=== PATIENT | male | born 1995 | race Caucasian/White ===

== ENCOUNTER 2020-08-09 07:11 | Outpatient (REF) | payer OTHER, SELFPAY ==
[2020-08-09 07:54] LABS: MANUAL DIFF FLAG NO
[2020-08-09 08:00] LABS: Basophils Percent Auto 0.4 % (0-2); Eosinophils Absolute Auto 0.4 X10*3/uL (0.0-0.4); Eosinophils Percent Auto 4.1 % (0-4); Hematocrit 45.3 % (42-52); Hemoglobin 14.4 g/dl (14.0-18.0); Imm Gran Abs Auto 0.05 X10*3/uL (0.00-0.03); Imm Gran Pct Auto 0.5 % (0.0-0.4); Lymphocytes Absolute Auto 3.1 X10*3/uL (1.2-4.9); Mean Corpuscular HGB Conc 31.8 g/dl (31.0-36.0); Mean Corpuscular Hemoglobin 26.1 pg (27.0-33.0); Mean Corpuscular Volume 82.2 fL (80-98); Mean Platelet Volume 8.6 fL (9.4-12.4); Monocytes Absolute Auto 0.7 X10*3/uL (0.1-1.2); Neutrophils Absolute Auto 5.4 X10*3/uL (2.0-8.3); Platelet Count 324 X10*3/uL (160-400); Red Blood Count 5.51 X10*6/uL (4.60-5.80); Red Cell Distribution Width 12.9 % (11.0-16.0); White Blood Count 9.7 X10*3/uL (4.8-10.8)
[2020-08-09 08:19] LABS: Anion Gap 11 (12-20); Blood Urea Nitrogen 14 mg/dL (9-16); Calcium 8.3 mg/dL (8.4-10.2); Carbon Dioxide 24 mmol/L (22-29); Chloride 107 mmol/L (96-108); Cholesterol 119 mg/dL; Estimated Glomerular Filt Rate > 60; Glucose Random 95 mg/dL (60-115); HDL Cholesterol 39 mg/dL; LDL Cholesterol Calculated 67 mg/dl; Potassium 4.3 mmol/l (3.3-5.1); Sodium 138 mmol/L (135-145); Triglycerides 69 mg/dL
[2020-08-09 08:36] LABS: Estimated Average Glucose 114 mg/dL; Hemoglobin A1c % 5.6 %
[2020-08-09 10:38] LABS: Creatinine Urine 125.18 mg/dL; Microalbum/Creatinine Ratio Ur 4.7 ug/mg cr
[2020-08-10 12:11] LABS: Prolactin 5.6 ng/mL (2.0-18.0)
[2020-08-11 12:17] LABS: Insulin Level Total 39.6 uIU/mL
== END 2020-08-09 07:12 | disposition home or self-care (01) ==
LOC: HO.LAB 07:11
PROVIDERS: Absent Provider Nurse Practitioner Gerontology; Visit Provider Registered Nurse Psychiatric/Mental Health
DX: F84.0 Autistic disorder (principal); E11.65 Type 2 diabetes mellitus with hyperglycemia; Z79.899 Other long term (current) drug therapy
CPT/HCPCS: 36415; 80048; 80061; 82043; 83036; 83525; 84146; 85025

== ENCOUNTER → 2020-11-04 08:58 | Outpatient (BNVA) | payer OTHER, SELFPAY | PROVIDERS: PCP Internal Medicine; Visit Provider Nurse Practitioner Gerontology ==

== ENCOUNTER 2021-06-06 19:35 | Emergency (ER) | payer OTHER, SELFPAY ==
[2021-06-06 19:46] VITALS: PULSE 84
--- NOTE | 2021-06-06 19:48 | ED_ITS ---
HPI - Psych General Chief Complaint: Psychiatric Symptoms <KRISTA Ng Last Filed: 06/07/21 02:05> Stated Complaint: CRISIS <KRISTA Ng Last Filed: 06/07/21 02:05> Time Seen by Provider: 06/06/21 19:47 <KRISTA Ng Last Filed: 06/07/21 02:05> Source: patient and EMS <KRISTA Ng Last Filed: 06/07/21 02:05> Mode of arrival: EMS <KRISTA Ng Last Filed: 06/07/21 02:05> Limitations: no limitations <KRISTA Ng Last Filed: 06/07/21 02:05> History of Present Illness HPI Narrative: 25 y/o male with history of significant cognitive delay, ADHD, DM2 on insulin who presents to the ER via EMS from home with violent and aggressive outburst. Mom had taken him to the [facility] prior. When they got home he suddenly became very angry and was throwing things. He broke a window. He could not be calmed down so Mom called 911. Mom reports for the last few days he has been acting strange. She came home the other day and he had shaved his entire head. Mother administers his medications every day and he has been taking them all as directed. On EMS arrival patient had calmed down, no medications were given. On arrival to the ER patient remained calm and cooperative. <KRISTA Ng Last Filed: 06/07/21 02:05> MD complaint: other (aggressive behavior) <KRISTA Ng - Last Filed: 06/07/21 02:05> Onset (ago): hour(s) <KRISTA Ng Last Filed: 06/07/21 02:05> Duration: resolved prior to arrival <KRISTA Ng - Last Filed: 06/07/21 02:05> History of same: Yes <KRISTA Ng Last Filed: 06/07/21 02:05> Relieving factors: none <KRISTA Ng Last Filed: 06/07/21 02:05> Exacerbating factors: none <KRISTA Ng - Last Filed: 06/07/21 02:05> Associated psychiatric symptoms: none <KRISTA Ng - Last Filed: 06/07/21 02:05> Associated symptoms: denies other symptoms <KRISTA Ng - Last Filed: 06/07/21 02:05> Treatments prior to arrival: none <KRISTA Ng - Last Filed: 06/07/21 02:05> Related Data Home Medications: Home Medications Medication Instructions Recorded Confirmed albuterol sulfate 90 mcg/actuation 1 puff PO Q4H PRN 11/04/20 06/06/21 aerosol inhaler aripiprazole 5 mg tablet 5 mg PO BEDTIME 11/04/20 06/06/21 benztropine 0.5 mg tablet 0.5 mg PO BID 11/04/20 06/06/21 blood sugar diagnostic #10 ea 11/04/20 11/04/20 clonidine HCl 0.1 mg tablet 0.1 mg PO DAILY 11/04/20 06/06/21 flash glucose sensor (FreeStyle #1 ea 11/04/20 11/04/20 Taj 14 Day Sensor) pen needle, diabetic 31 gauge x #1200 ea 11/04/20 11/04/20 5/16 topiramate 100 mg tablet 100 mg PO BID 11/04/20 06/06/21 trazodone 100 mg tablet 200 mg PO tab 11/04/20 11/04/20 Abilify 10 mg PO DAILY 06/06/21 06/06/21 clonidine 0.2 mg PO BEDTIME 06/06/21 06/06/21 dextroamphetamine-amphetamine ER 2 cap PO QAM 06/06/21 06/06/21 20 mg 24hr capsule,extend release (Adderall XR) dulaglutide 0.75 mg/0.5 mL 0.25 mg SUBCUT QWEEK 06/06/21 06/06/21 subcutaneous pen injector (Trulicity) insulin degludec 200 unit/mL (3 10 unit SUBCUT BEDTIME 06/06/21 06/06/21 mL) subcutaneous pen (Tresiba FlexTouch U-200 insulin) Previous Rx's Medication Instructions Recorded flash glucose sensor (FreeStyle #2 ea 11/04/20 Taj 14 Day Sensor) metformin 500 mg tablet,extended 500 mg PO BID #60 tab 11/04/20 release 24 hr pen needle, diabetic 32 gauge x #30 ea 11/04/20 (BD Ultra-Fine Emely Pen Needle) atorvastatin 40 mg tablet 40 mg PO DAILY #90 tab 04/26/21 <KRISTA Ng Last Filed: 06/07/21 02:05> Allergies/Adverse Reactions: Allergies Allergy/AdvReac Type Severity Reaction Status Date / Time No Known Allergies Allergy Unverified 11/04/20 11:20 [No Known Allergies*] <KRISTA Ng Last Filed: 06/07/21 02:05> Review of Systems Constitutional: Constitutional: Denies chills and Denies fever(s) <KRISTA Ng Last Filed: 06/07/21 02:05> Eyes: Eyes: Reports no additional eye complaints <KRISTA Ng Last Filed: 06/07/21 02:05> ENT: Reports Normal hearing present, Denies neck pain and Denies sore throat <KRISTA Ng Last Filed: 06/07/21 02:05> Cardiovascular: Cardiovascular: Denies chest pain and Denies dyspnea <KRISTA Ng Last Filed: 06/07/21 02:05> Respiratory: Respiratory: Denies cough and Denies dyspnea <KRISTA Ng Last Filed: 06/07/21 02:05> Gastrointestinal: Gastrointestinal: Denies abdominal pain, Denies nausea and Denies vomiting <KRISTA Ng Last Filed: 06/07/21 02:05> Musculoskeletal: Musculoskeletal: Denies neck pain <KRISTA Ng Last Filed: 06/07/21 02:05> Integumentary/Breasts: Skin/Breast: Reports pruritus, Reports new lesions and Reports rash <KRISTA Ng Last Filed: 06/07/21 02:05> Neurologic: Reports Normal hearing present <KRISTA Ng Last Filed: 06/07/21 02:05> Psychiatric: Psychiatric: Reports irritability, Reports mood swings, Denies homicidal ideation and Denies suicidal ideation <KRISTA Ng Last Filed: 06/07/21 02:05> Hematologic/Lymphatic: Hematologic/Lymphatic: Denies easy bleeding and Denies easy bruising <KRISTA Ng - Last Filed: 06/07/21 02:05> Allergic/Immunologic: Allergic/Immunologic: Denies urticaria <KRISTA Ng - Last Filed: 06/07/21 02:05> [facility] Past Medical History Medical History: Medical History Diabetes mellitus type 2, controlled, without complications Hyperlipidemia LDL goal <100 Type 2 diabetes mellitus with hyperglycemia, with long-term current use of insulin Type 2 diabetes mellitus with hypoglycemia without coma <KRISTA Ng - Last Filed: 06/07/21 02:05> Surgical History: Surgical History No history of previous surgery <KRISTA Ng - Last Filed: 06/07/21 02:05> Social History Social History: Social History (Updated 11/04/20 @ 09:00 by Reese Maloney [facility]) Household Members: Family Alcohol intake: never Patient Tobacco Use Status: Never used Tobacco Use of substances other than those prescribed or required for medical reasons: No Advance Directives: No <KRISTA Ng - Last Filed: 06/07/21 02:05> Physical Exam Vital Signs: Vital Signs: Last Vital Signs Temp 98.3 F 06/07/21 14:24 Pulse 76 06/07/21 14:24 Resp 16 06/07/21 14:24 BP 122/80 06/07/21 14:24 Pulse Ox 98 06/07/21 14:24 Body Mass Index 38.0 <KRISTA Ng - Last Filed: 06/07/21 02:05> Vital Signs: Last Vital Signs Temp 98.3 F 06/07/21 14:24 Pulse 76 06/07/21 14:24 Resp 16 06/07/21 14:24 BP 122/80 06/07/21 14:24 Pulse Ox 98 06/07/21 14:24 Body Mass Index 38.0 <Freddie Maradiaga MD - Last Filed: 06/07/21 09:57> Vital Signs: Last Vital Signs Temp 98.3 F 06/07/21 14:24 Pulse 76 06/07/21 14:24 Resp 16 06/07/21 14:24 BP 122/80 06/07/21 14:24 Pulse Ox 98 06/07/21 14:24 Body Mass Index 38.0 <Dominga Pleitez DO - Last Filed: 06/07/21 15:22> Appearance: Alert. Oriented X3. No acute distress. Eyes: Pupils equal, round and reactive to light. ENT: Pharynx normal. Neck: Normal inspection. Neck supple. CVS: Normal heart rate and rhythm. Pulses normal. Respiratory: No respiratory distress. Breath sounds normal. Abdomen: Obese, Soft and nontender. +BS x4 Skin: Skin warm and dry. Normal skin color. Normal skin turgor. No rashes. Extremities: No lower extremity edema. No traumatic injuries noted. left forearm with raised puritic rash & excoriations Neuro/psych: Oriented X 3. Slow to respond at times, refuses to answer some questions, simple answers, does not engage. denies SI/HI <KRISTA Ng - Last Filed: 06/07/21 02:05> Const: General: cooperative, comfortable and no acute distress <KRISTA Ng - Last Filed: 06/07/21 02:05> Nutritional Appearance: overweight <KRISTA Ng - Last Filed: 06/07/21 02:05> Orientation/consciousness: patient oriented x3 <KRISTA Ng Last Filed: 06/07/21 02:05> Limitations: other limitations (patient not answering some questions) <KRISTA Ng - Last Filed: 06/07/21 02:05> Neuro: General: patient oriented x3 <KRISTA Ng Last Filed: 06/07/21 02:05> Cranial nerves: Yes Normal hearing present <KRISTA Ng Last Filed: 06/07/21 02:05> Course Course Course Narrative: 25 y/o male with significant cognative delay presents from home with violent outburst and odd behaviors for the last few days. Will get metabolic workup and have [facility] evaluate him. <KRISTA Ng - Last Filed: 06/07/21 02:05> Reevaluation(s) Reevaluation #1: WBC 12.5 no signs of infection. Labs otherwise are unremarkable. Home med rec done. Patient cooperative. Physician observation started at 10pm. Patient placed in physician observation because patient is awaiting [facility] evaluation for the possible need of inpatient psych admission. At the time observation was started patient's vital signs were stable. Patient is alert and oriented. Neuro exam is non-focal. CV: RRR and lungs are clear. Will continue to monitor. <KRISTA Ng - Last Filed: 06/07/21 02:05> WBC 12.5 no signs of infection. Labs otherwise are unremarkable. Home med rec done. Patient cooperative. Physician observation started at 10pm. Patient placed in physician observation because patient is awaiting [facility] evaluation for the possible need of inpatient psych admission. At the time observation was started patient's vital signs were stable. Patient is alert and oriented. Neuro exam is non-focal. CV: RRR and lungs are clear. Will continue to monitor. 06/07/2021, 0954: Physician observation continued. Patient was evaluated by [facility] at 9:30 a.m. Patient has a history of mental deficiency/delay and was aggressive at home, destroying his room. The [facility] therapist determined that the patient will require inpatient therapy, therefore the patient was placed on a Section 12 and a bed search will be performed. At this time, the patient isresting comfortably, NAD, lungs clear, CV RRR, Abd nontender, Neuro intact. <Freddie Maradiaga MD - Last Filed: 06/07/21 09:57> Consultations Consultation #1: bhn <KRISTA Ng - Last Filed: 06/07/21 02:05> MDM - Psych Lab Data Result diagrams: : 06/06/21 21:09 06/06/21 21:09 <KRISTA Ng - Last Filed: 06/07/21 02:05> Labs: Lab Results 06/06/21 06/06/21 06/06/21 Range/Units 20:11 20:11 20:11 WBC (4.8-10.8) X10*3/uL RBC (4.60-5.80) X10*6/uL Hgb (14.0-18.0) g/dl Hct (42-52) % MCV (80-98) fL MCH (27.0-33.0) pg MCHC (31.0-36.0) g/dl RDW (11.0-16.0) % Plt Count (160-400) X10*3/uL MPV (9.4-12.4) fL Immature Gran % (Auto) (0.0-0.4) % Neut % (Auto) (45-73) % Lymph % (Auto) (20-40) % Worth % (Auto) (2-11) % Eos % (Auto) (0-4) % Baso % (Auto) (0-2) % Lymph # (Auto) (1.2-4.9) X10*3/uL Worth # (Auto) (0.1-1.2) X10*3/uL Eos # (Auto) (0.0-0.4) X10*3/uL Baso # (Auto) (0.0-0.2) X10*3/uL Abs Immat Gran (auto) (0.00-0.03) X10*3/uL Absolute Neuts (auto) (2.0-8.3) X10*3/uL Absolute Nucleated RBC (0.0-0.012) X10*3/uL Nucleated RBC % (auto) (0.0-0.2) /100WBC Sodium (135-145) mmol/L Potassium (3.3-5.1) mmol/L Chloride (96-108) mmol/L Carbon Dioxide (22-29) mmol/L Anion Gap (12-20) BUN (9-16) mg/dL Creatinine (0.5-1.4) mg/dL Estim Creat Clear Calc Estimated GFR POC Glucose (60-115) mg/dL Random Glucose (60-115) mg/dL Calcium (8.4-10.2) mg/dL Magnesium (1.6-2.6) mg/dL Total Bilirubin (0.0-1.0) mg/dL Direct Bilirubin (0.0-0.5) mg/dL AST (5-37) U/L ALT (0-40) U/L Alkaline Phosphatase (39-117) U/L Total Protein (6.5-8.0) g/dL Albumin (3.5-5.0) g/dL Urine Color YELLOW Urine Appearance CLEAR Urine pH 6.0 (5.0-8.0) Ur Specific [place] 1.025 (1.005-1.025) Urine Protein NEG (NEG-TRACE) MG/DL Urine Glucose (UA) NEG (NEG) MG/DL Urine Ketones NEG (NEG) MG/DL Urine Blood NEG (NEG) Urine Nitrite NEG (NEG) Ur Leukocyte Esterase NEG (NEG) Urine Opiates Screen Not Detected (Not Detect) Urine Fentanyl Screen Not Detected (Not Detect) Ur Barbiturates Screen Not Detected (Not Detect) Ur Phencyclidine Scrn Not Detected (Not Detect) Ur Amphetamines Screen POSITIVE H (Not Detect) U Benzodiazepines Scrn Not Detected (Not Detect) Urine Cocaine Screen Not Detected (Not Detect) U Marijuana (THC) Screen Not Detected (Not Detect) Ethyl Alcohol mg/dL COVID-19 ([facility]) Negative (Negative) COVID-19 Clin Com See Note 06/06/21 06/06/21 06/06/21 Range/Units 21:09 21:09 21:09 WBC 12.5 H (4.8-10.8) X10*3/uL RBC 5.68 (4.60-5.80) X10*6/uL Hgb 14.9 (14.0-18.0) g/dl Hct 45.5 (42-52) % MCV 80.1 (80-98) fL MCH 26.2 L (27.0-33.0) pg MCHC 32.7 (31.0-36.0) g/dl RDW 13.8 (11.0-16.0) % Plt Count 397 (160-400) X10*3/uL MPV 8.1 L (9.4-12.4) fL Immature Gran % (Auto) 0.5 H (0.0-0.4) % Neut % (Auto) 58.5 (45-73) % Lymph % (Auto) 30.2 (20-40) % Worth % (Auto) 6.4 (2-11) % Eos % (Auto) 4.0 (0-4) % Baso % (Auto) 0.4 (0-2) % Lymph # (Auto) 3.8 (1.2-4.9) X10*3/uL Worth # (Auto) 0.8 (0.1-1.2) X10*3/uL Eos # (Auto) 0.5 H (0.0-0.4) X10*3/uL Baso # (Auto) 0.1 (0.0-0.2) X10*3/uL Abs Immat Gran (auto) 0.06 H (0.00-0.03) X10*3/uL Absolute Neuts (auto) 7.3 (2.0-8.3) X10*3/uL Absolute Nucleated RBC 0.000 (0.0-0.012) X10*3/uL Nucleated RBC % (auto) 0.0 (0.0-0.2) /100WBC Sodium 142 (135-145) mmol/L Potassium 3.9 (3.3-5.1) mmol/L Chloride 110 H (96-108) mmol/L Carbon Dioxide 22 (22-29) mmol/L Anion Gap 14 (12-20) BUN 12 (9-16) mg/dL Creatinine 1.11 (0.5-1.4) mg/dL Estim Creat Clear Calc 124.3 Estimated GFR > 60 POC Glucose (60-115) mg/dL Random Glucose 102 (60-115) mg/dL Calcium 9.4 D (8.4-10.2) mg/dL Magnesium 2.0 (1.6-2.6) mg/dL Total Bilirubin 0.6 (0.0-1.0) mg/dL Direct Bilirubin 0.2 (0.0-0.5) mg/dL AST 23 (5-37) U/L ALT 27 (0-40) U/L Alkaline Phosphatase 126 H (39-117) U/L Total Protein 7.8 (6.5-8.0) g/dL Albumin 4.2 (3.5-5.0) g/dL Urine Color Urine Appearance Urine pH (5.0-8.0) Ur Specific [place] (1.005-1.025) Urine Protein (NEG-TRACE) MG/DL Urine Glucose (UA) (NEG) MG/DL Urine Ketones (NEG) MG/DL Urine Blood (NEG) Urine Nitrite (NEG) Ur Leukocyte Esterase (NEG) Urine Opiates Screen (Not Detect) Urine Fentanyl Screen (Not Detect) Ur Barbiturates Screen (Not Detect) Ur Phencyclidine Scrn (Not Detect) Ur Amphetamines Screen (Not Detect) U Benzodiazepines Scrn (Not Detect) Urine Cocaine Screen (Not Detect) U Marijuana (THC) Screen (Not Detect) Ethyl Alcohol mg/dL COVID-19 ([facility]) (Negative) COVID-19 Clin Com 06/06/21 06/07/21 06/07/21 Range/Units 21:09 06:32 12:07 WBC (4.8-10.8) X10*3/uL RBC (4.60-5.80) X10*6/uL Hgb (14.0-18.0) g/dl Hct (42-52) % MCV (80-98) fL MCH (27.0-33.0) pg MCHC (31.0-36.0) g/dl RDW (11.0-16.0) % Plt Count (160-400) X10*3/uL MPV (9.4-12.4) fL Immature Gran % (Auto) (0.0-0.4) % Neut % (Auto) (45-73) % Lymph % (Auto) (20-40) % Worth % (Auto) (2-11) % Eos % (Auto) (0-4) % Baso % (Auto) (0-2) % Lymph # (Auto) (1.2-4.9) X10*3/uL Worth # (Auto) (0.1-1.2) X10*3/uL Eos # (Auto) (0.0-0.4) X10*3/uL Baso # (Auto) (0.0-0.2) X10*3/uL Abs Immat Gran (auto) (0.00-0.03) X10*3/uL Absolute Neuts (auto) (2.0-8.3) X10*3/uL Absolute Nucleated RBC (0.0-0.012) X10*3/uL Nucleated RBC % (auto) (0.0-0.2) /100WBC Sodium (135-145) mmol/L Potassium (3.3-5.1) mmol/L Chloride (96-108) mmol/L Carbon Dioxide (22-29) mmol/L Anion Gap (12-20) BUN (9-16) mg/dL Creatinine (0.5-1.4) mg/dL Estim Creat Clear Calc Estimated GFR POC Glucose 90 107 (60-115) mg/dL Random Glucose (60-115) mg/dL Calcium (8.4-10.2) mg/dL Magnesium (1.6-2.6) mg/dL Total Bilirubin (0.0-1.0) mg/dL Direct Bilirubin (0.0-0.5) mg/dL AST (5-37) U/L ALT (0-40) U/L Alkaline Phosphatase (39-117) U/L Total Protein (6.5-8.0) g/dL Albumin (3.5-5.0) g/dL Urine Color Urine Appearance Urine pH (5.0-8.0) Ur Specific [place] (1.005-1.025) Urine Protein (NEG-TRACE) MG/DL Urine Glucose (UA) (NEG) MG/DL Urine Ketones (NEG) MG/DL Urine Blood (NEG) Urine Nitrite (NEG) Ur Leukocyte Esterase (NEG) Urine Opiates Screen (Not Detect) Urine Fentanyl Screen (Not Detect) Ur Barbiturates Screen (Not Detect) Ur Phencyclidine Scrn (Not Detect) Ur Amphetamines Screen (Not Detect) U Benzodiazepines Scrn (Not Detect) Urine Cocaine Screen (Not Detect) U Marijuana (THC) Screen (Not Detect) Ethyl Alcohol < 10 mg/dL COVID-19 ([facility]) (Negative) COVID-19 Clin Com <KRISTA Ng - Last Filed: 06/07/21 02:05> Lab Results 06/06/21 06/06/21 06/06/21 Range/Units 20:11 20:11 20:11 WBC (4.8-10.8) X10*3/uL RBC (4.60-5.80) X10*6/uL Hgb (14.0-18.0) g/dl Hct (42-52) % MCV (80-98) fL MCH (27.0-33.0) pg MCHC (31.0-36.0) g/dl RDW (11.0-16.0) % Plt Count (160-400) X10*3/uL MPV (9.4-12.4) fL Immature Gran % (Auto) (0.0-0.4) % Neut % (Auto) (45-73) % Lymph % (Auto) (20-40) % Worth % (Auto) (2-11) % Eos % (Auto) (0-4) % Baso % (Auto) (0-2) % Lymph # (Auto) (1.2-4.9) X10*3/uL Worth # (Auto) (0.1-1.2) X10*3/uL Eos # (Auto) (0.0-0.4) X10*3/uL Baso # (Auto) (0.0-0.2) X10*3/uL Abs Immat Gran (auto) (0.00-0.03) X10*3/uL Absolute Neuts (auto) (2.0-8.3) X10*3/uL Absolute Nucleated RBC (0.0-0.012) X10*3/uL Nucleated RBC % (auto) (0.0-0.2) /100WBC Sodium (135-145) mmol/L Potassium (3.3-5.1) mmol/L Chloride (96-108) mmol/L Carbon Dioxide (22-29) mmol/L Anion Gap (12-20) BUN (9-16) mg/dL Creatinine (0.5-1.4) mg/dL Estim Creat Clear Calc Estimated GFR POC Glucose (60-115) mg/dL Random Glucose (60-115) mg/dL Calcium (8.4-10.2) mg/dL Magnesium (1.6-2.6) mg/dL Total Bilirubin (0.0-1.0) mg/dL Direct Bilirubin (0.0-0.5) mg/dL AST (5-37) U/L ALT (0-40) U/L Alkaline Phosphatase (39-117) U/L Total Protein (6.5-8.0) g/dL Albumin (3.5-5.0) g/dL Urine Color YELLOW Urine Appearance CLEAR Urine pH 6.0 (5.0-8.0) Ur Specific [place] 1.025 (1.005-1.025) Urine Protein NEG (NEG-TRACE) MG/DL Urine Glucose (UA) NEG (NEG) MG/DL Urine Ketones NEG (NEG) MG/DL Urine Blood NEG (NEG) Urine Nitrite NEG (NEG) Ur Leukocyte Esterase NEG (NEG) Urine Opiates Screen Not Detected (Not Detect) Urine Fentanyl Screen Not Detected (Not Detect) Ur Barbiturates Screen Not Detected (Not Detect) Ur Phencyclidine Scrn Not Detected (Not Detect) Ur Amphetamines Screen POSITIVE H (Not Detect) U Benzodiazepines Scrn Not Detected (Not Detect) Urine Cocaine Screen Not Detected (Not Detect) U Marijuana (THC) Screen Not Detected (Not Detect) Ethyl Alcohol mg/dL COVID-19 ([facility]) Negative (Negative) COVID-19 Clin Com See Note 06/06/21 06/06/21 06/06/21 Range/Units 21:09 21:09 21:09 WBC 12.5 H (4.8-10.8) X10*3/uL RBC 5.68 (4.60-5.80) X10*6/uL Hgb 14.9 (14.0-18.0) g/dl Hct 45.5 (42-52) % MCV 80.1 (80-98) fL MCH 26.2 L (27.0-33.0) pg MCHC 32.7 (31.0-36.0) g/dl RDW 13.8 (11.0-16.0) % Plt Count 397 (160-400) X10*3/uL MPV 8.1 L (9.4-12.4) fL Immature Gran % (Auto) 0.5 H (0.0-0.4) % Neut % (Auto) 58.5 (45-73) % Lymph % (Auto) 30.2 (20-40) % Worth % (Auto) 6.4 (2-11) % Eos % (Auto) 4.0 (0-4) % Baso % (Auto) 0.4 (0-2) % Lymph # (Auto) 3.8 (1.2-4.9) X10*3/uL Worth # (Auto) 0.8 (0.1-1.2) X10*3/uL Eos # (Auto) 0.5 H (0.0-0.4) X10*3/uL Baso # (Auto) 0.1 (0.0-0.2) X10*3/uL Abs Immat Gran (auto) 0.06 H (0.00-0.03) X10*3/uL Absolute Neuts (auto) 7.3 (2.0-8.3) X10*3/uL Absolute Nucleated RBC 0.000 (0.0-0.012) X10*3/uL Nucleated RBC % (auto) 0.0 (0.0-0.2) /100WBC Sodium 142 (135-145) mmol/L Potassium 3.9 (3.3-5.1) mmol/L Chloride 110 H (96-108) mmol/L Carbon Dioxide 22 (22-29) mmol/L Anion Gap 14 (12-20) BUN 12 (9-16) mg/dL Creatinine 1.11 (0.5-1.4) mg/dL Estim Creat Clear Calc 124.3 Estimated GFR > 60 POC Glucose (60-115) mg/dL Random Glucose 102 (60-115) mg/dL Calcium 9.4 D (8.4-10.2) mg/dL Magnesium 2.0 (1.6-2.6) mg/dL Total Bilirubin 0.6 (0.0-1.0) mg/dL Direct Bilirubin 0.2 (0.0-0.5) mg/dL AST 23 (5-37) U/L ALT 27 (0-40) U/L Alkaline Phosphatase 126 H (39-117) U/L Total Protein 7.8 (6.5-8.0) g/dL Albumin 4.2 (3.5-5.0) g/dL Urine Color Urine Appearance Urine pH (5.0-8.0) Ur Specific [place] (1.005-1.025) Urine Protein (NEG-TRACE) MG/DL Urine Glucose (UA) (NEG) MG/DL Urine Ketones (NEG) MG/DL Urine Blood (NEG) Urine Nitrite (NEG) Ur Leukocyte Esterase (NEG) Urine Opiates Screen (Not Detect) Urine Fentanyl Screen (Not Detect) Ur Barbiturates Screen (Not Detect) Ur Phencyclidine Scrn (Not Detect) Ur Amphetamines Screen (Not Detect) U Benzodiazepines Scrn (Not Detect) Urine Cocaine Screen (Not Detect) U Marijuana (THC) Screen (Not Detect) Ethyl Alcohol mg/dL COVID-19 ([facility]) (Negative) COVID-19 Clin Com 06/06/21 06/07/21 06/07/21 Range/Units 21:09 06:32 12:07 WBC (4.8-10.8) X10*3/uL RBC (4.60-5.80) X10*6/uL Hgb (14.0-18.0) g/dl Hct (42-52) % MCV (80-98) fL MCH (27.0-33.0) pg MCHC (31.0-36.0) g/dl RDW (11.0-16.0) % Plt Count (160-400) X10*3/uL MPV (9.4-12.4) fL Immature Gran % (Auto) (0.0-0.4) % Neut % (Auto) (45-73) % Lymph % (Auto) (20-40) % Worth % (Auto) (2-11) % Eos % (Auto) (0-4) % Baso % (Auto) (0-2) % Lymph # (Auto) (1.2-4.9) X10*3/uL Worth # (Auto) (0.1-1.2) X10*3/uL Eos # (Auto) (0.0-0.4) X10*3/uL Baso # (Auto) (0.0-0.2) X10*3/uL Abs Immat Gran (auto) (0.00-0.03) X10*3/uL Absolute Neuts (auto) (2.0-8.3) X10*3/uL Absolute Nucleated RBC (0.0-0.012) X10*3/uL Nucleated RBC % (auto) (0.0-0.2) /100WBC Sodium (135-145) mmol/L Potassium (3.3-5.1) mmol/L Chloride (96-108) mmol/L Carbon Dioxide (22-29) mmol/L Anion Gap (12-20) BUN (9-16) mg/dL Creatinine (0.5-1.4) mg/dL Estim Creat Clear Calc Estimated GFR POC Glucose 90 107 (60-115) mg/dL Random Glucose (60-115) mg/dL Calcium (8.4-10.2) mg/dL Magnesium (1.6-2.6) mg/dL Total Bilirubin (0.0-1.0) mg/dL Direct Bilirubin (0.0-0.5) mg/dL AST (5-37) U/L ALT (0-40) U/L Alkaline Phosphatase (39-117) U/L Total Protein (6.5-8.0) g/dL Albumin (3.5-5.0) g/dL Urine Color Urine Appearance Urine pH (5.0-8.0) Ur Specific [place] (1.005-1.025) Urine Protein (NEG-TRACE) MG/DL Urine Glucose (UA) (NEG) MG/DL Urine Ketones (NEG) MG/DL Urine Blood (NEG) Urine Nitrite (NEG) Ur Leukocyte Esterase (NEG) Urine Opiates Screen (Not Detect) Urine Fentanyl Screen (Not Detect) Ur Barbiturates Screen (Not Detect) Ur Phencyclidine Scrn (Not Detect) Ur Amphetamines Screen (Not Detect) U Benzodiazepines Scrn (Not Detect) Urine Cocaine Screen (Not Detect) U Marijuana (THC) Screen (Not Detect) Ethyl Alcohol < 10 mg/dL COVID-19 ([facility]) (Negative) COVID-19 Clin Com <Freddie Maradiaga MD - Last Filed: 06/07/21 09:57> Lab Results 06/06/21 06/06/21 06/06/21 Range/Units 20:11 20:11 20:11 WBC (4.8-10.8) X10*3/uL RBC (4.60-5.80) X10*6/uL Hgb (14.0-18.0) g/dl Hct (42-52) % MCV (80-98) fL MCH (27.0-33.0) pg MCHC (31.0-36.0) g/dl RDW (11.0-16.0) % Plt Count (160-400) X10*3/uL MPV (9.4-12.4) fL Immature Gran % (Auto) (0.0-0.4) % Neut % (Auto) (45-73) % Lymph % (Auto) (20-40) % Worth % (Auto) (2-11) % Eos % (Auto) (0-4) % Baso % (Auto) (0-2) % Lymph # (Auto) (1.2-4.9) X10*3/uL Worth # (Auto) (0.1-1.2) X10*3/uL Eos # (Auto) (0.0-0.4) X10*3/uL Baso # (Auto) (0.0-0.2) X10*3/uL Abs Immat Gran (auto) (0.00-0.03) X10*3/uL Absolute Neuts (auto) (2.0-8.3) X10*3/uL Absolute Nucleated RBC (0.0-0.012) X10*3/uL Nucleated RBC % (auto) (0.0-0.2) /100WBC Sodium (135-145) mmol/L Potassium (3.3-5.1) mmol/L Chloride (96-108) mmol/L Carbon Dioxide (22-29) mmol/L Anion Gap (12-20) BUN (9-16) mg/dL Creatinine (0.5-1.4) mg/dL Estim Creat Clear Calc Estimated GFR POC Glucose (60-115) mg/dL Random Glucose (60-115) mg/dL Calcium (8.4-10.2) mg/dL Magnesium (1.6-2.6) mg/dL Total Bilirubin (0.0-1.0) mg/dL Direct Bilirubin (0.0-0.5) mg/dL AST (5-37) U/L ALT (0-40) U/L Alkaline Phosphatase (39-117) U/L Total Protein (6.5-8.0) g/dL Albumin (3.5-5.0) g/dL Urine Color YELLOW Urine Appearance CLEAR Urine pH 6.0 (5.0-8.0) Ur Specific [place] 1.025 (1.005-1.025) Urine Protein NEG (NEG-TRACE) MG/DL Urine Glucose (UA) NEG (NEG) MG/DL Urine Ketones NEG (NEG) MG/DL Urine Blood NEG (NEG) Urine Nitrite NEG (NEG) Ur Leukocyte Esterase NEG (NEG) Urine Opiates Screen Not Detected (Not Detect) Urine Fentanyl Screen Not Detected (Not Detect) Ur Barbiturates Screen Not Detected (Not Detect) Ur Phencyclidine Scrn Not Detected (Not Detect) Ur Amphetamines Screen POSITIVE H (Not Detect) U Benzodiazepines Scrn Not Detected (Not Detect) Urine Cocaine Screen Not Detected (Not Detect) U Marijuana (THC) Screen Not Detected (Not Detect) Ethyl Alcohol mg/dL COVID-19 ([facility]) Negative (Negative) COVID-19 Clin Com See Note 06/06/21 06/06/21 06/06/21 Range/Units 21:09 21:09 21:09 WBC 12.5 H (4.8-10.8) X10*3/uL RBC 5.68 (4.60-5.80) X10*6/uL Hgb 14.9 (14.0-18.0) g/dl Hct 45.5 (42-52) % MCV 80.1 (80-98) fL MCH 26.2 L (27.0-33.0) pg MCHC 32.7 (31.0-36.0) g/dl RDW 13.8 (11.0-16.0) % Plt Count 397 (160-400) X10*3/uL MPV 8.1 L (9.4-12.4) fL Immature Gran % (Auto) 0.5 H (0.0-0.4) % Neut % (Auto) 58.5 (45-73) % Lymph % (Auto) 30.2 (20-40) % Worth % (Auto) 6.4 (2-11) % Eos % (Auto) 4.0 (0-4) % Baso % (Auto) 0.4 (0-2) % Lymph # (Auto) 3.8 (1.2-4.9) X10*3/uL Worth # (Auto) 0.8 (0.1-1.2) X10*3/uL Eos # (Auto) 0.5 H (0.0-0.4) X10*3/uL Baso # (Auto) 0.1 (0.0-0.2) X10*3/uL Abs Immat Gran (auto) 0.06 H (0.00-0.03) X10*3/uL Absolute Neuts (auto) 7.3 (2.0-8.3) X10*3/uL Absolute Nucleated RBC 0.000 (0.0-0.012) X10*3/uL Nucleated RBC % (auto) 0.0 (0.0-0.2) /100WBC Sodium 142 (135-145) mmol/L Potassium 3.9 (3.3-5.1) mmol/L Chloride 110 H (96-108) mmol/L Carbon Dioxide 22 (22-29) mmol/L Anion Gap 14 (12-20) BUN 12 (9-16) mg/dL Creatinine 1.11 (0.5-1.4) mg/dL Estim Creat Clear Calc 124.3 Estimated GFR > 60 POC Glucose (60-115) mg/dL Random Glucose 102 (60-115) mg/dL Calcium 9.4 D (8.4-10.2) mg/dL Magnesium 2.0 (1.6-2.6) mg/dL Total Bilirubin 0.6 (0.0-1.0) mg/dL Direct Bilirubin 0.2 (0.0-0.5) mg/dL AST 23 (5-37) U/L ALT 27 (0-40) U/L Alkaline Phosphatase 126 H (39-117) U/L Total Protein 7.8 (6.5-8.0) g/dL Albumin 4.2 (3.5-5.0) g/dL Urine Color Urine Appearance Urine pH (5.0-8.0) Ur Specific [place] (1.005-1.025) Urine Protein (NEG-TRACE) MG/DL Urine Glucose (UA) (NEG) MG/DL Urine Ketones (NEG) MG/DL Urine Blood (NEG) Urine Nitrite (NEG) Ur Leukocyte Esterase (NEG) Urine Opiates Screen (Not Detect) Urine Fentanyl Screen (Not Detect) Ur Barbiturates Screen (Not Detect) Ur Phencyclidine Scrn (Not Detect) Ur Amphetamines Screen (Not Detect) U Benzodiazepines Scrn (Not Detect) Urine Cocaine Screen (Not Detect) U Marijuana (THC) Screen (Not Detect) Ethyl Alcohol mg/dL COVID-19 ([facility]) (Negative) COVID-19 Clin Com 06/06/21 06/07/21 06/07/21 Range/Units 21:09 06:32 12:07 WBC (4.8-10.8) X10*3/uL RBC (4.60-5.80) X10*6/uL Hgb (14.0-18.0) g/dl Hct (42-52) % MCV (80-98) fL MCH (27.0-33.0) pg MCHC (31.0-36.0) g/dl RDW (11.0-16.0) % Plt Count (160-400) X10*3/uL MPV (9.4-12.4) fL Immature Gran % (Auto) (0.0-0.4) % Neut % (Auto) (45-73) % Lymph % (Auto) (20-40) % Worth % (Auto) (2-11) % Eos % (Auto) (0-4) % Baso % (Auto) (0-2) % Lymph # (Auto) (1.2-4.9) X10*3/uL Worth # (Auto) (0.1-1.2) X10*3/uL Eos # (Auto) (0.0-0.4) X10*3/uL Baso # (Auto) (0.0-0.2) X10*3/uL Abs Immat Gran (auto) (0.00-0.03) X10*3/uL Absolute Neuts (auto) (2.0-8.3) X10*3/uL Absolute Nucleated RBC (0.0-0.012) X10*3/uL Nucleated RBC % (auto) (0.0-0.2) /100WBC Sodium (135-145) mmol/L Potassium (3.3-5.1) mmol/L Chloride (96-108) mmol/L Carbon Dioxide (22-29) mmol/L Anion Gap (12-20) BUN (9-16) mg/dL Creatinine (0.5-1.4) mg/dL Estim Creat Clear Calc Estimated GFR POC Glucose 90 107 (60-115) mg/dL Random Glucose (60-115) mg/dL Calcium (8.4-10.2) mg/dL Magnesium (1.6-2.6) mg/dL Total Bilirubin (0.0-1.0) mg/dL Direct Bilirubin (0.0-0.5) mg/dL AST (5-37) U/L ALT (0-40) U/L Alkaline Phosphatase (39-117) U/L Total Protein (6.5-8.0) g/dL Albumin (3.5-5.0) g/dL Urine Color Urine Appearance Urine pH (5.0-8.0) Ur Specific [place] (1.005-1.025) Urine Protein (NEG-TRACE) MG/DL Urine Glucose (UA) (NEG) MG/DL Urine Ketones (NEG) MG/DL Urine Blood (NEG) Urine Nitrite (NEG) Ur Leukocyte Esterase (NEG) Urine Opiates Screen (Not Detect) Urine Fentanyl Screen (Not Detect) Ur Barbiturates Screen (Not Detect) Ur Phencyclidine Scrn (Not Detect) Ur Amphetamines Screen (Not Detect) U Benzodiazepines Scrn (Not Detect) Urine Cocaine Screen (Not Detect) U Marijuana (THC) Screen (Not Detect) Ethyl Alcohol < 10 mg/dL COVID-19 ([facility]) (Negative) COVID-19 Clin Com <Dominga Pleitez DO - Last Filed: 06/07/21 15:22> Discharge Plan Discharge Clinical Impression: Aggressive outburst <KRISTA Ng - Last Filed: 06/07/21 02:05> Prescriptions: No Action atorvastatin 40 mg tablet 40 mg PO DAILY Qty: 90 RF: 0 Abilify 10 mg PO DAILY RF: 0 dextroamphetamine-amphetamine [Adderall XR] 20 mg capsule,extended release 24hr 2 cap PO QAM RF: 0 Tresiba FlexTouch U-200 200 unit/mL (3 mL) insulin pen 10 unit subcut BEDTIME RF: 0 Trulicity 0.75 mg/0.5 mL pen injector 0.25 mg subcut QWEEK RF: 0 clonidine 0.2 mg PO BEDTIME RF: 0 albuterol sulfate 90 mcg/actuation HFA aerosol inhaler 1 puff PO Q4H PRN (Reason: Wheezing) RF: 0 (DME) FreeStyle Precision Wilmer Strips Strip See Rx Instructions ea Not Applicable DAILY Qty: 10 RF: 0 aripiprazole 5 mg tablet 5 mg PO BEDTIME RF: 0 topiramate 100 mg tablet 100 mg PO BID RF: 0 trazodone 100 mg tablet 200 mg PO RF: 0 benztropine 0.5 mg tablet 0.5 mg PO BID RF: 0 clonidine HCl 0.1 mg tablet 0.1 mg PO DAILY RF: 0 (DME) pen needle, diabetic 31 gauge x 5/16 needle See Rx Instructions ea subcut .MEDSUPPLY Qty: 1200 RF: 0 (DME) FreeStyle Taj 14 Day Sensor Kit See Rx Instructions .ROUTE .MEDSUPPLY Qty: 1 RF: 0 metformin 500 mg tablet extended release 24 hr 500 mg PO BID Qty: 60 RF: 3 (DME) FreeStyle Taj 14 Day Sensor Kit See Rx Instructions .ROUTE .MEDSUPPLY Qty: 2 RF: 11 (DME) pen needle, diabetic [BD Ultra-Fine Emely Pen Needle] 32 gauge x 5/32 needle See Rx Instructions .ROUTE .MEDSUPPLY Qty: 30 RF: 11 <KRISTA Ng - Last Filed: 06/07/21 02:05>
[2021-06-06 19:52] VITALS: BP 123/68; PULSE 101; RESP 18; TEMP 37.2; O2SAT 97; BMI 38.0
--- NOTE | 2021-06-06 20:06 | PC.NURSE ---
pt is calm and cooperative and allowing vitals and labs to be drawn.
--- NOTE | 2021-06-06 20:23 | PC.NURSE ---
mom and aunt in the waiting room, mom has been brought back to see her son, son was asked first if he wanted her to come back and he said yes. aggrement made for safety and pt understood if any upset mom will have to step out. pt difficult stick and phl called to collect blood.
[2021-06-06 20:29] LABS: Glucose Urine UA NEG (NEG); Leukocyte Esterase Urine NEG (NEG); Nitrite Urine NEG (NEG); Specific Gravity - Urine 1.025 (1.005-1.025); Urine Blood NEG (NEG); Urine Ketones NEG (NEG); Urine Protein NEG (NEG-TRACE)
[2021-06-06 20:45] LABS: Amphetamine Screen Urine POSITIVE (Not Detect); Barbiturates, Urine Not Detected (Not Detect); Benzodiazepines Screen Urine Not Detected (Not Detect); Cannabinoid Screen Urine Not Detected (Not Detect); Cocaine Screen Urine Not Detected (Not Detect); Fentanyl, urine Not Detected (Not Detect); Opiate Screen Urine Not Detected (Not Detect); Phencyclidine Screen Urine Not Detected (Not Detect)
[2021-06-06 20:48] LABS: Appearance Urine CLEAR; Color Urine YELLOW
[2021-06-06 21:01] LABS: COVID-19 Test Negative (Negative); IDNOW Serial# 55D5AD1C
--- NOTE | 2021-06-06 21:03 | PC.NURSE ---
mom is the parent and legal guarding of the pt. lio [place] [phone] home [phone] mom states he has a CGM in his arm to report his blood glucose level and is good for 14 days. mom states the pt usally is admitted when this occures, mom has other children at home.
[2021-06-06 21:14] LABS: MANUAL DIFF FLAG NO
[2021-06-06 21:16] LABS: Basophils Absolute Auto 0.1 X10*3/uL (0.0-0.2); Basophils Percent Auto 0.4 % (0-2); Eosinophils Absolute Auto 0.5 X10*3/uL (0.0-0.4); Hematocrit 45.5 % (42-52); Hemoglobin 14.9 g/dl (14.0-18.0); Imm Gran Abs Auto 0.06 X10*3/uL (0.00-0.03); Imm Gran Pct Auto 0.5 % (0.0-0.4); Lymphocytes Absolute Auto 3.8 X10*3/uL (1.2-4.9); Lymphocytes Percent Auto 30.2 % (20-40); Mean Corpuscular HGB Conc 32.7 g/dl (31.0-36.0); Mean Corpuscular Hemoglobin 26.2 pg (27.0-33.0); Mean Corpuscular Volume 80.1 fL (80-98); Mean Platelet Volume 8.1 fL (9.4-12.4); Monocytes Absolute Auto 0.8 X10*3/uL (0.1-1.2); Monocytes Percent Auto 6.4 % (2-11); Neutrophils Absolute Auto 7.3 X10*3/uL (2.0-8.3); Neutrophils Percent Auto 58.5 % (45-73); Platelet Count 397 X10*3/uL (160-400); Red Blood Count 5.68 X10*6/uL (4.60-5.80); Red Cell Distribution Width 13.8 % (11.0-16.0); White Blood Count 12.5 X10*3/uL (4.8-10.8)
--- NOTE | 2021-06-06 21:21 | PC.NURSE ---
pharmacy called for hydrocortizone cream that is not available in the pyxis.
[2021-06-06 21:27] LABS: Ethanol < 10 mg/dL
[2021-06-06 21:28] LABS: Anion Gap 14 (12-20); Blood Urea Nitrogen 12 mg/dL (9-16); Calcium 9.4 mg/dL (8.4-10.2); Carbon Dioxide 22 mmol/L (22-29); Chloride 110 mmol/L (96-108); Creatinine Clr Calc Pharmacy 124.3; Estimated Glomerular Filt Rate > 60; Glucose Random 102 mg/dL (60-115); Potassium 3.9 mmol/L (3.3-5.1); Sodium 142 mmol/L (135-145)
[2021-06-06 21:31] LABS: Alanine Aminotransferase 27 U/L (0-40); Albumin Level 4.2 g/dL (3.5-5.0); Alkaline Phosphatase 126 U/L (39-117); Aspartate Amino Transferase 23 U/L (5-37); Bilirubin Direct 0.2 mg/dL (0.0-0.5); Bilirubin Total 0.6 mg/dL (0.0-1.0); Total Protein 7.8 g/dL (6.5-8.0)
[2021-06-06] MEDS: Hydrocortisone 1 % Ointment 28.35 GM TUBE 1 APPL TOPICAL (21:36)
--- NOTE | 2021-06-06 22:21 | PC.NURSE ---
[facility] called and will try to see the pt tonight if not in the am.
[2021-06-07] VITALS (12 sets, daily range): BP systolic 108–126; BP diastolic 55–80; PULSE 66–96; RESP 16–18; TEMP 36.6–37.1; O2SAT 96–99
[2021-06-07] MEDS: ARIPiprazole 5 MG TABLET PO ×2 (01:13→20:37)
[2021-06-07 06:38] LABS: Glucose, Whole Blood 90 mg/dL (60-115)
--- NOTE | 2021-06-07 07:43 | PC.NURSE ---
[facility] called will be in to see pt this am.
[2021-06-07] MEDS: metFORMIN HCl ER 500 MG TAB.ER.24H PO ×2 (08:22→20:37)
[2021-06-07] MEDS: cloNIDine HCL 0.1 MG TABLET PO (08:24)
[2021-06-07] MEDS: Atorvastatin Calcium 40 MG TABLET PO (08:27)
[2021-06-07] MEDS: Topiramate 100 MG TABLET PO ×2 (08:27→20:37)
[2021-06-07] MEDS: ARIPiprazole 10 MG TABLET PO (08:28)
[2021-06-07] MEDS: Benztropine Mesylate 0.5 MG TABLET PO ×2 (08:28→20:37)
[2021-06-07] MEDS: Hydrocortisone 1 % Ointment 28.35 GM TUBE 1 APPL TOPICAL ×2 (08:29→20:37)
--- NOTE | 2021-06-07 08:43 | PC.NURSE ---
jazmin Alarconbebe) at bedside, pt aware of plan of care.
[2021-06-07 12:11] LABS: Glucose, Whole Blood 107 mg/dL (60-115)
[2021-06-07] MEDS: LORazepam 2 MG/ML VIAL IM (15:25)
[2021-06-07] MEDS: Haloperidol Lactate 5 MG/ML VIAL IM (15:25)
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
--- NOTE | 2021-06-07 16:18 | PC.NURSE ---
Physical restraints started at 1525 and discontinued 1610. See restraint paperwork/ order. Patient calm cooperative at this time.
--- NOTE | 2021-06-07 16:45 | PC.NURSE ---
Patient calm cooperative at this time. Pending inpatient bed.
[2021-06-07] MEDS: cloNIDine HCL 0.2 MG TABLET PO (20:37)
[2021-06-07 20:38] LABS: Glucose, Whole Blood 112 mg/dL (60-115)
--- NOTE | 2021-06-07 20:49 | PC.NURSE ---
Patient eating dinner, medicated per DEC for nightly medication.
[2021-06-08 06:00] VITALS: BP 115/70; PULSE 74; RESP 18; TEMP 36.6; O2SAT 99
--- NOTE | 2021-06-08 06:22 | PC.NURSE ---
Patient slept through the night, no distress observed/reported, VSS, patient reported he feels his sugar is low, POC checked was 109 at 0620, behavior calm and quiet, appetite good, will continue to monitor.
[2021-06-08 06:25] LABS: Glucose, Whole Blood 109 mg/dL (60-115)
--- NOTE | 2021-06-08 07:24 | PC.NURSE ---
patient appeared to remain at rest at beginning of shift appeared in no distress, respirations are even and unlabored
[2021-06-08 07:41] VITALS: BP 115/70; PULSE 74
[2021-06-08] MEDS: Atorvastatin Calcium 40 MG TABLET PO (07:41)
[2021-06-08] MEDS: cloNIDine HCL 0.1 MG TABLET PO (07:41)
[2021-06-08] MEDS: Topiramate 100 MG TABLET PO ×2 (07:41→20:04)
[2021-06-08] MEDS: ARIPiprazole 10 MG TABLET PO (07:41)
[2021-06-08] MEDS: Benztropine Mesylate 0.5 MG TABLET PO ×2 (07:41→20:03)
[2021-06-08] MEDS: Haloperidol Lactate 5 MG/ML VIAL IM (08:07)
[2021-06-08] MEDS: LORazepam 2 MG/ML VIAL IM (08:08)
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
--- NOTE | 2021-06-08 08:25 | PC.NURSE ---
patient testing exits again
[2021-06-08] MEDS: Hydrocortisone 1 % Ointment 28.35 GM TUBE 1 APPL TOPICAL ×3 (09:00→20:22)
--- NOTE | 2021-06-08 09:37 | PC.NURSE ---
entered documentation late in electronic record, acting out behavior was from 0805 until 0850 this AM. patient now resting in room and when awake, has been coopewrative.
[2021-06-08] MEDS: metFORMIN HCl ER 500 MG TAB.ER.24H PO ×2 (12:42→20:09)
--- NOTE | 2021-06-08 15:17 | PC.NURSE ---
patient appeared to be overstimulated when additional staff/patient brought into pod.
[2021-06-08 15:37] LABS: Glucose, Whole Blood 120 mg/dL (60-115)
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
[2021-06-08 18:38] LABS: Glucose, Whole Blood 146 mg/dL (60-115)
[2021-06-08] MEDS: diphenhydrAMINE HCL 25 MG TABLET 50 MG PO (20:03)
[2021-06-08 20:04] VITALS: BP 117/79; PULSE 99
[2021-06-08] MEDS: cloNIDine HCL 0.2 MG TABLET PO (20:04)
[2021-06-08] MEDS: ARIPiprazole 5 MG TABLET PO (20:04)
[2021-06-08] MEDS: HaloperidoL 5 MG TABLET PO (20:04)
[2021-06-08 20:13] VITALS: BP 117/79; PULSE 99; TEMP 37.2; O2SAT 97
[2021-06-08 20:14] LABS: Glucose, Whole Blood 147 mg/dL (60-115)
[2021-06-08] MEDS: Insulin Glargine,Hum.rec.anlog 100 UNIT/ML 10 ML VIAL 7 UNIT SUBCUT (20:19)
--- NOTE | 2021-06-08 20:28 | PC.NURSE ---
Patient is compliant with his nighttime medication, no distress observed/reported, behavior calm and quiet at this time, POC at 2009 was 147, compliant with his nighttime Lantus 7 units, patient disposition per [facility] is section 12 inpatient bed search, will continue to monitor.
[2021-06-09 03:35] VITALS: BP 123/74; PULSE 87; RESP 17; TEMP 36.7; O2SAT 92
--- NOTE | 2021-06-09 06:10 | PC.NURSE ---
Patient slept through the night, no distress observed/reported, out of room times one for bathroom use and back, VSS, med compliant, behavior appropriate during our shift, appetite good, hydrating well, will continue to monitor.
--- NOTE | 2021-06-09 06:56 | PC.NURSE ---
patient remained at rest at beginning of shift, now awake and asking for snacks, waving hello at staff
[2021-06-09 07:53] VITALS: BP 123/74; PULSE 87
[2021-06-09] MEDS: cloNIDine HCL 0.1 MG TABLET PO (07:53)
[2021-06-09] MEDS: Atorvastatin Calcium 40 MG TABLET PO (07:53)
[2021-06-09] MEDS: ARIPiprazole 10 MG TABLET PO (07:54)
[2021-06-09] MEDS: HaloperidoL 5 MG TABLET PO ×2 (07:54→20:38)
[2021-06-09] MEDS: Topiramate 100 MG TABLET PO ×2 (07:54→20:30)
[2021-06-09] MEDS: Benztropine Mesylate 0.5 MG TABLET PO ×2 (07:54→20:30)
[2021-06-09] MEDS: metFORMIN HCl ER 500 MG TAB.ER.24H PO ×2 (09:06→20:36)
[2021-06-09 09:21] VITALS: BP 125/88; PULSE 75; RESP 18; TEMP 36.4; O2SAT 98
[2021-06-09] MEDS: Hydrocortisone 1 % Ointment 28.35 GM TUBE 1 APPL TOPICAL ×3 (09:25→20:41)
--- NOTE | 2021-06-09 09:52 | PC.NURSE ---
step father in to visit client, N had asked for information faxed to them despite the fact they state no current bed availability
--- NOTE | 2021-06-09 10:02 | PC.NURSE ---
provided client with verbal encouragement post step father departure as client had no negative behaviors.
[2021-06-09 19:56] VITALS: BP 146/86; PULSE 92; RESP 20; TEMP 36.8; O2SAT 98
[2021-06-09 20:16] LABS: Glucose, Whole Blood 176 mg/dL (60-115)
[2021-06-09 20:31] VITALS: BP 146/86; PULSE 92
[2021-06-09] MEDS: cloNIDine HCL 0.2 MG TABLET PO (20:31)
[2021-06-09] MEDS: ARIPiprazole 5 MG TABLET PO (20:31)
[2021-06-09] MEDS: Insulin Glargine,Hum.rec.anlog 100 UNIT/ML 10 ML VIAL 7 UNIT SUBCUT (20:36)
[2021-06-09] MEDS: diphenhydrAMINE HCL 25 MG TABLET 50 MG PO (20:38)
[2021-06-10 01:02] VITALS: BP 125/60; PULSE 89; RESP 17; TEMP 36.6; O2SAT 97
--- NOTE | 2021-06-10 05:42 | PC.NURSE ---
Patient slept through the night, no distress observed/reported, disposition per [facility] section 12 inpatient bed search, behavior appropriate, appetite good, med compliant, will continue to monitor.
--- NOTE | 2021-06-10 07:01 | PC.NURSE ---
patient appears to be resting at present, respirations are even and unlabored, patient appears in no distress
[2021-06-10 07:42] VITALS: BP 125/60; PULSE 89
[2021-06-10] MEDS: ARIPiprazole 10 MG TABLET PO (07:42)
[2021-06-10] MEDS: cloNIDine HCL 0.1 MG TABLET PO (07:42)
[2021-06-10] MEDS: Atorvastatin Calcium 40 MG TABLET PO (07:43)
[2021-06-10] MEDS: Hydrocortisone 1 % Ointment 28.35 GM TUBE 1 APPL TOPICAL ×3 (07:43→20:25)
[2021-06-10] MEDS: Benztropine Mesylate 0.5 MG TABLET PO ×2 (07:43→19:59)
[2021-06-10] MEDS: Topiramate 100 MG TABLET PO ×2 (07:43→19:59)
[2021-06-10] MEDS: HaloperidoL 5 MG TABLET PO ×2 (07:43→19:59)
[2021-06-10] MEDS: metFORMIN HCl ER 500 MG TAB.ER.24H PO ×2 (10:16→20:14)
[2021-06-10 11:08] VITALS: BP 116/72; PULSE 87; TEMP 36.7; O2SAT 97
--- NOTE | 2021-06-10 15:16 | PC.NURSE ---
PATIENT SITTING CALMLY IN COMMON SPACE WATCHING TV NO DISTRESS NOTED. AWAITING PLACEMENT WITH N
[2021-06-10 15:21] VITALS: RESP 16
[2021-06-10 19:59] VITALS: BP 131/72; PULSE 88
[2021-06-10] MEDS: ARIPiprazole 5 MG TABLET PO (19:59)
[2021-06-10] MEDS: diphenhydrAMINE HCL 25 MG TABLET 50 MG PO (19:59)
[2021-06-10] MEDS: cloNIDine HCL 0.2 MG TABLET PO (19:59)
[2021-06-10 20:02] VITALS: BP 131/72; PULSE 89; RESP 18; O2SAT 96
[2021-06-10 20:16] LABS: Glucose, Whole Blood 156 mg/dL (60-115)
[2021-06-10] MEDS: Insulin Glargine,Hum.rec.anlog 100 UNIT/ML 10 ML VIAL 7 UNIT SUBCUT (20:24)
--- NOTE | 2021-06-10 22:05 | PC.NURSE ---
Patient in bed appears sleeping, no distress observed/reported, POC at 2013 was 156, compliant with his nighttime medication, behavior appropriate, will continue to monitor.
--- NOTE | 2021-06-11 06:01 | PC.NURSE ---
Patient in bed appears sleeping, no distress observed/reported, behavior appropriate, med compliant, disposition section 12 inpatient bed search, will continue to monitor.
[2021-06-11 08:46] VITALS: BP 140/96; PULSE 91; RESP 16; TEMP 36.8; O2SAT 98
[2021-06-11 08:50] VITALS: BP 140/96; PULSE 91
[2021-06-11] MEDS: Benztropine Mesylate 0.5 MG TABLET PO (08:50)
[2021-06-11] MEDS: cloNIDine HCL 0.1 MG TABLET PO (08:50)
[2021-06-11] MEDS: Topiramate 100 MG TABLET PO (08:50)
[2021-06-11] MEDS: ARIPiprazole 10 MG TABLET PO (08:50)
[2021-06-11] MEDS: Atorvastatin Calcium 40 MG TABLET PO (08:50)
[2021-06-11] MEDS: Hydrocortisone 1 % Ointment 28.35 GM TUBE 1 APPL TOPICAL ×2 (08:51→15:26)
[2021-06-11] MEDS: metFORMIN HCl ER 500 MG TAB.ER.24H PO (08:53)
[2021-06-11] MEDS: Acetaminophen 325 MG TABLET 650 MG PO (11:57)
--- NOTE | 2021-06-11 12:01 | PC.NURSE ---
[facility] accepting jerardo rosado from [facility] to call with mihir
[2021-06-11 13:49] VITALS: BP 125/81; PULSE 93; TEMP 37.1; O2SAT 98
[2021-06-11 16:34] VITALS: BP 149/81; PULSE 81; RESP 16; TEMP 36.5; O2SAT 99
[2021-06-11 18:13] LABS: Glucose, Whole Blood 112 mg/dL (60-115)
--- NOTE | 2021-06-11 18:25 | PC.NURSE ---
pt remains in good behavioral control. friendly and conversational with staff.
== END 2021-06-11 18:48 ==
PROVIDERS: Physician Assistant; Emergency Provider Internal Medicine; PCP Internal Medicine
DX: R45.6 Violent behavior (principal); Z78.1 Physical restraint status; Z20.822 Contact with and (suspected) exposure to COVID-19; E11.9 Type 2 diabetes mellitus without complications; E78.5 Hyperlipidemia, unspecified; Z79.4 Long term (current) use of insulin; Z79.899 Other long term (current) drug therapy; Z79.02 Long term (current) use of antithrombotics/antiplatelets
CPT/HCPCS: 36415; 80048; 80076; 80307; 81003; 82077; 82947; 83735; 85025; 87635; 96372; 99285; J2060; Q0163

== ENCOUNTER 2021-12-03 07:14 | Outpatient (REF) | payer OTHER, SELFPAY ==
[2021-12-03 08:35] LABS: Estimated Average Glucose 126 mg/dL
== END 2021-12-03 07:15 | disposition home or self-care (01) ==
LOC: HO.LAB 07:14
PROVIDERS: PCP Internal Medicine; Visit Provider Nurse Practitioner Gerontology
DX: E11.9 Type 2 diabetes mellitus without complications (principal)
CPT/HCPCS: 36415; 83036

== ENCOUNTER → 2021-12-08 12:15 | Outpatient (BNVA) | payer OTHER, SELFPAY | PROVIDERS: PCP Internal Medicine; Visit Provider Nurse Practitioner Gerontology | DX: E11.65 Type 2 diabetes mellitus with hyperglycemia (principal); E11.649 Type 2 diabetes mellitus with hypoglycemia without coma; E66.09 Other obesity due to excess calories; E78.5 Hyperlipidemia, unspecified; Z68.42 Body mass index [BMI] 45.0-49.9, adult; Z79.4 Long term (current) use of insulin; Z79.899 Other long term (current) drug therapy | CPT/HCPCS: 82947; 99212 ==

== ENCOUNTER 2022-04-07 17:06 | Inpatient (IN) | payer OTHER, SELFPAY ==
--- NOTE | ~2022-04-07 | XR_ITS ---
EXAMINATION: XR CHEST CLINICAL INFORMATION: Cough COMPARISON: None TECHNIQUE: Frontal view of the chest was obtained. FINDINGS: Cardiac silhouette is normal in size. The lungs are well aerated. There is no lobar consolidation. No pleural effusion or pneumothorax. No gross osseous abnormality. XR/XR chest 1V IMPRESSION: No acute pulmonary pathology.
--- NOTE | ~2022-04-07 | CT_ITS ---
EXAMINATION: CT CHEST WITHOUT CONTRAST CLINICAL INFORMATION: Shortness of breath COMPARISON: Previous chest x-ray April 2022 TECHNIQUE: Multidetector volumetric CT imaging of the chest was done. Axial MIP volume rendering provided. Sagittal and coronal reformatted images were obtained. This CT examination was performed using dose optimization techniques as appropriate, variously including the following: *Automated exposure control *Adjustment of mA and/or kV according to patient size (this includes techniques or standardized protocols for targeted exams where dose is matched to indication/reason for exam; i.e. extremities or head) *Use of iterative reconstruction technique DLP: 476 mGy-cm FINDINGS: LUNGS: The lungs are clear with no evidence of inflammation or nodules. MEDIASTINUM: The mediastinum is normal. PLEURA: There is no pleural effusion. No pleural mass or thickening. AXILLA: No lymphadenopathy. UPPER ABDOMEN: There are small stones in the left kidney. There may be cortical thinning or scarring of the upper pole the right kidney. OSSEOUS STRUCTURES: Unremarkable. CT/CT chest wo con IMPRESSION: Unremarkable chest CT. Left renal stones. Fleischner guidelines were followed.
--- NOTE | ~2022-04-07 | US_ITS ---
EXAMINATION: US RETROPERITONEAL LIMITED (RENAL ONLY) CLINICAL INFORMATION: Kidney stones. COMPARISON: None TECHNIQUE: Grayscale and color imaging of the kidneys. Exam is limited due to body habitus. FINDINGS: RIGHT KIDNEY: 11.9 x 4.8 x 5.8 cm (SAG x AP x TRV). The kidney is normal in size, contour, and echogenicity. Renal cortical thickness is normal. No calculi or focal parenchymal lesions. No hydronephrosis. LEFT KIDNEY: 12.1 x 6.5 x 5.8 cm (SAG x AP x TRV). The kidney is normal in size, contour, and echogenicity. Renal cortical thickness is normal. There are 3 small stones in the midpole, largest measuring 4 x 5 mm. No focal parenchymal lesions. No hydronephrosis. US/US renal BI IMPRESSION: Limited exam. Small left renal stones. No hydronephrosis.
[2022-04-07 17:29] VITALS: BP 150/92; PULSE 88; RESP 18; TEMP 37.3; O2SAT 98
--- NOTE | 2022-04-07 17:31 | ED_ITS ---
HPI - Psych General Chief Complaint: Psychiatric Symptoms <Tamiko Giles NP - Last Filed: 04/07/22 23:33> Stated Complaint: PSYCH EVAL <Tamiko Giles NP - Last Filed: 04/07/22 23:33> Time Seen by Provider: 04/07/22 22:25 <Tamiko Giles NP - Last Filed: 04/07/22 23:33> Source: patient, family and EMS <Tamiko Giles NP - Last Filed: 04/07/22 23:33> Mode of arrival: EMS <Tamiko Giles NP - Last Filed: 04/07/22 23:33> Limitations: physical limitation (Autism, cognitive impairment) <Tamiko Giles NP - Last Filed: 04/07/22 23:33> History of Present Illness HPI Narrative: 26-year-old male presents via EMS for crisis evaluation. Patient is unable to give any history or reason why he was referred to the emergency department. He states that his eyes are dry and that he feels the electricity going through his fingers when he touches his Xbox. He does not report any medical concerns at this time. Denies suicidal and homicidal ideation. <Tamiko Giles NP - Last Filed: 04/07/22 23:33> Onset (ago): day(s) (4) <Tamiko Giles NP - Last Filed: 04/07/22 23:33> Duration: getting worse <Tamiko Giles NP - Last Filed: 04/07/22 23:33> History of same: Yes <Tamiko Giles NP - Last Filed: 04/07/22 23:33> Relieving factors: none <Tamiko Giles NP - Last Filed: 04/07/22 23:33> Associated psychiatric symptoms: visual hallucinations and other (Paranoia) <Tamiko Giles NP - Last Filed: 04/07/22 23:33> Associated symptoms: insomnia <Tamiko Giles NP - Last Filed: 04/07/22 23:33> Treatments prior to arrival: none <Tamiko Giles NP - Last Filed: 04/07/22 23:33> Related Data Home Medications: Home Medications Medication Instructions Recorded Confirmed aripiprazole 20 mg tablet 10 mg PO BID 04/07/22 04/07/22 atorvastatin 40 mg tablet 1 tab PO DAILY 04/07/22 04/07/22 clonidine HCl 0.1 mg tablet 1 tab PO TID 04/07/22 04/07/22 dextroamphetamine-amphetamine ER 2 cap PO DAILY 04/07/22 04/07/22 20 mg 24hr capsule,extend release (Adderall XR) dulaglutide 0.75 mg/0.5 mL 0.75 mg subcut QWEEK 04/07/22 04/07/22 subcutaneous pen injector (Trulicity) lorazepam 1 mg tablet 1 tab PO BID PRN Anxiety 04/07/22 04/07/22 metformin 500 mg tablet,extended 2 tab PO BID 04/07/22 04/07/22 release 24 hr topiramate 100 mg tablet 1 tab PO BID 04/07/22 04/07/22 trazodone 100 mg tablet 2 tab PO BEDTIME PRN Insomnia 04/07/22 04/07/22 <Tamiko Giles NP - Last Filed: 04/07/22 23:33> Allergies/Adverse Reactions: Allergies Allergy/AdvReac Type Severity Reaction Status Date / Time No Known Allergies Allergy Unverified 12/08/21 12:51 [No Known Allergies*] <Tamiko Giles NP - Last Filed: 04/07/22 23:33> Review of Systems Review of Systems: Constitutional: No Fever, No Chills ENT/Mouth: No Ear Pain, No Nasal Congestion, No sore throat Eyes: No Eye Pain, No Swelling, No Redness Cardiovascular: No Chest Pain, No SOB Respiratory: No Cough, No Sputum, No Dyspnea Gastrointestinal: No Nausea, No Vomiting, No Diarrhea, No Hematochezia, No Melena Genitourinary: No Dysuria, No Urinary Frequency, No Hematuria Musculoskeletal: No Myalgias Skin: No Skin Lesions, No rash Neuro: No Weakness, No Numbness, No Paresthesias, No Dizziness, No Headache Psych: No Anxiety, no Depression, no SI/HI Heme/Lymph: No Lymphadenopathy Endocrine: No Polyuria, No Polydipsia <SHLOMO Mathur Last Filed: 04/07/22 23:33> Yes all other systems are reviewed and are negative <Tamiko Giles NP - Last Filed: 04/07/22 23:33> [facility] Past Medical History Attestation statement: The following information was validated with the patient. <Tamiko Giles NP - Last Filed: 04/07/22 23:33> Source: obtained from family <Tamiko Giles NP - Last Filed: 04/07/22 23:33> Medical History: Medical History Diabetes mellitus type 2, controlled, without complications Hyperlipidemia LDL goal <100 Obesity due to excess calories Type 2 diabetes mellitus with hyperglycemia, with long-term current use of insul in Type 2 diabetes mellitus with hypoglycemia without coma <Tamiko Giles NP - Last Filed: 04/07/22 23:33> Surgical History: Surgical History No history of previous surgery <Tamiko Giles NP - Last Filed: 04/07/22 23:33> Family History Family History: Family History Father Hypertension Type 2 diabetes mellitus <Tamiko Giles NP - Last Filed: 04/07/22 23:33> Social History Social History: Social History Household Members: Family Alcohol intake: never Patient Tobacco Use Status: Never used Tobacco Advance Directives: No Advance Directives Information Provided: No <Tamiko Giles NP - Last Filed: 04/07/22 23:33> Physical Exam Vital Signs: Vital Signs: Last Vital Signs Temp 96.2 F L 04/08/22 00:53 Pulse 60 04/08/22 00:53 Resp 16 04/08/22 00:53 BP 154/105 H 04/08/22 00:53 Pulse Ox 100 04/08/22 00:53 O2 Del Method 04/08/22 00:53 BMI result Body Mass Index 41.8 <Tamiko Giles NP - Last Filed: 04/07/22 23:33> Vital Signs: Last Vital Signs Temp 96.2 F L 04/08/22 00:53 Pulse 60 04/08/22 00:53 Resp 16 04/08/22 00:53 BP 154/105 H 04/08/22 00:53 Pulse Ox 100 04/08/22 00:53 O2 Del Method 04/08/22 00:53 BMI result Body Mass Index 41.8 <Ingris Olivarez MD - Last Filed: 04/08/22 02:55> Appearance: Alert. Oriented to self. Paranoid. Obsessive. Eyes: Pupils equal, round and reactive to light. Sclera nonicteric. ENT: Pharynx normal. Neck: Normal inspection. Neck supple. CVS: Normal heart rate and rhythm. Apical pulse equal pulses to extremities. Respiratory: No respiratory distress. Breath sounds normal. Abdomen: Soft and nontender. Skin: Skin warm and dry. Normal skin color. Normal skin turgor. Extremities: No lower extremity edema. Moves all extremities against resistance. Neuro: No motor deficit. No sensory deficit. Cranial nerves 2-12 intact. <Tamiko Giles NP - Last Filed: 04/07/22 23:33> Course Course Course Narrative: 26-year-old male presents via EMS for crisis evaluation. Patient is unable to answer any questions about why he is here, states that his Xbox controller is hot and electrocuted in his fingers, states that light bulbs are hot and that he must remove them because they are burning his eyes. Patient does have autism and is bipolar. Patient is a historian but able to answer yes and no questions. 17:20 discussion with patient's mother, who is legal guardian and POA. Mother states that patient was diagnosed with bipolar disorder few years ago. He is paranoid, has had insomnia, has been removing the light bulbs from sockets, rearrange his room several times today and disconnected the television, complains of numbness and tingling when he is holding onto his Xbox controllers, states that he has been difficult to redirect, has been staring. Patient's mother states that this is the same presentation as when he was initially di agnosed with bipolar. Family is afraid of him at this time, because he is unable to be redirected. Patient is usually aggressive however he has been more obsessive and paranoid. Mother states that she has been giving him all of his medications as directed, and he has been compliant with care. She does not feel that he has used illicit drugs. He has been complaining of eye and lung burning. At this time will order labs, vitamin B12 and folate, TSH, COVID, chest x-ray, and EKG. 21:00 labs are negative for acute findings with the exception of vitamin B12 and folate which are pending. Patient is medically cleared. BHN consult and psychiatric consult are pending. Physician observation at this time. <Tamiko Giles NP - Last Filed: 04/07/22 23:33> Reevaluation(s) Reevaluation #1: 02:55, behavioral health network evaluation: Tomorrow, the patient and behavioral health network will talk to the patient's therapist. This will likely be at discharge. In the meantime the patient will remain in the ED. is possible the patient may need change in his medications. <Ingris Olivarez MD - Last Filed: 04/08/22 02:55> MDM - Psych Differential Diagnosis Differential diagnosis: Likely acute psychosis and bipolar disorder <Tamiko Giles NP - Last Filed: 04/07/22 23:33> Medical Records Attestation: I reviewed the patient's medical records. <Tamiko Giles NP - Last Filed: 04/07/22 23:33> Lab Data Attestation: I reviewed the patient's lab results. <Tamiko Giles NP - Last Filed: 04/07/22 23:33> Result diagrams: : 04/07/22 18:14 04/07/22 18:14 <Tamiko Giles NP - Last Filed: 04/07/22 23:33> Labs: Lab Results 04/07/22 04/07/22 04/07/22 Range/Units 18:14 18:14 18:14 WBC 9.6 (4.8-10.8) X10*3/uL RBC 5.37 (4.60-5.80) X10*6/uL Hgb 13.7 L (14.0-18.0) g/dl Hct 42.7 (42.0-52.0) % MCV 79.5 L (80.0-98.0) fL MCH 25.5 L (27.0-33.0) pg MCHC 32.1 (31.0-36.0) g/dl RDW 13.7 (11.0-16.0) % Plt Count 348 (160-400) X10*3/uL MPV 8.6 L (9.4-12.4) fL Immature Gran % (Auto) 0.5 H (0.0-0.4) % Neut % (Auto) 61.1 (45-73) % Lymph % (Auto) 28.9 (20-40) % [place] % (Auto) 7.4 (2-11) % Eos % (Auto) 1.8 (0-4) % Baso % (Auto) 0.3 (0-2) % Lymph # (Auto) 2.8 (1.2-4.9) X10*3/uL [place] # (Auto) 0.7 (0.1-1.2) X10*3/uL Eos # (Auto) 0.2 (0.0-0.4) X10*3/uL Baso # (Auto) 0.0 (0.0-0.2) X10*3/uL Abs Immat Gran (auto) 0.05 H (0.00-0.03) X10*3/uL Absolute Neuts (auto) 5.9 (2.0-8.3) x10*3/uL Absolute Nucleated RBC 0.000 (0.0-0.012) X10*3/uL Nucleated RBC % (auto) 0.0 (0.0-0.2) /100WBC PT (10.0-13.1) SEC INR (0.9-1.1) APTT 20.1 L (24.1-38.0) SEC Sodium 140 (135-145) mmol/L Potassium 4.1 (3.3-5.1) mmol/L Chloride 110 H (96-108) mmol/L Carbon Dioxide 21 L (22-29) mmol/L Anion Gap 13 (12-20) BUN 12 (9-16) mg/dL Creatinine 1.23 (0.5-1.4) mg/dL Estim Creat Clear Calc 117.1 Estimated GFR > 60 Random Glucose 100 (60-115) mg/dL Calcium 9.4 (8.4-10.2) mg/dL Magnesium 2.0 (1.6-2.6) mg/dL Total Bilirubin 0.8 (0.0-1.0) mg/dL Direct Bilirubin 0.3 (0.0-0.5) mg/dL AST 21 (5-37) U/L ALT 21 (0-40) U/L Alkaline Phosphatase 90 D (39-117) U/L Total Protein 7.4 (6.5-8.0) g/dL Albumin 4.4 (3.5-5.0) g/dL Lipase 13 (8-78) U/L TSH 1.90 (0.32-4.0) uIU/mL COVID-19 ([facility]) (Negative) COVID-19 Clin Com 04/07/22 04/07/22 Range/Units 18:14 18:53 WBC (4.8-10.8) X10*3/uL RBC (4.60-5.80) X10*6/uL Hgb (14.0-18.0) g/dl Hct (42.0-52.0) % MCV (80.0-98.0) fL MCH (27.0-33.0) pg MCHC (31.0-36.0) g/dl RDW (11.0-16.0) % Plt Count (160-400) X10*3/uL MPV (9.4-12.4) fL Immature Gran % (Auto) (0.0-0.4) % Neut % (Auto) (45-73) % Lymph % (Auto) (20-40) % [place] % (Auto) (2-11) % Eos % (Auto) (0-4) % Baso % (Auto) (0-2) % Lymph # (Auto) (1.2-4.9) X10*3/uL [place] # (Auto) (0.1-1.2) X10*3/uL Eos # (Auto) (0.0-0.4) X10*3/uL Baso # (Auto) (0.0-0.2) X10*3/uL Abs Immat Gran (auto) (0.00-0.03) X10*3/uL Absolute Neuts (auto) (2.0-8.3) x10*3/uL Absolute Nucleated RBC (0.0-0.012) X10*3/uL Nucleated RBC % (auto) (0.0-0.2) /100WBC PT 12.1 (10.0-13.1) SEC INR 1.1 (0.9-1.1) APTT (24.1-38.0) SEC Sodium (135-145) mmol/L Potassium (3.3-5.1) mmol/L Chloride (96-108) mmol/L Carbon Dioxide (22-29) mmol/L Anion Gap (12-20) BUN (9-16) mg/dL Creatinine (0.5-1.4) mg/dL Estim Creat Clear Calc Estimated GFR Random Glucose (60-115) mg/dL Calcium (8.4-10.2) mg/dL Magnesium (1.6-2.6) mg/dL Total Bilirubin (0.0-1.0) mg/dL Direct Bilirubin (0.0-0.5) mg/dL AST (5-37) U/L ALT (0-40) U/L Alkaline Phosphatase (39-117) U/L Total Protein (6.5-8.0) g/dL Albumin (3.5-5.0) g/dL Lipase (8-78) U/L TSH (0.32-4.0) uIU/mL COVID-19 ([facility]) Negative (Negative) COVID-19 Clin Com See Note <Tamiko Giles NP - Last Filed: 04/07/22 23:33> Lab Results 04/07/22 04/07/22 04/07/22 Range/Units 18:14 18:14 18:14 WBC 9.6 (4.8-10.8) X10*3/uL RBC 5.37 (4.60-5.80) X10*6/uL Hgb 13.7 L (14.0-18.0) g/dl Hct 42.7 (42.0-52.0) % MCV 79.5 L (80.0-98.0) fL MCH 25.5 L (27.0-33.0) pg MCHC 32.1 (31.0-36.0) g/dl RDW 13.7 (11.0-16.0) % Plt Count 348 (160-400) X10*3/uL MPV 8.6 L (9.4-12.4) fL Immature Gran % (Auto) 0.5 H (0.0-0.4) % Neut % (Auto) 61.1 (45-73) % Lymph % (Auto) 28.9 (20-40) % [place] % (Auto) 7.4 (2-11) % Eos % (Auto) 1.8 (0-4) % Baso % (Auto) 0.3 (0-2) % Lymph # (Auto) 2.8 (1.2-4.9) X10*3/uL [place] # (Auto) 0.7 (0.1-1.2) X10*3/uL Eos # (Auto) 0.2 (0.0-0.4) X10*3/uL Baso # (Auto) 0.0 (0.0-0.2) X10*3/uL Abs Immat Gran (auto) 0.05 H (0.00-0.03) X10*3/uL Absolute Neuts (auto) 5.9 (2.0-8.3) x10*3/uL Absolute Nucleated RBC 0.000 (0.0-0.012) X10*3/uL Nucleated RBC % (auto) 0.0 (0.0-0.2) /100WBC PT (10.0-13.1) SEC INR (0.9-1.1) APTT 20.1 L (24.1-38.0) SEC Sodium 140 (135-145) mmol/L Potassium 4.1 (3.3-5.1) mmol/L Chloride 110 H (96-108) mmol/L Carbon Dioxide 21 L (22-29) mmol/L Anion Gap 13 (12-20) BUN 12 (9-16) mg/dL Creatinine 1.23 (0.5-1.4) mg/dL Estim Creat Clear Calc 117.1 Estimated GFR > 60 Random Glucose 100 (60-115) mg/dL Calcium 9.4 (8.4-10.2) mg/dL Magnesium 2.0 (1.6-2.6) mg/dL Total Bilirubin 0.8 (0.0-1.0) mg/dL Direct Bilirubin 0.3 (0.0-0.5) mg/dL AST 21 (5-37) U/L ALT 21 (0-40) U/L Alkaline Phosphatase 90 D (39-117) U/L Total Protein 7.4 (6.5-8.0) g/dL Albumin 4.4 (3.5-5.0) g/dL Lipase 13 (8-78) U/L TSH 1.90 (0.32-4.0) uIU/mL COVID-19 ([facility]) (Negative) COVID-19 Clin Com 04/07/22 04/07/22 Range/Units 18:14 18:53 WBC (4.8-10.8) X10*3/uL RBC (4.60-5.80) X10*6/uL Hgb (14.0-18.0) g/dl Hct (42.0-52.0) % MCV (80.0-98.0) fL MCH (27.0-33.0) pg MCHC (31.0-36.0) g/dl RDW (11.0-16.0) % Plt Count (160-400) X10*3/uL MPV (9.4-12.4) fL Immature Gran % (Auto) (0.0-0.4) % Neut % (Auto) (45-73) % Lymph % (Auto) (20-40) % [place] % (Auto) (2-11) % Eos % (Auto) (0-4) % Baso % (Auto) (0-2) % Lymph # (Auto) (1.2-4.9) X10*3/uL [place] # (Auto) (0.1-1.2) X10*3/uL Eos # (Auto) (0.0-0.4) X10*3/uL Baso # (Auto) (0.0-0.2) X10*3/uL Abs Immat Gran (auto) (0.00-0.03) X10*3/uL Absolute Neuts (auto) (2.0-8.3) x10*3/uL Absolute Nucleated RBC (0.0-0.012) X10*3/uL Nucleated RBC % (auto) (0.0-0.2) /100WBC PT 12.1 (10.0-13.1) SEC INR 1.1 (0.9-1.1) APTT (24.1-38.0) SEC Sodium (135-145) mmol/L Potassium (3.3-5.1) mmol/L Chloride (96-108) mmol/L Carbon Dioxide (22-29) mmol/L Anion Gap (12-20) BUN (9-16) mg/dL Creatinine (0.5-1.4) mg/dL Estim Creat Clear Calc Estimated GFR Random Glucose (60-115) mg/dL Calcium (8.4-10.2) mg/dL Magnesium (1.6-2.6) mg/dL Total Bilirubin (0.0-1.0) mg/dL Direct Bilirubin (0.0-0.5) mg/dL AST (5-37) U/L ALT (0-40) U/L Alkaline Phosphatase (39-117) U/L Total Protein (6.5-8.0) g/dL Albumin (3.5-5.0) g/dL Lipase (8-78) U/L TSH (0.32-4.0) uIU/mL COVID-19 ([facility]) Negative (Negative) COVID-19 Clin Com See Note <Ingris Olivarez MD - Last Filed: 04/08/22 02:55> Imaging Data Chest x-ray: Attestation: I personally reviewed and interpreted this imaging study as follows: <Tamiko Giles NP - Last Filed: 04/07/22 23:33> Radiologist's impression: EXAMINATION: XR CHEST CLINICAL INFORMATION: Cough COMPARISON: None TECHNIQUE: Frontal view of the chest was obtained. FINDINGS: Cardiac silhouette is normal in size. The lungs are well aerated. There is no lobar consolidation. No pleural effusion or pneumothorax. No gross osseous abnormality. XR/XR chest 1V IMPRESSION: No acute pulmonary pathology. ? <Tamiko Giles NP - Last Filed: 04/07/22 23:33> ECG Data Attestation: I personally reviewed and interpreted this ECG as follows: <Tamiko Giles NP - Last Filed: 04/07/22 23:33> ECG interpretation date: 04/07/22 <Tamiko Giles NP - Last Filed: 04/07/22 23:33> ECG interpretation time: 17:46 <SHLOMO Mathur Last Filed: 04/07/22 23:33> Prior ECG tracings: available for review <SHLOMO Mathur Last Filed: 04/07/22 23:33> Interpretation: Vent. rate 84 BPM RI interval 154 ms QRS duration 86 ms QT/QTc 366/432 ms P-R-T axes 49 20 31 Normal sinus rhythm Normal ECG When compared with ECG of 01-APR-2008 09:58, PREVIOUS ECG IS PRESENT <SHLOMO Mathur Last Filed: 04/07/22 23:33> Discharge Plan Discharge Clinical Impression: Acute psychosis, Bipolar disorder <SHLOMO Mathur Last Filed: 04/07/22 23:33> Patient Disposition: Still a Patient <SHLOMO Mathur Last Filed: 04/07/22 23:33> Prescriptions: No Action dextroamphetamine-amphetamine [Adderall XR] 20 mg capsule,extended release 24hr 2 cap PO DAILY trazodone 100 mg tablet 2 tab PO BEDTIME PRN (Reason: Insomnia) metformin 500 mg tablet extended release 24 hr 2 tab PO BID atorvastatin 40 mg tablet 1 tab PO DAILY topiramate 100 mg tablet 1 tab PO BID aripiprazole 20 mg tablet 10 mg PO BID clonidine HCl 0.1 mg tablet 1 tab PO TID lorazepam 1 mg tablet 1 tab PO BID PRN (Reason: Anxiety) Trulicity 0.75 mg/0.5 mL pen injector 0.75 mg subcut QWEEK <SHLOMO Mathur Last Filed: 04/07/22 23:33>
--- NOTE | 2022-04-07 17:38 | ECG_ITS ---
Test Reason : AMS Blood Pressure : / mmHG Vent. Rate : 084 BPM Atrial Rate : 084 BPM P-R Int : 154 ms QRS Dur : 086 ms QT Int : 366 ms P-R-T Axes : 049 020 031 degrees QTc Int : 432 ms Normal sinus rhythm Normal ECG When compared with ECG of 01-APR-2008 09:58, No significant changes seen Referred By: Tamiko Giles Electronically Signed By:Edilberto Marie
[2022-04-07 17:40] VITALS: BP 150/92; PULSE 88; RESP 16; TEMP 37.3; O2SAT 98; BMI 41.8
[2022-04-07 18:18] LABS: MANUAL DIFF FLAG NO
[2022-04-07 18:20] LABS: Basophils Percent Auto 0.3 % (0-2); Eosinophils Absolute Auto 0.2 X10*3/uL (0.0-0.4); Eosinophils Percent Auto 1.8 % (0-4); Hematocrit 42.7 % (42.0-52.0); Hemoglobin 13.7 g/dl (14.0-18.0); Imm Gran Abs Auto 0.05 X10*3/uL (0.00-0.03); Imm Gran Pct Auto 0.5 % (0.0-0.4); Lymphocytes Absolute Auto 2.8 X10*3/uL (1.2-4.9); Lymphocytes Percent Auto 28.9 % (20-40); Mean Corpuscular HGB Conc 32.1 g/dl (31.0-36.0); Mean Corpuscular Hemoglobin 25.5 pg (27.0-33.0); Mean Corpuscular Volume 79.5 fL (80.0-98.0); Mean Platelet Volume 8.6 fL (9.4-12.4); Monocytes Absolute Auto 0.7 X10*3/uL (0.1-1.2); Monocytes Percent Auto 7.4 % (2-11); Neutrophils Absolute Auto 5.9 x10*3/uL (2.0-8.3); Neutrophils Percent Auto 61.1 % (45-73); Platelet Count 348 X10*3/uL (160-400); Red Blood Count 5.37 X10*6/uL (4.60-5.80); Red Cell Distribution Width 13.7 % (11.0-16.0); White Blood Count 9.6 X10*3/uL (4.8-10.8)
[2022-04-07 18:24] LABS: INTERNATIONAL NORM RATIO 1.1 (0.9-1.1); Prothrombin Time 12.1 SEC (10.0-13.1)
[2022-04-07 18:34] LABS: Partial Thromboplastin Time 20.1 SEC (24.1-38.0)
[2022-04-07 18:37] LABS: Alanine Aminotransferase 21 U/L (0-40); Albumin Level 4.4 g/dL (3.5-5.0); Alkaline Phosphatase 90 U/L (39-117); Anion Gap 13 (12-20); Aspartate Amino Transferase 21 U/L (5-37); Bilirubin Direct 0.3 mg/dL (0.0-0.5); Bilirubin Total 0.8 mg/dL (0.0-1.0); Blood Urea Nitrogen 12 mg/dL (9-16); Calcium 9.4 mg/dL (8.4-10.2); Carbon Dioxide 21 mmol/L (22-29); Chloride 110 mmol/L (96-108); Creatinine Clr Calc Pharmacy 117.1; Estimated Glomerular Filt Rate > 60; Glucose Random 100 mg/dL (60-115); Lipase 13 U/L (8-78); Potassium 4.1 mmol/L (3.3-5.1); Sodium 140 mmol/L (135-145); Total Protein 7.4 g/dL (6.5-8.0)
[2022-04-07 19:14] LABS: COVID-19 Test Negative (Negative)
[2022-04-07] MEDS: ARIPiprazole 10 MG TABLET PO (23:22)
[2022-04-07] MEDS: metFORMIN HCl ER 500 MG TAB.ER.24H 1000 MG PO (23:22)
[2022-04-07] MEDS: Topiramate 100 MG TABLET PO (23:23)
[2022-04-08] MEDS: traZODone HCL 100 MG TABLET 200 MG PO ×2 (00:38→21:12)
[2022-04-08] MEDS: Albuterol Sulfate 90 MCG 8 GM INHALER 1 PUFF INHALE ×2 (00:42→10:22)
[2022-04-08 00:53] VITALS: BP 154/105; PULSE 60; RESP 16; TEMP 35.7; O2SAT 100
--- NOTE | 2022-04-08 05:56 | PC.NURSE ---
Patient slept through the night, no distress observed/reported, medication compliant, POC at 0555 was 86, patient while awake constantly complaint of dry and itchy eyes, redirectable, well engaged with BHN, disposition pending at this time, JASMEET follow up by BHN in the morning, VSS, will continue to monitor.
[2022-04-08 06:01] LABS: Glucose, Whole Blood 86 mg/dL (60-115)
[2022-04-08 06:12] LABS: Appearance Urine CLEAR; Color Urine YELLOW; Glucose Urine UA NEG (NEG); Leukocyte Esterase Urine NEG (NEG); Nitrite Urine NEG (NEG); PH 6.5 (5.0-8.0); Specific Gravity - Urine 1.015 (1.005-1.025); Urine Blood NEG (NEG); Urine Ketones NEG (NEG); Urine Protein NEG (NEG-TRACE)
[2022-04-08 06:17] LABS: Folate 18.1 ng/mL (> or = 4.0); Vitamin B12 306 pg/mL (200-900)
[2022-04-08 06:38] LABS: Amphetamine Screen Urine POSITIVE (Not Detect); Barbiturates, Urine Not Detected (Not Detect); Benzodiazepines Screen Urine Not Detected (Not Detect); Cannabinoid Screen Urine Not Detected (Not Detect); Cocaine Screen Urine Not Detected (Not Detect); Fentanyl, urine Not Detected (Not Detect); Opiate Screen Urine Not Detected (Not Detect); Phencyclidine Screen Urine Not Detected (Not Detect)
[2022-04-08] MEDS: Dextroamphetamine/Amphetamine XR 10 MG CAP.ER.24H 40 MG PO (08:30)
[2022-04-08] MEDS: metFORMIN HCl ER 500 MG TAB.ER.24H 1000 MG PO ×2 (08:31→21:12)
[2022-04-08] MEDS: ARIPiprazole 10 MG TABLET PO (08:31)
[2022-04-08] MEDS: Topiramate 100 MG TABLET PO ×2 (08:31→21:12)
--- NOTE | 2022-04-08 10:14 | PC.NURSE ---
Pt has been approaching staff frequently with complaints of chills, hot flashes and eye issues. Pt is redirectable. No aggression. Denies SI/HI. BHN is present and intends to speak with patient. Ate full breakfast.
--- NOTE | 2022-04-08 10:24 | PC.NURSE ---
Meeting with N. Requested inhaler. BREEZY CTA.
--- NOTE | 2022-04-08 15:13 | PM.PSYCN ---
History of Present Illness Date of Service: 04/09/2022 Chief Complaint: PSYCH EVAL Reason for Consult: somatic delusions Requesting physician: Emily Curry Discussed with referring provider: Yes Sources of Information: patient interviewed, chart reviewed and crisis/core team assessment reviewed HPI Narrative: Mr. Cordon has hx of schizoaffective disorder, intellectual disability who was brought by mother [place] [facility] due to pt reporting that electric cords and outlets making him to have number of somatic concerns which he reported could be potentially life threatening. Per mother, pt increasingly more agitated, sending text messages to family telling them that his life was in danger. Pt not sleeping, pacing, agitated at home and increasingly more anxious as he felt no one was doing anything to help him. Utox was negative. In the ED, pt presents as anxious, reports that he has palpitation dry eyes due to electric cords. He is not touching switch of lights and asks RN to do so as he thinks this will increase somatic symptoms. Pt denies SI/HI. Pt interrupting staff asking them to check his pulse, his breathing, his eyes. He reports to this freelance copywriter that he is slowly dying and asks for help for somatic concerns. Pt increasingly more agitated as he felt staff at hospital igniring him requiring prn dose of olanzapine and ativan. Past Psychiatric History: Inpatient: multiple in past, last 06/2021 Oliveros OP: [facility] Dianna Vail, psych prescriber. Past trials: adderall, abilify, clonidine, ativan, topamax (mostly for weight gain but per mother no change in weight) Medical Evaluation Reviewed: Yes [facility] Medical History Diabetes mellitus type 2, controlled, without complications Hyperlipidemia LDL goal <100 Obesity due to excess calories Type 2 diabetes mellitus with hyperglycemia, with long-term current use of insulin Type 2 diabetes mellitus with hypoglycemia without coma Surgical History No history of previous surgery Family History: unknown Social History: Lives with adoptive mother Substance History: None Trauma History: None Diagnostics Vital Signs (24Hr): Vital Signs - 24 hr 04/07/22 17:29 04/07/22 17:40 04/08/22 00:53 Temperature 99.2 F 99.2 F 96.2 F L Pulse Rate 88 88 60 Respiratory Rate 18 16 16 Blood Pressure 150/92 H 150/92 H 154/105 H Pulse Oximetry 98 98 100 Oxygen Delivery Method Room Air Room Air Room Air BMI result Body Mass Index 41.8 Labs Results: 04/07/22 18:14 04/07/22 18:14 Labs: Laboratory Results - last 48 hr 04/07/22 04/07/22 04/07/22 18:14 18:14 18:14 WBC 9.6 RBC 5.37 Hgb 13.7 L Hct 42.7 MCV 79.5 L MCH 25.5 L MCHC 32.1 RDW 13.7 Plt Count 348 MPV 8.6 L Immature Gran % (Auto) 0.5 H Neut % (Auto) 61.1 Lymph % (Auto) 28.9 [place] % (Auto) 7.4 Eos % (Auto) 1.8 Baso % (Auto) 0.3 Lymph # (Auto) 2.8 [place] # (Auto) 0.7 Eos # (Auto) 0.2 Baso # (Auto) 0.0 Abs Immat Gran (auto) 0.05 H Absolute Neuts (auto) 5.9 Absolute Nucleated RBC 0.000 Nucleated RBC % (auto) 0.0 PT INR APTT 20.1 L Sodium 140 Potassium 4.1 Chloride 110 H Carbon Dioxide 21 L Anion Gap 13 BUN 12 Creatinine 1.23 Estim Creat Clear Calc 117.1 Estimated GFR > 60 POC Glucose Random Glucose 100 Calcium 9.4 Magnesium 2.0 Total Bilirubin 0.8 Direct Bilirubin 0.3 AST 21 ALT 21 Alkaline Phosphatase 90 D Total Protein 7.4 Albumin 4.4 Lipase 13 Vitamin B12 Folate TSH 1.90 Urine Color Urine Appearance Urine pH Ur Specific [place] Urine Protein Urine Glucose (UA) Urine Ketones Urine Blood Urine Nitrite Ur Leukocyte Esterase Urine Opiates Screen Urine Fentanyl Screen Ur Barbiturates Screen Ur Phencyclidine Scrn Ur Amphetamines Screen U Benzodiazepines Scrn Urine Cocaine Screen U Marijuana (THC) Screen COVID-19 ([facility]) COVID-19 Clin Com 04/07/22 04/07/22 04/07/22 18:14 18:14 18:53 WBC RBC Hgb Hct MCV MCH MCHC RDW Plt Count MPV Immature Gran % (Auto) Neut % (Auto) Lymph % (Auto) [place] % (Auto) Eos % (Auto) Baso % (Auto) Lymph # (Auto) [place] # (Auto) Eos # (Auto) Baso # (Auto) Abs Immat Gran (auto) Absolute Neuts (auto) Absolute Nucleated RBC Nucleated RBC % (auto) PT 12.1 INR 1.1 APTT Sodium Potassium Chloride Carbon Dioxide Anion Gap BUN Creatinine Estim Creat Clear Calc Estimated GFR POC Glucose Random Glucose Calcium Magnesium Total Bilirubin Direct Bilirubin AST ALT Alkaline Phosphatase Total Protein Albumin Lipase Vitamin B12 306 Folate 18.1 TSH Urine Color Urine Appearance Urine pH Ur Specific [place] Urine Protein Urine Glucose (UA) Urine Ketones Urine Blood Urine Nitrite Ur Leukocyte Esterase Urine Opiates Screen Urine Fentanyl Screen Ur Barbiturates Screen Ur Phencyclidine Scrn Ur Amphetamines Screen U Benzodiazepines Scrn Urine Cocaine Screen U Marijuana (THC) Screen COVID-19 ([facility]) Negative COVID-19 Clin Com See Note 04/08/22 04/08/22 04/08/22 05:56 06:04 06:04 WBC RBC Hgb Hct MCV MCH MCHC RDW Plt Count MPV Immature Gran % (Auto) Neut % (Auto) Lymph % (Auto) [place] % (Auto) Eos % (Auto) Baso % (Auto) Lymph # (Auto) [place] # (Auto) Eos # (Auto) Baso # (Auto) Abs Immat Gran (auto) Absolute Neuts (auto) Absolute Nucleated RBC Nucleated RBC % (auto) PT INR APTT Sodium Potassium Chloride Carbon Dioxide Anion Gap BUN Creatinine Estim Creat Clear Calc Estimated GFR POC Glucose 86 Random Glucose Calcium Magnesium Total Bilirubin Direct Bilirubin AST ALT Alkaline Phosphatase Total Protein Albumin Lipase Vitamin B12 Folate TSH Urine Color YELLOW Urine Appearance CLEAR Urine pH 6.5 Ur Specific [place] 1.015 Urine Protein NEG Urine Glucose (UA) NEG Urine Ketones NEG Urine Blood NEG Urine Nitrite NEG Ur Leukocyte Esterase NEG Urine Opiates Screen Not Detected Urine Fentanyl Screen Not Detected Ur Barbiturates Screen Not Detected Ur Phencyclidine Scrn Not Detected Ur Amphetamines Screen POSITIVE H U Benzodiazepines Scrn Not Detected Urine Cocaine Screen Not Detected U Marijuana (THC) Screen Not Detected COVID-19 ([facility]) COVID-19 Clin Com Imaging Radiology Impressions: ITS Impressions Chest X-Ray 04/07/22 18:23 IMPRESSION: No acute pulmonary pathology. Mental Status Exam Mental Status Exam Narrative: Appearance:MO, wearing hospital gown, fair hygiene, pacing, anxious Behavior:cooperative psychomotor:pacing, no overt agitation or retardation noted Speech: clear, normal rate/rhythm/volume, spontaneous Thought process: tangential Thought content:somatic delusions, asking help for somatic concerns, thinks he is dying Mood: anxious Affect: intense- eye contact, fearful SI:denies HI:denies VH/AH:denies, although reports hearing effects of electric cords, sees hands turning yellow/orange Delusions:somatic delusions of electric field causing somatic concerns such as palpitation, dry eyes. Insight/judgment:poor x 2 . Memory/cog: alert, oriented x 3. Medications Medications Current Medications Albuterol Sulfate (Albuterol Sulfate 90 Mcg 8 Gm Inhaler) 1 puff INHALE Q4H PRN PRN Reason: Wheezing Last Admin: 04/08/22 10:22 Dose: 1 puff Aripiprazole (Aripiprazole 20 Mg Tablet) 20 mg PO DAILY DAISHA Atorvastatin Calcium (Atorvastatin Calcium 40 Mg Tablet) 40 mg PO BEDTIME DAISHA Lorazepam (Lorazepam 1 Mg Tablet) 2 mg PO Q6H PRN PRN Reason: agitation/severe anxiety Metformin HCl (Metformin Hcl Er 500 Mg Tab.Er.24h) 1,000 mg PO BID [facility] Last Admin: 04/08/22 08:31 Dose: 1,000 mg Olanzapine (Olanzapine Odt 10 Mg Tab.Rapdis) 10 mg TRANSLINGU Q6H PRN PRN Reason: agitation Topiramate (Topiramate 100 Mg Tablet) 100 mg PO BID [facility] Last Admin: 04/08/22 08:31 Dose: 100 mg Trazodone HCl (Trazodone Hcl 100 Mg Tablet) 200 mg PO BEDTIME PRN PRN Reason: Insomnia Last Admin: 04/08/22 00:38 Dose: 200 mg Allergies Allergies Allergy/AdvReac Type Severity Reaction Status Date / Time No Known Allergies Allergy Unverified 12/08/21 12:51 [No Known Allergies*] Assessment & Plan Assessment & Plan (1) Schizoaffective disorder: Status: Acute Code(s): F25.9 - Schizoaffective disorder, unspecified Plan Mr. Cordon is a 26 year-old male with hx of schizoaffective disorder, last episode of paranoid/persecutory delusions 6 years ago. He has also presented with periods of explosive behaviors. He was [place] [facility] [place] to somatic delusions, thinking that electric cords changing color of his hand and causing number of somatic symptoms including dry eyes, palpitation, increase agitation as he thinks others are not helping and he is going to dye. We discussed risks, benefits and alternative treatment option, pt and his mother agree to stop adderall as it will worsened somatic delusions, psychosis, agitation. Continue abilify 20mg po daily, no need to split dose this medication. if not improvement seen, may consider switching to different antipsychotic. PLAN 1. Inpt bed search- do not think he needs DDS bed, pt not presenting with aggressive behaviors, mostly AH/VH and somatic delusions. Pt need inpt level of care for further stabilization, safety and containtment as such symptoms causing significant agitation. 2. continue abilify 20mg po daily, d/c adderall. PRN olanzapine 10mg po q6h, prn agitation, ativan 2mg po q6h, prn agitation I spent ___25___ minutes with the patient and/or on the patient floor today, greater than?50% of which was spent counseling/coordinating care.
[2022-04-08] MEDS: OLANZapine ODT 10 MG TAB.RAPDIS TRANSLINGU ×2 (16:10→23:27)
[2022-04-08 16:30] VITALS: BP 151/86; PULSE 94; RESP 18; TEMP 36.6; O2SAT 97
[2022-04-08 18:33] LABS: Glucose, Whole Blood 119 mg/dL (60-115)
[2022-04-08 19:21] LABS: Cholesterol 159 mg/dL; HDL Cholesterol 40 mg/dL; LDL Cholesterol Calculated 103 mg/dl; Triglycerides 84 mg/dL
[2022-04-08] MEDS: Atorvastatin Calcium 40 MG TABLET PO (21:12)
[2022-04-08] MEDS: LORazepam 1 MG TABLET 2 MG PO (23:27)
[2022-04-08 23:40] VITALS: BP 129/91; PULSE 89; RESP 18; TEMP 36.4; O2SAT 97
--- NOTE | 2022-04-09 05:46 | PC.NURSE ---
Patient slept through the night, no distress observed/reported, patient when awake constantly reporting about itchy and watery eyes, compliant with HS PO medication, PRN Ativan 2 mg po, Olanzapine 10 mg PO, and Trazadone 200 gm administered with nighttime medication with + effect, VSS, disposition per N is ection 12 inpatient bed search, behavior non concerning at thsi time, will continue to monitor.
[2022-04-09 06:54] LABS: Estimated Average Glucose 108 mg/dL; Hemoglobin A1c % 5.4 %
--- NOTE | 2022-04-09 07:07 | PC.NURSE ---
patient appears to remain asleep at rpesent respirations are even and unlabored patient appears in no distress
[2022-04-09] MEDS: Topiramate 100 MG TABLET PO ×2 (09:01→21:11)
[2022-04-09] MEDS: metFORMIN HCl ER 500 MG TAB.ER.24H 1000 MG PO ×2 (09:01→21:11)
[2022-04-09] MEDS: ARIPiprazole 20 MG TABLET PO (09:02)
[2022-04-09] MEDS: Albuterol Sulfate 90 MCG 8 GM INHALER 1 PUFF INHALE ×2 (10:39→17:54)
[2022-04-09 12:19] VITALS: RESP 16
--- NOTE | 2022-04-09 14:31 | PC.NURSE ---
Pt reports stomach dryness, and eye dryness. Pt given cup of water and encouraged to rest.
--- NOTE | 2022-04-09 15:00 | PC.NURSE ---
Report from Rosenda JAY. Pt visible, walking around the milieu. Flat affect, calm and cooperative. Plan for M3 admission this evening.
--- NOTE | 2022-04-09 16:13 | HO.PSYADMNOT ---
HPI Date of Service: 04/09/22 Chief Complaint: PSYCH EVAL Sources of Information: patient interviewed, chart reviewed and crisis/core team assessment reviewed Additional Sources of Information: Mother HPI Subjective Notes: Nunez Warning and Conditional Voluntary Guardianship: Yes Narrative: Mr. Cordon has hx of schizoaffective disorder, intellectual disability who was brought by mother to [facility] due to pt reporting that electric cords and outlets making him to have number of somatic concerns which he reported could be potentially life threatening. Per mother, pt increasingly more agitated, sending text messages to family telling them that his life was in danger. Pt not sleeping, pacing, agitated at home and increasingly more anxious as he felt no one was doing anything to help him. Utox was negative. In the ED, pt presented as anxious, reports that he has palpitation dry eyes due to electric cords. He is not touching switch of lights and asks RN to do so as he thinks this will increase somatic symptoms. Pt denies SI/HI. Pt interrupting staff asking them to check his pulse, his breathing, his eyes. He reports to this check writer salesperson? that he is slowly dying and asks for help for somatic concerns. Pt increasingly more agitated as he felt staff at hospital igniring him requiring prn dose of olanzapine and ativan. On the unit, pt presents as much calmer than day before in ED. He reports he is not having as many somatic symptoms including dry eyes, palpitation or feeling like dying as he thinks there is less electromagnetic effects on him. He reports sleeping better. no side effects with current medications. He denies SI/HI. He presents as less hypervigilant and worried that by touching light switches he may . He denies VH/AH. Past Psychiatric History: Inpatient: multiple in past, last 06/2021 [place] OP: [facility] Dianna Vail, psych prescriber. Past trials: adderall, abilify, clonidine, ativan, topamax (mostly for weight gain but per mother no change in weight) Medical Evaluation Reviewed: Yes [facility] Medical History Diabetes mellitus type 2, controlled, without complications Hyperlipidemia LDL goal <100 Obesity due to excess calories Type 2 diabetes mellitus with hyperglycemia, with long-term current use of insulin Type 2 diabetes mellitus with hypoglycemia without coma Surgical History No history of previous surgery Family History: unknown Social History: Lives with adoptive mother Trauma History: None Diagnostics Vital Signs (24Hr): Vital Signs - 24 hr 04/08/22 16:30 04/08/22 23:40 04/09/22 12:19 Temperature 97.8 F 97.6 F Pulse Rate 94 89 Respiratory Rate 18 18 16 Blood Pressure 151/86 H 129/91 H Pulse Oximetry 97 97 Oxygen Delivery Method Room Air Room Air BMI result Body Mass Index 41.8 Labs Results: 04/07/22 18:14 04/07/22 18:14 Labs: Laboratory Results - last 48 hr 04/07/22 04/07/22 04/07/22 18:14 18:14 18:14 WBC 9.6 RBC 5.37 Hgb 13.7 L Hct 42.7 MCV 79.5 L MCH 25.5 L MCHC 32.1 RDW 13.7 Plt Count 348 MPV 8.6 L Immature Gran % (Auto) 0.5 H Neut % (Auto) 61.1 Lymph % (Auto) 28.9 [place] % (Auto) 7.4 Eos % (Auto) 1.8 Baso % (Auto) 0.3 Lymph # (Auto) 2.8 [place] # (Auto) 0.7 Eos # (Auto) 0.2 Baso # (Auto) 0.0 Abs Immat Gran (auto) 0.05 H Absolute Neuts (auto) 5.9 Absolute Nucleated RBC 0.000 Nucleated RBC % (auto) 0.0 PT INR APTT 20.1 L Sodium 140 Potassium 4.1 Chloride 110 H Carbon Dioxide 21 L Anion Gap 13 BUN 12 Creatinine 1.23 Estim Creat Clear Calc 117.1 Estimated GFR > 60 POC Glucose Random Glucose 100 Estimat Average Glucose Hemoglobin A1c % Calcium 9.4 Magnesium 2.0 Total Bilirubin 0.8 Direct Bilirubin 0.3 AST 21 ALT 21 Alkaline Phosphatase 90 D Total Protein 7.4 Albumin 4.4 Triglycerides Cholesterol LDL Cholesterol, Calc HDL Cholesterol Lipase 13 Vitamin B12 Folate TSH 1.90 Urine Color Urine Appearance Urine pH Ur Specific [place] Urine Protein Urine Glucose (UA) Urine Ketones Urine Blood Urine Nitrite Ur Leukocyte Esterase Urine Opiates Screen Urine Fentanyl Screen Ur Barbiturates Screen Ur Phencyclidine Scrn Ur Amphetamines Screen U Benzodiazepines Scrn Urine Cocaine Screen U Marijuana (THC) Screen COVID-19 ([facility]) COVID-19 Clin Com 04/07/22 04/07/22 04/07/22 18:14 18:14 18:53 WBC RBC Hgb Hct MCV MCH MCHC RDW Plt Count MPV Immature Gran % (Auto) Neut % (Auto) Lymph % (Auto) [place] % (Auto) Eos % (Auto) Baso % (Auto) Lymph # (Auto) [place] # (Auto) Eos # (Auto) Baso # (Auto) Abs Immat Gran (auto) Absolute Neuts (auto) Absolute Nucleated RBC Nucleated RBC % (auto) PT 12.1 INR 1.1 APTT Sodium Potassium Chloride Carbon Dioxide Anion Gap BUN Creatinine Estim Creat Clear Calc Estimated GFR POC Glucose Random Glucose Estimat Average Glucose Hemoglobin A1c % Calcium Magnesium Total Bilirubin Direct Bilirubin AST ALT Alkaline Phosphatase Total Protein Albumin Triglycerides Cholesterol LDL Cholesterol, Calc HDL Cholesterol Lipase Vitamin B12 306 Folate 18.1 TSH Urine Color Urine Appearance Urine pH Ur Specific [place] Urine Protein Urine Glucose (UA) Urine Ketones Urine Blood Urine Nitrite Ur Leukocyte Esterase Urine Opiates Screen Urine Fentanyl Screen Ur Barbiturates Screen Ur Phencyclidine Scrn Ur Amphetamines Screen U Benzodiazepines Scrn Urine Cocaine Screen U Marijuana (THC) Screen COVID-19 ([facility]) Negative COVID-19 Clin Com See Note 04/08/22 04/08/22 04/08/22 05:56 06:04 06:04 WBC RBC Hgb Hct MCV MCH MCHC RDW Plt Count MPV Immature Gran % (Auto) Neut % (Auto) Lymph % (Auto) [place] % (Auto) Eos % (Auto) Baso % (Auto) Lymph # (Auto) [place] # (Auto) Eos # (Auto) Baso # (Auto) Abs Immat Gran (auto) Absolute Neuts (auto) Absolute Nucleated RBC Nucleated RBC % (auto) PT INR APTT Sodium Potassium Chloride Carbon Dioxide Anion Gap BUN Creatinine Estim Creat Clear Calc Estimated GFR POC Glucose 86 Random Glucose Estimat Average Glucose Hemoglobin A1c % Calcium Magnesium Total Bilirubin Direct Bilirubin AST ALT Alkaline Phosphatase Total Protein Albumin Triglycerides Cholesterol LDL Cholesterol, Calc HDL Cholesterol Lipase Vitamin B12 Folate TSH Urine Color YELLOW Urine Appearance CLEAR Urine pH 6.5 Ur Specific [place] 1.015 Urine Protein NEG Urine Glucose (UA) NEG Urine Ketones NEG Urine Blood NEG Urine Nitrite NEG Ur Leukocyte Esterase NEG Urine Opiates Screen Not Detected Urine Fentanyl Screen Not Detected Ur Barbiturates Screen Not Detected Ur Phencyclidine Scrn Not Detected Ur Amphetamines Screen POSITIVE H U Benzodiazepines Scrn Not Detected Urine Cocaine Screen Not Detected U Marijuana (THC) Screen Not Detected COVID-19 ([facility]) COVID-19 Clin Com 04/08/22 04/08/22 04/08/22 18:28 19:01 19:01 WBC RBC Hgb Hct MCV MCH MCHC RDW Plt Count MPV Immature Gran % (Auto) Neut % (Auto) Lymph % (Auto) [place] % (Auto) Eos % (Auto) Baso % (Auto) Lymph # (Auto) [place] # (Auto) Eos # (Auto) Baso # (Auto) Abs Immat Gran (auto) Absolute Neuts (auto) Absolute Nucleated RBC Nucleated RBC % (auto) PT INR APTT Sodium Potassium Chloride Carbon Dioxide Anion Gap BUN Creatinine Estim Creat Clear Calc Estimated GFR POC Glucose 119 H Random Glucose Estimat Average Glucose 108 Hemoglobin A1c % 5.4 Calcium Magnesium Total Bilirubin Direct Bilirubin AST ALT Alkaline Phosphatase Total Protein Albumin Triglycerides 84 Cholesterol 159 D LDL Cholesterol, Calc 103 HDL Cholesterol 40 Lipase Vitamin B12 Folate TSH 1.50 Urine Color Urine Appearance Urine pH Ur Specific [place] Urine Protein Urine Glucose (UA) Urine Ketones Urine Blood Urine Nitrite Ur Leukocyte Esterase Urine Opiates Screen Urine Fentanyl Screen Ur Barbiturates Screen Ur Phencyclidine Scrn Ur Amphetamines Screen U Benzodiazepines Scrn Urine Cocaine Screen U Marijuana (THC) Screen COVID-19 ([facility]) COVID-19 Clin Com Imaging Radiology Impressions: ITS Impressions Chest X-Ray 04/07/22 18:23 IMPRESSION: No acute pulmonary pathology. Meds/Allergies Meds Home Medications Medication Instructions Recorded Confirmed Type aripiprazole 20 mg tablet 10 mg PO BID 04/07/22 04/07/22 History atorvastatin 40 mg tablet 1 tab PO DAILY 04/07/22 04/07/22 History clonidine HCl 0.1 mg tablet 1 tab PO TID 04/07/22 04/07/22 History dextroamphetamine-amphetamine ER 2 cap PO DAILY 04/07/22 04/07/22 History 20 mg 24hr capsule,extend release (Adderall XR) dulaglutide 0.75 mg/0.5 mL 0.75 mg subcut QWEEK 04/07/22 04/07/22 History subcutaneous pen injector (Trulicity) lorazepam 1 mg tablet 1 tab PO BID PRN Anxiety 04/07/22 04/07/22 History metformin 500 mg tablet,extended 2 tab PO BID 04/07/22 04/07/22 History release 24 hr topiramate 100 mg tablet 1 tab PO BID 04/07/22 04/07/22 History trazodone 100 mg tablet 2 tab PO BEDTIME PRN Insomnia 04/07/22 04/07/22 History Allergies Allergies Allergy/AdvReac Type Severity Reaction Status Date / Time No Known Allergies Allergy Unverified 12/08/21 12:51 [No Known Allergies*] Mental Status Exam Mental Status Exam Narrative: Appearance:MO, wearing hospital gown, fair hygiene, pacing, anxious Behavior:cooperative psychomotor:pacing, no overt agitation or retardation noted Speech: clear, normal rate/rhythm/volume, spontaneous Thought process: tangential Thought content:somatic delusions, asking help for somatic concerns, thinks he is dying Mood: anxious Affect: intense- eye contact, fearful SI:denies HI:denies VH/AH:denies, although reports hearing effects of electric cords, sees hands turning yellow/orange Delusions:somatic delusions of electric field causing somatic concerns such as palpitation, dry eyes. Insight/judgment:poor x 2 . Memory/cog: alert, oriented x 3. Assessment & Plan Assessment & Plan (1) Schizoaffective disorder: Status: Acute Code(s): F25.9 - Schizoaffective disorder, unspecified Plan Mr. Cordon is a 26 year-old male with hx of schizoaffective disorder, last episode of paranoid/persecutory delusions 6 years ago. He has also presented with periods of explosive behaviors. He was brought to to [facility] due to somatic delusions, thinking that electric cords changing color of his hand and causing number of somatic symptoms including dry eyes, palpitation, increase agitation as he thinks others are not helping and he is going to dye. We discussed risks, benefits and alternative treatment option, pt and his mother agree to stop adderall as it will worsened somatic delusions, psychosis, agitation. Continue abilify 20mg po daily, no need to split dose this medication. if not improvement seen, may consider switching to different antipsychotic. PLAN 1.Admit to M3, CV, 15 minutes checks 2. continue abilify 20mg po daily, d/c adderall (worsening psychosis and delusions). PRN olanzapine 10mg po q6h, prn agitation, ativan 2mg po q6h, prn agitation Patient educated on: diagnosis and medication risk/benefits Guardian/Caregiver educated on: diagnosis and medication risk/benefits Informed Consent: understands Reason for continued inpatient stay Substantial Risk for: harm to self and inability to function
[2022-04-09 16:27] LABS: COVID-19 Test Negative (Negative)
[2022-04-09 17:42] VITALS: BP 157/108; PULSE 87; RESP 17; TEMP 36.6; O2SAT 97
--- NOTE | 2022-04-09 18:41 | PC.ADMIT ---
Patient arrived to M3 at 17:31 from [facility] ED POD on a legal status of a CV. Hx of asthma and type 2 DM. Vital signs at admission were 97.8, HR 87, RR 16, BP 157/108 (MD Sal Espitia notified), O2 97%.? Patient is alert and oriented x 3, with sitatution being vague. Patient is cooperative with the interview, however the patient would go minutes without responding to questions. When asked to describe what brought him in, he replied. ?I feel like the electricity from the plug I use is bad. From playstation and Tv when I turn on the brightness from my TV it sparkles up and my tablet as well and my phone as well. I feel like it goes through. I then unplug the plug. My phone and my tablet changed color when I touched it to bright orange. My eyes are shocked and burning up?. Patient has poor eye contact during the interview. Speech is delayed in responses. Presents disorganized thought processes. Preservative on ?electricity?.?Patient feels his eyes are dry from the electricity running through him. Patient has a guardian, Khushi Cordon [phone], which is mom. Recent stressors include the of father in August of 2021. Patient currently denies SI/HI. Reported some constipation. Also reported ?burning and hard when I pee?. Dr. Sal Espitia notified.
[2022-04-09 21:07] VITALS: BP 142/92; PULSE 84; RESP 16; TEMP 36.4; O2SAT 96
[2022-04-09 21:10] LABS: Appearance Urine CLEAR; Color Urine YELLOW; Glucose Urine UA NEG (NEG); Leukocyte Esterase Urine NEG (NEG); Nitrite Urine NEG (NEG); PH 6.5 (5.0-8.0); Urine Blood NEG (NEG); Urine Ketones NEG (NEG); Urine Protein NEG (NEG-TRACE)
[2022-04-09] MEDS: Docusate Sodium 100 MG CAPSULE PO (21:11)
[2022-04-09] MEDS: Atorvastatin Calcium 40 MG TABLET PO (21:11)
[2022-04-09] MEDS: lisinopriL 10 MG TABLET PO (21:11)
[2022-04-09] MEDS: OLANZapine ODT 10 MG TAB.RAPDIS TRANSLINGU (21:15)
[2022-04-09] MEDS: traZODone HCL 100 MG TABLET 200 MG PO (21:15)
[2022-04-10] MEDS: hydrOXYzine HCL 25 MG TABLET PO (02:07)
[2022-04-10 07:48] LABS: Alanine Aminotransferase 20 U/L (0-40); Albumin Level 4.3 g/dL (3.5-5.0); Alkaline Phosphatase 101 U/L (39-117); Anion Gap 14 (12-20); Aspartate Amino Transferase 15 U/L (5-37); Bilirubin Total 0.3 mg/dL (0.0-1.0); Blood Urea Nitrogen 11 mg/dL (9-16); Calcium 9.3 mg/dL (8.4-10.2); Carbon Dioxide 23 mmol/L (22-29); Chloride 109 mmol/L (96-108); Creatinine Clr Calc Pharmacy 126.4; Estimated Glomerular Filt Rate > 60; Glucose Fasting 106 mg/dL (60-99); Potassium 4.2 mmol/L (3.3-5.1); Sodium 142 mmol/L (135-145); Total Protein 7.3 g/dL (6.5-8.0)
[2022-04-10 07:54] VITALS: BP 135/87; PULSE 96; RESP 18; TEMP 36.7; O2SAT 99
[2022-04-10] MEDS: metFORMIN HCl ER 500 MG TAB.ER.24H 1000 MG PO ×2 (08:15→21:19)
[2022-04-10] MEDS: Docusate Sodium 100 MG CAPSULE PO ×2 (08:15→21:17)
[2022-04-10] MEDS: lisinopriL 10 MG TABLET PO (08:15)
[2022-04-10] MEDS: Topiramate 100 MG TABLET PO ×2 (08:15→21:16)
[2022-04-10] MEDS: ARIPiprazole 20 MG TABLET PO (08:15)
[2022-04-10] MEDS: Acetaminophen 325 MG TABLET 650 MG PO (10:09)
[2022-04-10] MEDS: Albuterol Sulfate 90 MCG 8 GM INHALER 1 PUFF INHALE ×2 (10:13→17:03)
[2022-04-10] MEDS: Artificial Tears 15 ML DROPS 2 DROP EYE-BOTH ×3 (14:57→21:22)
--- NOTE | 2022-04-10 16:34 | P.PNPSI_ITS ---
Subjective Subjective Date of Service: 04/10/22 Reason For Visit: Somatic delusions Interim History: calm, cooperative. c/o OHARA, tylenol dosing increased. also c/o dry eyes, agreeable to have eye drops prescribed. willing to continue current regimen. no other questions or complaints. per staff, c/o stimuli on unit being too much. asking for D/C redirectable. Mental Status Exam Mental Status Exam Narrative: Appearance:MO, wearing hospital gown, fair hygiene Behavior:cooperative psychomotor:no overt agitation or retardation noted Speech: dysarthric, normal rate/rhythm/volume, spontaneous Thought process: tangential Thought content:somatic delusions, asking help for somatic concerns Mood: not assessed Affect: intense- eye contact SI:denies HI:denies VH/AH:denies, although reports hearing effects of electric cords, sees hands turning yellow/orange Delusions:somatic delusions of electric field causing somatic concerns such as palpitation, dry eyes. Insight/judgment:poor x 2 . Memory/cog: alert, oriented x 3. Diagnostics Vital Signs (24Hr): Vital Signs - 24 hr 04/09/22 17:42 04/09/22 21:07 04/10/22 07:54 Temperature 97.8 F 97.6 F 98.1 F Pulse Rate 87 84 96 Respiratory Rate 17 16 18 Blood Pressure 157/108 H 142/92 H 135/87 Pulse Oximetry 97 96 99 Oxygen Delivery Method Room Air Room Air Room Air BMI result Body Mass Index 41.8 Labs Results: 04/07/22 18:14 04/10/22 07:14 Labs: Laboratory Results - last 48 hr 04/08/22 04/08/22 04/08/22 18:28 19:01 19:01 Sodium Potassium Chloride Carbon Dioxide Anion Gap BUN Creatinine Estim Creat Clear Calc Estimated GFR POC Glucose 119 H Fasting Glucose Estimat Average Glucose 108 Hemoglobin A1c % 5.4 Calcium Total Bilirubin AST ALT Alkaline Phosphatase Total Protein Albumin Triglycerides 84 Cholesterol 159 D LDL Cholesterol, Calc 103 HDL Cholesterol 40 TSH 1.50 Urine Color Urine Appearance Urine pH Ur Specific [place] Urine Protein Urine Glucose (UA) Urine Ketones Urine Blood Urine Nitrite Ur Leukocyte Esterase COVID-19 ([facility]) COVID-19 Clin Com 04/09/22 04/09/22 04/10/22 15:56 20:30 07:14 Sodium 142 Potassium 4.2 Chloride 109 H Carbon Dioxide 23 Anion Gap 14 BUN 11 Creatinine 1.14 Estim Creat Clear Calc 126.4 Estimated GFR > 60 POC Glucose Fasting Glucose 106 H Estimat Average Glucose Hemoglobin A1c % Calcium 9.3 Total Bilirubin 0.3 AST 15 ALT 20 Alkaline Phosphatase 101 Total Protein 7.3 Albumin 4.3 Triglycerides Cholesterol LDL Cholesterol, Calc HDL Cholesterol TSH Urine Color YELLOW Urine Appearance CLEAR Urine pH 6.5 Ur Specific [place] 1.020 Urine Protein NEG Urine Glucose (UA) NEG Urine Ketones NEG Urine Blood NEG Urine Nitrite NEG Ur Leukocyte Esterase NEG COVID-19 ([facility]) Negative COVID-19 Clin Com See Note Imaging Radiology Impressions: ITS Impressions Chest X-Ray 04/07/22 18:23 IMPRESSION: No acute pulmonary pathology. Medications Medications Current Medications Acetaminophen (Acetaminophen 325 Mg Tablet) 975 mg PO Q6H PRN PRN Reason: Headache/Pain Mild Scale (1-3) Al Hydroxide/Mg Hydroxide (Magnesium Hydrox/Alum Hydrox 30 Ml Oral.Susp) 30 ml PO Q6H PRN PRN Reason: Heartburn/Nausea Albuterol Sulfate (Albuterol Sulfate 90 Mcg 8 Gm Inhaler) 1 puff INHALE Q4H PRN PRN Reason: Wheezing Last Admin: 04/10/22 10:13 Dose: 1 puff Aripiprazole (Aripiprazole 20 Mg Tablet) 20 mg PO DAILY REPLACED BY [facility] Last Admin: 04/10/22 08:15 Dose: 20 mg Artificial Tears (Artificial Tears 15 Ml Drops) 2 drop EYE-BOTH Q4H REPLACED BY [facility] Last Admin: 04/10/22 14:57 Dose: 2 drop Atorvastatin Calcium (Atorvastatin Calcium 40 Mg Tablet) 40 mg PO BEDTIME REPLACED BY [facility] Last Admin: 04/09/22 21:11 Dose: 40 mg Docusate Sodium (Docusate Sodium 100 Mg Capsule) 100 mg PO BID REPLACED BY [facility] Last Admin: 04/10/22 08:15 Dose: 100 mg Hydroxyzine HCl (Hydroxyzine Hcl 25 Mg Tablet) 25 mg PO Q6H PRN PRN Reason: Anxiety Last Admin: 04/10/22 02:07 Dose: 25 mg Lisinopril (Lisinopril 10 Mg Tablet) 10 mg PO DAILY REPLACED BY [facility]; Protocol Last Admin: 04/10/22 08:15 Dose: 10 mg Lorazepam (Lorazepam 1 Mg Tablet) 2 mg PO Q6H PRN PRN Reason: agitation/severe anxiety Last Admin: 04/08/22 23:27 Dose: 2 mg Magnesium Hydroxide (Milk Of Magnesia 30 Ml Oral.Susp) 30 ml PO DAILY PRN PRN Reason: Constipation Metformin HCl (Metformin Hcl Er 500 Mg Tab.Er.24h) 1,000 mg PO BID REPLACED BY [facility] Last Admin: 04/10/22 08:15 Dose: 1,000 mg Olanzapine (Olanzapine Odt 10 Mg Tab.Rapdis) 10 mg TRANSLINGU Q6H PRN PRN Reason: agitation Last Admin: 04/09/22 21:15 Dose: 10 mg Topiramate (Topiramate 100 Mg Tablet) 100 mg PO BID REPLACED BY [facility] Last Admin: 04/10/22 08:15 Dose: 100 mg Trazodone HCl (Trazodone Hcl 100 Mg Tablet) 200 mg PO BEDTIME PRN PRN Reason: Insomnia Last Admin: 04/09/22 21:15 Dose: 200 mg Trazodone HCl (Trazodone Hcl 50 Mg Tablet) 50 mg PO BEDTIME PRN PRN Reason: Insomnia Allergies Allergies Allergy/AdvReac Type Severity Reaction Status Date / Time No Known Allergies Allergy Unverified 12/08/21 12:51 [No Known Allergies*] Assessment & Plan Assessment & Plan (1) Schizoaffective disorder: Status: Acute Code(s): F25.9 - Schizoaffective disorder, unspecified Plan Mr. Cordon is a 26 year-old male with hx of schizoaffective disorder, last episode of paranoid/persecutory delusions 6 years ago. He has also presented wit h periods of explosive behaviors. He was brought to to [facility] [place] to somatic delusions, thinking that electric cords changing color of his hand and causing number of somatic symptoms including dry eyes, palpitation, increase agitation as he thinks others are not helping and he is going to dye. We discussed risks, benefits and alternative treatment option, pt and his mother agree to stop adderall as it will worsened somatic delusions, psychosis, agitation. Continue abilify 20mg po daily, no need to split dose this medication. if not improvement seen, may consider switching to different antipsychotic. 04/09: continued abilify 20mg po daily, d/nolan adderall (worsening psychosis and delusions). PRN olanzapine 10mg po q6h, prn agitation, ativan 2mg po q6h, prn agitation 04/10: added artificial tears, increased PRN tylenol to 1000 mg per dose. I spent ___15___ minutes with the patient and/or on the patient floor today, greater than?50% of which was spent counseling/coordinating care. Reason for contiued inpatient stay Substantial Risk for: inability to function and rapid decompensation
[2022-04-10 21:15] VITALS: BP 151/97; PULSE 91; RESP 18; TEMP 35.9; O2SAT 99
[2022-04-10] MEDS: Atorvastatin Calcium 40 MG TABLET PO (21:16)
[2022-04-10] MEDS: traZODone HCL 100 MG TABLET 200 MG PO (21:16)
[2022-04-10] MEDS: OLANZapine ODT 10 MG TAB.RAPDIS TRANSLINGU (21:17)
[2022-04-11] MEDS: Acetaminophen 325 MG TABLET 975 MG PO (01:37)
[2022-04-11] MEDS: LORazepam 1 MG TABLET 2 MG PO (01:37)
[2022-04-11] MEDS: Artificial Tears 15 ML DROPS 2 DROP EYE-BOTH ×4 (01:38→21:35)
[2022-04-11 06:00] VITALS: BP 136/71; PULSE 114; RESP 18; TEMP 36.3; O2SAT 95
[2022-04-11] MEDS: Docusate Sodium 100 MG CAPSULE PO ×2 (09:51→21:32)
[2022-04-11] MEDS: lisinopriL 10 MG TABLET PO (09:51)
[2022-04-11] MEDS: metFORMIN HCl ER 500 MG TAB.ER.24H 1000 MG PO ×2 (09:51→21:32)
[2022-04-11] MEDS: ARIPiprazole 20 MG TABLET PO (09:51)
[2022-04-11] MEDS: Topiramate 100 MG TABLET PO ×2 (09:51→21:33)
[2022-04-11] MEDS: Albuterol Sulfate 90 MCG 8 GM INHALER 1 PUFF INHALE ×2 (10:10→20:34)
[2022-04-11 15:57] LABS: Glucose, Whole Blood 90 mg/dL (60-115)
--- NOTE | 2022-04-11 16:11 | P.PNPSI_ITS ---
Subjective Subjective Date of Service: 04/11/22 Reason For Visit: Somatic delusions Interim History: pt states he is not doing well today, reports seeing a white line in the window. states his eyes are fucked up. how? foggy. states his glasses are fucked up. how? they're not improving his foggy eye vision. suggests we will change his eyedrops to PRN and see how that goes. no other requests or complaints. per staff, spent most of caitie in room. c/o asthma attacks, asking for rescue inhaler a lot but does not appear in any distress, clear lungs. RN trying to redirect pt. Mental Status Exam Mental Status Exam Narrative: Appearance:MO, wearing hospital gown, fair hygiene Behavior:cooperative psychomotor:no overt agitation or retardation noted Speech: dysarthric, normal rate/rhythm/volume, spontaneous Thought process: tangential Thought content:somatic delusions, asking help for somatic concerns Mood: not assessed Affect: intense- eye contact SI:denies HI:denies VH/AH:denies, although reports hearing effects of electric cords, sees hands turning yellow/orange Delusions:somatic delusions of electric field causing somatic concerns such as palpitation, dry eyes. Insight/judgment:poor x 2 . Memory/cog: alert, oriented x 3. Diagnostics Vital Signs (24Hr): Vital Signs - 24 hr 04/10/22 21:15 04/11/22 06:00 Temperature 96.7 F L 97.4 F Pulse Rate 91 114 H Respiratory Rate 18 18 Blood Pressure 151/97 H 136/71 Pulse Oximetry 99 95 Oxygen Delivery Method Room Air Room Air BMI result Body Mass Index 41.8 Labs Results: 04/07/22 18:14 04/10/22 07:14 Labs: Laboratory Results - last 48 hr 04/09/22 04/09/22 04/10/22 15:56 20:30 07:14 Sodium 142 Potassium 4.2 Chloride 109 H Carbon Dioxide 23 Anion Gap 14 BUN 11 Creatinine 1.14 Estim Creat Clear Calc 126.4 Estimated GFR > 60 POC Glucose Fasting Glucose 106 H Calcium 9.3 Total Bilirubin 0.3 AST 15 ALT 20 Alkaline Phosphatase 101 Total Protein 7.3 Albumin 4.3 Urine Color YELLOW Urine Appearance CLEAR Urine pH 6.5 Ur Specific [place] 1.020 Urine Protein NEG Urine Glucose (UA) NEG Urine Ketones NEG Urine Blood NEG Urine Nitrite NEG Ur Leukocyte Esterase NEG COVID-19 ([facility]) Negative COVID-19 Clin Com See Note 04/11/22 15:52 Sodium Potassium Chloride Carbon Dioxide Anion Gap BUN Creatinine Estim Creat Clear Calc Estimated GFR POC Glucose 90 Fasting Glucose Calcium Total Bilirubin AST ALT Alkaline Phosphatase Total Protein Albumin Urine Color Urine Appearance Urine pH Ur Specific [place] Urine Protein Urine Glucose (UA) Urine Ketones Urine Blood Urine Nitrite Ur Leukocyte Esterase COVID-19 ([facility]) COVID-19 Clin Com Imaging Radiology Impressions: ITS Impressions Chest X-Ray 04/07/22 18:23 IMPRESSION: No acute pulmonary pathology. Medications Medications Current Medications Acetaminophen (Acetaminophen 325 Mg Tablet) 975 mg PO Q6H PRN PRN Reason: Headache/Pain Mild Scale (1-3) Last Admin: 04/11/22 01:37 Dose: 975 mg Al Hydroxide/Mg Hydroxide (Magnesium Hydrox/Alum Hydrox 30 Ml Oral.Susp) 30 ml PO Q6H PRN PRN Reason: Heartburn/Nausea Albuterol Sulfate (Albuterol Sulfate 90 Mcg 8 Gm Inhaler) 1 puff INHALE Q4H PRN PRN Reason: Wheezing Last Admin: 04/11/22 10:10 Dose: 1 puff Aripiprazole (Aripiprazole 20 Mg Tablet) 20 mg PO DAILY [facility] Last Admin: 04/11/22 09:51 Dose: 20 mg Artificial Tears (Artificial Tears 15 Ml Drops) 2 drop EYE-BOTH Q4H PRN PRN Reason: dry eyes Atorvastatin Calcium (Atorvastatin Calcium 40 Mg Tablet) 40 mg PO BEDTIME [facility] Last Admin: 04/10/22 21:16 Dose: 40 mg Benzocaine (Throat Lozenge, Medicated Lozenge) 1 lozenge MUCOUS MEM Q1H PRN PRN Reason: Sore Throat Docusate Sodium (Docusate Sodium 100 Mg Capsule) 100 mg PO BID [facility] Last Admin: 04/11/22 09:51 Dose: 100 mg Hydroxyzine HCl (Hydroxyzine Hcl 25 Mg Tablet) 25 mg PO Q6H PRN PRN Reason: Anxiety Last Admin: 04/10/22 02:07 Dose: 25 mg Lisinopril (Lisinopril 10 Mg Tablet) 10 mg PO DAILY [facility]; Protocol Last Admin: 04/11/22 09:51 Dose: 10 mg Lorazepam (Lorazepam 1 Mg Tablet) 2 mg PO Q6H PRN PRN Reason: agitation/severe anxiety Last Admin: 04/11/22 01:37 Dose: 2 mg Magnesium Hydroxide (Milk Of Magnesia 30 Ml Oral.Susp) 30 ml PO DAILY PRN PRN Reason: Constipation Metformin HCl (Metformin Hcl Er 500 Mg Tab.Er.24h) 1,000 mg PO BID [facility] Last Admin: 04/11/22 09:51 Dose: 1,000 mg Olanzapine (Olanzapine Odt 10 Mg Tab.Rapdis) 10 mg TRANSLINGU Q6H PRN PRN Reason: agitation Last Admin: 04/10/22 21:17 Dose: 10 mg Topiramate (Topiramate 100 Mg Tablet) 100 mg PO BID [facility] Last Admin: 04/11/22 09:51 Dose: 100 mg Trazodone HCl (Trazodone Hcl 100 Mg Tablet) 200 mg PO BEDTIME PRN PRN Reason: Insomnia Last Admin: 04/10/22 21:16 Dose: 200 mg Trazodone HCl (Trazodone Hcl 50 Mg Tablet) 50 mg PO BEDTIME PRN PRN Reason: Insomnia Allergies Allergies Allergy/AdvReac Type Severity Reaction Status Date / Time No Known Allergies Allergy Unverified 12/08/21 12:51 [No Known Allergies*] Assessment & Plan Assessment & Plan (1) Schizoaffective disorder: Status: Acute Code(s): F25.9 - Schizoaffective disorder, unspecified Plan Mr. Cordon is a 26 year-old male with hx of schizoaffective disorder, last episode of paranoid/persecutory delusions 6 years ago. He has also presented with periods of explosive behaviors. He was brought to to [facility] [place] due to somatic delusions, thinking that electric cords changing color of his hand and causing number of somatic symptoms including dry eyes, palpitation, increase agitation as he thinks others are not helping and he is going to dye. We discussed risks, benefits and alternative treatment option, pt and his mother agree to stop ad derall as it will worsened somatic delusions, psychosis, agitation. Continue abilify 20mg po daily, no need to split dose this medication. if not improvement seen, may consider switching to different antipsychotic. 04/09: continued abilify 20mg po daily, d/nolan adderall (worsening psychosis and delusions). PRN olanzapine 10mg po q6h, prn agitation, ativan 2mg po q6h, prn agitation 04/10: added artificial tears, increased PRN tylenol to 1000 mg per dose. 04/11: no substantial changes. I spent __15____ minutes with the patient and/or on the patient floor today, greater than?50% of which was spent counseling/coordinating care. Reason for contiued inpatient stay Substantial Risk for: harm to others, inability to function and rapid decompensation
[2022-04-11] MEDS: Atorvastatin Calcium 40 MG TABLET PO (21:32)
[2022-04-11] MEDS: Sodium Chloride 0.65 % Nasal 44 ML SPRBTL 1 SPRAY NOSTRIL-B (21:33)
[2022-04-11] MEDS: traZODone HCL 100 MG TABLET 200 MG PO (21:33)
[2022-04-11] MEDS: Throat Lozenge, Medicated LOZENGE 1 LOZENGE MUCOUS MEM (21:36)
[2022-04-11 21:43] VITALS: BP 129/74; PULSE 107; RESP 18; TEMP 36.6; O2SAT 95
[2022-04-12] MEDS: LORazepam 1 MG TABLET 2 MG PO (02:41)
[2022-04-12] MEDS: Artificial Tears 15 ML DROPS 2 DROP EYE-BOTH (02:42)
[2022-04-12] MEDS: hydrOXYzine HCL 25 MG TABLET PO ×2 (02:42→23:38)
[2022-04-12] MEDS: Albuterol Sulfate 90 MCG 8 GM INHALER 1 PUFF INHALE ×2 (02:46→13:08)
[2022-04-12] MEDS: Sodium Chloride 0.65 % Nasal 44 ML SPRBTL 1 SPRAY NOSTRIL-B (02:52)
[2022-04-12 06:00] VITALS: BP 137/88; PULSE 120; RESP 16; TEMP 36.4; O2SAT 96
[2022-04-12] MEDS: ARIPiprazole 20 MG TABLET PO (10:00)
[2022-04-12] MEDS: Topiramate 100 MG TABLET PO (10:01)
[2022-04-12] MEDS: metFORMIN HCl ER 500 MG TAB.ER.24H 1000 MG PO ×2 (10:01→20:42)
[2022-04-12] MEDS: Docusate Sodium 100 MG CAPSULE PO ×2 (10:02→20:42)
[2022-04-12] MEDS: lisinopriL 10 MG TABLET PO (10:28)
[2022-04-12 10:44] LABS: Glucose, Whole Blood 185 mg/dL (60-115)
--- NOTE | 2022-04-12 12:10 | HO.PSYCHPN ---
Subjective Subjective Date of Service: 04/12/22 Reason For Visit: Somatic delusions Subjective Notes: Conditional Voluntary Interim History: Pt reports he continues to have dry eyes, he is not reporting that hands turning orange when he touches the light switch. He does report blurred vision. He reports SOB, O2sat has gone down to 95-96% on RA, afebrile. He reports sleeping well. No behavioral concerns. Medication Compliance: Yes Side effects from medications: No Attending Groups: No Review of Systems Review of Systems Constitutional: No Fever, No Chills ENT/Mouth: No Ear Pain, No Nasal Congestion, No sore throat Eyes: No Eye Pain, No Swelling, No Redness Cardiovascular: No Chest Pain, No SOB Respiratory: No Cough, No Sputum, No Dyspnea Gastrointestinal: No Nausea, No Vomiting, No Diarrhea, No Hematochezia, No Melena Genitourinary: No Dysuria, No Urinary Frequency, No Hematuria Musculoskeletal: No Myalgias Skin: No Skin Lesions, No rash Neuro: No Weakness, No Numbness, No Paresthesias, No Dizziness, No Headache Psych: No Anxiety, no Depression, no SI/HI Heme/Lymph: No Lymphadenopathy Endocrine: No Polyuria, No Polydipsia Yes all other systems are reviewed and are negative Mental Status Exam Mental Status Exam Narrative: Appearance:MO, wearing hospital gown, fair hygiene Behavior:cooperative psychomotor:no overt agitation or retardation noted Speech: dysarthric, normal rate/rhythm/volume, spontaneous Thought process: tangential Thought content:somatic delusions, asking help for somatic concerns Mood: tired Affect: intense- eye contact SI:denies HI:denies VH/AH:denies, although reports hearing effects of electric cords, sees hands turning yellow/orange Delusions:somatic delusions of electric field causing somatic concerns such as palpitation, dry eyes. Insight/judgment:poor x 2 . Memory/cog: alert, oriented x 3. Diagnostics Vital Signs (24Hr): Vital Signs - 24 hr 04/11/22 21:43 04/12/22 06:00 Temperature 97.8 F 97.6 F Pulse Rate 107 H 120 H Respiratory Rate 18 16 Blood Pressure 129/74 137/88 Pulse Oximetry 95 96 Oxygen Delivery Method Room Air Room Air BMI result Body Mass Index 41.8 Labs Results: 04/07/22 18:14 04/10/22 07:14 Labs: Laboratory Results - last 48 hr 04/11/22 04/12/22 15:52 10:39 POC Glucose 90 185 H Imaging Radiology Impressions: ITS Impressions Chest X-Ray 04/07/22 18:23 IMPRESSION: No acute pulmonary pathology. Medications Medications Current Medications Acetaminophen (Acetaminophen 325 Mg Tablet) 975 mg PO Q6H PRN PRN Reason: Headache/Pain Mild Scale (1-3) Last Admin: 04/11/22 01:37 Dose: 975 mg Al Hydroxide/Mg Hydroxide (Magnesium Hydrox/Alum Hydrox 30 Ml Oral.Susp) 30 ml PO Q6H PRN PRN Reason: Heartburn/Nausea Albuterol Sulfate (Albuterol Sulfate 90 Mcg 8 Gm Inhaler) 1 puff INHALE Q4H PRN PRN Reason: Wheezing Last Admin: 04/12/22 02:46 Dose: 1 puff Albuterol/Ipratropium (Albuterol/Iprat 2.5/0.5mg 3 Ml Ampul.Neb) 3 ml INHALE RQ4H PRN PRN Reason: Shortness of Breath/Wheezing Aripiprazole (Aripiprazole 20 Mg Tablet) 20 mg PO DAILY [facility] Last Admin: 04/12/22 10:00 Dose: 20 mg Artificial Tears (Artificial Tears 15 Ml Drops) 2 drop EYE-BOTH Q4H PRN PRN Reason: dry eyes Last Admin: 04/12/22 02:42 Dose: 2 drop Atorvastatin Calcium (Atorvastatin Calcium 40 Mg Tablet) 40 mg PO BEDTIME [facility] Last Admin: 04/11/22 21:32 Dose: 40 mg Benzocaine (Throat Lozenge, Medicated Lozenge) 1 lozenge MUCOUS MEM Q1H PRN PRN Reason: Sore Throat Last Admin: 04/11/22 21:36 Dose: 1 lozenge Docusate Sodium (Docusate Sodium 100 Mg Capsule) 100 mg PO BID [facility] Last Admin: 04/12/22 10:02 Dose: 100 mg Hydroxyzine HCl (Hydroxyzine Hcl 25 Mg Tablet) 25 mg PO Q6H PRN PRN Reason: Anxiety Last Admin: 04/12/22 02:42 Dose: 25 mg Lisinopril (Lisinopril 10 Mg Tablet) 10 mg PO DAILY [facility]; Protocol Last Admin: 04/12/22 10:28 Dose: 10 mg Lorazepam (Lorazepam 1 Mg Tablet) 1 mg PO Q6H PRN PRN Reason: agitation/severe anxiety Magnesium Hydroxide (Milk Of Magnesia 30 Ml Oral.Susp) 30 ml PO DAILY PRN PRN Reason: Constipation Metformin HCl (Metformin Hcl Er 500 Mg Tab.Er.24h) 1,000 mg PO BID [facility] Last Admin: 04/12/22 10:01 Dose: 1,000 mg Olanzapine (Olanzapine 5 Mg Tablet) 5 mg PO Q6H PRN PRN Reason: agitation/severe anxiety Sodium Chloride (Sodium Chloride 0.65 % Nasal 44 Ml Sprbtl) 1 spray NOSTRIL-B Q1H PRN PRN Reason: dry nares Last Admin: 04/12/22 02:52 Dose: 1 spray Topiramate (Topiramate 100 Mg Tablet) 100 mg PO BID [facility] Last Admin: 04/12/22 10:01 Dose: 100 mg Trazodone HCl (Trazodone Hcl 100 Mg Tablet) 200 mg PO BEDTIME PRN PRN Reason: Insomnia Last Admin: 04/11/22 21:33 Dose: 200 mg Trazodone HCl (Trazodone Hcl 50 Mg Tablet) 50 mg PO BEDTIME PRN PRN Reason: Insomnia Allergies Allergies Allergy/AdvReac Type Severity Reaction Status Date / Time No Known Allergies Allergy Unverified 12/08/21 12:51 [No Known Allergies*] Assessment & Plan Assessment & Plan (1) Schizoaffective disorder: Status: Acute Code(s): F25.9 - Schizoaffective disorder, unspecified Plan Mr. Cordon is a 26 year-old male with hx of schizoaffective disorder, last episode of paranoid/persecutory delusions 6 years ago. He has also presented with periods of explosive behaviors. He was brought to to [facility] [place] due to somatic delusions, thinking that electric cords changing color of his hand and causing number of somatic symptoms including dry eyes, palpitation, increase agitation as he thinks others are not helping and he is going to dye. We discussed risks, benefits and alternative treatment option, pt and his mother agree to stop adderall as it will worsened somatic delusions, psychosis, agitation. Continue abilify 20mg po daily, no need to split dose this medication. if not improvement seen, may consider switching to different antipsychotic. 04/09: continued abilify 20mg po daily, d/nolan adderall (worsening psychosis and delusions). PRN olanzapine 10mg po q6h, prn agitation, ativan 2mg po q6h, prn agitation 04/10: added artificial tears, increased PRN tylenol to 1000 mg per dose. 04/11: no substantial changes. 04/12- check chest CT worsening SOB, will look into blurry eye- not sure how long he has complain of this. May stop topamax as it may cause blurry vision, he denies eye pain. I spent minutes with the patient and/or on the patient floor today, greater than?50% of which was spent counseling/coordinating care. Reason for contiued inpatient stay Substantial Risk for: inability to function
[2022-04-12] MEDS: LORazepam 1 MG TABLET PO ×2 (12:25→20:42)
[2022-04-12 13:08] VITALS: PULSE 112; RESP 18; O2SAT 96
[2022-04-12 20:40] VITALS: BP 149/98; PULSE 120; RESP 18; TEMP 36.5; O2SAT 100
[2022-04-12] MEDS: traZODone HCL 100 MG TABLET 200 MG PO (20:42)
[2022-04-12] MEDS: Atorvastatin Calcium 40 MG TABLET PO (20:42)
[2022-04-12] MEDS: OLANZapine 5 MG TABLET PO (23:38)
[2022-04-12] MEDS: Magnesium Hydrox/Alum Hydrox 30 ML ORAL.SUSP PO (23:38)
[2022-04-13] MEDS: Artificial Tears 15 ML DROPS 2 DROP EYE-BOTH (02:59)
[2022-04-13 06:00] VITALS: BP 133/87; PULSE 114; RESP 20; TEMP 36.6; O2SAT 97
[2022-04-13] MEDS: Acetaminophen 325 MG TABLET 975 MG PO ×3 (06:52→19:46)
[2022-04-13] MEDS: chlorproMAZINE HCl 25 MG TABLET PO (06:57)
[2022-04-13] MEDS: Famotidine 20 MG TABLET PO (06:57)
[2022-04-13 07:56] LABS: Glucose, Whole Blood 132 mg/dL (60-115)
[2022-04-13 09:01] VITALS: BP 133/97; PULSE 114; RESP 20; TEMP 36.6
[2022-04-13] MEDS: lisinopriL 10 MG TABLET PO (09:32)
[2022-04-13] MEDS: ARIPiprazole 20 MG TABLET PO (09:32)
[2022-04-13] MEDS: metFORMIN HCl ER 500 MG TAB.ER.24H 1000 MG PO ×2 (09:32→19:45)
[2022-04-13] MEDS: Docusate Sodium 100 MG CAPSULE PO ×2 (09:32→19:45)
--- NOTE | 2022-04-13 13:35 | HO.PSYCHPN ---
Subjective Subjective Date of Service: 04/13/22 Reason For Visit: Somatic delusions Subjective Notes: Conditional Voluntary Interim History: Pt had episode of hiccups most night, received thorazine 25mg and famotidine with good effect. Pt reports left and right flank pain - chest CT did show kidney stones, consult to urology sent. Pt denies seeing hand turning yellong, still worried about electric field causing physical symptoms. Medication Compliance: Yes Side effects from medications: No Diagnostics Vital Signs (24Hr): Vital Signs - 24 hr 04/12/22 20:40 04/13/22 06:00 04/13/22 09:01 Temperature 97.7 F 97.8 F 97.8 F Pulse Rate 120 H 114 H 114 H Respiratory Rate 18 20 20 Blood Pressure 149/98 H 133/87 133/97 H Pulse Oximetry 100 97 Oxygen Delivery Method Room Air Room Air BMI result Body Mass Index 41.8 Labs Results: 04/07/22 18:14 04/10/22 07:14 Labs: Laboratory Results - last 48 hr 04/11/22 04/12/22 04/13/22 15:52 10:39 07:51 POC Glucose 90 185 H 132 H 04/13/22 14:07 POC Glucose 116 H Imaging Radiology Impressions: ITS Impressions Chest X-Ray 04/07/22 18:23 IMPRESSION: No acute pulmonary pathology. Chest CT 04/12/22 17:22 IMPRESSION: Unremarkable chest CT. Left renal stones. Fleischner guidelines were followed. Medications Medications Current Medications Acetaminophen (Acetaminophen 325 Mg Tablet) 975 mg PO Q6H PRN PRN Reason: Headache/Pain Mild Scale (1-3) Last Admin: 04/13/22 14:37 Dose: 975 mg Al Hydroxide/Mg Hydroxide (Magnesium Hydrox/Alum Hydrox 30 Ml Oral.Susp) 30 ml PO Q6H PRN PRN Reason: Heartburn/Nausea Last Admin: 04/12/22 23:38 Dose: 30 ml Albuterol Sulfate (Albuterol Sulfate 90 Mcg 8 Gm Inhaler) 1 puff INHALE Q4H PRN PRN Reason: Wheezing Last Admin: 04/12/22 13:08 Dose: 1 puff Albuterol/Ipratropium (Albuterol/Iprat 2.5/0.5mg 3 Ml Ampul.Neb) 3 ml INHALE RQ4H PRN PRN Reason: Shortness of Breath/Wheezing Aripiprazole (Aripiprazole 20 Mg Tablet) 20 mg PO DAILY [facility] Last Admin: 04/13/22 09:32 Dose: 20 mg Artificial Tears (Artificial Tears 15 Ml Drops) 2 drop EYE-BOTH Q4H PRN PRN Reason: dry eyes Last Admin: 04/13/22 02:59 Dose: 2 drop Atorvastatin Calcium (Atorvastatin Calcium 40 Mg Tablet) 40 mg PO BEDTIME [facility] Last Admin: 04/12/22 20:42 Dose: 40 mg Docusate Sodium (Docusate Sodium 100 Mg Capsule) 100 mg PO BID [facility] Last Admin: 04/13/22 09:32 Dose: 100 mg Famotidine (Famotidine 20 Mg Tablet) 20 mg PO DAILY [facility] Last Admin: 04/13/22 06:57 Dose: 20 mg Hydroxyzine HCl (Hydroxyzine Hcl 25 Mg Tablet) 25 mg PO Q6H PRN PRN Reason: Anxiety Last Admin: 04/12/22 23:38 Dose: 25 mg Lisinopril (Lisinopril 10 Mg Tablet) 10 mg PO DAILY [facility]; Protocol Last Admin: 04/13/22 09:32 Dose: 10 mg Lorazepam (Lorazepam 1 Mg Tablet) 1 mg PO Q6H PRN PRN Reason: agitation/severe anxiety Last Admin: 04/12/22 20:42 Dose: 1 mg Magnesium Hydroxide (Milk Of Magnesia 30 Ml Oral.Susp) 30 ml PO DAILY PRN PRN Reason: Constipation Metformin HCl (Metformin Hcl Er 500 Mg Tab.Er.24h) 1,000 mg PO BID [facility] Last Admin: 04/13/22 09:32 Dose: 1,000 mg Multi-Ingred Medicated Throat [place] (Throat [place], Medicated 20 Ml Bottle) 1 spray MUCOUS MEM Q2H PRN PRN Reason: DRY MOUTH Last Admin: 04/13/22 11:54 Dose: 1 spray Olanzapine (Olanzapine 5 Mg Tablet) 5 mg PO Q6H PRN PRN Reason: agitation/severe anxiety Last Admin: 04/12/22 23:38 Dose: 5 mg Sodium Chloride (Sodium Chloride 0.65 % Nasal 44 Ml Sprbtl) 1 spray NOSTRIL-B Q1H PRN PRN Reason: dry nares Last Admin: 04/12/22 02:52 Dose: 1 spray Trazodone HCl (Trazodone Hcl 100 Mg Tablet) 200 mg PO BEDTIME PRN PRN Reason: Insomnia Last Admin: 04/12/22 20:42 Dose: 200 mg Trazodone HCl (Trazodone Hcl 50 Mg Tablet) 50 mg PO BEDTIME PRN PRN Reason: Insomnia Allergies Allergies Allergy/AdvReac Type Severity Reaction Status Date / Time No Known Allergies Allergy Unverified 12/08/21 12:51 [No Known Allergies*] Assessment & Plan Assessment & Plan (1) Schizoaffective disorder: Status: Acute Code(s): F25.9 - Schizoaffective disorder, unspecified Plan Mr. Cordon is a 26 year-old male with hx of schizoaffective disorder, last episode of paranoid/persecutory delusions 6 years ago. He has also presented with periods of explosive behaviors. He was [place] [facility] delusions, thinking that electric cords changing color of his hand and causing number of somatic symptoms including dry eyes, palpitation, increase agitation as he thinks others are not helping and he is going to dye. We discussed risks, benefits and alternative treatment option, pt and his mother agree to stop adderall as it will worsened somatic delusions, psychosis, agitation. Continue abilify 20mg po daily, no need to split dose this medication. if not improvement seen, may consider switching to different antipsychotic. 04/09: continued abilify 20mg po daily, d/nolan adderall (worsening psychosis and delusions). PRN olanzapine 10mg po q6h, prn agitation, ativan 2mg po q6h, prn agitation 04/10: added artificial tears, increased PRN tylenol to 1000 mg per dose. 04/11: no substantial changes. 04/12- check chest CT worsening SOB, will look into blurry eye- not sure how long he has complain of this. May stop topamax as it may cause blurry vision, he denies eye pain. continue current meds- consult to urology re: kidney stones. I spent minutes with the patient and/or on the patient floor today, greater than?50% of which was spent counseling/coordinating care. Reason for contiued inpatient stay Substantial Risk for: inability to function
[2022-04-13 14:11] LABS: Glucose, Whole Blood 116 mg/dL (60-115)
[2022-04-13 17:25] LABS: Alanine Aminotransferase 27 U/L (0-40); Albumin Level 4.1 g/dL (3.5-5.0); Alkaline Phosphatase 98 U/L (39-117); Anion Gap 14 (12-20); Aspartate Amino Transferase 27 U/L (5-37); Bilirubin Total 0.3 mg/dL (0.0-1.0); Blood Urea Nitrogen 12 mg/dL (9-16); Calcium 8.8 mg/dL (8.4-10.2); Carbon Dioxide 19 mmol/L (22-29); Chloride 109 mmol/L (96-108); Creatinine Clr Calc Pharmacy 150.1; Estimated Glomerular Filt Rate > 60; Glucose Random 102 mg/dL (60-115); Potassium 4.7 mmol/L (3.3-5.1); Sodium 137 mmol/L (135-145); Total Protein 7.3 g/dL (6.5-8.0)
[2022-04-13 19:45] VITALS: BP 123/68; PULSE 118; RESP 18; TEMP 36.6; O2SAT 95
[2022-04-13] MEDS: LORazepam 1 MG TABLET PO (19:45)
[2022-04-13] MEDS: Atorvastatin Calcium 40 MG TABLET PO (19:46)
[2022-04-13] MEDS: Melatonin 3 MG TABLET PO (20:51)
[2022-04-14 06:00] VITALS: BP 136/83; PULSE 104; RESP 16; TEMP 36.8; O2SAT 95
[2022-04-14 08:37] LABS: Glucose, Whole Blood 111 mg/dL (60-115)
[2022-04-14] MEDS: lisinopriL 10 MG TABLET PO (08:39)
[2022-04-14] MEDS: Famotidine 20 MG TABLET PO (08:39)
[2022-04-14] MEDS: Docusate Sodium 100 MG CAPSULE PO ×2 (08:40→20:33)
[2022-04-14] MEDS: metFORMIN HCl ER 500 MG TAB.ER.24H 1000 MG PO ×2 (08:40→20:33)
[2022-04-14] MEDS: ARIPiprazole 20 MG TABLET PO (08:40)
[2022-04-14] MEDS: Albuterol Sulfate 90 MCG 8 GM INHALER 1 PUFF INHALE (12:00)
--- NOTE | 2022-04-14 14:30 | HO.PSYCHPN ---
Subjective Subjective Date of Service: 04/14/22 Reason For Visit: Somatic delusions Subjective Notes: Conditional Voluntary Interim History: Pt denies somatic symptoms today. No hiccups. He reports less abdominal pain. He denies pin/needle sensation on both arms/legs. He reports he slept better. He denies SI/HI. He denies being concern about electricity changing his hands' color or causing any other somatic concerns. No behavioral concerns. Medication Compliance: Yes Side effects from medications: No Attending Groups: Intermittent Review of Systems Review of Systems Constitutional: No Fever, No Chills ENT/Mouth: No Ear Pain, No Nasal Congestion, No sore throat Eyes: No Eye Pain, No Swelling, No Redness Cardiovascular: No Chest Pain, No SOB Respiratory: No Cough, No Sputum, No Dyspnea Gastrointestinal: No Nausea, No Vomiting, No Diarrhea, No Hematochezia, No Melena Genitourinary: No Dysuria, No Urinary Frequency, No Hematuria Musculoskeletal: No Myalgias Skin: No Skin Lesions, No rash Neuro: No Weakness, No Numbness, No Paresthesias, No Dizziness, No Headache Psych: No Anxiety, no Depression, no SI/HI Heme/Lymph: No Lymphadenopathy Endocrine: No Polyuria, No Polydipsia Yes all other systems are reviewed and are negative Mental Status Exam Mental Status Exam Narrative: Appearance:MO, wearing hospital gown, fair hygiene Behavior:cooperative psychomotor:no overt agitation or retardation noted Speech: dysarthric, normal rate/rhythm/volume, spontaneous Thought process: tangential Thought content:somatic delusions, asking help for somatic concerns Mood: tired Affect: intense- eye contact SI:denies HI:denies VH/AH:denies, although reports hearing effects of electric cords, sees hands turning yellow/orange Delusions:somatic delusions of electric field causing somatic concerns such as palpitation, dry eyes. Insight/judgment:poor x 2 . Memory/cog: alert, oriented x 3. Diagnostics Vital Signs (24Hr): Vital Signs - 24 hr 04/13/22 19:45 04/14/22 06:00 Temperature 97.9 F 98.2 F Pulse Rate 118 H 104 H Respiratory Rate 18 16 Blood Pressure 123/68 136/83 Pulse Oximetry 95 95 Oxygen Delivery Method Room Air Room Air BMI result Body Mass Index 41.8 Labs Results: 04/07/22 18:14 04/13/22 16:34 Labs: Laboratory Results - last 48 hr 04/13/22 04/13/22 04/13/22 07:51 14:07 16:34 Sodium 137 Potassium 4.7 Chloride 109 H Carbon Dioxide 19 L Anion Gap 14 BUN 12 Creatinine 0.96 Estim Creat Clear Calc 150.1 Estimated GFR > 60 POC Glucose 132 H 116 H Random Glucose 102 Calcium 8.8 Total Bilirubin 0.3 AST 27 D ALT 27 Alkaline Phosphatase 98 Total Protein 7.3 Albumin 4.1 04/14/22 08:33 Sodium Potassium Chloride Carbon Dioxide Anion Gap BUN Creatinine Estim Creat Clear Calc Estimated GFR POC Glucose 111 Random Glucose Calcium Total Bilirubin AST ALT Alkaline Phosphatase Total Protein Albumin Imaging Radiology Impressions: ITS Impressions Chest X-Ray 04/07/22 18:23 IMPRESSION: No acute pulmonary pathology. Chest CT 04/12/22 17:22 IMPRESSION: Unremarkable chest CT. Left renal stones. Fleischner guidelines were followed. Renal Ultrasound 04/13/22 16:19 IMPRESSION: Limited exam. Small left renal stones. No hydronephrosis. Medications Medications Current Medications Acetaminophen (Acetaminophen 325 Mg Tablet) 975 mg PO Q6H PRN PRN Reason: Headache/Pain Mild Scale (1-3) Last Admin: 04/13/22 19:46 Dose: 975 mg Al Hydroxide/Mg Hydroxide (Magnesium Hydrox/Alum Hydrox 30 Ml Oral.Susp) 30 ml PO Q6H PRN PRN Reason: Heartburn/Nausea Last Admin: 04/12/22 23:38 Dose: 30 ml Albuterol Sulfate (Albuterol Sulfate 90 Mcg 8 Gm Inhaler) 1 puff INHALE Q4H PRN PRN Reason: Wheezing Last Admin: 04/14/22 12:00 Dose: 1 puff Albuterol/Ipratropium (Albuterol/Iprat 2.5/0.5mg 3 Ml Ampul.Neb) 3 ml INHALE RQ4H PRN PRN Reason: Shortness of Breath/Wheezing Aripiprazole (Aripiprazole 20 Mg Tablet) 20 mg PO DAILY [facility] Last Admin: 04/14/22 08:40 Dose: 20 mg Artificial Tears (Artificial Tears 15 Ml Drops) 2 drop EYE-BOTH Q4H PRN PRN Reason: dry eyes Last Admin: 04/13/22 02:59 Dose: 2 drop Atorvastatin Calcium (Atorvastatin Calcium 40 Mg Tablet) 40 mg PO BEDTIME [facility] Last Admin: 04/13/22 19:46 Dose: 40 mg Docusate Sodium (Docusate Sodium 100 Mg Capsule) 100 mg PO BID [facility] Last Admin: 04/14/22 08:40 Dose: 100 mg Famotidine (Famotidine 20 Mg Tablet) 20 mg PO DAILY [facility] Last Admin: 04/14/22 08:39 Dose: 20 mg Hydroxyzine HCl (Hydroxyzine Hcl 25 Mg Tablet) 25 mg PO Q6H PRN PRN Reason: Anxiety Last Admin: 04/12/22 23:38 Dose: 25 mg Lisinopril (Lisinopril 10 Mg Tablet) 10 mg PO DAILY [facility]; Protocol Last Admin: 04/14/22 08:39 Dose: 10 mg Lorazepam (Lorazepam 1 Mg Tablet) 1 mg PO Q6H PRN PRN Reason: agitation/severe anxiety Last Admin: 04/13/22 19:45 Dose: 1 mg Magnesium Hydroxide (Milk Of Magnesia 30 Ml Oral.Susp) 30 ml PO DAILY PRN PRN Reason: Constipation Melatonin (Melatonin 3 Mg Tablet) 3 mg PO BEDTIME PRN PRN Reason: insomnia Last Admin: 04/13/22 20:51 Dose: 3 mg Metformin HCl (Metformin Hcl Er 500 Mg Tab.Er.24h) 1,000 mg PO BID [facility] Last Admin: 04/14/22 08:40 Dose: 1,000 mg Multi-Ingred Medicated Throat [place] (Throat [place], Medicated 20 Ml Bottle) 1 spray MUCOUS MEM Q2H PRN PRN Reason: DRY MOUTH Last Admin: 04/13/22 11:54 Dose: 1 spray Olanzapine (Olanzapine 5 Mg Tablet) 5 mg PO Q6H PRN PRN Reason: agitation/severe anxiety Last Admin: 04/12/22 23:38 Dose: 5 mg Sodium Chloride (Sodium Chloride 0.65 % Nasal 44 Ml Sprbtl) 1 spray NOSTRIL-B Q1H PRN PRN Reason: dry nares Last Admin: 04/12/22 02:52 Dose: 1 spray Trazodone HCl (Trazodone Hcl 100 Mg Tablet) 200 mg PO BEDTIME PRN PRN Reason: Insomnia Last Admin: 04/12/22 20:42 Dose: 200 mg Trazodone HCl (Trazodone Hcl 50 Mg Tablet) 50 mg PO BEDTIME PRN PRN Reason: Insomnia Allergies Allergies Allergy/AdvReac Type Severity Reaction Status Date / Time No Known Allergies Allergy Unverified 12/08/21 12:51 [No Known Allergies*] Assessment & Plan Assessment & Plan (1) Schizoaffective disorder: Status: Acute Code(s): F25.9 - Schizoaffective disorder, unspecified Plan Mr. Cordon is a 26 year-old male with hx of schizoaffective disorder, last episode of paranoid/persecutory delusions 6 years ago. He has also presented with periods of explosive behaviors. [place] [facility] [place] delusions, thinking that electric cords changing color of his hand and causing number of somatic symptoms including dry eyes, palpitation, increase agitation as he thinks others are not helping and he is going to dye. We discussed risks, benefits and alternative treatment option, pt and his mother agree to stop adderall as it will worsened somatic delusions, psychosis, agitation. Continue abilify 20mg po daily, no need to split dose this medication. if not improvement seen, may consider switching to different antipsychotic. 04/09: continued abilify 20mg po daily, d/nolan adderall (worsening psychosis and delusions). PRN olanzapine 10mg po q6h, prn agitation, ativan 2mg po q6h, prn agitation 04/10: added artificial tears, increased PRN tylenol to 1000 mg per dose. 04/11: no substantial changes. 04/12- check chest CT worsening SOB, will look into blurry eye- not sure how long he has complain of this. May stop topamax as it may cause blurry vision, he denies eye pain. continue current meds- consult to urology re: kidney stones. 04/14 continue current medications. I spent minutes with the patient and/or on the patient floor today, greater than?50% of which was spent counseling/coordinating care. Reason for contiued inpatient stay Substantial Risk for: inability to function
[2022-04-14 20:27] VITALS: BP 132/84; PULSE 99; RESP 16; TEMP 36.6; O2SAT 95
[2022-04-14] MEDS: Melatonin 3 MG TABLET PO (20:33)
[2022-04-14] MEDS: Atorvastatin Calcium 40 MG TABLET PO (20:33)
[2022-04-15] MEDS: traZODone HCL 50 MG TABLET PO (01:32)
[2022-04-15] MEDS: hydrOXYzine HCL 25 MG TABLET PO (01:32)
[2022-04-15 01:53] VITALS: BP 137/82; PULSE 84; RESP 16; O2SAT 96
[2022-04-15] MEDS: Acetaminophen 325 MG TABLET 975 MG PO ×2 (02:54→11:43)
[2022-04-15] MEDS: LORazepam 1 MG TABLET PO ×2 (04:54→20:50)
[2022-04-15] MEDS: Albuterol Sulfate 90 MCG 8 GM INHALER 1 PUFF INHALE (05:09)
[2022-04-15 07:00] VITALS: BMI 41.9
[2022-04-15 08:30] LABS: Glucose, Whole Blood 101 mg/dL (60-115)
[2022-04-15 08:50] VITALS: BP 130/82; PULSE 89; RESP 18; TEMP 36.4; O2SAT 97
[2022-04-15] MEDS: ARIPiprazole 20 MG TABLET PO (08:53)
[2022-04-15] MEDS: metFORMIN HCl ER 500 MG TAB.ER.24H 1000 MG PO ×2 (08:53→20:49)
[2022-04-15] MEDS: Docusate Sodium 100 MG CAPSULE PO ×2 (08:53→20:49)
[2022-04-15] MEDS: lisinopriL 10 MG TABLET PO (08:53)
[2022-04-15] MEDS: Famotidine 20 MG TABLET PO (08:53)
--- NOTE | 2022-04-15 12:10 | P.PNPSI_ITS ---
Subjective Subjective Date of Service: 04/15/22 Reason For Visit: Somatic delusions Subjective Notes: Conditional Voluntary Interim History: Per nursing, pt did not sleep well last night. Again reported that he thought electricity causing somatic symptoms. This morning pt reports pain when urinating and flank side pain on left and right side. He also reports some tingling sensation radiating down right leg. Per urologist, Dr. Shaffer- to follow OP re: kidney stones given that renal function wnl and treat pain with tylenol and ibuprofen. Medication Compliance: Yes Side effects from medications: No Review of Systems Review of Systems Constitutional: No Fever, No Chills ENT/Mouth: No Ear Pain, No Nasal Congestion, No sore throat Eyes: No Eye Pain, No Swelling, No Redness Cardiovascular: No Chest Pain, No SOB Respiratory: No Cough, No Sputum, No Dyspnea Gastrointestinal: No Nausea, No Vomiting, No Diarrhea, No Hematochezia, No Melena Genitourinary: No Dysuria, No Urinary Frequency, No Hematuria Musculoskeletal: No Myalgias Skin: No Skin Lesions, No rash Neuro: No Weakness, No Numbness, No Paresthesias, No Dizziness, No Headache Psych: No Anxiety, no Depression, no SI/HI Heme/Lymph: No Lymphadenopathy Endocrine: No Polyuria, No Polydipsia Yes all other systems are reviewed and are negative Mental Status Exam Mental Status Exam Narrative: Appearance:MO, wearing hospital gown, fair hygiene Behavior:cooperative psychomotor:no overt agitation or retardation noted Speech: dysarthric, normal rate/rhythm/volume, spontaneous Thought process: tangential Thought content:somatic delusions, asking help for somatic concerns Mood: tired Affect: intense- eye contact SI:denies HI:denies VH/AH:denies Delusions:somatic delusions of electric field causing somatic concerns such as palpitation, dry eyes. Insight/judgment:poor x 2 . Memory/cog: alert, oriented x 3. Diagnostics Vital Signs (24Hr): Vital Signs - 24 hr 04/14/22 20:27 04/15/22 01:53 04/15/22 08:50 Temperature 97.9 F 97.6 F Pulse Rate 99 84 89 Respiratory Rate 16 16 18 Blood Pressure 132/84 137/82 130/82 Pulse Oximetry 95 96 97 Oxygen Delivery Method Room Air Room Air Room Air BMI result Body Mass Index 41.8 Labs Results: 04/07/22 18:14 04/13/22 16:34 Labs: Laboratory Results - last 48 hr 04/13/22 04/13/22 04/14/22 14:07 16:34 08:33 Sodium 137 Potassium 4.7 Chloride 109 H Carbon Dioxide 19 L Anion Gap 14 BUN 12 Creatinine 0.96 Estim Creat Clear Calc 150.1 Estimated GFR > 60 POC Glucose 116 H 111 Random Glucose 102 Calcium 8.8 Total Bilirubin 0.3 AST 27 D ALT 27 Alkaline Phosphatase 98 Total Protein 7.3 Albumin 4.1 04/15/22 08:16 Sodium Potassium Chloride Carbon Dioxide Anion Gap BUN Creatinine Estim Creat Clear Calc Estimated GFR POC Glucose 101 Random Glucose Calcium Total Bilirubin AST ALT Alkaline Phosphatase Total Protein Albumin Imaging Radiology Impressions: ITS Impressions Chest X-Ray 04/07/22 18:23 IMPRESSION: No acute pulmonary pathology. Chest CT 04/12/22 17:22 IMPRESSION: Unremarkable chest CT. Left renal stones. Fleischner guidelines were followed. Renal Ultrasound 04/13/22 16:19 IMPRESSION: Limited exam. Small left renal stones. No hydronephrosis. Medications Medications Current Medications Acetaminophen (Acetaminophen 325 Mg Tablet) 975 mg PO Q6H PRN PRN Reason: Headache/Pain Mild Scale (1-3) Last Admin: 04/15/22 11:43 Dose: 975 mg Al Hydroxide/Mg Hydroxide (Magnesium Hydrox/Alum Hydrox 30 Ml Oral.Susp) 30 ml PO Q6H PRN PRN Reason: Heartburn/Nausea Last Admin: 04/12/22 23:38 Dose: 30 ml Albuterol Sulfate (Albuterol Sulfate 90 Mcg 8 Gm Inhaler) 1 puff INHALE Q4H PRN PRN Reason: Wheezing Last Admin: 04/15/22 05:09 Dose: 1 puff Albuterol/Ipratropium (Albuterol/Iprat 2.5/0.5mg 3 Ml Ampul.Neb) 3 ml INHALE RQ4H PRN PRN Reason: Shortness of Breath/Wheezing Aripiprazole (Aripiprazole 20 Mg Tablet) 20 mg PO DAILY [facility] Last Admin: 04/15/22 08:53 Dose: 20 mg Artificial Tears (Artificial Tears 15 Ml Drops) 2 drop EYE-BOTH Q4H PRN PRN Reason: dry eyes Last Admin: 04/13/22 02:59 Dose: 2 drop Atorvastatin Calcium (Atorvastatin Calcium 40 Mg Tablet) 40 mg PO BEDTIME [facility] Last Admin: 04/14/22 20:33 Dose: 40 mg Docusate Sodium (Docusate Sodium 100 Mg Capsule) 100 mg PO BID [facility] Last Admin: 04/15/22 08:53 Dose: 100 mg Famotidine (Famotidine 20 Mg Tablet) 20 mg PO DAILY [facility] Last Admin: 04/15/22 08:53 Dose: 20 mg Hydroxyzine HCl (Hydroxyzine Hcl 25 Mg Tablet) 25 mg PO Q6H PRN PRN Reason: Anxiety Last Admin: 04/15/22 01:32 Dose: 25 mg Lisinopril (Lisinopril 10 Mg Tablet) 10 mg PO DAILY [facility]; Protocol Last Admin: 04/15/22 08:53 Dose: 10 mg Lorazepam (Lorazepam 1 Mg Tablet) 1 mg PO Q6H PRN PRN Reason: agitation/severe anxiety Last Admin: 04/15/22 04:54 Dose: 1 mg Magnesium Hydroxide (Milk Of Magnesia 30 Ml Oral.Susp) 30 ml PO DAILY PRN PRN Reason: Constipation Melatonin (Melatonin 3 Mg Tablet) 3 mg PO BEDTIME PRN PRN Reason: insomnia Last Admin: 04/14/22 20:33 Dose: 3 mg Metformin HCl (Metformin Hcl Er 500 Mg Tab.Er.24h) 1,000 mg PO BID [facility] Last Admin: 04/15/22 08:53 Dose: 1,000 mg Multi-Ingred Medicated Throat [place] (Throat [place], Medicated 20 Ml Bottle) 1 spray MUCOUS MEM Q2H PRN PRN Reason: DRY MOUTH Last Admin: 04/13/22 11:54 Dose: 1 spray Olanzapine (Olanzapine 5 Mg Tablet) 5 mg PO Q6H PRN PRN Reason: agitation/severe anxiety Last Admin: 04/12/22 23:38 Dose: 5 mg Sodium Chloride (Sodium Chloride 0.65 % Nasal 44 Ml Sprbtl) 1 spray NOSTRIL-B Q1H PRN PRN Reason: dry nares Last Admin: 04/12/22 02:52 Dose: 1 spray Trazodone HCl (Trazodone Hcl 100 Mg Tablet) 200 mg PO BEDTIME PRN PRN Reason: Insomnia Last Admin: 04/12/22 20:42 Dose: 200 mg Trazodone HCl (Trazodone Hcl 50 Mg Tablet) 50 mg PO BEDTIME PRN PRN Reason: Insomnia Last Admin: 04/15/22 01:32 Dose: 50 mg Allergies Allergies Allergy/AdvReac Type Severity Reaction Status Date / Time No Known Allergies Allergy Unverified 12/08/21 12:51 [No Known Allergies*] Assessment & Plan Assessment & Plan (1) Schizoaffective disorder: Status: Acute Code(s): F25.9 - Schizoaffective disorder, unspecified Plan Mr. Cordon is a 26 year-old male with hx of schizoaffective disorder, last episode of paranoid/persecutory delusions 6 years ago. He has also presented with periods of explosive behaviors. [place] [facility] [place], thinking that electric cords changing color of his hand and causing number of somatic symptoms including dry eyes, palpitation, increase agitation as he thinks others are not helping and he is going to dye. We discussed risks, benefits and alternative treatment option, pt and his mother agree to stop adderall as it will worsened somatic delusions, psychosis, agitation. Continue abilify 20mg po daily, no need to split dose this medication. if not improvement seen, may consider switching to different antipsychotic. 04/09: continued abilify 20mg po daily, d/nolan adderall (worsening psychosis and delusions). PRN olanzapine 10mg po q6h, prn agitation, ativan 2mg po q6h, prn agitation 04/10: added artificial tears, increased PRN tylenol to 1000 mg per dose. 04/11: no substantial changes. 04/12- check chest CT worsening SOB, will look into blurry eye- not sure how long he has complain of this. May stop topamax as it may cause blurry vision, he denies eye pain. 04/13 continue current meds- consult to urology re: kidney stones. 04/14 continue current medications. 04/15- continue current meds, Per urologist: pt to follow up OP with urology re: kidney stones. I spent __25____ minutes with the patient and/or on the patient floor today, greater than?50% of which was spent counseling/coordinating care. Reason for contiued inpatient stay Substantial Risk for: inability to function
[2022-04-15 14:36] VITALS: BP 140/100; PULSE 107; RESP 20; O2SAT 95
[2022-04-15] MEDS: cloNIDine HCL 0.1 MG TABLET PO (14:42)
[2022-04-15 15:41] VITALS: BP 129/83; PULSE 99; RESP 18; O2SAT 95
[2022-04-15 20:37] VITALS: BP 135/79; PULSE 112; RESP 18; TEMP 36.1; O2SAT 96
[2022-04-15] MEDS: Atorvastatin Calcium 40 MG TABLET PO (20:49)
[2022-04-15] MEDS: traZODone HCL 100 MG TABLET 200 MG PO (20:49)
[2022-04-15] MEDS: OLANZapine 5 MG TABLET PO (20:50)
[2022-04-15] MEDS: Melatonin 3 MG TABLET PO (20:50)
[2022-04-16 06:00] VITALS: BP 129/81; PULSE 96; RESP 16; TEMP 36.7; O2SAT 96
[2022-04-16] MEDS: Artificial Tears 15 ML DROPS 2 DROP EYE-BOTH ×2 (06:08→22:47)
[2022-04-16] MEDS: Famotidine 20 MG TABLET PO (08:08)
[2022-04-16] MEDS: Docusate Sodium 100 MG CAPSULE PO ×2 (08:08→20:25)
[2022-04-16] MEDS: ARIPiprazole 20 MG TABLET PO (08:08)
[2022-04-16] MEDS: lisinopriL 10 MG TABLET PO (08:09)
[2022-04-16] MEDS: metFORMIN HCl ER 500 MG TAB.ER.24H 1000 MG PO ×2 (08:09→20:25)
[2022-04-16 08:58] LABS: Glucose, Whole Blood 112 mg/dL (60-115)
[2022-04-16] MEDS: Milk of Magnesia 30 ML ORAL.SUSP PO (10:59)
--- NOTE | 2022-04-16 12:40 | P.PNPSI_ITS ---
Subjective Subjective Date of Service: 04/16/22 Reason For Visit: Somatic delusions Subjective Notes: Conditional Voluntary Interim History: Pt reports he slept better last night. He continues with somatic concerns, today reports constipation. He denies SI/HI. Per mom, somatic concerns are not his baseline. Mom reports he continues to perseverate on these physical complaints, which medical work up not shown any acute findings. Medication Compliance: Yes Side effects from medications: No Attending Groups: No Review of Systems Review of Systems Constitutional: No Fever, No Chills ENT/Mouth: No Ear Pain, No Nasal Congestion, No sore throat Eyes: No Eye Pain, No Swelling, No Redness Cardiovascular: No Chest Pain, No SOB Respiratory: No Cough, No Sputum, No Dyspnea Gastrointestinal: No Nausea, No Vomiting, No Diarrhea, No Hematochezia, No Melena Genitourinary: No Dysuria, No Urinary Frequency, No Hematuria Musculoskeletal: No Myalgias Skin: No Skin Lesions, No rash Neuro: No Weakness, No Numbness, No Paresthesias, No Dizziness, No Headache Psych: No Anxiety, no Depression, no SI/HI Heme/Lymph: No Lymphadenopathy Endocrine: No Polyuria, No Polydipsia Yes all other systems are reviewed and are negative Mental Status Exam Mental Status Exam Narrative: Appearance:MO, wearing hospital gown, fair hygiene Behavior:cooperative psychomotor:no overt agitation or retardation noted Speech: dysarthric, normal rate/rhythm/volume, spontaneous Thought process: tangential Thought content:somatic delusions, asking help for somatic concerns Mood: tired Affect: intense- eye contact SI:denies HI:denies VH/AH:denies Delusions:somatic delusions of electric field causing somatic concerns such as palpitation, dry eyes. Insight/judgment:poor x 2 . Memory/cog: alert, oriented x 3. Diagnostics Vital Signs (24Hr): Vital Signs - 24 hr 04/15/22 14:36 04/15/22 15:41 04/15/22 20:37 Temperature 97.0 F Pulse Rate 107 H 99 112 H Respiratory Rate 20 18 18 Blood Pressure 140/100 H 129/83 135/79 Pulse Oximetry 95 95 96 Oxygen Delivery Method Room Air Room Air Room Air 04/16/22 06:00 Temperature 98.1 F Pulse Rate 96 Respiratory Rate 16 Blood Pressure 129/81 Pulse Oximetry 96 Oxygen Delivery Method Room Air BMI result Body Mass Index 41.9 Labs Results: 04/07/22 18:14 04/13/22 16:34 Labs: Laboratory Results - last 48 hr 04/15/22 04/16/22 08:16 07:59 POC Glucose 101 112 Imaging Radiology Impressions: ITS Impressions Chest X-Ray 04/07/22 18:23 IMPRESSION: No acute pulmonary pathology. Chest CT 04/12/22 17:22 IMPRESSION: Unremarkable chest CT. Left renal stones. Fleischner guidelines were followed. Renal Ultrasound 04/13/22 16:19 IMPRESSION: Limited exam. Small left renal stones. No hydronephrosis. Medications Medications Current Medications Acetaminophen (Acetaminophen 325 Mg Tablet) 975 mg PO Q6H PRN PRN Reason: Headache/Pain Mild Scale (1-3) Last Admin: 04/15/22 11:43 Dose: 975 mg Al Hydroxide/Mg Hydroxide (Magnesium Hydrox/Alum Hydrox 30 Ml Oral.Susp) 30 ml PO Q6H PRN PRN Reason: Heartburn/Nausea Last Admin: 04/12/22 23:38 Dose: 30 ml Albuterol Sulfate (Albuterol Sulfate 90 Mcg 8 Gm Inhaler) 1 puff INHALE Q4H PRN PRN Reason: Wheezing Last Admin: 04/15/22 05:09 Dose: 1 puff Albuterol/Ipratropium (Albuterol/Iprat 2.5/0.5mg 3 Ml Ampul.Neb) 3 ml INHALE RQ4H PRN PRN Reason: Shortness of Breath/Wheezing Aripiprazole (Aripiprazole 20 Mg Tablet) 20 mg PO DAILY [facility] Last Admin: 04/16/22 08:08 Dose: 20 mg Artificial Tears (Artificial Tears 15 Ml Drops) 2 drop EYE-BOTH Q4H PRN PRN Reason: dry eyes Last Admin: 04/16/22 06:08 Dose: 2 drop Atorvastatin Calcium (Atorvastatin Calcium 40 Mg Tablet) 40 mg PO BEDTIME [facility] Last Admin: 04/15/22 20:49 Dose: 40 mg Clonidine HCl (Clonidine Hcl 0.1 Mg Tablet) 0.1 mg PO TID PRN; Protocol PRN Reason: Anxiety Last Admin: 04/15/22 14:42 Dose: 0.1 mg Docusate Sodium (Docusate Sodium 100 Mg Capsule) 100 mg PO BID [facility] Last Admin: 04/16/22 08:08 Dose: 100 mg Famotidine (Famotidine 20 Mg Tablet) 20 mg PO DAILY [facility] Last Admin: 04/16/22 08:08 Dose: 20 mg Hydroxyzine HCl (Hydroxyzine Hcl 25 Mg Tablet) 25 mg PO Q6H PRN PRN Reason: Anxiety Last Admin: 04/15/22 01:32 Dose: 25 mg Lisinopril (Lisinopril 10 Mg Tablet) 10 mg PO DAILY [facility]; Protocol Last Admin: 04/16/22 08:09 Dose: 10 mg Lorazepam (Lorazepam 1 Mg Tablet) 1 mg PO Q6H PRN PRN Reason: agitation/severe anxiety Last Admin: 04/15/22 20:50 Dose: 1 mg Magnesium Hydroxide (Milk Of Magnesia 30 Ml Oral.Susp) 30 ml PO DAILY PRN PRN Reason: Constipation Last Admin: 04/16/22 10:59 Dose: 30 ml Melatonin (Melatonin 3 Mg Tablet) 3 mg PO BEDTIME PRN PRN Reason: insomnia Last Admin: 04/15/22 20:50 Dose: 3 mg Metformin HCl (Metformin Hcl Er 500 Mg Tab.Er.24h) 1,000 mg PO BID [facility] Last Admin: 04/16/22 08:09 Dose: 1,000 mg Multi-Ingred Medicated Throat [place] (Throat [place], Medicated 20 Ml Bottle) 1 spray MUCOUS MEM Q2H PRN PRN Reason: DRY MOUTH Last Admin: 04/13/22 11:54 Dose: 1 spray Olanzapine (Olanzapine 5 Mg Tablet) 5 mg PO Q6H PRN PRN Reason: agitation/severe anxiety Last Admin: 04/15/22 20:50 Dose: 5 mg Sodium Chloride (Sodium Chloride 0.65 % Nasal 44 Ml Sprbtl) 1 spray NOSTRIL-B Q1H PRN PRN Reason: dry nares Last Admin: 04/12/22 02:52 Dose: 1 spray Trazodone HCl (Trazodone Hcl 100 Mg Tablet) 200 mg PO BEDTIME PRN PRN Reason: Insomnia Last Admin: 04/15/22 20:49 Dose: 200 mg Trazodone HCl (Trazodone Hcl 50 Mg Tablet) 50 mg PO BEDTIME PRN PRN Reason: Insomnia Last Admin: 04/15/22 01:32 Dose: 50 mg Allergies Allergies Allergy/AdvReac Type Severity Reaction Status Date / Time No Known Allergies Allergy Unverified 12/08/21 12:51 [No Known Allergies*] Assessment & Plan Assessment & Plan (1) Schizoaffective disorder: Status: Acute Code(s): F25.9 - Schizoaffective disorder, unspecified Plan Mr. Cordon is a 26 year-old male with hx of schizoaffective disorder, last episode of paranoid/persecutory delusions 6 years ago. He has also presented with periods of explosive behaviors. He was brought to to [facility] [place] due to somatic delusions, thinking that electric cords changing color of his hand and causing number of somatic symptoms including dry eyes, palpitation, increase agitation as he thinks others are not helping and he is going to dye. We discussed risks, benefits and alternative treatment option, pt and his mother agree to stop adderall as it will worsened somatic delusions, psychosis, agitation. Continue abilify 20mg po daily, no need to split dose this medication. if not improvement seen, may consider switching to different antipsychotic. 04/09: continued abilify 20mg po daily, d/nolan adderall (worsening psychosis and de lusions). PRN olanzapine 10mg po q6h, prn agitation, ativan 2mg po q6h, prn agitation 04/10: added artificial tears, increased PRN tylenol to 1000 mg per dose. 04/11: no substantial changes. 04/12- check chest CT worsening SOB, will look into blurry eye- not sure how long he has complain of this. May stop topamax as it may cause blurry vision, he denies eye pain. 04/13 continue current meds- consult to urology re: kidney stones. 04/14 continue current medications. 04/15- continue current meds, Per urologist: pt to follow up OP with urology re: kidney stones. I spent minutes with the patient and/or on the patient floor today, greater than?50% of which was spent counseling/coordinating care. Reason for contiued inpatient stay Substantial Risk for: inability to function
[2022-04-16 15:00] VITALS: BP 144/78; PULSE 113; RESP 16; TEMP 36.6; O2SAT 95
[2022-04-16] MEDS: Acetaminophen 325 MG TABLET 975 MG PO (19:16)
[2022-04-16] MEDS: traZODone HCL 100 MG TABLET 200 MG PO (20:25)
[2022-04-16] MEDS: traZODone HCL 50 MG TABLET PO ×2 (20:25→22:20)
[2022-04-16] MEDS: Atorvastatin Calcium 40 MG TABLET PO (20:25)
[2022-04-16 20:27] VITALS: BP 140/89; PULSE 101; RESP 18; TEMP 36.4; O2SAT 90
[2022-04-16] MEDS: LORazepam 1 MG TABLET PO (22:20)
[2022-04-16] MEDS: cloNIDine HCL 0.1 MG TABLET PO (22:20)
[2022-04-16] MEDS: Sodium Chloride 0.65 % Nasal 44 ML SPRBTL 1 SPRAY NOSTRIL-B (23:00)
[2022-04-17] MEDS: Famotidine 20 MG TABLET PO (08:42)
[2022-04-17] MEDS: lisinopriL 10 MG TABLET PO (08:42)
[2022-04-17] MEDS: metFORMIN HCl ER 500 MG TAB.ER.24H 1000 MG PO ×2 (08:42→20:03)
[2022-04-17] MEDS: Docusate Sodium 100 MG CAPSULE PO (08:42)
[2022-04-17] MEDS: ARIPiprazole 20 MG TABLET PO (08:42)
[2022-04-17 08:45] VITALS: BP 131/84; PULSE 103; RESP 20; TEMP 36.6; O2SAT 96
[2022-04-17 09:11] LABS: Glucose, Whole Blood 109 mg/dL (60-115)
[2022-04-17] MEDS: Artificial Tears 15 ML DROPS 2 DROP EYE-BOTH (12:14)
[2022-04-17] MEDS: OLANZapine 5 MG TABLET PO (14:44)
[2022-04-17] MEDS: hydrOXYzine HCL 25 MG TABLET PO (14:44)
[2022-04-17] MEDS: Albuterol Sulfate 90 MCG 8 GM INHALER 1 PUFF INHALE (15:18)
--- NOTE | 2022-04-17 15:37 | P.PNPSI_ITS ---
Subjective Subjective Date of Service: 04/17/22 Reason For Visit: Somatic delusions Subjective Notes: Conditional Voluntary Healthcare Proxy: No Guardianship: No Medical Problems Affecting Mental Status: No Interim History: my eyes are watering pt with various somatic complaints some better some worse nursing reports delayed thinking and wandering unit, sometimes needs redirection but takes it Review of Systems Acute medical concerns: No Medical Review of Systems: changed ( my nose stopped running ) Review of Systems: co of watery eyes today- Mental Status Exam Mental Status Exam Patient Appearance: Unkempt Patient Orientation: Person, Place and Situation Level of Consciousness: Awake Patient Behavior: Dependent Mood Description: Anxious Affect Description: Calm Patient Cognition Impaired: Yes Ability to Follow Directions: Fair Speech Pattern: Mumbled Hallucinations: None Delusions: Present (somatic focus ? maybe sensory related ) Thought Process: Rumination Thought Content: positive for Persever[place] and positive for Preoccupation Depressive Symptoms: Unexplained Headaches Abnormal Motor Activity Signs and Symptoms: Restlessness Judgement: Fair Diagnostics Vital Signs (24Hr): Vital Signs - 24 hr 04/16/22 20:27 04/17/22 08:45 Temperature 97.6 F 97.9 F Pulse Rate 101 H 103 H Respiratory Rate 18 20 Blood Pressure 140/89 H 131/84 Pulse Oximetry 90 L 96 Oxygen Delivery Method Room Air Room Air BMI result Body Mass Index 41.9 Labs Results: 04/07/22 18:14 04/13/22 16:34 Labs: Laboratory Results - last 48 hr 04/16/22 04/17/22 07:59 09:06 POC Glucose 112 109 Imaging Radiology Impressions: ITS Impressions Chest X-Ray 04/07/22 18:23 IMPRESSION: No acute pulmonary pathology. Chest CT 04/12/22 17:22 IMPRESSION: Unremarkable chest CT. Left renal stones. Fleischner guidelines were followed. Renal Ultrasound 04/13/22 16:19 IMPRESSION: Limited exam. Small left renal stones. No hydronephrosis. Medications Medications Current Medications Acetaminophen (Acetaminophen 325 Mg Tablet) 975 mg PO Q6H PRN PRN Reason: Headache/Pain Mild Scale (1-3) Last Admin: 04/16/22 19:16 Dose: 975 mg Al Hydroxide/Mg Hydroxide (Magnesium Hydrox/Alum Hydrox 30 Ml Oral.Susp) 30 ml PO Q6H PRN PRN Reason: Heartburn/Nausea Last Admin: 04/12/22 23:38 Dose: 30 ml Albuterol Sulfate (Albuterol Sulfate 90 Mcg 8 Gm Inhaler) 1 puff INHALE Q4H PRN PRN Reason: Wheezing Last Admin: 04/17/22 15:18 Dose: 1 puff Albuterol/Ipratropium (Albuterol/Iprat 2.5/0.5mg 3 Ml Ampul.Neb) 3 ml INHALE RQ4H PRN PRN Reason: Shortness of Breath/Wheezing Aripiprazole (Aripiprazole 20 Mg Tablet) 20 mg PO DAILY [facility] Last Admin: 04/17/22 08:42 Dose: 20 mg Artificial Tears (Artificial Tears 15 Ml Drops) 2 drop EYE-BOTH Q4H PRN PRN Reason: dry eyes Last Admin: 04/17/22 12:14 Dose: 2 drop Atorvastatin Calcium (Atorvastatin Calcium 40 Mg Tablet) 40 mg PO BEDTIME [facility] Last Admin: 04/16/22 20:25 Dose: 40 mg Clonidine HCl (Clonidine Hcl 0.1 Mg Tablet) 0.1 mg PO TID PRN; Protocol PRN Reason: Anxiety Last Admin: 04/16/22 22:20 Dose: 0.1 mg Docusate Sodium (Docusate Sodium 100 Mg Capsule) 100 mg PO BID [facility] Last Admin: 04/17/22 08:42 Dose: 100 mg Famotidine (Famotidine 20 Mg Tablet) 20 mg PO DAILY [facility] Last Admin: 04/17/22 08:42 Dose: 20 mg Hydroxyzine HCl (Hydroxyzine Hcl 25 Mg Tablet) 25 mg PO Q6H PRN PRN Reason: Anxiety Last Admin: 04/17/22 14:44 Dose: 25 mg Lisinopril (Lisinopril 10 Mg Tablet) 10 mg PO DAILY [facility]; Protocol Last Admin: 04/17/22 08:42 Dose: 10 mg Magnesium Hydroxide (Milk Of Magnesia 30 Ml Oral.Susp) 30 ml PO DAILY PRN PRN Reason: Constipation Last Admin: 04/16/22 10:59 Dose: 30 ml Melatonin (Melatonin 3 Mg Tablet) 3 mg PO BEDTIME PRN PRN Reason: insomnia Last Admin: 04/15/22 20:50 Dose: 3 mg Metformin HCl (Metformin Hcl Er 500 Mg Tab.Er.24h) 1,000 mg PO BID [facility] Last Admin: 04/17/22 08:42 Dose: 1,000 mg Multi-Ingred Medicated Throat [place] (Throat [place], Medicated 20 Ml Bottle) 1 spray MUCOUS MEM Q2H PRN PRN Reason: DRY MOUTH Last Admin: 04/13/22 11:54 Dose: 1 spray Olanzapine (Olanzapine 5 Mg Tablet) 5 mg PO Q6H PRN PRN Reason: agitation/severe anxiety Last Admin: 04/17/22 14:44 Dose: 5 mg Sodium Chloride (Sodium Chloride 0.65 % Nasal 44 Ml Sprbtl) 1 spray NOSTRIL-B Q1H PRN PRN Reason: dry nares Last Admin: 04/16/22 23:00 Dose: 1 spray Trazodone HCl (Trazodone Hcl 100 Mg Tablet) 200 mg PO BEDTIME PRN PRN Reason: Insomnia Last Admin: 04/16/22 20:25 Dose: 200 mg Trazodone HCl (Trazodone Hcl 50 Mg Tablet) 50 mg PO BEDTIME PRN PRN Reason: Insomnia Last Admin: 04/16/22 22:20 Dose: 50 mg Allergies Allergies Allergy/AdvReac Type Severity Reaction Status Date / Time No Known Allergies Allergy Unverified 12/08/21 12:51 [No Known Allergies*] Assessment & Plan Assessment & Plan (1) Schizoaffective disorder: Status: Acute Code(s): F25.9 - Schizoaffective disorder, unspecified Assessment and Plan: 04/17 seems calm today, does have some somatic complaints but fairly minor, wondering if he could have some sensory issues- Plan Mr. Cordon is a 26 year-old male with hx of schizoaffective disorder, last episode of paranoid/persecutory delusions 6 years ago. He has also presented with periods of explosive behaviors. He was brought to to [facility] [place] [facility] [place] due to somatic delusions, thinking that electric cords changing color of his hand and causing number of somatic symptoms including dry eyes, palpitation, increase agitation as he thinks others are not helping and he is going to dye. We discussed risks, benefits and alternative treatment option, pt and his mother agree to stop adderall as it will worsened somatic delusions, psychosis, agitation. Continue abilify 20mg po daily, no need to split dose this medication. if not improvement seen, may consider switching to different antipsychotic. 04/09: continued abilify 20mg po daily, d/nolan adderall (worsening psychosis and delusions). PRN olanzapine 10mg po q6h, prn agitation, ativan 2mg po q6h, prn agitation 04/10: added artificial tears, increased PRN tylenol to 1000 mg per dose. 04/11: no substantial changes. 04/12- check chest CT worsening SOB, will look into blurry eye- not sure how long he has complain of this. May stop topamax as it may cause blurry vision, he denies eye pain. 04/13 continue current meds- consult to urology re: kidney stones. 04/14 continue current medications. 04/15- continue current meds, Per urologist: pt to follow up OP with urology re: kidney stones. I spent minutes with the patient and/or on the patient floor today, greater than?50% of which was spent counseling/coordinating care. Patient educated on: therapeutic strategies Informed Consent: further education needed Reason for contiued inpatient stay Substantial Risk for: inability to function and rapid decompensation
--- NOTE | 2022-04-17 15:57 | PC.NURSE ---
Patient sat on floor in kitchen common area stating again you are not listening . Got up, walked down hanley pounding on the wall at times. Staff support provided, redirected to room, given water, talked with roommate and staff. Currently watching tv, calmer. Call placed again to respiratory for duoneb.
[2022-04-17] MEDS: Albuterol/Iprat 2.5/0.5MG 3 ML AMPUL.NEB INHALE (16:19)
[2022-04-17 16:21] VITALS: PULSE 100; RESP 20; O2SAT 95
--- NOTE | 2022-04-17 18:13 | PC.NURSE ---
Late entry for 1519 nursing: Patient reports I can't breathe . No reparatory distress observed. No wheeze or SOB observed. Declines when brief writer asks to listen to listen to lung sounds. VS 142/88, HR 118, 96%RA. RR20. PRN medications administered Hydroxyzine and Olanzapine. Patient reports his heart is beating so fast . Patient then placed call to 911 stating staff is not listening. Inhaler offered however patient pushed writers hand away. Security called for additional support although not immediately available. Patient went to end of hanley crying loudly for brief period. Staff support given although patient is difficult to redirect at this time. Requested inhaler, offered to patient although reported he has a machine at home and inhaler won't work. Ambulating hanley with staff, assisted in calling mother. Respiratory called, nebulizer treatment requested, stated they would come see patient.
[2022-04-17 19:55] VITALS: BP 134/86; PULSE 122; RESP 18; TEMP 36.4; O2SAT 98
[2022-04-17] MEDS: Atorvastatin Calcium 40 MG TABLET PO (20:04)
[2022-04-17] MEDS: Melatonin 3 MG TABLET PO (20:04)
[2022-04-17] MEDS: traZODone HCL 100 MG TABLET 200 MG PO (20:04)
[2022-04-18] MEDS: OLANZapine 5 MG TABLET PO ×2 (02:14→18:34)
[2022-04-18] MEDS: hydrOXYzine HCL 25 MG TABLET PO ×2 (02:14→18:34)
[2022-04-18 03:40] VITALS: BP 130/89; PULSE 117
[2022-04-18] MEDS: cloNIDine HCL 0.1 MG TABLET PO ×2 (03:41→20:25)
[2022-04-18 06:00] VITALS: BP 114/72; PULSE 100; RESP 16; TEMP 36.7; O2SAT 96
[2022-04-18 07:54] LABS: Glucose, Whole Blood 102 mg/dL (60-115)
[2022-04-18] MEDS: Acetaminophen 325 MG TABLET 975 MG PO ×2 (08:12→20:24)
[2022-04-18] MEDS: metFORMIN HCl ER 500 MG TAB.ER.24H 1000 MG PO ×2 (08:13→20:25)
[2022-04-18] MEDS: lisinopriL 10 MG TABLET PO (08:13)
[2022-04-18] MEDS: Docusate Sodium 100 MG CAPSULE PO (08:13)
[2022-04-18] MEDS: Milk of Magnesia 30 ML ORAL.SUSP PO (08:14)
[2022-04-18] MEDS: ARIPiprazole 20 MG TABLET PO (08:14)
[2022-04-18] MEDS: Famotidine 20 MG TABLET PO (08:14)
--- NOTE | 2022-04-18 09:48 | P.PNPSI_ITS ---
Subjective Subjective Date of Service: 04/18/22 Reason For Visit: Somatic delusions Subjective Notes: Conditional Voluntary Healthcare Proxy: No Guardianship: No Medical Problems Affecting Mental Status: No Interim History: agitated Tuesday pm , felt staff not listening pounding wall - crying on floor, took prns didn't help - called 911, saying he can't breathe low levels anxiety dep report hard stool, difficulty breathing, hard spot on his neck- all reported by pt 11pm hrt racing- hr 109 lower than before - given warm blanket-and told to count back from 100 - but up at 1am, up few times Today with this provider pleasant co sob but no extraneous muscles in use- no labored breathing - we did 4 long 4 count breaths in and out - he felt better - Medication Compliance: Yes Side effects from medications: No Attending Groups: Intermittent Review of Systems Acute medical concerns: No Medical Review of Systems: unchanged Mental Status Exam Mental Status Exam Patient Appearance: Appropriate Patient Orientation: Person, Place and Situation Level of Consciousness: Awake Patient Behavior: Dependent Mood Description: Anxious Affect Description: Appropriate Patient Cognition Impaired: Yes Ability to Follow Directions: Fair Speech Pattern: Mumbled Delusions: Present (somatic) Thought Process: Linear Thought Content: positive for [place] and positive for Preoccupation (with multiple somatic concerns) Judgement: Poor Diagnostics Vital Signs (24Hr): Vital Signs - 24 hr 04/17/22 16:21 04/17/22 19:55 04/18/22 03:40 Temperature 97.6 F Pulse Rate 100 122 H 117 H Respiratory Rate 20 18 Blood Pressure 134/86 130/89 Pulse Oximetry 98 Oxygen Delivery Method Room Air 04/18/22 06:00 Temperature 98.1 F Pulse Rate 100 Respiratory Rate 16 Blood Pressure 114/72 Pulse Oximetry 96 Oxygen Delivery Method Room Air BMI result Body Mass Index 41.9 Labs Results: 04/07/22 18:14 04/13/22 16:34 Labs: Laboratory Results - last 48 hr 04/17/22 04/18/22 09:06 07:50 POC Glucose 109 102 Imaging Radiology Impressions: ITS Impressions Chest X-Ray 04/07/22 18:23 IMPRESSION: No acute pulmonary pathology. Chest CT 04/12/22 17:22 IMPRESSION: Unremarkable chest CT. Left renal stones. Fleischner guidelines were followed. Renal Ultrasound 04/13/22 16:19 IMPRESSION: Limited exam. Small left renal stones. No hydronephrosis. Medications Medications Current Medications Acetaminophen (Acetaminophen 325 Mg Tablet) 975 mg PO Q6H PRN PRN Reason: Headache/Pain Mild Scale (1-3) Last Admin: 04/18/22 08:12 Dose: 975 mg Al Hydroxide/Mg Hydroxide (Magnesium Hydrox/Alum Hydrox 30 Ml Oral.Susp) 30 ml PO Q6H PRN PRN Reason: Heartburn/Nausea Last Admin: 04/12/22 23:38 Dose: 30 ml Albuterol Sulfate (Albuterol Sulfate 90 Mcg 8 Gm Inhaler) 1 puff INHALE Q4H PRN PRN Reason: Wheezing Last Admin: 04/17/22 15:18 Dose: 1 puff Albuterol/Ipratropium (Albuterol/Iprat 2.5/0.5mg 3 Ml Ampul.Neb) 3 ml INHALE RQ4H PRN PRN Reason: Shortness of Breath/Wheezing Last Admin: 04/17/22 16:19 Dose: 3 ml Aripiprazole (Aripiprazole 20 Mg Tablet) 20 mg PO DAILY [facility] Last Admin: 04/18/22 08:14 Dose: 20 mg Artificial Tears (Artificial Tears 15 Ml Drops) 2 drop EYE-BOTH Q4H PRN PRN Reason: dry eyes Last Admin: 04/17/22 12:14 Dose: 2 drop Atorvastatin Calcium (Atorvastatin Calcium 40 Mg Tablet) 40 mg PO BEDTIME [facility] Last Admin: 04/17/22 20:04 Dose: 40 mg Clonidine HCl (Clonidine Hcl 0.1 Mg Tablet) 0.1 mg PO TID PRN; Protocol PRN Reason: Anxiety Last Admin: 04/18/22 03:41 Dose: 0.1 mg Docusate Sodium (Docusate Sodium 100 Mg Capsule) 100 mg PO BID [facility] Last Admin: 04/18/22 08:13 Dose: 100 mg Famotidine (Famotidine 20 Mg Tablet) 20 mg PO DAILY [facility] Last Admin: 04/18/22 08:14 Dose: 20 mg Hydroxyzine HCl (Hydroxyzine Hcl 25 Mg Tablet) 25 mg PO Q6H PRN PRN Reason: Anxiety Last Admin: 04/18/22 02:14 Dose: 25 mg Lisinopril (Lisinopril 10 Mg Tablet) 10 mg PO DAILY [facility]; Protocol Last Admin: 04/18/22 08:13 Dose: 10 mg Magnesium Hydroxide (Milk Of Magnesia 30 Ml Oral.Susp) 30 ml PO DAILY PRN PRN Reason: Constipation Last Admin: 04/18/22 08:14 Dose: 30 ml Melatonin (Melatonin 3 Mg Tablet) 3 mg PO BEDTIME PRN PRN Reason: insomnia Last Admin: 04/17/22 20:04 Dose: 3 mg Metformin HCl (Metformin Hcl Er 500 Mg Tab.Er.24h) 1,000 mg PO BID [facility] Last Admin: 04/18/22 08:13 Dose: 1,000 mg Multi-Ingred Medicated Throat [place] (Throat [place], Medicated 20 Ml Bottle) 1 spray MUCOUS MEM Q2H PRN PRN Reason: DRY MOUTH Last Admin: 04/17/22 23:27 Dose: 1 spray Olanzapine (Olanzapine 5 Mg Tablet) 5 mg PO Q6H PRN PRN Reason: agitation/severe anxiety Last Admin: 04/18/22 02:14 Dose: 5 mg Sodium Chloride (Sodium Chloride 0.65 % Nasal 44 Ml Sprbtl) 1 spray NOSTRIL-B Q1H PRN PRN Reason: dry nares Last Admin: 04/16/22 23:00 Dose: 1 spray Trazodone HCl (Trazodone Hcl 100 Mg Tablet) 200 mg PO BEDTIME PRN PRN Reason: Insomnia Last Admin: 04/17/22 20:04 Dose: 200 mg Trazodone HCl (Trazodone Hcl 50 Mg Tablet) 50 mg PO BEDTIME PRN PRN Reason: Insomnia Last Admin: 04/16/22 22:20 Dose: 50 mg Allergies Allergies Allergy/AdvReac Type Severity Reaction Status Date / Time No Known Allergies Allergy Unverified 12/08/21 12:51 [No Known Allergies*] Assessment & Plan Assessment & Plan (1) Schizoaffective disorder: Status: Acute Code(s): F25.9 - Schizoaffective disorder, unspecified Assessment and Plan: 04/17 seems calm today, does have some somatic complaints but fairly minor, wondering if he could have some sensory issues- 04/18 reviewed deep breathing with patient Plan Mr. Cordon is a 26 year-old male with hx of schizoaffective disorder, last episode of paranoid/persecutory delusions 6 years ago. He has also presented wit h periods of explosive behaviors. He was brought to to [facility] [place] due to somatic delusions, thinking that electric cords changing color of his hand and causing number of somatic symptoms including dry eyes, palpitation, increase agitation as he thinks others are not helping and he is going to dye. We discussed risks, benefits and alternative treatment option, pt and his mother agree to stop adderall as it will worsened somatic delusions, psychosis, agitation. Continue abilify 20mg po daily, no need to split dose this medication. if not improvement seen, may consider switching to different antipsychotic. 04/09: continued abilify 20mg po daily, d/nolan adderall (worsening psychosis and delusions). PRN olanzapine 10mg po q6h, prn agitation, ativan 2mg po q6h, prn agitation 04/10: added artificial tears, increased PRN tylenol to 1000 mg per dose. 04/11: no substantial changes. 04/12- check chest CT worsening SOB, will look into blurry eye- not sure how long he has complain of this. May stop topamax as it may cause blurry vision, he denies eye pain. 04/13 continue current meds- consult to urology re: kidney stones. 04/14 continue current medications. 04/15- continue current meds, Per urologist: pt to follow up OP with urology re: kidney stones. I spent minutes with the patient and/or on the patient floor today, greater than?50% of which was spent counseling/coordinating care. Patient educated on: therapeutic strategies Informed Consent: understands and further education needed Reason for contiued inpatient stay Substantial Risk for: rapid decompensation
[2022-04-18] MEDS: Throat Lozenge, Medicated LOZENGE 1 LOZENGE MUCOUS MEM ×2 (14:59→18:34)
[2022-04-18] MEDS: Albuterol Sulfate 90 MCG 8 GM INHALER 1 PUFF INHALE ×2 (18:38→23:38)
[2022-04-18 20:00] VITALS: BP 139/83; PULSE 113; RESP 18; TEMP 36.8; O2SAT 95
[2022-04-18] MEDS: traZODone HCL 100 MG TABLET 200 MG PO (20:24)
[2022-04-18] MEDS: Melatonin 3 MG TABLET PO (20:25)
[2022-04-18] MEDS: Atorvastatin Calcium 40 MG TABLET PO (20:25)
[2022-04-18] MEDS: Sodium Chloride 0.65 % Nasal 44 ML SPRBTL 1 SPRAY NOSTRIL-B ×2 (22:54→23:38)
[2022-04-18] MEDS: Artificial Tears 15 ML DROPS 2 DROP EYE-BOTH (22:55)
[2022-04-18] MEDS: traZODone HCL 50 MG TABLET PO (23:14)
[2022-04-19] MEDS: Albuterol Sulfate 90 MCG 8 GM INHALER 1 PUFF INHALE (05:14)
[2022-04-19] MEDS: Throat Lozenge, Medicated LOZENGE 1 LOZENGE MUCOUS MEM ×2 (05:51→10:07)
[2022-04-19 06:00] VITALS: BP 136/85; PULSE 95; RESP 16; TEMP 36.6; O2SAT 99
[2022-04-19 06:11] LABS: Glucose, Whole Blood 110 mg/dL (60-115)
[2022-04-19] MEDS: Artificial Tears 15 ML DROPS 2 DROP EYE-BOTH (06:22)
[2022-04-19] MEDS: Famotidine 20 MG TABLET PO (08:16)
[2022-04-19] MEDS: ARIPiprazole 20 MG TABLET PO (08:17)
[2022-04-19] MEDS: lisinopriL 10 MG TABLET PO (08:17)
[2022-04-19] MEDS: metFORMIN HCl ER 500 MG TAB.ER.24H 1000 MG PO ×2 (08:17→20:12)
[2022-04-19] MEDS: Docusate Sodium 100 MG CAPSULE PO ×2 (08:17→20:12)
--- NOTE | 2022-04-19 10:49 | P.PNPSI_ITS ---
Subjective Subjective Date of Service: 04/19/22 Reason For Visit: Somatic delusions Subjective Notes: Conditional Voluntary Interim History: Pt continues to focused on somatic symptoms that changes constantly without evident of underlying medical condition. Pt again reports sore throat. He did not sleep last night. He has been visible on the unit, asking peers and staff for support for his medical concerns. He denies SI/HI. He does appear to have anxious mood related what he thinks is going on with him medically- so will treat anxiety. Medication Compliance: Yes Side effects from medications: No Attending Groups: Yes Review of Systems Review of Systems Constitutional: No Fever, No Chills ENT/Mouth: No Ear Pain, No Nasal Congestion, No sore throat Eyes: No Eye Pain, No Swelling, No Redness Cardiovascular: No Chest Pain, No SOB Respiratory: No Cough, No Sputum, No Dyspnea Gastrointestinal: No Nausea, No Vomiting, No Diarrhea, No Hematochezia, No Melena Genitourinary: No Dysuria, No Urinary Frequency, No Hematuria Musculoskeletal: No Myalgias Skin: No Skin Lesions, No rash Neuro: No Weakness, No Numbness, No Paresthesias, No Dizziness, No Headache Psych: No Anxiety, no Depression, no SI/HI Heme/Lymph: No Lymphadenopathy Endocrine: No Polyuria, No Polydipsia Yes all other systems are reviewed and are negative Mental Status Exam Mental Status Exam Narrative: Appearance:MO, wearing hospital gown, fair hygiene Behavior:cooperative psychomotor:no overt agitation or retardation noted Speech: dysarthric, normal rate/rhythm/volume, spontaneous Thought process: tangential Thought content:somatic delusions, asking help for somatic concerns Mood: tired Affect: intense- eye contact SI:denies HI:denies VH/AH:denies Delusions:somatic delusions of electric field causing somatic concerns such as palpitation, dry eyes. Insight/judgment:poor x 2 . Memory/cog: alert, oriented x 3. Patient Appearance: Appropriate Patient Orientation: Person, Place and Situation Level of Consciousness: Awake Patient Behavior: Dependent Mood Description: Anxious Affect Description: Appropriate Patient Cognition Impaired: Yes Ability to Follow Directions: Fair Speech Pattern: Mumbled Diagnostics Vital Signs (24Hr): Vital Signs - 24 hr 04/18/22 20:00 04/19/22 06:00 Temperature 98.3 F 97.9 F Pulse Rate 113 H 95 Respiratory Rate 18 16 Blood Pressure 139/83 136/85 Pulse Oximetry 95 99 Oxygen Delivery Method Room Air Room Air BMI result Body Mass Index 41.9 Labs Results: 04/07/22 18:14 04/13/22 16:34 Labs: Laboratory Results - last 48 hr 04/18/22 04/19/22 07:50 06:06 POC Glucose 102 110 Imaging Radiology Impressions: ITS Impressions Chest X-Ray 04/07/22 18:23 IMPRESSION: No acute pulmonary pathology. Chest CT 04/12/22 17:22 IMPRESSION: Unremarkable chest CT. Left renal stones. Fleischner guidelines were followed. Renal Ultrasound 04/13/22 16:19 IMPRESSION: Limited exam. Small left renal stones. No hydronephrosis. Medications Medications Current Medications Acetaminophen (Acetaminophen 325 Mg Tablet) 975 mg PO Q6H PRN PRN Reason: Headache/Pain Mild Scale (1-3) Last Admin: 04/18/22 20:24 Dose: 975 mg Al Hydroxide/Mg Hydroxide (Magnesium Hydrox/Alum Hydrox 30 Ml Oral.Susp) 30 ml PO Q6H PRN PRN Reason: Heartburn/Nausea Last Admin: 04/12/22 23:38 Dose: 30 ml Albuterol Sulfate (Albuterol Sulfate 90 Mcg 8 Gm Inhaler) 1 puff INHALE Q4H PRN PRN Reason: Wheezing Last Admin: 04/19/22 05:14 Dose: 1 puff Aripiprazole (Aripiprazole 20 Mg Tablet) 20 mg PO DAILY DAISHA Last Admin: 04/19/22 08:17 Dose: 20 mg Artificial Tears (Artificial Tears 15 Ml Drops) 2 drop EYE-BOTH Q4H PRN PRN Reason: dry eyes Last Admin: 04/19/22 06:22 Dose: 2 drop Atorvastatin Calcium (Atorvastatin Calcium 40 Mg Tablet) 40 mg PO BEDTIME DAISHA Last Admin: 04/18/22 20:25 Dose: 40 mg Benzocaine (Throat Lozenge, Medicated Lozenge) 1 lozenge MUCOUS MEM Q2H PRN PRN Reason: Sore Throat Last Admin: 04/19/22 10:07 Dose: 1 lozenge Clonidine HCl (Clonidine Hcl 0.1 Mg Tablet) 0.1 mg PO TID PRN; Protocol PRN Reason: Anxiety Last Admin: 04/18/22 20:25 Dose: 0.1 mg Docusate Sodium (Docusate Sodium 100 Mg Capsule) 100 mg PO BID [facility] Last Admin: 04/19/22 08:17 Dose: 100 mg Famotidine (Famotidine 20 Mg Tablet) 20 mg PO DAILY [facility] Last Admin: 04/19/22 08:16 Dose: 20 mg Hydroxyzine HCl (Hydroxyzine Hcl 25 Mg Tablet) 25 mg PO Q6H PRN PRN Reason: Anxiety Last Admin: 04/18/22 18:34 Dose: 25 mg Lisinopril (Lisinopril 10 Mg Tablet) 10 mg PO DAILY [facility]; Protocol Last Admin: 04/19/22 08:17 Dose: 10 mg Lorazepam (Lorazepam 0.5 Mg Tablet) 0.5 mg PO TID [facility] Magnesium Hydroxide (Milk Of Magnesia 30 Ml Oral.Susp) 30 ml PO DAILY PRN PRN Reason: Constipation Last Admin: 04/18/22 08:14 Dose: 30 ml Melatonin (Melatonin 3 Mg Tablet) 3 mg PO BEDTIME PRN PRN Reason: insomnia Last Admin: 04/18/22 20:25 Dose: 3 mg Metformin HCl (Metformin Hcl Er 500 Mg Tab.Er.24h) 1,000 mg PO BID [facility] Last Admin: 04/19/22 08:17 Dose: 1,000 mg Multi-Ingred Medicated Throat [place] (Throat [place], Medicated 20 Ml Bottle) 1 spray MUCOUS MEM Q2H PRN PRN Reason: DRY MOUTH Last Admin: 04/18/22 20:38 Dose: 1 spray Olanzapine (Olanzapine 5 Mg Tablet) 5 mg PO Q6H PRN PRN Reason: agitation/severe anxiety Last Admin: 04/18/22 18:34 Dose: 5 mg Sodium Chloride (Sodium Chloride 0.65 % Nasal 44 Ml Sprbtl) 1 spray NOSTRIL-B Q1H PRN PRN Reason: dry nares Last Admin: 04/18/22 23:38 Dose: 1 spray Trazodone HCl (Trazodone Hcl 100 Mg Tablet) 200 mg PO BEDTIME PRN PRN Reason: Insomnia Last Admin: 04/18/22 20:24 Dose: 200 mg Trazodone HCl (Trazodone Hcl 50 Mg Tablet) 50 mg PO BEDTIME PRN PRN Reason: Insomnia Last Admin: 04/18/22 23:14 Dose: 50 mg Allergies Allergies Allergy/AdvReac Type Severity Reaction Status Date / Time No Known Allergies Allergy Unverified 12/08/21 12:51 [No Known Allergies*] Assessment & Plan Assessment & Plan (1) Schizoaffective disorder: Status: Acute Code(s): F25.9 - Schizoaffective disorder, unspecified Assessment and Plan: 04/17 seems calm today, does have some somatic complaints but fairly minor, wondering if he could have some sensory issues- 04/18 reviewed deep breathing with patient Plan Mr. Cordon is a 26 year-old male with hx of schizoaffective disorder, last episode of paranoid/persecutory delusions 6 years ago. He has also presented with periods of explosive behaviors. He was brought to to [facility] due to somatic delusions, thinking that electric cords changing color of his hand and causing number of somatic symptoms including dry eyes, palpitation, increase agitation as he thinks others are not helping and he is going to dye. We discussed risks, benefits and alternative treatment option, pt and his mother agree to stop adderall as it will worsened somatic delusions, psychosis, agitation. Continue abilify 20mg po daily, no need to split dose this medication. if not improvement seen, may consider switching to different antipsychotic. 04/09: continued abilify 20mg po daily, d/nolan adderall (worsening psychosis and delusions). PRN olanzapine 10mg po q6h, prn agitation, ativan 2mg po q6h, prn agitation 04/10: added artificial tears, increased PRN tylenol to 1000 mg per dose. 04/11: no substantial changes. 04/12- check chest CT worsening SOB, will look into blurry eye- not sure how long he has complain of this. May stop topamax as it may cause blurry vision, he denies eye pain. 04/13 continue current meds- consult to urology re: kidney stones. 04/14 continue current medications. 04/15- continue current meds, Per urologist: pt to follow up OP with urology re: kidney stones. 04/19- continue current medications, add ativan scheduled 0.5mg po TID and Olanzapine 5mg po TID. I spent __25____ minutes with the patient and/or on the patient floor today, greater than?50% of which was spent counseling/coordinating care. Reason for contiued inpatient stay Substantial Risk for: inability to function
[2022-04-19] MEDS: LORazepam 0.5 MG TABLET PO ×3 (11:35→20:12)
[2022-04-19] MEDS: OLANZapine 5 MG TABLET PO ×2 (14:36→20:12)
[2022-04-19 18:00] VITALS: BP 111/68; PULSE 113; RESP 20
[2022-04-19] MEDS: Atorvastatin Calcium 40 MG TABLET PO (20:10)
[2022-04-19] MEDS: cloNIDine HCL 0.1 MG TABLET PO (20:10)
[2022-04-19] MEDS: Melatonin 3 MG TABLET PO (20:12)
[2022-04-19] MEDS: hydrOXYzine HCL 25 MG TABLET PO (20:12)
[2022-04-20] MEDS: Acetaminophen 325 MG TABLET 975 MG PO ×2 (05:34→20:14)
[2022-04-20 08:20] VITALS: BP 123/91; PULSE 93; RESP 18; TEMP 36.8; O2SAT 94
[2022-04-20] MEDS: lisinopriL 10 MG TABLET PO (08:22)
[2022-04-20] MEDS: metFORMIN HCl ER 500 MG TAB.ER.24H 1000 MG PO ×2 (08:22→20:14)
[2022-04-20] MEDS: OLANZapine 5 MG TABLET PO ×3 (08:23→20:14)
[2022-04-20] MEDS: LORazepam 0.5 MG TABLET PO ×3 (08:23→20:14)
[2022-04-20] MEDS: ARIPiprazole 20 MG TABLET PO (08:23)
[2022-04-20] MEDS: Famotidine 20 MG TABLET PO (08:23)
[2022-04-20 08:24] LABS: Glucose, Whole Blood 100 mg/dL (60-115)
[2022-04-20] MEDS: Artificial Tears 15 ML DROPS 2 DROP EYE-BOTH (08:32)
[2022-04-20 09:18] LABS: Estimated Glomerular Filt Rate > 60
--- NOTE | 2022-04-20 12:09 | P.PNPSI_ITS ---
Subjective Subjective Date of Service: 04/20/22 Reason For Visit: Somatic delusions Subjective Notes: Conditional Voluntary Interim History: Pt reports pain on both legs. He reports he is sleeping and eating well. He asks if he can go home. He denies SI/HI. No VH/AH. continues to present focused on somatic concerns and anxious about this. Medication Compliance: Yes Side effects from medications: No Review of Systems Review of Systems Constitutional: No Fever, No Chills ENT/Mouth: No Ear Pain, No Nasal Congestion, No sore throat Eyes: No Eye Pain, No Swelling, No Redness Cardiovascular: No Chest Pain, No SOB Respiratory: No Cough, No Sputum, No Dyspnea Gastrointestinal: No Nausea, No Vomiting, No Diarrhea, No Hematochezia, No Melena Genitourinary: No Dysuria, No Urinary Frequency, No Hematuria Musculoskeletal: No Myalgias Skin: No Skin Lesions, No rash Neuro: No Weakness, No Numbness, No Paresthesias, No Dizziness, No Headache Psych: No Anxiety, no Depression, no SI/HI Heme/Lymph: No Lymphadenopathy Endocrine: No Polyuria, No Polydipsia Yes all other systems are reviewed and are negative Mental Status Exam Mental Status Exam Narrative: Appearance:MO, wearing hospital gown, fair hygiene Behavior:cooperative psychomotor:no overt agitation or retardation noted Speech: dysarthric, normal rate/rhythm/volume, spontaneous Thought process: tangential Thought content:somatic delusions, asking help for somatic concerns Mood: tired Affect: intense- eye contact SI:denies HI:denies VH/AH:denies Delusions:somatic delusions of electric field causing somatic concerns such as palpitation, dry eyes. Insight/judgment:poor x 2 . Memory/cog: alert, oriented x 3. Patient Appearance: Appropriate Patient Orientation: Person, Place and Situation Level of Consciousness: Awake Patient Behavior: Dependent Mood Description: Anxious Affect Description: Appropriate Patient Cognition Impaired: Yes Ability to Follow Directions: Fair Speech Pattern: Mumbled Diagnostics Vital Signs (24Hr): Vital Signs - 24 hr 04/19/22 18:00 04/20/22 08:20 Temperature 98.3 F Pulse Rate 113 H 93 Respiratory Rate 20 18 Blood Pressure 111/68 123/91 H Pulse Oximetry 94 Oxygen Delivery Method Room Air BMI result Body Mass Index 41.9 Labs Results: 04/07/22 18:14 04/20/22 08:33 Labs: Laboratory Results - last 48 hr 04/19/22 04/20/22 04/20/22 06:06 08:20 08:33 Creatinine 0.89 Estim Creat Clear Calc 162.0 Estimated GFR > 60 POC Glucose 110 100 Imaging Radiology Impressions: ITS Impressions Chest X-Ray 04/07/22 18:23 IMPRESSION: No acute pulmonary pathology. Chest CT 04/12/22 17:22 IMPRESSION: Unremarkable chest CT. Left renal stones. Fleischner guidelines were followed. Renal Ultrasound 04/13/22 16:19 IMPRESSION: Limited exam. Small left renal stones. No hydronephrosis. Medications Medications Current Medications Acetaminophen (Acetaminophen 325 Mg Tablet) 975 mg PO Q6H PRN PRN Reason: Headache/Pain Mild Scale (1-3) Last Admin: 04/20/22 05:34 Dose: 975 mg Al Hydroxide/Mg Hydroxide (Magnesium Hydrox/Alum Hydrox 30 Ml Oral.Susp) 30 ml PO Q6H PRN PRN Reason: Heartburn/Nausea Last Admin: 04/12/22 23:38 Dose: 30 ml Albuterol Sulfate (Albuterol Sulfate 90 Mcg 8 Gm Inhaler) 1 puff INHALE Q4H PRN PRN Reason: Wheezing Last Admin: 04/19/22 05:14 Dose: 1 puff Aripiprazole (Aripiprazole 20 Mg Tablet) 20 mg PO DAILY [facility] Last Admin: 04/20/22 08:23 Dose: 20 mg Artificial Tears (Artificial Tears 15 Ml Drops) 2 drop EYE-BOTH Q4H PRN PRN Reason: dry eyes Last Admin: 04/20/22 08:32 Dose: 2 drop Atorvastatin Calcium (Atorvastatin Calcium 40 Mg Tablet) 40 mg PO BEDTIME [facility] Last Admin: 04/19/22 20:10 Dose: 40 mg Benzocaine (Throat Lozenge, Medicated Lozenge) 1 lozenge MUCOUS MEM Q2H PRN PRN Reason: Sore Throat Last Admin: 04/19/22 10:07 Dose: 1 lozenge Clonidine HCl (Clonidine Hcl 0.1 Mg Tablet) 0.1 mg PO TID PRN; Protocol PRN Reason: Anxiety Last Admin: 04/19/22 20:10 Dose: 0.1 mg Docusate Sodium (Docusate Sodium 100 Mg Capsule) 100 mg PO BID [facility] Last Admin: 04/20/22 08:23 Dose: Not Given Famotidine (Famotidine 20 Mg Tablet) 20 mg PO DAILY [facility] Last Admin: 04/20/22 08:23 Dose: 20 mg Hydroxyzine HCl (Hydroxyzine Hcl 25 Mg Tablet) 25 mg PO Q6H PRN PRN Reason: Anxiety Last Admin: 04/19/22 20:12 Dose: 25 mg Lisinopril (Lisinopril 10 Mg Tablet) 10 mg PO DAILY [facility]; Protocol Last Admin: 04/20/22 08:22 Dose: 10 mg Lorazepam (Lorazepam 0.5 Mg Tablet) 0.5 mg PO TID [facility] Last Admin: 04/20/22 08:23 Dose: 0.5 mg Magnesium Hydroxide (Milk Of Magnesia 30 Ml Oral.Susp) 30 ml PO DAILY PRN PRN Reason: Constipation Last Admin: 04/18/22 08:14 Dose: 30 ml Melatonin (Melatonin 3 Mg Tablet) 3 mg PO BEDTIME PRN PRN Reason: insomnia Last Admin: 04/19/22 20:12 Dose: 3 mg Metformin HCl (Metformin Hcl Er 500 Mg Tab.Er.24h) 1,000 mg PO BID [facility] Last Admin: 04/20/22 08:22 Dose: 1,000 mg Multi-Ingred Medicated Throat [place] (Throat [place], Medicated 20 Ml Bottle) 1 spray MUCOUS MEM Q2H PRN PRN Reason: DRY MOUTH Last Admin: 04/20/22 08:37 Dose: 1 spray Olanzapine (Olanzapine 5 Mg Tablet) 5 mg PO Q6H PRN PRN Reason: agitation/severe anxiety Last Admin: 04/18/22 18:34 Dose: 5 mg Olanzapine (Olanzapine 5 Mg Tablet) 5 mg PO TID [facility] Last Admin: 04/20/22 08:23 Dose: 5 mg Sodium Chloride (Sodium Chloride 0.65 % Nasal 44 Ml Sprbtl) 1 spray NOSTRIL-B Q1H PRN PRN Reason: dry nares Last Admin: 04/18/22 23:38 Dose: 1 spray Trazodone HCl (Trazodone Hcl 100 Mg Tablet) 200 mg PO BEDTIME PRN PRN Reason: Insomnia Last Admin: 04/18/22 20:24 Dose: 200 mg Trazodone HCl (Trazodone Hcl 50 Mg Tablet) 50 mg PO BEDTIME PRN PRN Reason: Insomnia Last Admin: 04/18/22 23:14 Dose: 50 mg Allergies Allergies Allergy/AdvReac Type Severity Reaction Status Date / Time No Known Allergies Allergy Unverified 12/08/21 12:51 [No Known Allergies*] Assessment & Plan Assessment & Plan (1) Schizoaffective disorder: Status: Acute Code(s): F25.9 - Schizoaffective disorder, unspecified Plan Mr. Cordon is a 26 year-old male with hx of schizoaffective disorder, last episode of paranoid/persecutory delusions 6 years ago. He has also presented with periods of explosive behaviors. He was brought to to [facility] due to somatic delusions, thinking that electric cords changing color of his hand and causing number of somatic symptoms including dry eyes, palpitation, increase agitation as he thinks others are not helping and he is going to dye. We discussed risks, benefits and alternative treatment option, pt and his mother agree to stop adderall as it will worsened somatic delusions, psychosis, agitation. Continue abilify 20mg po daily, no need to split dose this medication. if not improvement seen, may consider switching to different antipsychotic. 04/09: continued abilify 20mg po daily, d/nolan adderall (worsening psychosis and delusions). PRN olanzapine 10mg po q6h, prn agitation, ativan 2mg po q6h, prn agitation 04/10: added artificial tears, increased PRN tylenol to 1000 mg per dose. 04/11: no substantial changes. 04/12- check chest CT worsening SOB, will look into blurry eye- not sure how long he has complain of this. May stop topamax as it may cause blurry vision, he denies eye pain. 04/13 continue current meds- consult to urology re: kidney stones. 04/14 continue current medications. 04/15- continue current meds, Per urologist: pt to follow up OP with urology re: kidney stones. 04/19- continue current medications, add ativan scheduled 0.5mg po TID and Olanzapine 5mg po TID. 04/20 continue current medications. I spent ____25__ minutes with the patient and/or on the patient floor today, greater than?50% of which was spent counseling/coordinating care. Reason for contiued inpatient stay Substantial Risk for: inability to function
[2022-04-20 17:55] VITALS: BP 136/86; PULSE 103; RESP 18; TEMP 36.9; O2SAT 97
[2022-04-20] MEDS: Docusate Sodium 100 MG CAPSULE PO (20:14)
[2022-04-20] MEDS: Atorvastatin Calcium 40 MG TABLET PO (20:14)
[2022-04-21 06:00] VITALS: BP 133/89; PULSE 99; RESP 16; TEMP 36.8; O2SAT 96
[2022-04-21 07:45] LABS: Glucose, Whole Blood 112 mg/dL (60-115)
[2022-04-21] MEDS: OLANZapine 5 MG TABLET PO (08:17)
[2022-04-21] MEDS: Famotidine 20 MG TABLET PO (08:17)
[2022-04-21] MEDS: metFORMIN HCl ER 500 MG TAB.ER.24H 1000 MG PO (08:17)
[2022-04-21] MEDS: LORazepam 0.5 MG TABLET PO (08:18)
[2022-04-21] MEDS: ARIPiprazole 20 MG TABLET PO (08:18)
[2022-04-21] MEDS: lisinopriL 10 MG TABLET PO (08:18)
--- NOTE | 2022-04-21 08:59 | PM.PSYDC ---
DS: Providers Provider Date of Service: 04/21/22 Date of admission: 04/09/22 16:11 Primary care physician: Unknown Physician Consults: 04/16/22 09:42 Consult to Urology Routine Consulting Provider: Lynne Samano Reason for consultation: Pt c/o pain on urination Has provider been notified: Yes DS: Diagnosis Discharge Diagnosis (1) Schizoaffective disorder: Status: Acute DS: Medications Discharge Medications Home Medications: Home Medications Medication Instructions Recorded Confirmed metformin 500 mg tablet,extended 2 tab PO BID 04/07/22 04/07/22 release 24 hr Previous Rx's Medication Instructions Recorded dulaglutide 0.75 mg/0.5 mL 0.75 mg (0.5 mL) subcut QWEEK #2 mL 04/20/22 subcutaneous pen injector (Trulicity) albuterol sulfate 90 mcg/actuation 1 puff inhalation Q4H PRN Wheezing 04/21/22 aerosol inhaler (Ventolin HFA) #6.7 grams aripiprazole 20 mg tablet (Abilify) 20 mg PO DAILY #30 tabs 04/21/22 atorvastatin 40 mg tablet 40 mg PO BEDTIME #30 tabs 04/21/22 docusate sodium 100 mg capsule 100 mg PO BID #60 caps 04/21/22 famotidine 20 mg tablet 20 mg PO DAILY #30 tabs 04/21/22 lisinopril 10 mg tablet 10 mg PO DAILY #30 tabs 04/21/22 lorazepam 0.5 mg tablet 0.5 mg PO TID #90 tabs 04/21/22 olanzapine 5 mg tablet 5 mg PO TID #90 tabs 04/21/22 trazodone 100 mg tablet 200 mg PO BEDTIME PRN Insomnia #60 04/21/22 tabs Mental Status Exam Mental Status Exam Narrative: Appearance:MO, casually groomed, NAD, improved hygiene Behavior:cooperative psychomotor:no overt agitation or retardation noted Speech: dysarthric, normal rate/rhythm/volume, spontaneous Thought process: tangential Thought content:somatic delusions, asking help for somatic concerns Mood: tired Affect: constricted but brightens at times SI:denies HI:denies VH/AH:denies Delusions:less somatic concerns Insight/judgment:poor x 2 . Memory/cog: alert, oriented x 3. Data Data Completed and Pending Completed studies during hospitalization [Text1]: 04/17/22 04/18/22 04/19/22 09:06 07:50 06:06 Creatinine Estim Creat Clear Calc Estimated GFR POC Glucose 109 102 110 04/20/22 04/20/22 04/21/22 08:20 08:33 07:41 Creatinine 0.89 Estim Creat Clear Calc 162.0 Estimated GFR > 60 POC Glucose 100 112 Imaging Diagnostic Imaging Impressions Chest X-Ray 04/07/22 18:23 IMPRESSION: No acute pulmonary pathology. Chest CT 04/12/22 17:22 IMPRESSION: Unremarkable chest CT. Left renal stones. Fleischner guidelines were followed. Renal Ultrasound 04/13/22 16:19 IMPRESSION: Limited exam. Small left renal stones. No hydronephrosis. DS: Summary Hospital Course Hospital Course: Subjective Notes: Nunez Warning and Conditional Voluntary Guardianship: Yes Narrative: Mr. Cordon has hx of schizoaffective disorder, intellectual disability who was brought by mother to [facility] ED due to pt reporting that electric cords and outlets making him to have number of somatic concerns which he reported could be potentially life threatening. Per mother, pt increasingly more agitated, sending text messages to family telling them that his life was in danger. Pt not sleeping, pacing, agitated at home and increasingly more anxious as he felt no one was doing anything to help him. Utox was negative. In the ED, pt presented as anxious, reports that he has palpitation dry eyes due to electric cords. He is not touching switch of lights and asks RN to do so as he thinks this will increase somatic symptoms. Pt denies SI/HI. Pt interrupting staff asking them to check his pulse, his breathing, his eyes. He reports to this typewriter tester? that he is slowly dying and asks for help for somatic concerns. Pt increasingly more agitated as he felt staff at hospital igniring him requiring prn dose of olanzapine and ativan. On the unit, pt presents as much calmer than day before in ED. He reports he is not having as many somatic symptoms including dry eyes, palpitation or feeling like dying as he thinks there is less electromagnetic effects on him. He reports sleeping better. no side effects with current medications. He denies SI/HI. He presents as less hypervigilant and worried that by touching light switches he may . He denies VH/AH. Past Psychiatric History: Inpatient: multiple in past, last 06/2021 [place] OP: [facility] Dianna Vail, psych prescriber.? Past trials: adderall, abilify, clonidine, ativan, topamax (mostly for weight gain but per mother no change in weight) Medical Evaluation Reviewed: Yes HOSPITAL COURSE On the unit, Mr. Cordon was admitted on a CV and placed on 15 minutes checks for safety. He presented with somatic concerns that varied from blurry eye sight to numb-tingling sensation on bilat lower extremities to abdominal pain. Medical work up did not show any acute findings including abdominal US, CBC, CMP. His somatic concerns quickly changed from day to day and not consistent with acute pathology. After discussing risks, benefits and alternative treatment option with him and his mother as his guardian, pt was started on olanzapine for somatic delusions and ativan for anxiety related to somatic ruminations. He denied suicidal or homicidal ideation. His sleep gradually improved. He reported less ideas of electromagnatics affecting somatic symptoms. He was much calmer and more visble on the unit and able to participate in some groups appropriately. In terms of medication changes, given that initially in the ED, he presented with delusions of electromagnatics changing color of his skin, adderall was discontinued as stimulants can worsen psychosis and agitation. He was kept on abilify but did not show significant improvement on this medications alone, therefore Olanzapine was started. Outpatient he can be tapered off olanzapine or abilify as he continues to present more stable. There were no incidences of disruptive behaviors nor use of restraints. He asked to be discharged and given that there was no imminent safety concerns in terms of suicidal or homicidal ideation or severe aggression, pt was discharged back home. Collateral information gathered from the mother, who reports this is the first time pt reports somatic delusions, in the past he had presented with paranoid/persecutory delusions and aggression. Pt was much calmer than when he initially came to the ED. However, he continued to present somatic delusions but to a much lesser extend. Pt and mother advised to follow up with his PCP for further evaluation of somatic concerns should Mr. Cordon continues to report them. His sleep and appetite are much improved. Status at Discharge Cognitive/behavioral status at discharge: Pt with constricted but brighter affect. He denies SI/HI. He reports sleeping and eating well. He has been visible on the unit and social with select peers. He is much less fearful and hypervigilant due to anxiety related to somatic concerns. No signs of aggression towards self or others. Functional status at discharge: independent ambulation Overall status at discharge: patient is progressing back to baseline Time Spent with Patient Time attestation: Total time spent providing and/or coordinating discharge services: Time spent: Greater than 30 minutes Discharge Plan Discharge Patient Disposition: Home Health Service Discharge Diagnosis: Schizoaffective Disorder Referrals: Dimitri Zheng (therapist) [Other] - 04/21/22 1:30 pm (Telehealth appointment) Eli Vail (psychiatrist) [Other] - 06/17/22 4:40 pm (Telehealth appointment) [facility] [Physician] - 1 Week (walk in hours 8:30 am to 4pm Tuesday through Tuesday) Discharge Medications: New atorvastatin 40 mg Tablet 40 mg PO BEDTIME Qty: 30 0RF olanzapine 5 mg Tablet 5 mg PO TID Qty: 90 0RF famotidine 20 mg Tablet 20 mg PO DAILY Qty: 30 0RF lorazepam 0.5 mg Tablet 0.5 mg PO TID Qty: 90 0RF trazodone 100 mg Tablet 200 mg PO BEDTIME PRN (Reason: Insomnia) Qty: 60 0RF lisinopril 10 mg Tablet 10 mg PO DAILY Qty: 30 0RF Protocol: Hold for SBP< HOLD for SBP < : 90 docusate sodium 100 mg Capsule 100 mg PO BID Qty: 60 0RF albuterol sulfate [Ventolin HFA] 90 mcg/actuation Hfa Aerosol Inhaler 1 puff inhalation Q4H PRN (Reason: Wheezing) Qty: 6.7 0RF aripiprazole [Abilify] 20 mg Tablet 20 mg PO DAILY Qty: 30 0RF Continued Trulicity 0.75 mg/0.5 mL pen injector 0.75 mg subcut QWEEK Qty: 2 5RF metformin 500 mg tablet extended release 24 hr 2 tab PO BID Discontinued dextroamphetamine-amphetamine [Adderall XR] 20 mg capsule,extended release 24hr 2 cap PO DAILY trazodone 100 mg tablet 2 tab PO BEDTIME PRN (Reason: Insomnia) atorvastatin 40 mg tablet 1 tab PO DAILY topiramate 100 mg tablet 1 tab PO BID aripiprazole 20 mg tablet 10 mg PO BID clonidine HCl 0.1 mg tablet 1 tab PO TID lorazepam 1 mg tablet 1 tab PO BID PRN (Reason: Anxiety) Discharge Orders: Discharge Order (Routine); Ordered 04/21/22 Ordered By: Lynne Samano Diet: Diabetic diet Activity on Discharge: As tolerated Stand Alone Forms: Patient Portal Discharge page, Community Support Care Plan Goals: 1. Maintain mood 2. No SI/HI 3. No signs of aggression towards self or others Health Concerns: Follow up with PCP Plan of Treatment: 1. Take medications as prescribed 2. Go to nearest ED or call 911 in event of emergency Assessment: Pt with brighter, non labile. No SI/HI. No signs of aggression towards self or others. Pt sleeping well. Much less somatic delusions. No overt AH/VH. Discharge Date/Time: 04/21/22 12:58
--- NOTE | 2022-04-21 11:25 | PC.NURSE ---
Arnold is alert, pleasant and cooperative with discharge process. He denies ideation, plan or intent to harm self or others. He reports he feels better than when he was admitted but is unable to specify in what way. His affect is notably brighter and he is more spontaneous in interaction. He reports leg pain, relieved when he massages it. He denies other physical complaint
== END 2022-04-21 12:58 | disposition home health service (06) | DRG 750 ==
LOC: HO.ED 04-09 17:29 → HO.PADLT16 04-09 17:29
PROVIDERS: Nurse Practitioner Family; Admitting Provider Psychiatry & Neurology Psychiatry; Emergency Provider Emergency Medicine; Visit Provider Social Worker
DX: F25.9 Schizoaffective disorder, unspecified (principal); E11.9 Type 2 diabetes mellitus without complications; F79 Unspecified intellectual disabilities; E78.5 Hyperlipidemia, unspecified; E66.9 Obesity, unspecified; Z68.41 Body mass index [BMI] 40.0-44.9, adult; Z20.822 Contact with and (suspected) exposure to COVID-19; Z79.84 Long term (current) use of oral hypoglycemic drugs; Z79.899 Other long term (current) drug therapy
CPT/HCPCS: 36415; 71045; 71250; 76775; 80048; 80053; 80061; 80076; 80307; 81003; 82565; 82607; 82746; 82947; 83036; 83690; 83735; 84443; 85025; 85610; 85730; 87635; 93005; 99285

== ENCOUNTER 2022-06-24 16:42 | Emergency (ER) | payer OTHER, SELFPAY ==
[2022-06-24 16:53] VITALS: BP 130/108; BP 140/88; PULSE 72; PULSE 78; RESP 18; TEMP 37.2; O2SAT 96; O2SAT 98; BMI 49.9
--- NOTE | 2022-06-24 16:58 | ECG_ITS ---
Test Reason : cp Blood Pressure : / mmHG Vent. Rate : 076 BPM Atrial Rate : 076 BPM P-R Int : 158 ms QRS Dur : 084 ms QT Int : 374 ms P-R-T Axes : 048 041 031 degrees QTc Int : 420 ms Normal sinus rhythm Normal ECG When compared with ECG of 07-APR-2022 17:46, No significant change was found Referred By: Generic ED Physician Electronically Signed By:KASSIDY ROSS
[2022-06-24 17:13] LABS: MANUAL DIFF FLAG NO
[2022-06-24 17:15] LABS: Basophils Absolute Auto 0.1 X10*3/uL (0.0-0.2); Basophils Percent Auto 0.4 % (0-2); Eosinophils Absolute Auto 0.6 X10*3/uL (0.0-0.4); Eosinophils Percent Auto 4.7 % (0-4); Hematocrit 43.5 % (42.0-52.0); Imm Gran Abs Auto 0.05 X10*3/uL (0.00-0.03); Imm Gran Pct Auto 0.4 % (0.0-0.4); Lymphocytes Absolute Auto 3.7 X10*3/uL (1.2-4.9); Lymphocytes Percent Auto 30.7 % (20-40); Mean Corpuscular HGB Conc 32.2 g/dl (31.0-36.0); Mean Corpuscular Hemoglobin 25.8 pg (27.0-33.0); Mean Corpuscular Volume 80.1 fL (80.0-98.0); Mean Platelet Volume 9.1 fL (9.4-12.4); Monocytes Absolute Auto 0.8 X10*3/uL (0.1-1.2); Monocytes Percent Auto 6.7 % (2-11); Neutrophils Absolute Auto 6.9 x10*3/uL (2.0-8.3); Neutrophils Percent Auto 57.1 % (45-73); Platelet Count 281 X10*3/uL (160-400); Red Blood Count 5.43 X10*6/uL (4.60-5.80); Red Cell Distribution Width 13.2 % (11.0-16.0)
[2022-06-24 17:33] LABS: Alanine Aminotransferase 25 U/L (0-40); Albumin Level 4.1 g/dL (3.5-5.0); Alkaline Phosphatase 109 U/L (39-117); Anion Gap 17 (12-20); Aspartate Amino Transferase 22 U/L (5-37); Bilirubin Direct 0.2 mg/dL (0.0-0.5); Bilirubin Total 0.7 mg/dL (0.0-1.0); Blood Urea Nitrogen 13 mg/dL (9-16); Calcium 8.9 mg/dL (8.4-10.2); Carbon Dioxide 21 mmol/L (22-29); Chloride 105 mmol/L (96-108); Creatinine Clr Calc Pharmacy 150.6; Estimated Glomerular Filt Rate > 60; Glucose Random 94 mg/dL (60-115); Potassium 4.2 mmol/L (3.3-5.1); Sodium 139 mmol/L (135-145); Total Protein 7.1 g/dL (6.5-8.0)
[2022-06-24 17:39] LABS: Troponin-I High Sensitivity < 3.5 ng/L (<3.5-35.0)
--- NOTE | 2022-06-24 22:07 | PC.NURSE ---
called x3 in wr and outside to xu for reassessment. No answer Presumed LWT
== END 2022-06-24 22:18 | disposition left against medical advice (07) ==
LOC: HO.ED 22:16
PROVIDERS: Emergency Provider Emergency Medicine
DX: R07.89 Other chest pain (principal); Z79.899 Other long term (current) drug therapy
CPT/HCPCS: 36415; 80053; 82248; 84484; 85025; 93005; 99281; 99283

== ENCOUNTER 2022-06-25 11:11 | Emergency (ER) | payer OTHER, SELFPAY ==
[2022-06-25 11:26] VITALS: BP 111/76; PULSE 81; RESP 18; TEMP 36.2; O2SAT 97; BMI 48.4
[2022-06-25 12:55] LABS: Appearance Urine Clear; Color Urine Yellow; Glucose Urine UA Negative (Negative); Leukocyte Esterase Urine Trace (Negative); Nitrite Urine Negative (Negative); PH 6.5 (5.0-9.0); Specific Gravity - Urine 1.015 (1.005-1.025); UMIC TRIGGER UACC YES; Urine Blood Negative (Negative); Urine Ketones Negative (Negative); Urine Protein Negative (Neg-Trace)
[2022-06-25 12:57] LABS: Bacteria Urine None Seen (None Seen); Hyaline Casts Urine 0-2 /LPF (0-2); RBC Urine 0-2 /HPF (0-2); Squamous Epithelial Cell Urine 0-2 /HPF (0-2); WBC Urine 0-5 /HPF (0-5)
[2022-06-25 13:03] LABS: Amphetamine Screen Urine Not Detected (Not Detect); Barbiturates, Urine Not Detected (Not Detect); Benzodiazepines Screen Urine Not Detected (Not Detect); Cannabinoid Screen Urine Not Detected (Not Detect); Cocaine Screen Urine Not Detected (Not Detect); Fentanyl, urine POSITIVE (Not Detect); Opiate Screen Urine Not Detected (Not Detect); Phencyclidine Screen Urine Not Detected (Not Detect)
[2022-06-25 13:09] LABS: COVID-19 Test Negative (Negative); IDNOW Serial# 9DB6401D
--- NOTE | 2022-06-25 13:09 | ECG_ITS ---
Test Reason : chest pain Blood Pressure : / mmHG Vent. Rate : 072 BPM Atrial Rate : 072 BPM P-R Int : 164 ms QRS Dur : 084 ms QT Int : 390 ms P-R-T Axes : 040 038 028 degrees QTc Int : 427 ms Normal sinus rhythm Normal ECG When compared with ECG of 24-JUN-2022 17:02, No significant change was found Referred By: Generic ED Physician Electronically Signed By:KASSIDY ROSS
--- NOTE | 2022-06-25 13:09 | PC.NURSE ---
reported to ert that he was expirencing CP.
--- NOTE | 2022-06-25 13:31 | ED_ITS ---
HPI - Psych General Chief Complaint: Psychiatric Symptoms Stated Complaint: psych symptoms Time Seen by Provider: 06/25/22 13:28 Source: patient and family History of Present Illness HPI Narrative: 26-year-old male with a past medical history of intellectual disability, schizoaffective disorder presenting to the ED due to mother/caregiver reporting him to be off baseline x 2 days. States patient with paranoia/delusions of everything hurting. Admits to similar symptoms in the past which required psychiatric admission. Patient reports generalized body pain. Reports compliance of medications. Denies SI/HI or hallucinations Patient is poor historian due to baseline intellectual disability Onset (ago): day(s) Related Data Home Medications Medication Instructions Recorded Confirmed albuterol sulfate 90 mcg/actuation 1 puff inhalation Q4H PRN wheezing 06/25/22 06/25/22 aerosol inhaler (ProAir HFA) benztropine 0.5 mg tablet 1 tab PO BID 06/25/22 06/25/22 clonidine HCl 0.1 mg tablet 1 tab PO TID 06/25/22 06/25/22 topiramate 100 mg tablet 1 tab PO BID 06/25/22 06/25/22 trazodone 100 mg tablet 250 - 300 mg PO BEDTIME PRN 06/25/22 06/25/22 Insomnia Previous Rx's Medication Instructions Recorded albuterol sulfate 90 mcg/actuation 1 puff inhalation Q4H PRN Wheezing 04/21/22 aerosol inhaler (Ventolin HFA) #6.7 grams aripiprazole 20 mg tablet (Abilify) 20 mg PO DAILY #30 tabs 04/21/22 docusate sodium 100 mg capsule 100 mg PO BID #60 caps 04/21/22 famotidine 20 mg tablet 20 mg PO DAILY #30 tabs 04/21/22 lorazepam 0.5 mg tablet 0.5 mg PO TID #90 tabs 04/21/22 olanzapine 5 mg tablet 5 mg PO TID #90 tabs 04/21/22 atorvastatin 40 mg tablet 40 mg PO BEDTIME #30 tabs 05/04/22 dulaglutide 0.75 mg/0.5 mL 0.75 mg (0.5 mL) subcut QWEEK #2 mL 05/04/22 subcutaneous [facility] metformin 500 mg tablet,extended 1,000 mg PO BID 90 days #360 tabs 05/04/22 release 24 hr lisinopril 10 mg tablet 10 mg PO DAILY #30 tabs 06/09/22 Allergies Allergy/AdvReac Type Severity Reaction Status Date / Time No Known Allergies Allergy Unverified 12/08/21 12:51 [No Known Allergies*] Review of Systems Review of Systems: Constitutional: No Fever ENT/Mouth: No Ear Pain, No sore throat Eyes: No Eye Pain, No Swelling, No Redness Cardiovascular: + Chest Pain, No SOB Respiratory: No Cough Gastrointestinal: No Nausea, No Vomiting, No Abdominal pain Musculoskeletal: No joint pain, + Myalgias Psych: No Anxiety/Panic, No Depression, No SI/HI ROS limited due to patient's baseline autism/acute mental status Yes all other systems are reviewed and are negative Constitutional: Constitutional: Reports as per [facility] Past Medical History Attestation statement: The following information was validated with the patient. Medical History Diabetes mellitus type 2, controlled, without complications Hyperlipidemia LDL goal <100 Obesity due to excess calories Type 2 diabetes mellitus with hyperglycemia, with long-term current use of insulin Type 2 diabetes mellitus with hypoglycemia without coma Surgical History No history of previous surgery Family History Family History Father Hypertension Type 2 diabetes mellitus Social History Social History Household Members: Family and Adopted Family Housing: House Do you presently have visiting nurse or other home services: No Alcohol intake: never Patient Tobacco Use Status: Never used Tobacco Substance Use Type: Amphetamines Advance Directives: Yes Advance Directives on File: Yes Advance Directives Date on File: 04/22/22 service: No Sexual orientation: Did not discuss. Physical Exam Vital Signs: Vital Signs: Last Vital Signs Temp 97.2 F 06/25/22 11:26 Pulse 84 06/25/22 16:42 Resp 16 06/25/22 16:42 BP 143/88 H 06/25/22 16:42 Pulse Ox 98 06/25/22 16:42 O2 Del Method 06/25/22 16:42 BMI result Body Mass Index 48.4 Const: General: cooperative, no acute distress and alert Orientation/consciousness: patient oriented x3 Limitations: other limitations HEENT: Head: Yes normal to inspection and Yes atraumatic Ears: hearing grossly normal bilaterally General nose exam: Normal external nose present Face and sinus: Yes normal facial exam Eyes: General: appearance normal, both eyes and all related structures Pupils: Equal, round and reactive pupils present EOM: EOMs intact bilaterally Neck: Neck: Yes normal visual inspection and Yes no meningeal signs Resp: Effort & Inspection: normal respiratory effort and no respiratory distress Auscultation: clear to auscultation bilaterally, no crackles, no rales, no rhonchi and no wheezes Cardio: Rate: regular rate Heart sounds: S1 normal heart sound present and S2 normal heart sound present GI: Inspection: Yes normal to inspection Palpation (GI): Soft to palpation, nontender, no guarding and not rigid : General: Yes no CVA tenderness Back/Spine/Pelvis: Back: no CVA tenderness Skin: Rashes: no rashes Wounds: no wounds Neuro: General: patient oriented x3, tone normal and no meningeal signs Cranial nerves: Yes Equal, round and reactive pupils present Gait exam (Neuro): Normal gait present Extrem: General: Yes normal to inspection Psych: Appearance: grossly normal Attitude: cooperative Thought content: delusions Insight: Poor insight present (Psych) Course Course Course Narrative: -1442--mild leukocytosis of 11.7. H&H stable. UA not infected. Tox screen positive for fentanyl -patient is medically cleared. Physician observation initiated as patient needs more time to be evaluated by crisis 185--patient was evaluated by CARE team and cleared for discharge home. They spoke with mother who is in agreement with plan and will pick patient up from the ED MDM - Psych MDM Narrative Medical decision making narrative: 26-year-old male with a past medical history of intellectual disability, schizoaffective disorder presenting to the ED due to mother/caregiver reporting him to be off baseline x 2 days. On exam vital signs stable, NAD, nontoxic appearing, physical exam as above. History limited due to patient's baseline intellectual disability, spoke with patient's mother. Will rule out organic causes/metabolic/infectious etiologies vs psychiatric illness Plan: EKG, labs, UA, drug screen, crisis consult Differential Diagnosis Differential diagnosis: Likely acute psychosis, autism and schizoaffective disorder Medical Records Attestation: I reviewed the patient's medical records. Lab Data Attestation: I reviewed the patient's lab results. Result diagrams: 06/25/22 14:26 06/25/22 14:26 Labs: Lab Results 06/25/22 06/25/22 06/25/22 Range/Units 12:44 12:44 12:44 WBC (4.8-10.8) X10*3/uL RBC (4.60-5.80) X10*6/uL Hgb (14.0-18.0) g/dl Hct (42.0-52.0) % MCV (80.0-98.0) fL MCH (27.0-33.0) pg MCHC (31.0-36.0) g/dl RDW (11.0-16.0) % Plt Count (160-400) X10*3/uL MPV (9.4-12.4) fL Immature Gran % (Auto) (0.0-0.4) % Neut % (Auto) (45-73) % Lymph % (Auto) (20-40) % [place] % (Auto) (2-11) % Eos % (Auto) (0-4) % Baso % (Auto) (0-2) % Lymph # (Auto) (1.2-4.9) X10*3/uL [place] # (Auto) (0.1-1.2) X10*3/uL Eos # (Auto) (0.0-0.4) X10*3/uL Baso # (Auto) (0.0-0.2) X10*3/uL Abs Immat Gran (auto) (0.00-0.03) X10*3/uL Absolute Neuts (auto) (2.0-8.3) x10*3/uL Absolute Nucleated RBC (0.0-0.012) X10*3/uL Nucleated RBC % (auto) (0.0-0.2) /100WBC Sodium (135-145) mmol/L Potassium (3.3-5.1) mmol/L Chloride (96-108) mmol/L Carbon Dioxide (22-29) mmol/L Anion Gap (12-20) BUN (9-16) mg/dL Creatinine (0.5-1.4) mg/dL Estim Creat Clear Calc Estimated GFR Random Glucose (60-115) mg/dL Calcium (8.4-10.2) mg/dL Magnesium (1.6-2.6) mg/dL Total Bilirubin (0.0-1.0) mg/dL AST (5-37) U/L ALT (0-40) U/L Alkaline Phosphatase (39-117) U/L Total Creatine Kinase (38-174) U/L Total Protein (6.5-8.0) g/dL Albumin (3.5-5.0) g/dL Urine Color Yellow Urine Appearance Clear Urine pH 6.5 (5.0-9.0) Ur Specific [place] 1.015 (1.005-1.025) Urine Protein Negative (Neg-Trace) mg/dL Urine Glucose (UA) Negative (Negative) mg/dL Urine Ketones Negative (Negative) mg/dL Urine Blood Negative (Negative) Urine Nitrite Negative (Negative) Ur Leukocyte Esterase Trace H (Negative) Urine RBC 0-2 (0-2) /HPF Urine WBC 0-5 (0-5) /HPF Ur Squamous Epith Cells 0-2 (0-2) /HPF Urine Bacteria None Seen (None Seen) Hyaline Casts 0-2 (0-2) /LPF Urine Opiates Screen Not Detected (Not Detect) Urine Fentanyl Screen POSITIVE H (Not Detect) Ur Barbiturates Screen Not Detected (Not Detect) Ur Phencyclidine Scrn Not Detected (Not Detect) Ur Amphetamines Screen Not Detected (Not Detect) U Benzodiazepines Scrn Not Detected (Not Detect) Urine Cocaine Screen Not Detected (Not Detect) U Marijuana (THC) Screen Not Detected (Not Detect) Ethyl Alcohol mg/dL COVID-19 ([facility]) Negative (Negative) COVID-19 Clin Com See Note 06/25/22 06/25/22 06/25/22 Range/Units 14:26 14:26 14:27 WBC 11.7 H (4.8-10.8) X10*3/uL RBC 5.40 (4.60-5.80) X10*6/uL Hgb 14.2 (14.0-18.0) g/dl Hct 43.3 (42.0-52.0) % MCV 80.2 (80.0-98.0) fL MCH 26.3 L (27.0-33.0) pg MCHC 32.8 (31.0-36.0) g/dl RDW 13.1 (11.0-16.0) % Plt Count 339 (160-400) X10*3/uL MPV 9.5 (9.4-12.4) fL Immature Gran % (Auto) 0.6 H (0.0-0.4) % Neut % (Auto) 67.3 (45-73) % Lymph % (Auto) 22.3 (20-40) % [place] % (Auto) 6.0 (2-11) % Eos % (Auto) 3.4 (0-4) % Baso % (Auto) 0.4 (0-2) % Lymph # (Auto) 2.6 (1.2-4.9) X10*3/uL [place] # (Auto) 0.7 (0.1-1.2) X10*3/uL Eos # (Auto) 0.4 (0.0-0.4) X10*3/uL Baso # (Auto) 0.1 (0.0-0.2) X10*3/uL Abs Immat Gran (auto) 0.07 H (0.00-0.03) X10*3/uL Absolute Neuts (auto) 7.9 (2.0-8.3) x10*3/uL Absolute Nucleated RBC 0.000 (0.0-0.012) X10*3/uL Nucleated RBC % (auto) 0.0 (0.0-0.2) /100WBC Sodium 138 (135-145) mmol/L Potassium 4.8 (3.3-5.1) mmol/L Chloride 105 (96-108) mmol/L Carbon Dioxide 18 L (22-29) mmol/L Anion Gap 20 (12-20) BUN 13 (9-16) mg/dL Creatinine 0.88 (0.5-1.4) mg/dL Estim Creat Clear Calc 166.8 Estimated GFR > 60 Random Glucose 97 (60-115) mg/dL Calcium 9.1 (8.4-10.2) mg/dL Magnesium 1.9 (1.6-2.6) mg/dL Total Bilirubin 0.8 (0.0-1.0) mg/dL AST 25 (5-37) U/L ALT 26 (0-40) U/L Alkaline Phosphatase 108 (39-117) U/L Total Creatine Kinase 270 H (38-174) U/L Total Protein 7.2 (6.5-8.0) g/dL Albumin 4.2 (3.5-5.0) g/dL Urine Color Urine Appearance Urine pH (5.0-9.0) Ur Specific [place] (1.005-1.025) Urine Protein (Neg-Trace) mg/dL Urine Glucose (UA) (Negative) mg/dL Urine Ketones (Negative) mg/dL Urine Blood (Negative) Urine Nitrite (Negative) Ur Leukocyte Esterase (Negative) Urine RBC (0-2) /HPF Urine WBC (0-5) /HPF Ur Squamous Epith Cells (0-2) /HPF Urine Bacteria (None Seen) Hyaline Casts (0-2) /LPF Urine Opiates Screen (Not Detect) Urine Fentanyl Screen (Not Detect) Ur Barbiturates Screen (Not Detect) Ur Phencyclidine Scrn (Not Detect) Ur Amphetamines Screen (Not Detect) U Benzodiazepines Scrn (Not Detect) Urine Cocaine Screen (Not Detect) U Marijuana (THC) Screen (Not Detect) Ethyl Alcohol < 10 mg/dL COVID-19 ([facility]) (Negative) COVID-19 Clin Com Discharge Plan Discharge Clinical Impression: Schizoaffective disorder Patient Disposition: Home, Self-Care Instructions: Schizoaffective Disorder (ED) Additional Instructions: You are cleared by our crisis team. Please have close follow-up with her providers and therapist. Continue home prescribed medications. If you have thoughts of hurting yourself or others please return to the emergency department. Prescriptions: No Action metformin 500 mg tablet extended release 24 hr 1,000 mg PO BID 90 Days Qty: 360 1RF atorvastatin 40 mg tablet 40 mg PO BEDTIME Qty: 30 0RF Trulicity 0.75 mg/0.5 mL pen injector 0.75 mg subcut QWEEK Qty: 2 5RF lisinopril 10 mg tablet 10 mg PO DAILY Qty: 30 0RF Protocol: Hold for SBP< HOLD for SBP < : 90 trazodone 100 mg tablet 250 - 300 mg PO BEDTIME PRN (Reason: Insomnia) clonidine HCl 0.1 mg tablet 1 tab PO TID benztropine 0.5 mg tablet 1 tab PO BID albuterol sulfate [ProAir HFA] 90 mcg/actuation HFA aerosol inhaler 1 puff INHALATION Q4H PRN (Reason: wheezing) topiramate 100 mg tablet 1 tab PO BID olanzapine 5 mg Tablet 5 mg PO TID Qty: 90 0RF famotidine 20 mg Tablet 20 mg PO DAILY Qty: 30 0RF lorazepam 0.5 mg Tablet 0.5 mg PO TID Qty: 90 0RF docusate sodium 100 mg Capsule 100 mg PO BID Qty: 60 0RF albuterol sulfate [Ventolin HFA] 90 mcg/actuation Hfa Aerosol Inhaler 1 puff inhalation Q4H PRN (Reason: Wheezing) Qty: 6.7 0RF aripiprazole [Abilify] 20 mg Tablet 20 mg PO DAILY Qty: 30 0RF Referrals: [facility] [Provider Group] [facility] [Outside] Angelina Malagon MD [Primary Care Provider] -
[2022-06-25 14:32] LABS: MANUAL DIFF FLAG NO
[2022-06-25 14:35] LABS: Basophils Absolute Auto 0.1 X10*3/uL (0.0-0.2); Basophils Percent Auto 0.4 % (0-2); Eosinophils Absolute Auto 0.4 X10*3/uL (0.0-0.4); Eosinophils Percent Auto 3.4 % (0-4); Hematocrit 43.3 % (42.0-52.0); Hemoglobin 14.2 g/dl (14.0-18.0); Imm Gran Abs Auto 0.07 X10*3/uL (0.00-0.03); Imm Gran Pct Auto 0.6 % (0.0-0.4); Lymphocytes Absolute Auto 2.6 X10*3/uL (1.2-4.9); Lymphocytes Percent Auto 22.3 % (20-40); Mean Corpuscular HGB Conc 32.8 g/dl (31.0-36.0); Mean Corpuscular Hemoglobin 26.3 pg (27.0-33.0); Mean Corpuscular Volume 80.2 fL (80.0-98.0); Mean Platelet Volume 9.5 fL (9.4-12.4); Monocytes Absolute Auto 0.7 X10*3/uL (0.1-1.2); Neutrophils Absolute Auto 7.9 x10*3/uL (2.0-8.3); Neutrophils Percent Auto 67.3 % (45-73); Platelet Count 339 X10*3/uL (160-400); Red Cell Distribution Width 13.1 % (11.0-16.0); White Blood Count 11.7 X10*3/uL (4.8-10.8)
[2022-06-25 14:54] LABS: Magnesium 1.9 mg/dL (1.6-2.6)
[2022-06-25 14:54] LABS: Alanine Aminotransferase 26 U/L (0-40); Albumin Level 4.2 g/dL (3.5-5.0); Alkaline Phosphatase 108 U/L (39-117); Anion Gap 20 (12-20); Aspartate Amino Transferase 25 U/L (5-37); Bilirubin Total 0.8 mg/dL (0.0-1.0); Blood Urea Nitrogen 13 mg/dL (9-16); Calcium 9.1 mg/dL (8.4-10.2); Carbon Dioxide 18 mmol/L (22-29); Chloride 105 mmol/L (96-108); Creatinine Clr Calc Pharmacy 166.8; Estimated Glomerular Filt Rate > 60; Ethanol < 10 mg/dL; Glucose Random 97 mg/dL (60-115); Potassium 4.8 mmol/L (3.3-5.1); Sodium 138 mmol/L (135-145); Total Protein 7.2 g/dL (6.5-8.0)
--- NOTE | 2022-06-25 15:43 | PC.NURSE ---
[facility] FORM COMPLETED
[2022-06-25 16:42] VITALS: BP 143/88; PULSE 84; RESP 16; O2SAT 98
[2022-06-25] MEDS: Ibuprofen 400 MG TABLET PO (17:02)
--- NOTE | 2022-06-25 17:03 | PC.NURSE ---
PT C/O NECK, HEAD, BACK, AND REPRODUCIBLE CP. PA NOTIFIED OF COMPLAINTS. VSS. PT APPEARS TO BE IN NAD, EATING AND DRINKING WITH NO ISSUE.
--- NOTE | 2022-06-25 18:40 | PC.NURSE ---
PT DENIES PAIN AT THIS TIME. PACING AROUND POD, IN NAD, EATING WELL. AWAITING [facility] EVAL.
--- NOTE | 2022-06-25 18:51 | PC.NURSE ---
MED REC COMPLETED
--- NOTE | 2022-06-25 19:09 | MHC.CARE ---
Arnold presented in the [facility] with somatic complaints of chest pain, he was medically cleared and consulted requested from CARE team. CARE team met with Arnold who has a known history of DDS services for Autism as well as diagnosis bipolar. Arnold denies any suicidal or homicidal ideation plan or intent, he denies any audio or visual hallucinations and does not appear to be responding to any internal stimuli currently. Arnold is difficult to engage verbally due to developmental disability. He answer questions with one or two word answers. Arnold reports when he takes his anxiety medications it helps with his body pains. CARE team discussed somatic complaints and explained what they mean, Arnold was reassured he was medically cleared by the doctor. CARE team discussed coping skills that can help with his increased anxiety, Arnold reports playing his video games helps him. CARE provided Arnold with [facility] crisis contact information to call for / phone support as needed. Arnold reports his sleep is poor and he wakes up at night to eat, he reports he feels to return home. CARE called Arnold's mother, she reports Arnold started yesterday telling her his body was hurting and was complaining if chest, leg and body aches. She reports he was hyper focused on the pains and she eventually called 911 and he was transported to [facility]. She reports he was in ER for 4 hours, was medically cleared and then discharged home. She reporting he woke up this morning with the same somatic complaints, she attempted to reassure him it was most likely gas or heartburn, however he was to anxious so EMS were called again and he was transported back to [facility] tonight. Mother reports she has no safety concerns and can pick Arnold up from the ER when he is ready for discharge. Mother reports he was discharged from [address] in May and has done great with the medications she does report the Tramodol he was prescribed has made him gain 19 pounds in weight and he wakes up at night and eat and eats. Mother was told to speak with PCP for possible appetite suppressant, mother reports Arnold has multiple community providers with DDS including composite worker for support. Arnold does meet nor is he seeking inpatient level of care, he will follow up with community providers. CARE heard consulted with [facility] who are in agreement with discharge. F31.89 Bipolar F84.0 Community Providers Dianna Vail - Psychiatrist, , (N) Luz HAZEL, , (N) Sherron - Autism Connection Coordinator, , (N)
== END 2022-06-25 19:26 | disposition home or self-care (01) ==
PROVIDERS: Physician Assistant; Emergency Provider Student in an Organized Health Care Education/Training Program; PCP Internal Medicine
DX: F25.9 Schizoaffective disorder, unspecified (principal); F79 Unspecified intellectual disabilities; Z20.822 Contact with and (suspected) exposure to COVID-19; E11.9 Type 2 diabetes mellitus without complications; E78.5 Hyperlipidemia, unspecified; E66.9 Obesity, unspecified; Z68.42 Body mass index [BMI] 45.0-49.9, adult; Z79.899 Other long term (current) drug therapy; Z79.84 Long term (current) use of oral hypoglycemic drugs; Z79.02 Long term (current) use of antithrombotics/antiplatelets
CPT/HCPCS: 36415; 80053; 80307; 81001; 82077; 82550; 83735; 85025; 87635; 93005; 99284; 99285

== ENCOUNTER 2022-09-01 09:19 | Inpatient (IN) | payer OTHER, SELFPAY ==
--- NOTE | ~2022-09-01 | XR_ITS ---
EXAMINATION: XR CHEST CLINICAL INFORMATION: Shortness of breath. Question Covid infection. COMPARISON: Previous chest x-ray and chest CT April 2022 TECHNIQUE: Frontal view of the chest was obtained. FINDINGS: The cardiac and mediastinal contours are stable. The lung volumes are low. The lungs are clear. There is no pleural effusion or pneumothorax. No acute bone abnormality. XR/XR chest 1V IMPRESSION: No evidence for acute disease in the chest.
[2022-09-01 09:29] VITALS: BP 138/92; PULSE 75; O2SAT 98
--- NOTE | 2022-09-01 09:42 | ECG_ITS ---
Test Reason : SOB Blood Pressure : / mmHG Vent. Rate : 079 BPM Atrial Rate : 079 BPM P-R Int : 154 ms QRS Dur : 076 ms QT Int : 394 ms P-R-T Axes : 053 049 027 degrees QTc Int : 451 ms Normal sinus rhythm Normal ECG When compared with ECG of 25-JUN-2022 13:12, No significant change was found Referred By: Patricia Alfonso Electronically Signed By:VENUS MCGILL MD
[2022-09-01 09:48] VITALS: BP 138/85; PULSE 76; RESP 16; TEMP 36.6; O2SAT 97; BMI 52.0
--- NOTE | 2022-09-01 10:15 | ED_ITS ---
HPI - Psych General Chief Complaint: Psychiatric Symptoms <KRISTA Jerez - Last Filed: 09/01/22 17:26> Stated Complaint: CRISIS,HX AUTISM,BIPOLAR PER EMS <KRISTA Jerez Last Filed: 09/01/22 17:26> Time Seen by Provider: 09/01/22 09:31 <KRISTA Jerez - Last Filed: 09/01/22 17:26> Source: patient and EMS <KRISTA Jerez - Last Filed: 09/01/22 17:26> Mode of arrival: EMS <KRISTA Jerez Last Filed: 09/01/22 17:26> History of Present Illness HPI Narrative: 27-year-old male with a past medical history of diabetes, HLD, bipolar, autism, presenting to ED via EMS from home for violent behavior. Patient admits to having COVID recently. Reports mild SOB. Denies SI/HI. Denies CP, abdominal pain, nausea/vomiting, pedal edema. ROS limited as patient not responding to questions about events prior to arrival. Calm and cooperative during evaluation <KRISTA Jerez - Last Filed: 09/01/22 17:26> Onset (ago): unknown <KRISTA Jerez Last Filed: 09/01/22 17:26> Related Data Home Medications: Home Medications Medication Instructions Recorded Confirmed benztropine 0.5 mg tablet 1 tab PO BID 06/25/22 09/01/22 trazodone 100 mg tablet 200 mg PO BEDTIME PRN Insomnia 06/25/22 09/01/22 clonidine HCl 0.3 mg tablet 1 tab PO BEDTIME 09/01/22 09/01/22 dulaglutide 0.75 mg/0.5 mL 0.75 mg subcut MO 09/01/22 09/01/22 subcutaneous pen injector (Trulicity) olanzapine 5 mg tablet 5 mg PO BID 09/01/22 09/01/22 Previous Rx's Medication Instructions Recorded albuterol sulfate 90 mcg/actuation 1 puff inhalation Q4H PRN Wheezing 04/21/22 aerosol inhaler (Ventolin HFA) #6.7 grams aripiprazole 20 mg tablet (Abilify) 20 mg PO DAILY #30 tabs 07/20/22 lorazepam 0.5 mg tablet 0.5 mg PO TID #90 tabs 04/21/22 atorvastatin 40 mg tablet 40 mg PO BEDTIME #30 tabs 05/04/22 metformin 500 mg tablet,extended 1,000 mg PO BID 90 days #360 tabs 05/04/22 release 24 hr lisinopril 10 mg tablet 10 mg PO DAILY #90 tabs 07/21/22 <KRISTA Jerez - Last Filed: 09/01/22 17:26> Allergies/Adverse Reactions: Allergies Allergy/AdvReac Type Severity Reaction Status Date / Time No Known Allergies Allergy Unverified 12/08/21 12:51 [No Known Allergies*] <KRISTA Jerez - Last Filed: 09/01/22 17:26> Review of Systems Review of Systems: Constitutional: No Fever, No Chills, No Fatigue, No Malaise ENT/Mouth: No Ear Pain, No Nasal Congestion, No sore throat, No Rhinorrhea, No Swallowing Difficulty Eyes: No Eye Pain, No Swelling, No Redness, No Vision Changes Cardiovascular: No Chest Pain, + SOB, No Edema, No Palpitations Respiratory: + Cough, No Sputum, No Dyspnea Gastrointestinal: No Nausea, No Vomiting, No Diarrhea, No Constipation, No Abd ominal pain Genitourinary: No Dysuria, No Urinary Frequency, No Hematuria, No Flank Pain Musculoskeletal: No joint pain, No Myalgias, No Joint Swelling Skin: No Skin Lesions, No rash Neuro: No Weakness, No Loss of Consciousness, No Headache Psych: No Anxiety/Panic, No Depression, No SI/HI/AH/VH, + Social Issues <KRISTA Jerez Last Filed: 09/01/22 17:26> Yes all other systems are reviewed and are negative <KRISTA Jerez Last Filed: 09/01/22 17:26> Constitutional: Constitutional: Reports as per HPI <KRISTA Jerez Last Filed: 09/01/22 17:26> PMF Past Medical History Attestation statement: The following information was validated with the patient. <KRISTA Jerez Last Filed: 09/01/22 17:26> Medical History: Medical History Diabetes mellitus type 2, controlled, without complications Hyperlipidemia LDL goal <100 Obesity due to excess calories Type 2 diabetes mellitus with hyperglycemia, with long-term current use of insulin Type 2 diabetes mellitus with hypoglycemia without coma <KRISTA Jerez - Last Filed: 09/01/22 17:26> Surgical History: Surgical History No history of previous surgery <KRISTA Jerez - Last Filed: 09/01/22 17:26> Family History Family History: Family History Father Hypertension Type 2 diabetes mellitus <KRISTA Jerez - Last Filed: 09/01/22 17:26> Social History Social History: Social History Household Members: Family and Adopted Family Housing: House Do you presently have visiting nurse or other home services: No Alcohol intake: never Patient Tobacco Use Status: Never used Tobacco Smoked in Last 30 Days: No Use of substances other than those prescribed or required for medical reasons: No Substance Use Type: Amphetamines Advance Directives: Yes Advance Directives on File: Yes Advance Directives Date on File: 04/22/22 Guardian: Yes service: No Sexual orientation: Did not discuss. <KRISTA Jerez - Last Filed: 09/01/22 17:26> Physical Exam Vital Signs: Vital Signs: Last Vital Signs Temp 98.2 F 09/02/22 07:03 Pulse 75 09/02/22 08:12 Resp 18 09/02/22 08:12 BP 116/71 09/02/22 08:12 Pulse Ox 95 09/02/22 08:12 O2 Del Method 09/02/22 08:12 BMI result Body Mass Index 52.0 <KRISTA Jerez - Last Filed: 09/01/22 17:26> Vital Signs: Last Vital Signs Temp 98.2 F 09/02/22 07:03 Pulse 75 09/02/22 08:12 Resp 18 09/02/22 08:12 BP 116/71 09/02/22 08:12 Pulse Ox 95 09/02/22 08:12 O2 Del Method 09/02/22 08:12 BMI result Body Mass Index 52.0 <Abby Mccall [facility] - Last Filed: 09/02/22 09:18> Const: General: cooperative, healthy appearing and no acute distress <KRISTA Jerez - Last Filed: 09/01/22 17:26> Limitations: no limitations and behavioral limitations <KRISTA Jerez - Last Filed: 09/01/22 17:26> HEENT: Head: Yes normal to inspection and Yes atraumatic <KRISTA Jerez - Last Filed: 09/01/22 17:26> Ears: hearing grossly normal bilaterally <KRISTA Jerez - Last Filed: 09/01/22 17:26> General nose exam: Normal external nose present <KRISTA Jerez - Last Filed: 09/01/22 17:26> Face and sinus: Yes normal facial exam <KRISTA Jerez - Last Filed: 09/01/22 17:26> Throat: Yes posterior oropharynx normal <KRISTA Jerez - Last Filed: 09/01/22 17:26> Eyes: General: appearance normal, both eyes and all related structures <KRISTA Jerez - Last Filed: 09/01/22 17:26> Pupils: Equal, round and reactive pupils present <KRISTA Jerez - Last Filed: 09/01/22 17:26> EOM: EOMs intact bilaterally <KRISTA Jerez - Last Filed: 09/01/22 17:26> Neck: Neck: Yes normal visual inspection and Yes no meningeal signs <KRISTA Jerez - Last Filed: 09/01/22 17:26> Resp: Effort & Inspection: normal respiratory effort and no respiratory distress <KRISTA Jerez - Last Filed: 09/01/22 17:26> Auscultation: clear to auscultation bilaterally, no crackles, no rales, no rhonchi and wheezes (mild) expiratory wheezes <KRISTA Jerez - Last Filed: 09/01/22 17:26> Cardio: Rate: regular rate <KRISTA Jerez - Last Filed: 09/01/22 17:26> Heart sounds: S1 normal heart sound present and S2 normal heart sound present <Patricia Romelliz PA - Last Filed: 09/01/22 17:26> GI: Inspection: Yes normal to inspection <Patricia Romelliz PA - Last Filed: 09/01/22 17:26> Palpation (GI): Soft to palpation, nontender, no guarding and not rigid <Patricia Romelliz PA - Last Filed: 09/01/22 17:26> Skin: Rashes: no rashes <Patricia Romelliz PA - Last Filed: 09/01/22 17:26> Wounds: no wounds <Patricia Poulramilat PA - Last Filed: 09/01/22 17:26> Neuro: General: tone normal, moves all extremities and no meningeal signs <Patricia Romelliz PA - Last Filed: 09/01/22 17:26> Cranial nerves: Yes Equal, round and reactive pupils present <Patricia Alfonso PA - Last Filed: 09/01/22 17:26> Extrem: General: Yes normal to inspection, Yes no pedal edema and Yes no calf tenderness <Patricia Romelliz PA - Last Filed: 09/01/22 17:26> Psych: Appearance: grossly normal <Patricia Romelliz PA - Last Filed: 09/01/22 17:26> Affect: Blunted affect present <Patricia Romelliz PA - Last Filed: 09/01/22 17:26> Attitude: cooperative <Patricia Alfonso PA - Last Filed: 09/01/22 17:26> Thought content: suicidality, no homicidality and No Depressive thoughts present <Patricia Alfonso PA - Last Filed: 09/01/22 17:26> Insight: Poor insight present (Psych) <Patricia Alfonso PA - Last Filed: 17:26> Course Course Course Narrative: -1222--no leukocytosis. AST/ALT mildly elevated, patient nontender. Troponin negative. -COVID-19 positive XR chest 1V IMPRESSION: No evidence for acute disease in the chest. -physician observation initiated at 12:25, patient medically cleared for crisis evaluation -1800--ED care transferred to [facility] pending crisis evaluation <KRISTA Jerez - Last Filed: 09/01/22 17:26> Reevaluation(s) Reevaluation #1: physician observation continued. no acute overnight events. patient reports being diabetic, type 2. no insulin ordered. just ate break. glucose 90s yesterday. lispro ss ordered for now. he is on metformin. he is awaiting crisis evaluation. will continue to monitor. <KRISTA Ng - Last Filed: 09/02/22 09:18> Medications Administered Generic Name Dose Route Start Last Admin Trade Name Freq PRN Reason Stop Dose Admin Atorvastatin Calcium 40 mg 09/01/22 21:00 09/01/22 20:14 Atorvastatin Calcium 40 Mg Tablet PO 40 mg BEDTIME DAISHA Administration Benztropine Mesylate 0.5 mg 09/01/22 21:00 09/02/22 08:16 Benztropine Mesylate 0.5 Mg Tablet PO 0.5 mg BID DAISHA Administration Clonidine HCl 0.3 mg 09/01/22 21:00 09/01/22 20:14 Clonidine Hcl 0.1 Mg Tablet PO 0.3 mg BEDTIME DAISHA Administration Protocol Lisinopril 10 mg 09/02/22 09:00 09/02/22 08:17 Lisinopril 10 Mg Tablet PO 10 mg DAILY DAISHA Administration Protocol Lorazepam 0.5 mg 09/01/22 15:00 09/02/22 08:16 Lorazepam 0.5 Mg Tablet PO 0.5 mg TID DAISHA Administration Metformin HCl 1,000 mg 09/01/22 21:00 09/02/22 08:16 Metformin Hcl Er 500 Mg Tab.Er.24h PO 1,000 mg BID DAISHA Administration Olanzapine 5 mg 09/01/22 21:00 09/02/22 08:16 Olanzapine 5 Mg Tablet PO 5 mg BID DAISHA Administration Discontinued Medications Generic Name Dose Route Start Last Admin Trade Name Freq PRN Reason Stop Dose Admin Albuterol/Ipratropium 3 ml 09/01/22 09:41 09/01/22 10:24 Albuterol/Iprat 2.5/0.5mg 3 Ml Ampul.Neb INHALE 09/01/22 09:42 3 ml ONCE ONE Administration <KRISTA Jerez - Last Filed: 09/01/22 17:26> Medications Administered Generic Name Dose Route Start Last Admin Trade Name Freq PRN Reason Stop Dose Admin Atorvastatin Calcium 40 mg 09/01/22 21:00 09/01/22 20:14 Atorvastatin Calcium 40 Mg Tablet PO 40 mg BEDTIME DAISHA Administration Benztropine Mesylate 0.5 mg 09/01/22 21:00 09/02/22 08:16 Benztropine Mesylate 0.5 Mg Tablet PO 0.5 mg BID DAISHA Administration Clonidine HCl 0.3 mg 09/01/22 21:00 09/01/22 20:14 Clonidine Hcl 0.1 Mg Tablet PO 0.3 mg BEDTIME DAISHA Administration Protocol Lisinopril 10 mg 09/02/22 09:00 09/02/22 08:17 Lisinopril 10 Mg Tablet PO 10 mg DAILY DAISHA Administration Protocol Lorazepam 0.5 mg 09/01/22 15:00 09/02/22 08:16 Lorazepam 0.5 Mg Tablet PO 0.5 mg TID DAISHA Administration Metformin HCl 1,000 mg 09/01/22 21:00 09/02/22 08:16 Metformin Hcl Er 500 Mg Tab.Er.24h PO 1,000 mg BID DAISHA Administration Olanzapine 5 mg 09/01/22 21:00 09/02/22 08:16 Olanzapine 5 Mg Tablet PO 5 mg BID DAISHA Administration Discontinued Medications Generic Name Dose Route Start Last Admin Trade Name Freq PRN Reason Stop Dose Admin Albuterol/Ipratropium 3 ml 09/01/22 09:41 09/01/22 10:24 Albuterol/Iprat 2.5/0.5mg 3 Ml Ampul.Neb INHALE 09/01/22 09:42 3 ml ONCE ONE Administration <KRISTA Ng - Last Filed: 09/02/22 09:18> MDM - Psych MDM Narrative Medical decision making narrative: 27-year-old male with a past medical history of diabetes, HLD, bipolar, autism, presenting to ED via EMS from home for violent behavior. On exam vital signs stable, NAD, mild exp wheeze noted, abdomen soft/nontender, no pedal edema/calf tenderness, nontoxic appearing, denies SI/HI, will not discussed results that brought him to the ED today. Concern for ? COVID-19/viral illness vs bronchitis or pneumonia. Concern for behavior disturbance vs psychosis. Low suspicion for ACS/PE Plan: EKG, labs, CXR, COVID 19/influenza/RSV testing, crisis consult <KRISTA Jerez - Last Filed: 09/01/22 17:26> Medical Records Attestation: I reviewed the patient's medical records. <KRISTA Jerez - Last Filed: 09/01/22 17:26> Lab Data Attestation: I reviewed the patient's lab results. <KRISTA Jerez - Last Filed: 09/01/22 17:26> Result diagrams: : 09/01/22 10:44 09/01/22 10:44 <KRISTA Jerez - Last Filed: 09/01/22 17:26> Labs: Lab Results 09/01/22 09/01/22 09/01/22 Range/Units 10:23 10:44 10:44 WBC 6.7 (4.8-10.8) X10*3/uL RBC 5.03 (4.60-5.80) X10*6/uL Hgb 13.2 L (14.0-18.0) g/dl Hct 41.3 L (42.0-52.0) % MCV 82.1 (80.0-98.0) fL MCH 26.2 L (27.0-33.0) pg MCHC 32.0 (31.0-36.0) g/dl RDW 13.5 (11.0-16.0) % Plt Count 240 D (160-400) X10*3/uL MPV 9.3 L (9.4-12.4) fL Immature Gran % (Auto) 1.4 H (0.0-0.4) % Neut % (Auto) 46.5 (45-73) % Lymph % (Auto) 33.0 (20-40) % [place] % (Auto) 11.6 H (2-11) % Eos % (Auto) 6.9 H (0-4) % Baso % (Auto) 0.6 (0-2) % Lymph # (Auto) 2.2 (1.2-4.9) X10*3/uL [place] # (Auto) 0.8 (0.1-1.2) X10*3/uL Eos # (Auto) 0.5 H (0.0-0.4) X10*3/uL Baso # (Auto) 0.0 (0.0-0.2) X10*3/uL Abs Immat Gran (auto) 0.09 H (0.00-0.03) X10*3/uL Absolute Neuts (auto) 3.1 (2.0-8.3) x10*3/uL Absolute Nucleated RBC 0.000 (0.0-0.012) X10*3/uL Nucleated RBC % (auto) 0.0 (0.0-0.2) /100WBC Sodium 139 (135-145) mmol/L Potassium 4.4 (3.3-5.1) mmol/L Chloride 102 (96-108) mmol/L Carbon Dioxide 29 (22-29) mmol/L Anion Gap 12 (12-20) BUN 12 (9-16) mg/dL Creatinine 0.81 (0.5-1.4) mg/dL Estim Creat Clear Calc 181.5 Estimated GFR > 60 Random Glucose 97 (60-115) mg/dL Calcium 9.3 (8.4-10.2) mg/dL Magnesium 1.9 (1.6-2.6) mg/dL Total Bilirubin 0.4 (0.0-1.0) mg/dL Direct Bilirubin 0.2 (0.0-0.5) mg/dL AST 49 H D (5-37) U/L ALT 104 H (0-40) U/L Alkaline Phosphatase 112 (39-117) U/L Ammonia (13-55) umol/L Troponin I High Sens (<3.5-35.0) ng/L B-Natriuretic Peptide (<100) pg/mL Total Protein 7.1 (6.5-8.0) g/dL Albumin 4.0 (3.5-5.0) g/dL Urine Opiates Screen (Not Detect) Urine Fentanyl Screen (Not Detect) Ur Barbiturates Screen (Not Detect) Ur Phencyclidine Scrn (Not Detect) Ur Amphetamines Screen (Not Detect) U Benzodiazepines Scrn (Not Detect) Urine Cocaine Screen (Not Detect) U Marijuana (THC) Screen (Not Detect) Influenza Type A (PCR) NEGATIVE (Negative) Influenza Type B (PCR) NEGATIVE (Negative) RSV RNA Qual (PCR) NEGATIVE (Negative) SARS-CoV-2 RNA (RT-PCR) POSITIVE A (Negative) 09/01/22 09/01/22 09/01/22 Range/Units 10:44 10:44 11:20 WBC (4.8-10.8) X10*3/uL RBC (4.60-5.80) X10*6/uL Hgb (14.0-18.0) g/dl Hct (42.0-52.0) % MCV (80.0-98.0) fL MCH (27.0-33.0) pg MCHC (31.0-36.0) g/dl RDW (11.0-16.0) % Plt Count (160-400) X10*3/uL MPV (9.4-12.4) fL Immature Gran % (Auto) (0.0-0.4) % Neut % (Auto) (45-73) % Lymph % (Auto) (20-40) % [place] % (Auto) (2-11) % Eos % (Auto) (0-4) % Baso % (Auto) (0-2) % Lymph # (Auto) (1.2-4.9) X10*3/uL [place] # (Auto) (0.1-1.2) X10*3/uL Eos # (Auto) (0.0-0.4) X10*3/uL Baso # (Auto) (0.0-0.2) X10*3/uL Abs Immat Gran (auto) (0.00-0.03) X10*3/uL Absolute Neuts (auto) (2.0-8.3) x10*3/uL Absolute Nucleated RBC (0.0-0.012) X10*3/uL Nucleated RBC % (auto) (0.0-0.2) /100WBC Sodium (135-145) mmol/L Potassium (3.3-5.1) mmol/L Chloride (96-108) mmol/L Carbon Dioxide (22-29) mmol/L Anion Gap (12-20) BUN (9-16) mg/dL Creatinine (0.5-1.4) mg/dL Estim Creat Clear Calc Estimated GFR Random Glucose (60-115) mg/dL Calcium (8.4-10.2) mg/dL Magnesium (1.6-2.6) mg/dL Total Bilirubin (0.0-1.0) mg/dL Direct Bilirubin (0.0-0.5) mg/dL AST (5-37) U/L ALT (0-40) U/L Alkaline Phosphatase (39-117) U/L Ammonia (13-55) umol/L Troponin I High Sens < 3.5 (<3.5-35.0) ng/L B-Natriuretic Peptide 13 (<100) pg/mL Total Protein (6.5-8.0) g/dL Albumin (3.5-5.0) g/dL Urine Opiates Screen Not Detected (Not Detect) Urine Fentanyl Screen Not Detected (Not Detect) Ur Barbiturates Screen Not Detected (Not Detect) Ur Phencyclidine Scrn Not Detected (Not Detect) Ur Amphetamines Screen Not Detected (Not Detect) U Benzodiazepines Scrn Not Detected (Not Detect) Urine Cocaine Screen Not Detected (Not Detect) U Marijuana (THC) Screen Not Detected (Not Detect) Influenza Type A (PCR) (Negative) Influenza Type B (PCR) (Negative) RSV RNA Qual (PCR) (Negative) SARS-CoV-2 RNA (RT-PCR) (Negative) 09/01/22 Range/Units 19:34 WBC (4.8-10.8) X10*3/uL RBC (4.60-5.80) X10*6/uL Hgb (14.0-18.0) g/dl Hct (42.0-52.0) % MCV (80.0-98.0) fL MCH (27.0-33.0) pg MCHC (31.0-36.0) g/dl RDW (11.0-16.0) % Plt Count (160-400) X10*3/uL MPV (9.4-12.4) fL Immature Gran % (Auto) (0.0-0.4) % Neut % (Auto) (45-73) % Lymph % (Auto) (20-40) % [place] % (Auto) (2-11) % Eos % (Auto) (0-4) % Baso % (Auto) (0-2) % Lymph # (Auto) (1.2-4.9) X10*3/uL [place] # (Auto) (0.1-1.2) X10*3/uL Eos # (Auto) (0.0-0.4) X10*3/uL Baso # (Auto) (0.0-0.2) X10*3/uL Abs Immat Gran (auto) (0.00-0.03) X10*3/uL Absolute Neuts (auto) (2.0-8.3) x10*3/uL Absolute Nucleated RBC (0.0-0.012) X10*3/uL Nucleated RBC % (auto) (0.0-0.2) /100WBC Sodium (135-145) mmol/L Potassium (3.3-5.1) mmol/L Chloride (96-108) mmol/L Carbon Dioxide (22-29) mmol/L Anion Gap (12-20) BUN (9-16) mg/dL Creatinine (0.5-1.4) mg/dL Estim Creat Clear Calc Estimated GFR Random Glucose (60-115) mg/dL Calcium (8.4-10.2) mg/dL Magnesium (1.6-2.6) mg/dL Total Bilirubin (0.0-1.0) mg/dL Direct Bilirubin (0.0-0.5) mg/dL AST (5-37) U/L ALT (0-40) U/L Alkaline Phosphatase (39-117) U/L Ammonia 30 (13-55) umol/L Troponin I High Sens (<3.5-35.0) ng/L B-Natriuretic Peptide (<100) pg/mL Total Protein (6.5-8.0) g/dL Albumin (3.5-5.0) g/dL Urine Opiates Screen (Not Detect) Urine Fentanyl Screen (Not Detect) Ur Barbiturates Screen (Not Detect) Ur Phencyclidine Scrn (Not Detect) Ur Amphetamines Screen (Not Detect) U Benzodiazepines Scrn (Not Detect) Urine Cocaine Screen (Not Detect) U Marijuana (THC) Screen (Not Detect) Influenza Type A (PCR) (Negative) Influenza Type B (PCR) (Negative) RSV RNA Qual (PCR) (Negative) SARS-CoV-2 RNA (RT-PCR) (Negative) <KRISTA Jerez - Last Filed: 09/01/22 17:26> Lab Results 09/01/22 09/01/22 09/01/22 Range/Units 10:23 10:44 10:44 WBC 6.7 (4.8-10.8) X10*3/uL RBC 5.03 (4.60-5.80) X10*6/uL Hgb 13.2 L (14.0-18.0) g/dl Hct 41.3 L (42.0-52.0) % MCV 82.1 (80.0-98.0) fL MCH 26.2 L (27.0-33.0) pg MCHC 32.0 (31.0-36.0) g/dl RDW 13.5 (11.0-16.0) % Plt Count 240 D (160-400) X10*3/uL MPV 9.3 L (9.4-12.4) fL Immature Gran % (Auto) 1.4 H (0.0-0.4) % Neut % (Auto) 46.5 (45-73) % Lymph % (Auto) 33.0 (20-40) % [place] % (Auto) 11.6 H (2-11) % Eos % (Auto) 6.9 H (0-4) % Baso % (Auto) 0.6 (0-2) % Lymph # (Auto) 2.2 (1.2-4.9) X10*3/uL [place] # (Auto) 0.8 (0.1-1.2) X10*3/uL Eos # (Auto) 0.5 H (0.0-0.4) X10*3/uL Baso # (Auto) 0.0 (0.0-0.2) X10*3/uL Abs Immat Gran (auto) 0.09 H (0.00-0.03) X10*3/uL Absolute Neuts (auto) 3.1 (2.0-8.3) x10*3/uL Absolute Nucleated RBC 0.000 (0.0-0.012) X10*3/uL Nucleated RBC % (auto) 0.0 (0.0-0.2) /100WBC Sodium 139 (135-145) mmol/L Potassium 4.4 (3.3-5.1) mmol/L Chloride 102 (96-108) mmol/L Carbon Dioxide 29 (22-29) mmol/L Anion Gap 12 (12-20) BUN 12 (9-16) mg/dL Creatinine 0.81 (0.5-1.4) mg/dL Estim Creat Clear Calc 181.5 Estimated GFR > 60 Random Glucose 97 (60-115) mg/dL Calcium 9.3 (8.4-10.2) mg/dL Magnesium 1.9 (1.6-2.6) mg/dL Total Bilirubin 0.4 (0.0-1.0) mg/dL Direct Bilirubin 0.2 (0.0-0.5) mg/dL AST 49 H D (5-37) U/L ALT 104 H (0-40) U/L Alkaline Phosphatase 112 (39-117) U/L Ammonia (13-55) umol/L Troponin I High Sens (<3.5-35.0) ng/L B-Natriuretic Peptide (<100) pg/mL Total Protein 7.1 (6.5-8.0) g/dL Albumin 4.0 (3.5-5.0) g/dL Urine Opiates Screen (Not Detect) Urine Fentanyl Screen (Not Detect) Ur Barbiturates Screen (Not Detect) Ur Phencyclidine Scrn (Not Detect) Ur Amphetamines Screen (Not Detect) U Benzodiazepines Scrn (Not Detect) Urine Cocaine Screen (Not Detect) U Marijuana (THC) Screen (Not Detect) Influenza Type A (PCR) NEGATIVE (Negative) Influenza Type B (PCR) NEGATIVE (Negative) RSV RNA Qual (PCR) NEGATIVE (Negative) SARS-CoV-2 RNA (RT-PCR) POSITIVE A (Negative) 09/01/22 09/01/22 09/01/22 Range/Units 10:44 10:44 11:20 WBC (4.8-10.8) X10*3/uL RBC (4.60-5.80) X10*6/uL Hgb (14.0-18.0) g/dl Hct (42.0-52.0) % MCV (80.0-98.0) fL MCH (27.0-33.0) pg MCHC (31.0-36.0) g/dl RDW (11.0-16.0) % Plt Count (160-400) X10*3/uL MPV (9.4-12.4) fL Immature Gran % (Auto) (0.0-0.4) % Neut % (Auto) (45-73) % Lymph % (Auto) (20-40) % [place] % (Auto) (2-11) % Eos % (Auto) (0-4) % Baso % (Auto) (0-2) % Lymph # (Auto) (1.2-4.9) X10*3/uL [place] # (Auto) (0.1-1.2) X10*3/uL Eos # (Auto) (0.0-0.4) X10*3/uL Baso # (Auto) (0.0-0.2) X10*3/uL Abs Immat Gran (auto) (0.00-0.03) X10*3/uL Absolute Neuts (auto) (2.0-8.3) x10*3/uL Absolute Nucleated RBC (0.0-0.012) X10*3/uL Nucleated RBC % (auto) (0.0-0.2) /100WBC Sodium (135-145) mmol/L Potassium (3.3-5.1) mmol/L Chloride (96-108) mmol/L Carbon Dioxide (22-29) mmol/L Anion Gap (12-20) BUN (9-16) mg/dL Creatinine (0.5-1.4) mg/dL Estim Creat Clear Calc Estimated GFR Random Glucose (60-115) mg/dL Calcium (8.4-10.2) mg/dL Magnesium (1.6-2.6) mg/dL Total Bilirubin (0.0-1.0) mg/dL Direct Bilirubin (0.0-0.5) mg/dL AST (5-37) U/L ALT (0-40) U/L Alkaline Phosphatase (39-117) U/L Ammonia (13-55) umol/L Troponin I High Sens < 3.5 (<3.5-35.0) ng/L B-Natriuretic Peptide 13 (<100) pg/mL Total Protein (6.5-8.0) g/dL Albumin (3.5-5.0) g/dL Urine Opiates Screen Not Detected (Not Detect) Urine Fentanyl Screen Not Detected (Not Detect) Ur Barbiturates Screen Not Detected (Not Detect) Ur Phencyclidine Scrn Not Detected (Not Detect) Ur Amphetamines Screen Not Detected (Not Detect) U Benzodiazepines Scrn Not Detected (Not Detect) Urine Cocaine Screen Not Detected (Not Detect) U Marijuana (THC) Screen Not Detected (Not Detect) Influenza Type A (PCR) (Negative) Influenza Type B (PCR) (Negative) RSV RNA Qual (PCR) (Negative) SARS-CoV-2 RNA (RT-PCR) (Negative) 09/01/22 Range/Units 19:34 WBC (4.8-10.8) X10*3/uL RBC (4.60-5.80) X10*6/uL Hgb (14.0-18.0) g/dl Hct (42.0-52.0) % MCV (80.0-98.0) fL MCH (27.0-33.0) pg MCHC (31.0-36.0) g/dl RDW (11.0-16.0) % Plt Count (160-400) X10*3/uL MPV (9.4-12.4) fL Immature Gran % (Auto) (0.0-0.4) % Neut % (Auto) (45-73) % Lymph % (Auto) (20-40) % [place] % (Auto) (2-11) % Eos % (Auto) (0-4) % Baso % (Auto) (0-2) % Lymph # (Auto) (1.2-4.9) X10*3/uL [place] # (Auto) (0.1-1.2) X10*3/uL Eos # (Auto) (0.0-0.4) X10*3/uL Baso # (Auto) (0.0-0.2) X10*3/uL Abs Immat Gran (auto) (0.00-0.03) X10*3/uL Absolute Neuts (auto) (2.0-8.3) x10*3/uL Absolute Nucleated RBC (0.0-0.012) X10*3/uL Nucleated RBC % (auto) (0.0-0.2) /100WBC Sodium (135-145) mmol/L Potassium (3.3-5.1) mmol/L Chloride (96-108) mmol/L Carbon Dioxide (22-29) mmol/L Anion Gap (12-20) BUN (9-16) mg/dL Creatinine (0.5-1.4) mg/dL Estim Creat Clear Calc Estimated GFR Random Glucose (60-115) mg/dL Calcium (8.4-10.2) mg/dL Magnesium (1.6-2.6) mg/dL Total Bilirubin (0.0-1.0) mg/dL Direct Bilirubin (0.0-0.5) mg/dL AST (5-37) U/L ALT (0-40) U/L Alkaline Phosphatase (39-117) U/L Ammonia 30 (13-55) umol/L Troponin I High Sens (<3.5-35.0) ng/L B-Natriuretic Peptide (<100) pg/mL Total Protein (6.5-8.0) g/dL Albumin (3.5-5.0) g/dL Urine Opiates Screen (Not Detect) Urine Fentanyl Screen (Not Detect) Ur Barbiturates Screen (Not Detect) Ur Phencyclidine Scrn (Not Detect) Ur Amphetamines Screen (Not Detect) U Benzodiazepines Scrn (Not Detect) Urine Cocaine Screen (Not Detect) U Marijuana (THC) Screen (Not Detect) Influenza Type A (PCR) (Negative) Influenza Type B (PCR) (Negative) RSV RNA Qual (PCR) (Negative) SARS-CoV-2 RNA (RT-PCR) (Negative) <KRISTA Ng - Last Filed: 09/02/22 09:18> Discharge Plan Discharge Clinical Impression: COVID-19, Behavior disturbance <KRISTA Jerez - Last Filed: 09/01/22 17:26> Patient Disposition: Still a Patient <KRISTA Jerez - Last Filed: 09/01/22 17:26> Prescriptions: No Action metformin 500 mg tablet extended release 24 hr 1,000 mg PO BID 90 Days Qty: 360 1RF atorvastatin 40 mg tablet 40 mg PO BEDTIME Qty: 30 0RF lisinopril 10 mg tablet 10 mg PO DAILY Qty: 90 0RF Protocol: Hold for SBP< HOLD for SBP < : 90 trazodone 100 mg tablet 200 mg PO BEDTIME PRN (Reason: Insomnia) benztropine 0.5 mg tablet 1 tab PO BID lorazepam 0.5 mg Tablet 0.5 mg PO TID Qty: 90 0RF albuterol sulfate [Ventolin HFA] 90 mcg/actuation Hfa Aerosol Inhaler 1 puff inhalation Q4H PRN (Reason: Wheezing) Qty: 6.7 0RF aripiprazole [Abilify] 20 mg Tablet 20 mg PO DAILY Qty: 30 0RF clonidine HCl 0.3 mg tablet 1 tab PO BEDTIME olanzapine 5 mg tablet 5 mg PO BID Trulicity 0.75 mg/0.5 mL pen injector 0.75 mg subcut MO <KRISTA Jerez - Last Filed: 09/01/22 17:26> Interventions: [place]-Suicide Risk Severity Scale Last Done: 09/01/22 18:11 <KRISTA Jerez - Last Filed: 09/01/22 17:26>
[2022-09-01 10:24] VITALS: PULSE 78; RESP 16; O2SAT 98
[2022-09-01] MEDS: Albuterol/Iprat 2.5/0.5MG 3 ML AMPUL.NEB INHALE (10:24)
[2022-09-01 10:49] LABS: MANUAL DIFF FLAG NO
[2022-09-01 11:07] LABS: Influenza A PCR NEGATIVE (Negative); Influenza B PCR NEGATIVE (Negative); Resp Syncy Virus RNA Qual PCR NEGATIVE (Negative); SARS COV2 PCR INHOUSE POSITIVE (Negative)
[2022-09-01 11:12] LABS: Alanine Aminotransferase 104 U/L (0-40); Alkaline Phosphatase 112 U/L (39-117); Anion Gap 12 (12-20); Aspartate Amino Transferase 49 U/L (5-37); Bilirubin Direct 0.2 mg/dL (0.0-0.5); Bilirubin Total 0.4 mg/dL (0.0-1.0); Blood Urea Nitrogen 12 mg/dL (9-16); Calcium 9.3 mg/dL (8.4-10.2); Carbon Dioxide 29 mmol/L (22-29); Chloride 102 mmol/L (96-108); Creatinine Clr Calc Pharmacy 181.5; Estimated Glomerular Filt Rate > 60; Glucose Random 97 mg/dL (60-115); Magnesium 1.9 mg/dL (1.6-2.6); Potassium 4.4 mmol/L (3.3-5.1); Sodium 139 mmol/L (135-145); Total Protein 7.1 g/dL (6.5-8.0)
[2022-09-01 11:14] LABS: Basophils Percent Auto 0.6 % (0-2); Eosinophils Absolute Auto 0.5 X10*3/uL (0.0-0.4); Eosinophils Percent Auto 6.9 % (0-4); Hematocrit 41.3 % (42.0-52.0); Hemoglobin 13.2 g/dl (14.0-18.0); Imm Gran Abs Auto 0.09 X10*3/uL (0.00-0.03); Imm Gran Pct Auto 1.4 % (0.0-0.4); Lymphocytes Absolute Auto 2.2 X10*3/uL (1.2-4.9); Mean Corpuscular Hemoglobin 26.2 pg (27.0-33.0); Mean Corpuscular Volume 82.1 fL (80.0-98.0); Mean Platelet Volume 9.3 fL (9.4-12.4); Monocytes Absolute Auto 0.8 X10*3/uL (0.1-1.2); Monocytes Percent Auto 11.6 % (2-11); Neutrophils Absolute Auto 3.1 x10*3/uL (2.0-8.3); Neutrophils Percent Auto 46.5 % (45-73); Platelet Count 240 X10*3/uL (160-400); Red Blood Count 5.03 X10*6/uL (4.60-5.80); Red Cell Distribution Width 13.5 % (11.0-16.0); White Blood Count 6.7 X10*3/uL (4.8-10.8)
[2022-09-01 11:16] LABS: B Type Natriuretic Peptide 13 pg/mL (<100); Troponin-I High Sensitivity < 3.5 ng/L (<3.5-35.0)
--- NOTE | 2022-09-01 11:30 | PHA.MEDREC ---
Pharmacy Consult ? Medication Reconciliation Pharmacy has completed the medication reconciliation. Patient didn't know medications. Spoke with mother about medications
[2022-09-01 11:38] LABS: Amphetamine Screen Urine Not Detected (Not Detect); Barbiturates, Urine Not Detected (Not Detect); Benzodiazepines Screen Urine Not Detected (Not Detect); Cannabinoid Screen Urine Not Detected (Not Detect); Cocaine Screen Urine Not Detected (Not Detect); Fentanyl, urine Not Detected (Not Detect); Opiate Screen Urine Not Detected (Not Detect); Phencyclidine Screen Urine Not Detected (Not Detect)
[2022-09-01 14:46] VITALS: BP 152/90; PULSE 78; RESP 20; TEMP 36.9; O2SAT 97
--- NOTE | 2022-09-01 15:19 | MHC.CARE ---
Patient evaluated by the CARE Team to require an inpatient psychiatric admission to monitor necessary medication changes. Psychiatric provider will review and make medication recommendations while patient is in the ED while CARE Team conducts a bed search. Written assessment to follow.
[2022-09-01] MEDS: LORazepam 0.5 MG TABLET PO ×2 (15:20→20:14)
[2022-09-01 19:38] VITALS: BP 154/96; PULSE 100; TEMP 36.9; O2SAT 96
[2022-09-01 19:43] LABS: Ammonia 30 umol/L (13-55)
[2022-09-01] MEDS: Atorvastatin Calcium 40 MG TABLET PO (20:14)
[2022-09-01] MEDS: OLANZapine 5 MG TABLET PO (20:14)
[2022-09-01] MEDS: cloNIDine HCL 0.1 MG TABLET 0.3 MG PO (20:14)
[2022-09-01] MEDS: Benztropine Mesylate 0.5 MG TABLET PO (20:15)
[2022-09-01] MEDS: metFORMIN HCl ER 500 MG TAB.ER.24H 1000 MG PO (20:15)
[2022-09-01 23:50] VITALS: BP 97/61; PULSE 77; RESP 19; TEMP 36.3; O2SAT 94
--- NOTE | 2022-09-02 03:25 | PC.NURSE ---
assumed care of patient. patient is sleeping at this time. chest rise and fall equal and unlabored. will continue to round frequently for safety
--- NOTE | 2022-09-02 05:09 | PC.NURSE ---
Pt gown soiled with urine from a urinal spill. Pt given warm wipes and new Green gown. Pt given warm blankets and call luna in reach
--- NOTE | 2022-09-02 06:00 | PC.NURSE ---
patient awake. given crackers for a snack. ambulating in his room with steady gait
[2022-09-02 07:03] VITALS: BP 117/78; PULSE 77; RESP 16; TEMP 36.8; O2SAT 96
[2022-09-02 08:12] VITALS: BP 116/71; PULSE 75; RESP 18; O2SAT 95
[2022-09-02] MEDS: Benztropine Mesylate 0.5 MG TABLET PO ×2 (08:16→20:34)
[2022-09-02] MEDS: metFORMIN HCl ER 500 MG TAB.ER.24H 1000 MG PO ×2 (08:16→20:37)
[2022-09-02] MEDS: OLANZapine 5 MG TABLET PO ×2 (08:16→20:35)
[2022-09-02] MEDS: LORazepam 0.5 MG TABLET PO ×2 (08:16→20:35)
[2022-09-02] MEDS: lisinopriL 10 MG TABLET PO (08:17)
[2022-09-02] MEDS: ARIPiprazole 20 MG TABLET PO (10:16)
[2022-09-02 12:08] LABS: Glucose, Whole Blood 97 mg/dL (60-115)
[2022-09-02 14:18] LABS: Glucose, Whole Blood 106 mg/dL (60-115)
[2022-09-02] MEDS: OLANZapine 10 MG VIAL IM (14:25)
[2022-09-02] MEDS: Midazolam HCl/PF 2 MG/2 ML VIAL 4 MG IM (14:30)
--- NOTE | 2022-09-02 14:48 | PC.NURSE ---
pct went in to attempt to retrieve vitals but the patiient was aggitated and uncooperative RN aware
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
[2022-09-02 16:20] VITALS: BP 122/76; PULSE 92; TEMP 36.5
[2022-09-02 17:14] LABS: Glucose, Whole Blood 105 mg/dL (60-115)
[2022-09-02 20:08] LABS: Glucose, Whole Blood 106 mg/dL (60-115)
[2022-09-02] MEDS: Atorvastatin Calcium 40 MG TABLET PO (20:34)
[2022-09-02] MEDS: cloNIDine HCL 0.1 MG TABLET 0.3 MG PO (20:35)
--- NOTE | 2022-09-02 20:52 | HO.PSYADMNOT ---
HPI Chief Complaint: bipolar D/O; Autism; Aggression, violence Sx HPI Past Psychiatric History: Inpatient: multiple in past, last 06/2021 [place] OP: [facility] Dianna Vail, psych prescriber. Past trials: adderall, abilify, clonidine, ativan, topamax (mostly for weight gain but per mother no change in weight) [facility] Medical History Diabetes mellitus type 2, controlled, without complications Hyperlipidemia LDL goal <100 Obesity due to excess calories Type 2 diabetes mellitus with hyperglycemia, with long-term current use of insulin Type 2 diabetes mellitus with hypoglycemia without coma Surgical History No history of previous surgery Family History: unknown Social History: Lives with adoptive mother Trauma History: None Diagnostics Vital Signs (24Hr): Vital Signs - 24 hr 09/01/22 23:50 09/02/22 07:03 09/02/22 08:12 Temperature 97.4 F 98.2 F Pulse Rate 77 77 75 Respiratory Rate 19 16 18 Blood Pressure 97/61 117/78 116/71 Pulse Oximetry 94 96 95 Oxygen Delivery Method Room Air Room Air Room Air 09/02/22 16:20 Temperature 97.7 F Pulse Rate 92 Respiratory Rate Blood Pressure 122/76 Pulse Oximetry Oxygen Delivery Method BMI result Body Mass Index 52.0 Labs Results: 09/01/22 10:44 09/01/22 10:44 Labs: Laboratory Results - last 48 hr 09/01/22 09/01/22 09/01/22 10:23 10:44 10:44 WBC 6.7 RBC 5.03 Hgb 13.2 L Hct 41.3 L MCV 82.1 MCH 26.2 L MCHC 32.0 RDW 13.5 Plt Count 240 D MPV 9.3 L Immature Gran % (Auto) 1.4 H Neut % (Auto) 46.5 Lymph % (Auto) 33.0 [place] % (Auto) 11.6 H Eos % (Auto) 6.9 H Baso % (Auto) 0.6 Lymph # (Auto) 2.2 [place] # (Auto) 0.8 Eos # (Auto) 0.5 H Baso # (Auto) 0.0 Abs Immat Gran (auto) 0.09 H Absolute Neuts (auto) 3.1 Absolute Nucleated RBC 0.000 Nucleated RBC % (auto) 0.0 Sodium 139 Potassium 4.4 Chloride 102 Carbon Dioxide 29 Anion Gap 12 BUN 12 Creatinine 0.81 Estim Creat Clear Calc 181.5 Estimated GFR > 60 POC Glucose Random Glucose 97 Calcium 9.3 Magnesium 1.9 Total Bilirubin 0.4 Direct Bilirubin 0.2 AST 49 H D ALT 104 H Alkaline Phosphatase 112 Ammonia Troponin I High Sens B-Natriuretic Peptide Total Protein 7.1 Albumin 4.0 Urine Opiates Screen Urine Fentanyl Screen Ur Barbiturates Screen Ur Phencyclidine Scrn Ur Amphetamines Screen U Benzodiazepines Scrn Urine Cocaine Screen U Marijuana (THC) Screen Influenza Type A (PCR) NEGATIVE Influenza Type B (PCR) NEGATIVE RSV RNA Qual (PCR) NEGATIVE SARS-CoV-2 RNA (RT-PCR) POSITIVE A 09/01/22 09/01/22 09/01/22 10:44 10:44 11:20 WBC RBC Hgb Hct MCV MCH MCHC RDW Plt Count MPV Immature Gran % (Auto) Neut % (Auto) Lymph % (Auto) [place] % (Auto) Eos % (Auto) Baso % (Auto) Lymph # (Auto) [place] # (Auto) Eos # (Auto) Baso # (Auto) Abs Immat Gran (auto) Absolute Neuts (auto) Absolute Nucleated RBC Nucleated RBC % (auto) Sodium Potassium Chloride Carbon Dioxide Anion Gap BUN Creatinine Estim Creat Clear Calc Estimated GFR POC Glucose Random Glucose Calcium Magnesium Total Bilirubin Direct Bilirubin AST ALT Alkaline Phosphatase Ammonia Troponin I High Sens < 3.5 B-Natriuretic Peptide 13 Total Protein Albumin Urine Opiates Screen Not Detected Urine Fentanyl Screen Not Detected Ur Barbiturates Screen Not Detected Ur Phencyclidine Scrn Not Detected Ur Amphetamines Screen Not Detected U Benzodiazepines Scrn Not Detected Urine Cocaine Screen Not Detected U Marijuana (THC) Screen Not Detected Influenza Type A (PCR) Influenza Type B (PCR) RSV RNA Qual (PCR) SARS-CoV-2 RNA (RT-PCR) 09/01/22 09/02/22 09/02/22 19:34 12:01 14:14 WBC RBC Hgb Hct MCV MCH MCHC RDW Plt Count MPV Immature Gran % (Auto) Neut % (Auto) Lymph % (Auto) [place] % (Auto) Eos % (Auto) Baso % (Auto) Lymph # (Auto) [place] # (Auto) Eos # (Auto) Baso # (Auto) Abs Immat Gran (auto) Absolute Neuts (auto) Absolute Nucleated RBC Nucleated RBC % (auto) Sodium Potassium Chloride Carbon Dioxide Anion Gap BUN Creatinine Estim Creat Clear Calc Estimated GFR POC Glucose 97 106 Random Glucose Calcium Magnesium Total Bilirubin Direct Bilirubin AST ALT Alkaline Phosphatase Ammonia 30 Troponin I High Sens B-Natriuretic Peptide Total Protein Albumin Urine Opiates Screen Urine Fentanyl Screen Ur Barbiturates Screen Ur Phencyclidine Scrn Ur Amphetamines Screen U Benzodiazepines Scrn Urine Cocaine Screen U Marijuana (THC) Screen Influenza Type A (PCR) Influenza Type B (PCR) RSV RNA Qual (PCR) SARS-CoV-2 RNA (RT-PCR) 09/02/22 09/02/22 17:09 19:59 WBC RBC Hgb Hct MCV MCH MCHC RDW Plt Count MPV Immature Gran % (Auto) Neut % (Auto) Lymph % (Auto) [place] % (Auto) Eos % (Auto) Baso % (Auto) Lymph # (Auto) [place] # (Auto) Eos # (Auto) Baso # (Auto) Abs Immat Gran (auto) Absolute Neuts (auto) Absolute Nucleated RBC Nucleated RBC % (auto) Sodium Potassium Chloride Carbon Dioxide Anion Gap BUN Creatinine Estim Creat Clear Calc Estimated GFR POC Glucose 105 106 Random Glucose Calcium Magnesium Total Bilirubin Direct Bilirubin AST ALT Alkaline Phosphatase Ammonia Troponin I High Sens B-Natriuretic Peptide Total Protein Albumin Urine Opiates Screen Urine Fentanyl Screen Ur Barbiturates Screen Ur Phencyclidine Scrn Ur Amphetamines Screen U Benzodiazepines Scrn Urine Cocaine Screen U Marijuana (THC) Screen Influenza Type A (PCR) Influenza Type B (PCR) RSV RNA Qual (PCR) SARS-CoV-2 RNA (RT-PCR) Imaging Radiology Impressions: ITS Impressions Chest X-Ray 09/01/22 09:55 IMPRESSION: No evidence for acute disease in the chest. Meds/Allergies Meds Home Medications Medication Instructions Recorded Confirmed Type benztropine 0.5 mg tablet 1 tab PO BID 06/25/22 09/01/22 History trazodone 100 mg tablet 200 mg PO BEDTIME PRN Insomnia 06/25/22 09/01/22 History clonidine HCl 0.3 mg tablet 1 tab PO BEDTIME 09/01/22 09/01/22 History dulaglutide 0.75 mg/0.5 mL 0.75 mg subcut MO 09/01/22 09/01/22 History subcutaneous pen injector (Trulicity) olanzapine 5 mg tablet 5 mg PO BID 09/01/22 09/01/22 History Allergies Allergies Allergy/AdvReac Type Severity Reaction Status Date / Time No Known Allergies Allergy Unverified 12/08/21 12:51 [No Known Allergies*] Assessment & Plan Statement Statement: I have reviewed the history and physical and performed a pertinent examination on my patient. No changes have occurred unless specified.
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
[2022-09-03 08:03] LABS: Glucose, Whole Blood 96 mg/dL (60-115)
[2022-09-03 09:00] VITALS: BP 119/72; PULSE 73; RESP 18; TEMP 36.1; O2SAT 96
[2022-09-03] MEDS: ARIPiprazole 20 MG TABLET PO (09:14)
[2022-09-03] MEDS: LORazepam 0.5 MG TABLET PO ×3 (09:14→21:22)
[2022-09-03] MEDS: lisinopriL 10 MG TABLET PO (09:14)
[2022-09-03] MEDS: metFORMIN HCl ER 500 MG TAB.ER.24H 1000 MG PO ×2 (09:14→21:22)
[2022-09-03] MEDS: Benztropine Mesylate 0.5 MG TABLET PO ×2 (09:14→21:22)
[2022-09-03] MEDS: OLANZapine 5 MG TABLET PO (09:14)
[2022-09-03 09:16] LABS: Estimated Average Glucose 120 mg/dL; Hemoglobin A1c % 5.8 %
[2022-09-03 09:43] LABS: Cholesterol 178 mg/dL; Free T4 (Free Thyroxine) 1.18 ng/dL (0.71-1.85); HDL Cholesterol 37 mg/dL; LDL Cholesterol Calculated 116 mg/dl; Magnesium 1.8 mg/dL (1.6-2.6); Thyroid Stimulating Hormone 2.36 uIU/mL (0.32-4.0); Triglycerides 126 mg/dL
[2022-09-03 09:56] LABS: Vitamin B12 462 pg/mL (200-900)
[2022-09-03 12:09] LABS: Glucose, Whole Blood 112 mg/dL (60-115)
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
[2022-09-03 16:59] LABS: Glucose, Whole Blood 118 mg/dL (60-115)
[2022-09-03 18:52] VITALS: BP 118/81; PULSE 86; RESP 18; TEMP 36.7; O2SAT 94
[2022-09-03] MEDS: Ziprasidone 20 MG CAPSULE PO (21:22)
[2022-09-03] MEDS: Atorvastatin Calcium 40 MG TABLET PO (21:22)
[2022-09-03] MEDS: cloNIDine HCL 0.1 MG TABLET 0.3 MG PO (21:22)
[2022-09-04 06:00] VITALS: BP 141/79; PULSE 101; RESP 18; TEMP 37.1; O2SAT 98
--- NOTE | 2022-09-04 07:35 | HO.PSYCHPN ---
Subjective Subjective Date of Service: 09/04/22 Reason For Visit: bipolar D/O; Autism; Aggression, violence Sx Subjective Notes: Conditional Voluntary Healthcare Proxy: Yes (mom) Guardianship: No Medical Problems Affecting Mental Status: Yes (covid) Interim History: mostly just ill with covid and co congestion doesn't not look terribly unwell - Medication Compliance: Yes Side effects from medications: No Attending Groups: No Review of Systems Acute medical concerns: Yes ongoing covid + Review of Systems: co nasal congestion Mental Status Exam Mental Status Exam Patient Appearance: Appropriate Patient Orientation: Person, Place and Situation Level of Consciousness: Awake, Appropriate and Alert Patient Behavior: Appropriate, Dependent, Talkative, Cooperative, Passive, Distractible and Good Eye Contact Mood Description: Calm Affect Description: Calm Patient Cognition Impaired: Yes Ability to Follow Directions: Fair Speech Pattern: Impoverished, Difficulty Finding Words, Spontaneous Speech, Soft-Spoken and Poor Articulation Memory Description: Remote Impaired Hallucinations: None Delusions: Not Present Thought Process: Illogical, Distracted, Slowed Thinking and Confusion Thought Content: positive for [place], positive for Poverty of Content, positive for Preoccupation, positive for Slowed Thinking, positive for Suicidal Ideation (denies) and positive for Homicidal Ideation (denies) Depressive Symptoms: Changes in Appetite Abnormal Motor Activity Signs and Symptoms: Restlessness Judgement: Poor Diagnostics Vital Signs (24Hr): Vital Signs - 24 hr 09/03/22 09:00 09/03/22 18:52 Temperature 96.9 F 98.0 F Pulse Rate 73 86 Respiratory Rate 18 18 Blood Pressure 119/72 118/81 Pulse Oximetry 96 94 Oxygen Delivery Method Room Air Room Air BMI result Body Mass Index 52.0 Labs Results: 09/01/22 10:44 09/01/22 10:44 Labs: Laboratory Results - last 48 hr 09/02/22 09/02/22 09/02/22 12:01 14:14 17:09 POC Glucose 97 106 105 Estimat Average Glucose Hemoglobin A1c % Magnesium Triglycerides Cholesterol LDL Cholesterol, Calc HDL Cholesterol Vitamin B12 Folate TSH Free T4 09/02/22 09/03/22 09/03/22 19:59 07:56 08:56 POC Glucose 106 96 Estimat Average Glucose 120 Hemoglobin A1c % 5.8 Magnesium Triglycerides Cholesterol LDL Cholesterol, Calc HDL Cholesterol Vitamin B12 Folate TSH Free T4 09/03/22 09/03/22 09/03/22 08:56 08:56 12:05 POC Glucose 112 Estimat Average Glucose Hemoglobin A1c % Magnesium 1.8 Triglycerides 126 Cholesterol 178 LDL Cholesterol, Calc 116 HDL Cholesterol 37 Vitamin B12 462 Folate 11.0 TSH 2.36 Free T4 1.18 09/03/22 16:55 POC Glucose 118 H Estimat Average Glucose Hemoglobin A1c % Magnesium Triglycerides Cholesterol LDL Cholesterol, Calc HDL Cholesterol Vitamin B12 Folate TSH Free T4 Imaging Radiology Impressions: ITS Impressions Chest X-Ray 09/01/22 09:55 IMPRESSION: No evidence for acute disease in the chest. Medications Medications Current Medications Acetaminophen (Acetaminophen 325 Mg Tablet) 650 mg PO Q6H PRN PRN Reason: Headache/Pain Mild Scale (1-3) Al Hydroxide/Mg Hydroxide (Magnesium Hydrox/Alum Hydrox 30 Ml Oral.Susp) 30 ml PO Q6H PRN PRN Reason: Heartburn/Nausea Albuterol Sulfate (Albuterol Sulfate 90 Mcg 8 Gm Inhaler) 1 puff INHALE Q4H PRN PRN Reason: Wheezing Aripiprazole (Aripiprazole 20 Mg Tablet) 20 mg PO DAILY [facility] Last Admin: 09/03/22 09:14 Dose: 20 mg Atorvastatin Calcium (Atorvastatin Calcium 40 Mg Tablet) 40 mg PO BEDTIME [facility] Last Admin: 09/03/22 21:22 Dose: 40 mg Benztropine Mesylate (Benztropine Mesylate 0.5 Mg Tablet) 0.5 mg PO BID [facility] Last Admin: 09/03/22 21:22 Dose: 0.5 mg Clonidine HCl (Clonidine Hcl 0.1 Mg Tablet) 0.3 mg PO BEDTIME [facility]; Protocol Last Admin: 09/03/22 21:22 Dose: 0.3 mg Glucose (Glucose Gel 15 Gm Gel..Gram.) 15 gm PO Q15M PRN; Protocol PRN Reason: per Hypoglycemia Standing Ord. Hydroxyzine HCl (Hydroxyzine Hcl 25 Mg Tablet) 25 mg PO Q6H PRN PRN Reason: Anxiety Insulin Human Lispro (Insulin Lispro 100 Unit/Ml 3 Ml Vial) 0 unit SUBCUT QIDACHS [facility]; Protocol Last Admin: 09/03/22 21:47 Dose: Not Given Lisinopril (Lisinopril 10 Mg Tablet) 10 mg PO DAILY [facility]; Protocol Last Admin: 09/03/22 09:14 Dose: 10 mg Lorazepam (Lorazepam 0.5 Mg Tablet) 0.5 mg PO TID [facility] Last Admin: 09/03/22 21:22 Dose: 0.5 mg Magnesium Hydroxide (Milk Of Magnesia 30 Ml Oral.Susp) 30 ml PO DAILY PRN PRN Reason: Constipation Metformin HCl (Metformin Hcl Er 500 Mg Tab.Er.24h) 1,000 mg PO BID [facility] Last Admin: 09/03/22 21:22 Dose: 1,000 mg Non-Formulary Medication (Dulaglutide [Trulicity]) 0.75 mg SUBCUT MO [facility] Pharmacy Consult (Consult Rx Perform Med Rec) 1 each MISCELLANE ONCE PRN PRN Reason: Consult order Trazodone HCl (Trazodone Hcl 100 Mg Tablet) 200 mg PO BEDTIME PRN PRN Reason: Insomnia Ziprasidone (Ziprasidone 20 Mg Capsule) 20 mg PO BID [facility] Last Admin: 09/03/22 21:22 Dose: 20 mg Allergies Allergies Allergy/AdvReac Type Severity Reaction Status Date / Time No Known Allergies Allergy Unverified 12/08/21 12:51 [No Known Allergies*] Assessment & Plan Assessment & Plan (1) COVID-19: Status: Acute Code(s): U07.1 - COVID-19 Assessment and Plan: staying in room, needs reminders to wear mask when meeting with people but sometimes also asks for mask (2) Schizoaffective disorder: Status: Acute Code(s): F25.9 - Schizoaffective disorder, unspecified Assessment and Plan: ongoing , (3) Autism: Status: Acute Code(s): F84.0 - Autistic disorder (4) Developmental disability: Status: Acute Code(s): F89 - Unspecified disorder of psychological development (5) Overeating: Status: Acute Code(s): R63.2 - Polyphagia Plan 27 yo male, hx of schizoaffective disorder, autism, developmental disorder. Pt COVID +. Experiencing aggression at home d/t uncontrolled appetite and satiety. Mother reports this symptom has occurred since initiation of Olanzapine, however, Olanzapine has helped with behavioral controls. Options researched. Lybalvi is not an option as it is $45 per tablet. Contrave is not an options as it is $35 a tablet. Plan: Discontinue Olanzapine Geodon 20 bid trial Intake and output Collateral contacts I spent minutes with the patient and/or on the patient floor today, greater than?50% of which was spent counseling/coordinating care. Patient educated on: medical condition Informed Consent: understands Reason for contiued inpatient stay Substantial Risk for: inability to function, rapid decompensation and med/psych decompensation
[2022-09-04 09:00] LABS: Glucose, Whole Blood 126 mg/dL (60-115)
[2022-09-04] MEDS: lisinopriL 10 MG TABLET PO (10:02)
[2022-09-04] MEDS: Ziprasidone 20 MG CAPSULE PO ×2 (10:02→21:47)
[2022-09-04] MEDS: Benztropine Mesylate 0.5 MG TABLET PO ×2 (10:02→21:46)
[2022-09-04] MEDS: LORazepam 0.5 MG TABLET PO ×3 (10:02→21:46)
[2022-09-04] MEDS: ARIPiprazole 20 MG TABLET PO (10:02)
[2022-09-04] MEDS: metFORMIN HCl ER 500 MG TAB.ER.24H 1000 MG PO ×2 (10:02→21:47)
[2022-09-04 15:30] VITALS: BP 112/61; PULSE 98; RESP 16; TEMP 36.2; O2SAT 96
[2022-09-04] MEDS: Atorvastatin Calcium 40 MG TABLET PO (21:46)
[2022-09-04] MEDS: cloNIDine HCL 0.1 MG TABLET 0.3 MG PO (21:47)
[2022-09-05] MEDS: metFORMIN HCl ER 500 MG TAB.ER.24H 1000 MG PO ×2 (09:26→19:35)
[2022-09-05] MEDS: Ziprasidone 20 MG CAPSULE PO ×2 (09:26→19:36)
[2022-09-05] MEDS: LORazepam 0.5 MG TABLET PO ×3 (09:26→19:36)
[2022-09-05] MEDS: ARIPiprazole 20 MG TABLET PO (09:26)
[2022-09-05] MEDS: lisinopriL 10 MG TABLET PO (09:26)
[2022-09-05] MEDS: Benztropine Mesylate 0.5 MG TABLET PO ×2 (09:26→19:36)
[2022-09-05 09:29] VITALS: BP 116/70; PULSE 78; RESP 18; TEMP 36.6; O2SAT 97
--- NOTE | 2022-09-05 10:15 | HO.PSYCHPN ---
Subjective Subjective Date of Service: 09/05/22 Reason For Visit: bipolar D/O; Autism; Aggression, violence Sx Subjective Notes: Conditional Voluntary Healthcare Proxy: Yes Guardianship: No Medical Problems Affecting Mental Status: Yes (covid) Interim History: {Pt denies psychiatric symtpoms again today- ongoing covid, some congestion and getting bored after being in isolation in his room for 3 days- no cell phone/no entertainment- Nursing came up with idea to move patient to group room A with TV access- Medication Compliance: Yes Side effects from medications: No Attending Groups: No Review of Systems Acute medical concerns: Yes covid- Medical Review of Systems: unchanged Mental Status Exam Mental Status Exam Patient Appearance: Appropriate Patient Orientation: Person, Place and Situation Level of Consciousness: Awake, Appropriate and Alert Patient Behavior: Appropriate, Dependent, Talkative, Cooperative, Passive, Distractible and Good Eye Contact Mood Description: Calm Affect Description: Calm Patient Cognition Impaired: Yes Ability to Follow Directions: Fair Speech Pattern: Impoverished, Difficulty Finding Words, Spontaneous Speech, Soft-Spoken and Poor Articulation Memory Description: Remote Impaired Hallucinations: None Delusions: Not Present Thought Process: Illogical, Distracted, Slowed Thinking and Confusion Thought Content: positive for [place], positive for Poverty of Content, positive for Preoccupation, positive for Slowed Thinking, positive for Suicidal Ideation (denies) and positive for Homicidal Ideation (denies) Depressive Symptoms: Changes in Appetite Abnormal Motor Activity Signs and Symptoms: Restlessness Judgement: Poor Diagnostics Vital Signs (24Hr): Vital Signs - 24 hr 09/04/22 15:30 09/05/22 09:29 Temperature 97.1 F 97.8 F Pulse Rate 98 78 Respiratory Rate 16 18 Blood Pressure 112/61 116/70 Pulse Oximetry 96 97 Oxygen Delivery Method Room Air BMI result Body Mass Index 52.0 Labs Results: 09/01/22 10:44 09/01/22 10:44 Labs: Laboratory Results - last 48 hr 09/03/22 09/03/22 09/04/22 12:05 16:55 08:56 POC Glucose 112 118 H 126 H Imaging Radiology Impressions: ITS Impressions Chest X-Ray 09/01/22 09:55 IMPRESSION: No evidence for acute disease in the chest. Medications Medications Current Medications Acetaminophen (Acetaminophen 325 Mg Tablet) 650 mg PO Q6H PRN PRN Reason: Headache/Pain Mild Scale (1-3) Al Hydroxide/Mg Hydroxide (Magnesium Hydrox/Alum Hydrox 30 Ml Oral.Susp) 30 ml PO Q6H PRN PRN Reason: Heartburn/Nausea Albuterol Sulfate (Albuterol Sulfate 90 Mcg 8 Gm Inhaler) 1 puff INHALE Q4H PRN PRN Reason: Wheezing Aripiprazole (Aripiprazole 20 Mg Tablet) 20 mg PO DAILY [facility] Last Admin: 09/05/22 09:26 Dose: 20 mg Atorvastatin Calcium (Atorvastatin Calcium 40 Mg Tablet) 40 mg PO BEDTIME [facility] Last Admin: 09/04/22 21:46 Dose: 40 mg Benztropine Mesylate (Benztropine Mesylate 0.5 Mg Tablet) 0.5 mg PO BID [facility] Last Admin: 09/05/22 09:26 Dose: 0.5 mg Clonidine HCl (Clonidine Hcl 0.1 Mg Tablet) 0.3 mg PO BEDTIME [facility]; Protocol Last Admin: 09/04/22 21:47 Dose: 0.3 mg Hydroxyzine HCl (Hydroxyzine Hcl 25 Mg Tablet) 25 mg PO Q6H PRN PRN Reason: Anxiety Lisinopril (Lisinopril 10 Mg Tablet) 10 mg PO DAILY [facility]; Protocol Last Admin: 09/05/22 09:26 Dose: 10 mg Lorazepam (Lorazepam 0.5 Mg Tablet) 0.5 mg PO TID [facility] Last Admin: 09/05/22 09:26 Dose: 0.5 mg Magnesium Hydroxide (Milk Of Magnesia 30 Ml Oral.Susp) 30 ml PO DAILY PRN PRN Reason: Constipation Metformin HCl (Metformin Hcl Er 500 Mg Tab.Er.24h) 1,000 mg PO BID [facility] Last Admin: 09/05/22 09:26 Dose: 1,000 mg Non-Formulary Medication (Dulaglutide [Trulicity]) 0.75 mg SUBCUT MO [facility] Pharmacy Consult (Consult Rx Perform Med Rec) 1 each MISCELLANE ONCE PRN PRN Reason: Consult order Sodium Chloride (Sodium Chloride 0.65 % Nasal 44 Ml Sprbtl) 1 spray NOSTRIL-B Q1H PRN PRN Reason: Congestion Trazodone HCl (Trazodone Hcl 100 Mg Tablet) 200 mg PO BEDTIME PRN PRN Reason: Insomnia Ziprasidone (Ziprasidone 20 Mg Capsule) 20 mg PO BID [facility] Last Admin: 09/05/22 09:26 Dose: 20 mg Allergies Allergies Allergy/AdvReac Type Severity Reaction Status Date / Time No Known Allergies Allergy Unverified 12/08/21 12:51 [No Known Allergies*] Assessment & Plan Assessment & Plan (1) COVID-19: Status: Acute Code(s): U07.1 - COVID-19 Assessment and Plan: staying in room, needs reminders to wear mask when meeting with people but sometimes also asks for mask (2) Schizoaffective disorder: Status: Acute Code(s): F25.9 - Schizoaffective disorder, unspecified Assessment and Plan: ongoing , (3) Autism: Status: Acute Code(s): F84.0 - Autistic disorder (4) Developmental disability: Status: Acute Code(s): F89 - Unspecified disorder of psychological development (5) Overeating: Status: Acute Code(s): R63.2 - Polyphagia Plan 27 yo male, hx of schizoaffective disorder, autism, developmental disorder. Pt COVID +. Experiencing aggression at home d/t uncontrolled appetite and satiety. Mother reports this symptom has occurred since initiation of Olanzapine, however, Olanzapine has helped with behavioral controls. Options researched. Lybalvi is not an option as it is $45 per tablet. Contrave is not an options as it is $35 a tablet. Plan: Discontinue Olanzapine Geodon 20 bid trial Intake and output Collateral contacts I spent minutes with the patient and/or on the patient floor today, greater than?50% of which was spent counseling/coordinating care. Patient educated on: medical condition Informed Consent: understands Reason for contiued inpatient stay Substantial Risk for: inability to function, rapid decompensation and med/psych decompensation
[2022-09-05 18:00] VITALS: BP 138/91; PULSE 105; TEMP 36.3; O2SAT 96
[2022-09-05] MEDS: Atorvastatin Calcium 40 MG TABLET PO (19:35)
[2022-09-05] MEDS: Acetaminophen 325 MG TABLET 650 MG PO (19:36)
[2022-09-05] MEDS: cloNIDine HCL 0.1 MG TABLET 0.3 MG PO (19:36)
[2022-09-05] MEDS: Sodium Chloride 0.65 % Nasal 44 ML SPRBTL 1 SPRAY NOSTRIL-B (20:16)
--- NOTE | 2022-09-05 22:26 | PC.NURSE ---
pt was wandering unit and was hard to redirect into room. various staff tried to redirect him to stay in his room, but security had to be called. pt was flat and reported to be bored and just wanted to walk around. pt has limited understanding of his COVID diagnosis, and displaying symptoms( like runny nose.) pts mom was supposed to bring in phone, but could not find it. pt was allowed to watch TV, but went back to his room.
[2022-09-06] MEDS: Sodium Chloride 0.65 % Nasal 44 ML SPRBTL 1 SPRAY NOSTRIL-B (03:01)
[2022-09-06] MEDS: traZODone HCL 100 MG TABLET 200 MG PO (03:02)
[2022-09-06] MEDS: LORazepam 1 MG TABLET PO ×2 (04:55→10:42)
[2022-09-06] MEDS: hydrOXYzine HCL 25 MG TABLET PO (04:55)
[2022-09-06] MEDS: ARIPiprazole 20 MG TABLET PO (09:25)
[2022-09-06] MEDS: metFORMIN HCl ER 500 MG TAB.ER.24H 1000 MG PO ×2 (09:25→20:18)
[2022-09-06] MEDS: Benztropine Mesylate 0.5 MG TABLET PO ×2 (09:25→20:18)
[2022-09-06] MEDS: lisinopriL 10 MG TABLET PO (09:25)
[2022-09-06] MEDS: Ziprasidone 20 MG CAPSULE PO (09:25)
[2022-09-06] MEDS: LORazepam 0.5 MG TABLET PO ×2 (09:25→14:31)
[2022-09-06 09:36] VITALS: BP 138/91; PULSE 98; RESP 16; TEMP 36.9; O2SAT 98
[2022-09-06 13:00] VITALS: BP 140/82; PULSE 109; RESP 16; TEMP 37.3; O2SAT 97
[2022-09-06] MEDS: OLANZapine 10 MG VIAL IM (13:02)
[2022-09-06 13:15] VITALS: BP 134/85; PULSE 116; RESP 16; TEMP 37.2; O2SAT 97
[2022-09-06 13:30] VITALS: BP 141/89; PULSE 114; RESP 16; TEMP 36.6; O2SAT 97
[2022-09-06 13:45] VITALS: BP 141/87; PULSE 114; RESP 16; TEMP 37.2; O2SAT 97
--- NOTE | 2022-09-06 13:57 | MHC.PM.REST ---
Restraint Documentation Date of Service: 09/06/22 Time of Documentation: 13:57 Current Situation: After assessment of the patient, a review of the pertinent medical record and a discussion with nursing staff, I feel the patient requires a restrain intervention. Reaction To: COVID positive, unable to remain in a designated area, not able to be redirected safely Medical Condition: COVID positive Behavioral State: pacing, with agitation Continued Need: redirected to a safe, designated area.
--- NOTE | 2022-09-06 15:56 | HO.PSYCHPN ---
Subjective Subjective Date of Service: 09/06/22 Reason For Visit: bipolar D/O; Autism; Aggression, violence Sx Subjective Notes: Conditional Voluntary Healthcare Proxy: No Guardianship: No Medical Problems Affecting Mental Status: No Interim History: Pt remains positive for COIVD-19, he is on quarantine in room 515. He was unable to remain in a safe designated area and reportedly has been asking to go home, punched the glass in the kitchen and required injectable mediation.Geodon change to Haldol, Clonidine increased and Topiramate added. Met with pt x 2 after restraint-redirectable. I want to go home . Discussed reason for admission and treatment plan which he reports he recalls from 09/03/22. States he will stay if he can have his TV, play station (which team reports is on his phone). Team is making arrangements to assist him. Medication Compliance: Yes Side effects from medications: No Attending Groups: No Review of Systems Acute medical concerns: No COVID- 19 positive, Medical Review of Systems: unchanged Review of Systems Review of Systems Yes Other (denies current medical sx of distress) Eyes: Reports no additional eye complaints Reports system reviewed and no additional complaints, except as documented Cardiovascular: Reports no additional cardiovascular complaints Respiratory: Reports no additional respiratory complaints Gastrointestinal: Reports no additional gastrointestinal complaints Genitourinary: Reports no additional male genitourinary complaints Musculoskeletal: Reports no additional musculoskeletal complaints Skin/Breast: Reports system reviewed and no additional complaints, except as docu Reports system reviewed and no additional complaints, except as documented, Reports behavioral changes and Reports confusion Psychiatric: Reports behavioral changes, Reports change in appetite, Reports confusion and Reports irritability Endocrine: Reports no additional endocrine complaints Hematologic/Lymphatic: Reports no additional hematologic/lymphatic complaints Allergic/Immunologic: Reports no additional allergic/immunologic complaints Mental Status Exam Mental Status Exam Patient Appearance: Appropriate Patient Orientation: Person and Place Level of Consciousness: Alert Patient Behavior: Talkative and Good Eye Contact Mood Description: Labile Affect Description: Labile Patient Cognition Impaired: Yes Ability to Follow Directions: Fair Speech Pattern: Impoverished, Spontaneous Speech, Soft-Spoken, Delayed and Poor Articulation Memory Description: Intact Hallucinations: None Delusions: Not Present Perceptual Disturbances: Derealization Thought Content: positive for [place], positive for Slowed Thinking, positive for Suicidal Ideation (denies) and positive for Homicidal Ideation (denies) Depressive Symptoms: Increased Irritability Judgement: Poor Diagnostics Vital Signs (24Hr): Vital Signs - 24 hr 09/05/22 18:00 09/06/22 09:36 09/06/22 13:00 Temperature 97.3 F 98.5 F 99.1 F Pulse Rate 105 H 98 109 H Respiratory Rate 16 16 Blood Pressure 138/91 H 138/91 H 140/82 H Pulse Oximetry 96 98 97 Oxygen Delivery Method Room Air Room Air Room Air 09/06/22 13:15 09/06/22 13:30 09/06/22 13:45 Temperature 99.0 F 97.9 F 98.9 F Pulse Rate 116 H 114 H 114 H Respiratory Rate 16 16 16 Blood Pressure 134/85 141/89 H 141/87 H Pulse Oximetry 97 97 97 Oxygen Delivery Method Room Air Room Air Room Air BMI result Body Mass Index 52.0 Labs Results: 09/01/22 10:44 09/01/22 10:44 Imaging Radiology Impressions: ITS Impressions Chest X-Ray 09/01/22 09:55 IMPRESSION: No evidence for acute disease in the chest. Medications Medications Current Medications Acetaminophen (Acetaminophen 325 Mg Tablet) 650 mg PO Q6H PRN PRN Reason: Headache/Pain Mild Scale (1-3) Last Admin: 09/05/22 19:36 Dose: 650 mg Al Hydroxide/Mg Hydroxide (Magnesium Hydrox/Alum Hydrox 30 Ml Oral.Susp) 30 ml PO Q6H PRN PRN Reason: Heartburn/Nausea Albuterol Sulfate (Albuterol Sulfate 90 Mcg 8 Gm Inhaler) 1 puff INHALE Q4H PRN PRN Reason: Wheezing Aripiprazole (Aripiprazole 20 Mg Tablet) 20 mg PO DAILY [facility] Last Admin: 09/06/22 09:25 Dose: 20 mg Atorvastatin Calcium (Atorvastatin Calcium 40 Mg Tablet) 40 mg PO BEDTIME [facility] Last Admin: 09/05/22 19:35 Dose: 40 mg Benztropine Mesylate (Benztropine Mesylate 0.5 Mg Tablet) 0.5 mg PO BID [facility] Last Admin: 09/06/22 09:25 Dose: 0.5 mg Clonidine HCl (Clonidine Hcl 0.1 Mg Tablet) 0.3 mg PO BEDTIME [facility]; Protocol Last Admin: 09/05/22 19:36 Dose: 0.3 mg Clonidine HCl (Clonidine Hcl 0.1 Mg Tablet) 0.1 mg PO BID [facility]; Protocol Haloperidol (Haloperidol 5 Mg Tablet) 5 mg PO BID [facility] Haloperidol (Haloperidol 5 Mg Tablet) 5 mg PO BID PRN PRN Reason: aggressive agitation Hydroxyzine HCl (Hydroxyzine Hcl 25 Mg Tablet) 25 mg PO Q6H PRN PRN Reason: Anxiety Last Admin: 09/06/22 04:55 Dose: 25 mg Lisinopril (Lisinopril 10 Mg Tablet) 10 mg PO DAILY [facility]; Protocol Last Admin: 09/06/22 09:25 Dose: 10 mg Lorazepam (Lorazepam 1 Mg Tablet) 1 mg PO Q6H PRN PRN Reason: Anxiety Last Admin: 09/06/22 10:42 Dose: 1 mg Magnesium Hydroxide (Milk Of Magnesia 30 Ml Oral.Susp) 30 ml PO DAILY PRN PRN Reason: Constipation Metformin HCl (Metformin Hcl Er 500 Mg Tab.Er.24h) 1,000 mg PO BID [facility] Last Admin: 09/06/22 09:25 Dose: 1,000 mg Pharmacy Consult (Consult Rx Perform Med Rec) 1 each MISCELLANE ONCE PRN PRN Reason: Consult order Psyllium Hydrophilic Mucilloid (Psyllium Seed 3.4 Gm Powd.Pack) 3.4 gm PO DAILY [facility] Sodium Chloride (Sodium Chloride 0.65 % Nasal 44 Ml Sprbtl) 1 spray NOSTRIL-B Q1H PRN PRN Reason: Congestion Last Admin: 09/06/22 03:01 Dose: 1 spray Topiramate (Topiramate 25 Mg Tablet) 25 mg PO DAILY [facility] Trazodone HCl (Trazodone Hcl 100 Mg Tablet) 200 mg PO BEDTIME PRN PRN Reason: Insomnia Last Admin: 09/06/22 03:02 Dose: 200 mg Allergies Allergies Allergy/AdvReac Type Severity Reaction Status Date / Time No Known Allergies Allergy Unverified 12/08/21 12:51 [No Known Allergies*] Assessment & Plan Assessment & Plan (1) COVID-19: Status: Acute Code(s): U07.1 - COVID-19 Assessment and Plan: staying in room, needs reminders to wear mask when meeting with people but sometimes also asks for mask (2) Schizoaffective disorder: Status: Acute Code(s): F25.9 - Schizoaffective disorder, unspecified Assessment and Plan: ongoing , (3) Autism: Status: Acute Code(s): F84.0 - Autistic disorder (4) Developmental disability: Status: Acute Code(s): F89 - Unspecified disorder of psychological development (5) Overeating: Status: Acute Code(s): R63.2 - Polyphagia Plan 27 yo male, hx of schizoaffective disorder, autism, developmental disorder. Pt COVID +. Experiencing aggression at home d/t uncontrolled appetite and satiety. Mother reports this symptom has occurred since initiation of Olanzapine, however, Olanzapine has helped with behavioral controls. Options researched. Lybalvi is not an option as it is $45 per tablet. Contrave is not an options as it is $35 a tablet. Plan: Discontinue Olanzapine Geodon 20 bid trial Intake and output Collateral contacts 09/06/22- Clonidine 0.1 mg bid Discontinue Geodon Haldol 5 mg bid and bid prn Topiramate 25 mg daily Environmental changes will assist pt in maintaining spatial boundaries during his active COVID time. I spent minutes with the patient and/or on the patient floor today, greater than?50% of which was spent counseling/coordinating care. Patient educated on: therapeutic strategies Informed Consent: does not understand Reason for contiued inpatient stay Substantial Risk for: harm to self, harm to others, inability to function and rapid decompensation
[2022-09-06 20:10] VITALS: BP 130/76; PULSE 89; TEMP 35.8
[2022-09-06] MEDS: Atorvastatin Calcium 40 MG TABLET PO (20:17)
[2022-09-06] MEDS: HaloperidoL 5 MG TABLET PO (20:18)
[2022-09-06] MEDS: cloNIDine HCL 0.1 MG TABLET 0.3 MG PO (20:19)
[2022-09-07] MEDS: traZODone HCL 100 MG TABLET 200 MG PO ×2 (00:10→20:12)
[2022-09-07] MEDS: hydrOXYzine HCL 25 MG TABLET PO ×2 (00:10→22:38)
[2022-09-07] MEDS: Albuterol Sulfate 90 MCG 8 GM INHALER 1 PUFF INHALE ×2 (00:31→19:32)
[2022-09-07 08:18] LABS: Glucose, Whole Blood 142 mg/dL (60-115)
[2022-09-07 08:45] VITALS: BP 130/65; PULSE 89; RESP 18; TEMP 36.3; O2SAT 97
[2022-09-07] MEDS: Benztropine Mesylate 0.5 MG TABLET PO ×2 (08:54→20:10)
[2022-09-07] MEDS: ARIPiprazole 20 MG TABLET PO (08:54)
[2022-09-07] MEDS: lisinopriL 10 MG TABLET PO (08:55)
[2022-09-07] MEDS: metFORMIN HCl ER 500 MG TAB.ER.24H 1000 MG PO ×2 (08:55→20:11)
[2022-09-07] MEDS: Topiramate 25 MG TABLET PO (08:55)
[2022-09-07] MEDS: cloNIDine HCL 0.1 MG TABLET PO ×2 (08:55→14:00)
[2022-09-07] MEDS: HaloperidoL 5 MG TABLET PO ×3 (08:55→22:38)
[2022-09-07 13:55] VITALS: BP 125/72; PULSE 86; RESP 18; TEMP 36.5; O2SAT 99
[2022-09-07 18:00] VITALS: BP 115/70; PULSE 89; RESP 20; TEMP 36.3; O2SAT 97
[2022-09-07] MEDS: Sodium Chloride 0.65 % Nasal 44 ML SPRBTL 1 SPRAY NOSTRIL-B (18:50)
--- NOTE | 2022-09-07 19:56 | HO.PSYCHPN ---
Subjective Subjective Date of Service: 09/07/22 Reason For Visit: bipolar D/O; Autism; Aggression, violence Sx Interim History: Late entry note for patient seen on 09/07 Patient cleared to be out of his room. He is significantly more calm and on obtrusive Alysa wanders the milieu. He says that he is good. And that he wants to go home. Says he is sleeping and eating well. Staff concurred that his behaviors have been appropriate. Mental Status Exam Mental Status Exam Narrative: Pt is alert and oriented; behavior is cooperative and calm; patient is not in distress; dressed in casual attire with adequate hygiene; mood is described as good though affect blunted; eye contact appropriate; Speech occurs when he is spoken to; it is a little latent and sparse; normal volume; prosody; no psychomotor agitation/retardation present; thought process is goal directed, concrete; Thought content is wanting to go home; otherwise able to answer questions appropriately; no delusional content, paranoid ideations expressed; denies any SI/HI. There is no evidence of perceptual disturbance. Patients insight and judgment are impaired at baseline. Diagnostics Vital Signs (24Hr): Vital Signs - 24 hr 09/07/22 13:55 09/07/22 18:00 09/08/22 09:12 Temperature 97.7 F 97.4 F 97.6 F Pulse Rate 86 89 85 Respiratory Rate 18 20 16 Blood Pressure 125/72 115/70 125/77 Pulse Oximetry 99 97 96 Oxygen Delivery Method Room Air Room Air Room Air BMI result Body Mass Index 52.0 Labs Results: 09/01/22 10:44 09/01/22 10:44 Labs: Laboratory Results - last 48 hr 09/07/22 08:14 POC Glucose 142 H Imaging Radiology Impressions: ITS Impressions Chest X-Ray 09/01/22 09:55 IMPRESSION: No evidence for acute disease in the chest. Medications Medications Current Medications Acetaminophen (Acetaminophen 325 Mg Tablet) 650 mg PO Q6H PRN PRN Reason: Headache/Pain Mild Scale (1-3) Last Admin: 09/05/22 19:36 Dose: 650 mg Al Hydroxide/Mg Hydroxide (Magnesium Hydrox/Alum Hydrox 30 Ml Oral.Susp) 30 ml PO Q6H PRN PRN Reason: Heartburn/Nausea Albuterol Sulfate (Albuterol Sulfate 90 Mcg 8 Gm Inhaler) 1 puff INHALE Q4H PRN PRN Reason: Wheezing Last Admin: 09/07/22 19:32 Dose: 1 puff Aripiprazole (Aripiprazole 20 Mg Tablet) 20 mg PO DAILY [facility] Last Admin: 09/08/22 09:07 Dose: 20 mg Atorvastatin Calcium (Atorvastatin Calcium 40 Mg Tablet) 40 mg PO BEDTIME DAISHA Last Admin: 09/07/22 20:10 Dose: 40 mg Benztropine Mesylate (Benztropine Mesylate 0.5 Mg Tablet) 0.5 mg PO BID DAISHA Last Admin: 09/08/22 09:07 Dose: 0.5 mg Clonidine HCl (Clonidine Hcl 0.1 Mg Tablet) 0.3 mg PO BEDTIME DAISHA; Protocol Last Admin: 09/07/22 20:11 Dose: 0.3 mg Clonidine HCl (Clonidine Hcl 0.1 Mg Tablet) 0.1 mg PO BID@0900,1500 [facility]; Protocol Last Admin: 09/08/22 09:09 Dose: 0.1 mg Haloperidol (Haloperidol 5 Mg Tablet) 5 mg PO BID DAISHA Last Admin: 09/08/22 09:07 Dose: 5 mg Haloperidol (Haloperidol 5 Mg Tablet) 5 mg PO BID PRN PRN Reason: aggressive agitation Last Admin: 09/07/22 22:38 Dose: 5 mg Hydroxyzine HCl (Hydroxyzine Hcl 25 Mg Tablet) 25 mg PO Q6H PRN PRN Reason: Anxiety Last Admin: 09/07/22 22:38 Dose: 25 mg Lisinopril (Lisinopril 10 Mg Tablet) 10 mg PO DAILY [facility]; Protocol Last Admin: 09/08/22 09:07 Dose: 10 mg Lorazepam (Lorazepam 1 Mg Tablet) 1 mg PO Q6H PRN PRN Reason: Anxiety Last Admin: 09/07/22 22:38 Dose: 1 mg Magnesium Hydroxide (Milk Of Magnesia 30 Ml Oral.Susp) 30 ml PO DAILY PRN PRN Reason: Constipation Metformin HCl (Metformin Hcl Er 500 Mg Tab.Er.24h) 1,000 mg PO BID [facility] Last Admin: 09/08/22 09:07 Dose: 1,000 mg Pharmacy Consult (Consult Rx Perform Med Rec) 1 each MISCELLANE ONCE PRN PRN Reason: Consult order Psyllium Hydrophilic Mucilloid (Psyllium Seed 3.4 Gm Powd.Pack) 3.4 gm PO DAILY [facility] Last Admin: 09/08/22 09:06 Dose: 3.4 gm Sodium Chloride (Sodium Chloride 0.65 % Nasal 44 Ml Sprbtl) 1 spray NOSTRIL-B Q1H PRN PRN Reason: Congestion Last Admin: 09/08/22 09:17 Dose: 1 spray Topiramate (Topiramate 25 Mg Tablet) 25 mg PO DAILY [facility] Last Admin: 09/08/22 09:07 Dose: 25 mg Trazodone HCl (Trazodone Hcl 100 Mg Tablet) 200 mg PO BEDTIME PRN PRN Reason: Insomnia Last Admin: 09/07/22 20:12 Dose: 200 mg Allergies Allergies Allergy/AdvReac Type Severity Reaction Status Date / Time No Known Allergies Allergy Unverified 12/08/21 12:51 [No Known Allergies*] Assessment & Plan Assessment & Plan (1) COVID-19: Status: Acute Code(s): U07.1 - COVID-19 Assessment and Plan: staying in room, needs reminders to wear mask when meeting with people but sometimes also asks for mask (2) Schizoaffective disorder: Status: Acute Code(s): F25.9 - Schizoaffective disorder, unspecified Assessment and Plan: ongoing , (3) Autism: Status: Acute Code(s): F84.0 - Autistic disorder (4) Developmental disability: Status: Acute Code(s): F89 - Unspecified disorder of psychological development (5) Overeating: Status: Acute Code(s): R63.2 - Polyphagia Plan 27 yo male, hx of schizoaffective disorder, autism, developmental disorder. Pt COVID +. Experiencing aggression at home d/t uncontrolled appetite and satiety. Mother reports this symptom has occurred since initiation of Olanzapine, however, Olanzapine has helped with behavioral controls. Options researched. Lybalvi is not an option as it is $45 per tablet. Contrave is not an options as it is $35 a tablet. Plan: Discontinue Olanzapine Geodon 20 bid trial Intake and output Collateral contacts 09/06/22- Clonidine 0.1 mg bid Discontinue Geodon Haldol 5 mg bid and bid prn Topiramate 25 mg daily Environmental changes will assist pt in maintaining spatial boundaries during his active COVID time. 09/07 out of his room; behaviorally appropriate. No changes to treatment plan at this time I spent minutes with the patient and/or on the patient floor today, greater than?50% of which was spent counseling/coordinating care. Patient educated on: diagnosis Informed Consent: does not understand Reason for contiued inpatient stay Substantial Risk for: med/psych decompensation
[2022-09-07] MEDS: Atorvastatin Calcium 40 MG TABLET PO (20:10)
[2022-09-07] MEDS: cloNIDine HCL 0.1 MG TABLET 0.3 MG PO (20:11)
[2022-09-07] MEDS: LORazepam 1 MG TABLET PO (22:38)
[2022-09-08] MEDS: Topiramate 25 MG TABLET PO (09:07)
[2022-09-08] MEDS: lisinopriL 10 MG TABLET PO (09:07)
[2022-09-08] MEDS: ARIPiprazole 20 MG TABLET PO (09:07)
[2022-09-08] MEDS: metFORMIN HCl ER 500 MG TAB.ER.24H 1000 MG PO ×2 (09:07→20:22)
[2022-09-08] MEDS: Benztropine Mesylate 0.5 MG TABLET PO ×2 (09:07→20:21)
[2022-09-08] MEDS: HaloperidoL 5 MG TABLET PO ×2 (09:07→20:22)
[2022-09-08] MEDS: cloNIDine HCL 0.1 MG TABLET PO ×2 (09:09→14:27)
[2022-09-08 09:12] VITALS: BP 125/77; PULSE 85; RESP 16; TEMP 36.4; O2SAT 96
[2022-09-08] MEDS: Sodium Chloride 0.65 % Nasal 44 ML SPRBTL 1 SPRAY NOSTRIL-B ×2 (09:17→18:38)
--- NOTE | 2022-09-08 12:15 | P.PNPSI_ITS ---
Subjective Subjective Date of Service: 09/08/22 Reason For Visit: bipolar D/O; Autism; Aggression, violence Sx Subjective Notes: Conditional Voluntary Healthcare Proxy: No Guardianship: No Medical Problems Affecting Mental Status: No Interim History: COVID isolation precautions are lifted. No behavioral dyscontrol. No adverse effects from medication change Pt is now off one to one and on five minute checks. Team reports he is isolative, but visable in milieu and accepts support and encouragement. He reports he does want to go home to his jie. Reports feeling well, denies respiratory sx Medication Compliance: Yes Side effects from medications: No Attending Groups: Intermittent Review of Systems Acute medical concerns: No Medical Review of Systems: unchanged Mental Status Exam Mental Status Exam Patient Appearance: Appropriate Patient Orientation: Person, Place, Time and Situation Level of Consciousness: Alert Patient Behavior: Appropriate, Talkative, Cooperative, Distractible and Good Eye Contact Mood Description: Appropriate Affect Description: Appropriate Patient Cognition Impaired: Yes Ability to Follow Directions: Good Speech Pattern: Spontaneous Speech Memory Description: Episodic Impaired Hallucinations: None Delusions: Not Present Thought Process: Intact Thought Content: positive for [place], positive for Circumstantial and positive for Suicidal Ideation (denies) Depressive Symptoms: Thoughts of /Suicide (denies) Judgement: Fair Diagnostics Vital Signs (24Hr): Vital Signs - 24 hr 09/07/22 13:55 09/07/22 18:00 09/08/22 09:12 Temperature 97.7 F 97.4 F 97.6 F Pulse Rate 86 89 85 Respiratory Rate 18 20 16 Blood Pressure 125/72 115/70 125/77 Pulse Oximetry 99 97 96 Oxygen Delivery Method Room Air Room Air Room Air BMI result Body Mass Index 52.0 Labs Results: 09/01/22 10:44 09/01/22 10:44 Labs: Laboratory Results - last 48 hr 09/07/22 08:14 POC Glucose 142 H Imaging Radiology Impressions: ITS Impressions Chest X-Ray 09/01/22 09:55 IMPRESSION: No evidence for acute disease in the chest. Medications Medications Current Medications Acetaminophen (Acetaminophen 325 Mg Tablet) 650 mg PO Q6H PRN PRN Reason: Headache/Pain Mild Scale (1-3) Last Admin: 09/05/22 19:36 Dose: 650 mg Al Hydroxide/Mg Hydroxide (Magnesium Hydrox/Alum Hydrox 30 Ml Oral.Susp) 30 ml PO Q6H PRN PRN Reason: Heartburn/Nausea Albuterol Sulfate (Albuterol Sulfate 90 Mcg 8 Gm Inhaler) 1 puff INHALE Q4H PRN PRN Reason: Wheezing Last Admin: 09/07/22 19:32 Dose: 1 puff Aripiprazole (Aripiprazole 20 Mg Tablet) 20 mg PO DAILY [facility] Last Admin: 09/08/22 09:07 Dose: 20 mg Atorvastatin Calcium (Atorvastatin Calcium 40 Mg Tablet) 40 mg PO BEDTIME DAISHA Last Admin: 09/07/22 20:10 Dose: 40 mg Benztropine Mesylate (Benztropine Mesylate 0.5 Mg Tablet) 0.5 mg PO BID [facility] Last Admin: 09/08/22 09:07 Dose: 0.5 mg Clonidine HCl (Clonidine Hcl 0.1 Mg Tablet) 0.3 mg PO BEDTIME [facility]; Protocol Last Admin: 09/07/22 20:11 Dose: 0.3 mg Clonidine HCl (Clonidine Hcl 0.1 Mg Tablet) 0.1 mg PO BID@0900,1500 [facility]; Protocol Last Admin: 09/08/22 09:09 Dose: 0.1 mg Haloperidol (Haloperidol 5 Mg Tablet) 5 mg PO BID [facility] Last Admin: 09/08/22 09:07 Dose: 5 mg Haloperidol (Haloperidol 5 Mg Tablet) 5 mg PO BID PRN PRN Reason: aggressive agitation Last Admin: 09/07/22 22:38 Dose: 5 mg Hydroxyzine HCl (Hydroxyzine Hcl 25 Mg Tablet) 25 mg PO Q6H PRN PRN Reason: Anxiety Last Admin: 09/07/22 22:38 Dose: 25 mg Lisinopril (Lisinopril 10 Mg Tablet) 10 mg PO DAILY [facility]; Protocol Last Admin: 09/08/22 09:07 Dose: 10 mg Lorazepam (Lorazepam 1 Mg Tablet) 1 mg PO Q6H PRN PRN Reason: Anxiety Last Admin: 09/07/22 22:38 Dose: 1 mg Magnesium Hydroxide (Milk Of Magnesia 30 Ml Oral.Susp) 30 ml PO DAILY PRN PRN Reason: Constipation Metformin HCl (Metformin Hcl Er 500 Mg Tab.Er.24h) 1,000 mg PO BID [facility] Last Admin: 09/08/22 09:07 Dose: 1,000 mg Pharmacy Consult (Consult Rx Perform Med Rec) 1 each MISCELLANE ONCE PRN PRN Reason: Consult order Psyllium Hydrophilic Mucilloid (Psyllium Seed 3.4 Gm Powd.Pack) 3.4 gm PO DAILY [facility] Last Admin: 09/08/22 09:06 Dose: 3.4 gm Sodium Chloride (Sodium Chloride 0.65 % Nasal 44 Ml Sprbtl) 1 spray NOSTRIL-B Q1H PRN PRN Reason: Congestion Last Admin: 09/08/22 09:17 Dose: 1 spray Topiramate (Topiramate 25 Mg Tablet) 25 mg PO DAILY [facility] Last Admin: 09/08/22 09:07 Dose: 25 mg Trazodone HCl (Trazodone Hcl 100 Mg Tablet) 200 mg PO BEDTIME PRN PRN Reason: Insomnia Last Admin: 09/07/22 20:12 Dose: 200 mg Allergies Allergies Allergy/AdvReac Type Severity Reaction Status Date / Time No Known Allergies Allergy Unverified 12/08/21 12:51 [No Known Allergies*] Assessment & Plan Assessment & Plan (1) COVID-19: Status: Acute Code(s): U07.1 - COVID-19 Assessment and Plan: staying in room, needs reminders to wear mask when meeting with people but sometimes also asks for mask (2) Schizoaffective disorder: Status: Acute Code(s): F25.9 - Schizoaffective disorder, unspecified Assessment and Plan: ongoing , (3) Autism: Status: Acute Code(s): F84.0 - Autistic disorder (4) Developmental disability: Status: Acute Code(s): F89 - Unspecified disorder of psychological development (5) Overeating: Status: Acute Code(s): R63.2 - Polyphagia Plan 27 yo male, hx of schizoaffective disorder, autism, developmental disorder. Pt COVID +. Experiencing aggression at home d/t uncontrolled appetite and satiety. Mother reports this symptom has occurred since initiation of Olanzapine, prasad tacho, Olanzapine has helped with behavioral controls. Options researched. Lybalvi is not an option as it is $45 per tablet. Contrave is not an options as it is $35 a tablet. Plan: Discontinue Olanzapine Geodon 20 bid trial Intake and output Collateral contacts 09/06/22- Clonidine 0.1 mg bid Discontinue Geodon Haldol 5 mg bid and bid prn Topiramate 25 mg daily Environmental changes will assist pt in maintaining spatial boundaries during his active COVID time. 09/07 out of his room; behaviorally appropriate. No changes to treatment plan at this time 09/08/22- Behavioral control. No adverse effects from med change. Plan to discharge 09/09 to home if he continues to do well. Asked to send prescriptions to [facility]. Will do on 09/09 if he will discharge. I spent minutes with the patient and/or on the patient floor today, greater than?50% of which was spent counseling/coordinating care. Patient educated on: therapeutic strategies Informed Consent: understands and further education needed Reason for contiued inpatient stay Substantial Risk for: stable for discharge
[2022-09-08 18:00] VITALS: BP 121/59; PULSE 94; RESP 18; TEMP 36.1; O2SAT 97
[2022-09-08] MEDS: cloNIDine HCL 0.1 MG TABLET 0.3 MG PO (20:21)
[2022-09-08] MEDS: Atorvastatin Calcium 40 MG TABLET PO (20:21)
[2022-09-08] MEDS: LORazepam 1 MG TABLET PO (20:22)
[2022-09-09 08:40] VITALS: BP 130/71; PULSE 85; RESP 18; TEMP 36.3; O2SAT 98
[2022-09-09] MEDS: cloNIDine HCL 0.1 MG TABLET PO (08:54)
[2022-09-09] MEDS: metFORMIN HCl ER 500 MG TAB.ER.24H 1000 MG PO (08:54)
[2022-09-09] MEDS: Benztropine Mesylate 0.5 MG TABLET PO (08:54)
[2022-09-09] MEDS: lisinopriL 10 MG TABLET PO (08:54)
[2022-09-09] MEDS: ARIPiprazole 20 MG TABLET PO (08:55)
[2022-09-09] MEDS: HaloperidoL 5 MG TABLET PO (10:00)
--- NOTE | 2022-09-09 16:56 | P.DS_ITS ---
DS: Providers Provider Date of Service: 09/09/22 Date of admission: 09/02/22 15:00 Date of discharge: 09/09/22 Primary care physician: Unknown Physician Admitting clinician: Francisca Deras Attending physician on admission: Valdemar Redman Attending physician on discharge: Valdemar Redman Discharging clinician: Francisca Deras DS: Diagnosis Discharge Diagnosis (1) COVID-19: Status: Resolved (2) Schizoaffective disorder: Status: Acute (3) Autism: Status: Acute (4) Developmental disability: Status: Acute (5) Overeating: Status: Resolved DS: Medications Discharge Medications Home Medications: Home Medications Medication Instructions Recorded Confirmed benztropine 0.5 mg tablet 1 tab PO BID 06/25/22 09/01/22 trazodone 100 mg tablet 200 mg PO BEDTIME PRN Insomnia 06/25/22 09/01/22 clonidine HCl 0.3 mg tablet 1 tab PO BEDTIME 09/01/22 09/01/22 dulaglutide 0.75 mg/0.5 mL 0.75 mg subcut MO 09/01/22 09/01/22 subcutaneous pen injector (Trulicity) Previous Rx's Medication Instructions Recorded albuterol sulfate 90 mcg/actuation 1 puff inhalation Q4H PRN Wheezing 04/21/22 aerosol inhaler (Ventolin HFA) #6.7 grams aripiprazole 20 mg tablet (Abilify) 20 mg PO DAILY #30 tabs 04/21/22 lorazepam 0.5 mg tablet 0.5 mg PO TID #90 tabs 04/21/22 atorvastatin 40 mg tablet 40 mg PO BEDTIME #30 tabs 05/04/22 metformin 500 mg tablet,extended 1,000 mg PO BID 90 days #360 tabs 05/04/22 release 24 hr lisinopril 10 mg tablet 10 mg PO DAILY #90 tabs 07/21/22 clonidine HCl 0.1 mg tablet 0.1 mg PO BID #60 tabs 09/09/22 clonidine HCl 0.1 mg tablet 0.1 mg PO BID@0900,1500 #60 tabs 09/09/22 haloperidol 5 mg tablet 5 mg PO BID #60 tabs 09/09/22 haloperidol 5 mg tablet 5 mg PO BID #60 tabs 09/09/22 psyllium husk (aspartame) 3.4 gram 1 packet PO DAILY #30 ea 09/09/22 oral powder packet (Metamucil Fiber Singles) psyllium husk (aspartame) 3.4 gram 3.4 g PO DAILY #30 tabs 09/09/22 oral powder packet (Metamucil Fiber Singles) Mental Status Exam Mental Status Exam Patient Appearance: Appropriate Patient Orientation: Person, Place, Time and Situation Level of Consciousness: Alert Patient Behavior: Appropriate, Talkative, Cooperative, Distractible and Good Eye Contact Mood Description: Appropriate Affect Description: Appropriate Patient Cognition Impaired: Yes Ability to Follow Directions: Good Speech Pattern: Spontaneous Speech Memory Description: Episodic Impaired Hallucinations: None Delusions: Not Present Thought Process: Intact Thought Content: positive for [place], positive for Circumstantial and positive for Suicidal Ideation (denies) Depressive Symptoms: Thoughts of /Suicide (denies) Judgement: Fair Data Data Completed and Pending Completed studies during hospitalization [Text1]: 09/02/22 09/02/22 09/03/22 17:09 19:59 07:56 POC Glucose 105 106 96 Estimat Average Glucose Hemoglobin A1c % Magnesium Triglycerides Cholesterol LDL Cholesterol, Calc HDL Cholesterol Vitamin B12 Folate TSH Free T4 09/03/22 09/03/22 09/03/22 08:56 08:56 08:56 POC Glucose Estimat Average Glucose 120 Hemoglobin A1c % 5.8 Magnesium 1.8 Triglycerides 126 Cholesterol 178 LDL Cholesterol, Calc 116 HDL Cholesterol 37 Vitamin B12 462 Folate 11.0 TSH 2.36 Free T4 1.18 09/03/22 09/03/22 09/04/22 12:05 16:55 08:56 POC Glucose 112 118 H 126 H Estimat Average Glucose Hemoglobin A1c % Magnesium Triglycerides Cholesterol LDL Cholesterol, Calc HDL Cholesterol Vitamin B12 Folate TSH Free T4 09/07/22 08:14 POC Glucose 142 H Estimat Average Glucose Hemoglobin A1c % Magnesium Triglycerides Cholesterol LDL Cholesterol, Calc HDL Cholesterol Vitamin B12 Folate TSH Free T4 Imaging Diagnostic Imaging Impressions Chest X-Ray 09/01/22 09:55 IMPRESSION: No evidence for acute disease in the chest. DS: Summary Hospital Course Hospital Course: Admission to adult psychiatry for exacerbation of agitation in the context of schizoaffective disorder, autism, developmental disability, COVID positive testing and adverse response to Olanzapine. During pt's previous admission he was stabilized on Olanzapine which he tolerated well and which managed symptoms effectively. A side effect developed of excessive appetite with resulting aggression as pt needed limits on intake set by his family. Appetite could not be managed. Pt required quarantine on admission due to COVID positive testing. Olanzapine was changed to Haldol. Abilify, Benztropine, Lorazepam, Trazodone, Buproprion and Clonidine were continued. Pt struggled with quarantine without being able to access his video games from home,so he was discharged as soon as he was stabilized on Haldol, had no adverse effects or behavioral dyscontrol. Time spent discussing smoking cessation with patient: 3 to 10 minutes Status at Discharge Functional status at discharge: independent ambulation Overall status at discharge: patient is back to baseline Time Spent with Patient Time attestation: Total time spent providing and/or coordinating discharge services: 40 Time spent: Greater than 30 minutes Discharge Plan Discharge Anticipated Discharge Date/Time: 09/09/22 12:30 Patient Disposition: Home, Self-Care Discharge Diagnosis: Developmental Disability Autism Schizoaffective Disorder Referrals: Therapist: Dimitri Zheng ([facility]) [Other] - 09/13/22 3:00 pm (Via Zoom ) Psych Prescriber: Eli Vail ([facility]) [Other] - 09/10/22 2:00 pm (Via Zoom ) Angelina Malagon MD [Physician] - 09/30/22 10:15 am (in office) Discharge Medications: New haloperidol 5 mg Tablet 5 mg PO BID Qty: 60 0RF Continued metformin 500 mg tablet extended release 24 hr 1,000 mg PO BID 90 Days Qty: 360 1RF atorvastatin 40 mg tablet 40 mg PO BEDTIME Qty: 30 0RF trazodone 100 mg tablet 200 mg PO BEDTIME PRN (Reason: Insomnia) benztropine 0.5 mg tablet 1 tab PO BID lorazepam 0.5 mg Tablet 0.5 mg PO TID Qty: 90 0RF albuterol sulfate [Ventolin HFA] 90 mcg/actuation Hfa Aerosol Inhaler 1 puff inhalation Q4H PRN (Reason: Wheezing) Qty: 6.7 0RF aripiprazole [Abilify] 20 mg Tablet 20 mg PO DAILY Qty: 30 0RF Trulicity 0.75 mg/0.5 mL pen injector 0.75 mg subcut MO Discontinued olanzapine 5 mg tablet 5 mg PO BID No Action clonidine HCl 0.1 mg tablet 0.1 mg PO Q8H Rx Instructions: Take 1 tab at 9am and 3pm and at bedtime bupropion HCl 150 mg tablet extended release 24 hr 150 mg PO QAM 90 Days Qty: 90 1RF Discharge Orders: Discharge Order (Routine); Ordered 09/09/22 Ordered By: Francisca Deras Diet: Advance to usual diet Activity on Discharge: As tolerated Stand Alone Forms: Patient Portal Discharge page, Community Support Care Plan Goals: Mood and behavioral stabilization Health Concerns: Mood and behavioral stabilization Recovery from COVID-19 Plan of Treatment: Follow up with out patient providers Take medications as directed Call and or return as needed Assessment: Arnold was interviewed prior to discharge and found to be fully oriented and without any SI or HI. He is excited and happy to discharge so I can use my games . He has had no behavioral dyscontrol or inappropriate behaviors since his medication change. He has not engaged in any behaviors that suggest dangerousness to self or others and has demonstrated appropriate behaviors and impulse control. Discharge Date/Time: 09/09/22 12:17
== END 2022-09-09 12:17 | disposition home or self-care (01) | DRG 750 ==
LOC: HO.ED 09-02 14:12 → HO.PM5 09-02 15:04
PROVIDERS: Physician Assistant; Social Worker; Admitting Provider Psychiatry & Neurology Psychiatry; Emergency Provider Student in an Organized Health Care Education/Training Program; Visit Provider Clinical Nurse Specialist Psychiatric/Mental Health, Adult
DX: F25.9 Schizoaffective disorder, unspecified (principal); U07.1 COVID-19; E78.5 Hyperlipidemia, unspecified; F84.0 Autistic disorder; Z23 Encounter for immunization; Z79.84 Long term (current) use of oral hypoglycemic drugs; Z79.899 Other long term (current) drug therapy
CPT/HCPCS: 0241U; 36415; 71045; 80048; 80061; 80076; 80307; 82140; 82607; 82746; 82947; 83036; 83735; 83880; 84439; 84443; 84484; 85025; 90686; 93005; 94640; 99285; J2250

== ENCOUNTER 2022-10-16 07:07 | Outpatient (REF) | payer OTHER, SELFPAY ==
[2022-10-16 07:19] LABS: MANUAL DIFF FLAG NO
[2022-10-16 07:55] LABS: Basophils Absolute Auto 0.1 X10*3/uL (0.0-0.2); Eosinophils Absolute Auto 1.3 X10*3/uL (0.0-0.4); Hematocrit 44.5 % (42.0-52.0); Hemoglobin 14.3 g/dl (14.0-18.0); Imm Gran Abs Auto 0.07 X10*3/uL (0.00-0.03); Imm Gran Pct Auto 0.8 % (0.0-0.4); Lymphocytes Absolute Auto 2.7 X10*3/uL (1.2-4.9); Mean Corpuscular HGB Conc 32.1 g/dl (31.0-36.0); Mean Corpuscular Hemoglobin 25.9 pg (27.0-33.0); Mean Corpuscular Volume 80.5 fL (80.0-98.0); Mean Platelet Volume 8.5 fL (9.4-12.4); Monocytes Absolute Auto 0.7 X10*3/uL (0.1-1.2); Monocytes Percent Auto 7.3 % (2-11); Neutrophils Absolute Auto 4.5 x10*3/uL (2.0-8.3); Neutrophils Percent Auto 47.9 % (45-73); Platelet Count 331 X10*3/uL (160-400); Red Blood Count 5.53 X10*6/uL (4.60-5.80); Red Cell Distribution Width 13.2 % (11.0-16.0); White Blood Count 9.3 X10*3/uL (4.8-10.8)
[2022-10-16 08:31] LABS: Alanine Aminotransferase 22 U/L (0-40); Alkaline Phosphatase 116 U/L (39-117); Anion Gap 12 (12-20); Aspartate Amino Transferase 18 U/L (5-37); Bilirubin Total 0.6 mg/dL (0.0-1.0); Blood Urea Nitrogen 13 mg/dL (9-16); Calcium 9.5 mg/dL (8.4-10.2); Carbon Dioxide 25 mmol/L (22-29); Chloride 106 mmol/L (96-108); Cholesterol 176 mg/dL; Estimated Glomerular Filt Rate > 60; Glucose Fasting 104 mg/dL (60-99); HDL Cholesterol 35 mg/dL; LDL Cholesterol Calculated 128 mg/dl; Potassium 4.4 mmol/L (3.3-5.1); Sodium 139 mmol/L (135-145); Triglycerides 68 mg/dL
[2022-10-16 08:49] LABS: Vitamin D 25-OH Total 17.3 ng/mL (>30)
== END 2022-10-16 07:08 | disposition home or self-care (01) ==
LOC: HO.LAB 07:07
PROVIDERS: PCP Internal Medicine; Visit Provider Internal Medicine
DX: E66.01 Morbid (severe) obesity due to excess calories (principal); Z68.42 Body mass index [BMI] 45.0-49.9, adult; E55.9 Vitamin D deficiency, unspecified; E78.5 Hyperlipidemia, unspecified; E11.9 Type 2 diabetes mellitus without complications; Z79.4 Long term (current) use of insulin
CPT/HCPCS: 36415; 80053; 80061; 82306; 84443; 85025

== ENCOUNTER 2022-10-19 11:14 | Outpatient (REF) | payer OTHER, SELFPAY ==
[2022-10-19 13:07] LABS: Creatinine Urine 119.85 mg/dL; Microalbumin Urine < 5.0 mg/L
== END 2022-10-19 11:15 | disposition home or self-care (01) ==
LOC: HO.LNP 11:14
PROVIDERS: Visit Provider Internal Medicine
DX: E11.9 Type 2 diabetes mellitus without complications (principal)
CPT/HCPCS: 82043

== ENCOUNTER 2023-09-08 09:50 | Outpatient (AMB) | payer MEDICARE, MEDICAID, SELFPAY ==
[2023-09-08 09:53] VITALS: BP 112/78; BMI 45.2
--- NOTE | 2023-09-08 09:53 | MHC.PC.OV ---
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: No Accompanied by: Mother Allergies topamax Adverse Reaction (Unknown, Uncoded 09/08/23 10:10) Unknown Medication List - Last Reconciled 09/08/23 by Angelina Rowan MD albuterol sulfate 90 mcg/actuation (Ventolin HFA) 1 puff inhalation Q4H PRN aripiprazole (Abilify) 20 mg PO DAILY atorvastatin 80 mg PO BEDTIME 90 days benztropine 1 tab PO BID bupropion HCl 150 mg PO QAM 90 days cholecalciferol (vitamin D3) 50 mcg PO DAILY 90 days clonidine HCl 0.1 mg PO Q8H clonidine HCl 0.3 mg PO BEDTIME haloperidol 5 mg PO BID lisinopril 10 mg PO DAILY 90 days lorazepam 0.5 mg PO TID metformin ER 1,000 mg (2 x 500 mg) PO BID 90 days semaglutide 0.25 mg (0.368 mL) subcut QWEEK 30 days trazodone 200 mg PO BEDTIME PRN Tobacco use date assessed: 01/31/23 Dental Screening Dental Screen Date: 09/08/23 Did you have a dental visit in the last 12 months?: Yes Did you have a dental problem in the last 6 months where you did not have access to dental care?: No Was dental information given to patient?: Patient has dentist HPI HPI Comments History of Present Illness Details This is a 28-year-old male with diabetes mellitus type 2, morbid obesity and schizoaffective disorder that comes accompanied by adoptive mother which is the retail pharmacy technician for his physical exam. A1c within goal. He is morbidly obese with a BMI of 45.2 and was advised to diet and exercise. Declines weight loss surgery. Schizoaffective disorder is follow by Psychiatry and has been stable. No chest pain or shortness of breath. No change in bowel or bladder habits. [facility] Medical History Developmental disability Autism Obesity due to excess calories Diabetes mellitus type 2, controlled, without complications Type 2 diabetes mellitus with hyperglycemia, with long-term current use of insulin Hyperlipidemia LDL goal <100 Type 2 diabetes mellitus with hypoglycemia without coma Surgical History No history of previous surgery Family History Father Hypertension Type 2 diabetes mellitus Social History Household Members: Family Housing: House Do you presently have visiting nurse or other home services: No Alcohol intake: never Patient Tobacco Use Status: Never used Tobacco e-Cigarette/Vaping Use: Never Used Second Hand Smoke Exposure: No Substance Use Type: Amphetamines Advance Directives Date on File: 04/22/22 service: No Current occupational status: disabled Sexual orientation: Did not discuss Cognitive needs: No Hearing needs: No Vision needs: No Questionnaire Thrive Questionnaire Date Thrive assessed: 01/31/23 CHRISTA-7 AMB Questionnaire CHRISTA-7 Date CHRISTA - 7 assessed: 01/31/23 Source: Developed by Drs. Javier Sims, Maranda Cain, Franklin Mendoza and colleagues, with an educational yue from [employer]. Review of Systems Const All systems reviewed & are unremarkable except as noted in HPI and below Eyes Reports no additional complaints, Denies change in vision and Denies other visual disturbances Card Denies chest pain at rest, Denies chest pain with activity, Denies edema, Denies irregular heart rhythm, Denies claudication, Denies dyspnea, Denies dyspnea on exertion, Denies orthopnea, Denies paroxysmal nocturnal dyspnea and Denies slow heart rate Resp Denies cough, Denies dyspnea and Denies dyspnea on exertion GI Denies abdominal pain, Denies change in bowel habits, Denies excessive flatus, Denies nausea and Denies vomiting Denies urinary hesitancy, Denies urinary incontinence and Denies urinary urgency Musc Denies abnormal gait, Denies atrophy, Denies deformity and Denies limited range of motion Skin/Breast Denies bleeding lesions, Denies changing lesions and Denies rash Neuro Denies abnormal gait, Denies behavioral changes, Denies confusion and Denies lack of coordination Psych Denies behavioral changes and Denies confusion Physical exam (Primary Care) Vital Signs: Last Vital Signs BP 112/78 09/08/23 09:53 BMI result Body Mass Index 45.2 Tobacco/Smoking Status: Tobacco use Status Tobacco use date assessed 01/31/23 09/08/23 09:56 Patient Tobacco Use Status Never used Tobacco 09/08/23 09:56 e-Cigarette/Vaping Use Never Used 09/08/23 09:56 Thrive Assessment: Date of Thrive Assessment Date Thrive assessed 01/31/23 09/08/23 09:56 Const General: No confusion Orientation/consciousness: patient oriented x3 and No confusion HENMT Head: Yes normal to inspection, Yes normocephalic and Yes atraumatic Ears: external ears normal Eyes General: appearance normal, both eyes and all related structures Eyelids: Yes eyelids normal Conjunctivae: conjunctivae normal Neck Neck: Yes normal visual inspection and Yes supple Resp Effort & Inspection: normal respiratory effort Auscultation: clear to auscultation bilaterally Cardio Jugular venous distension: no JVD Rate: regular rate Rhythm: regular rhythm Heart sounds: S1 normal heart sound present and S2 normal heart sound present GI Inspection: Yes normal to inspection Palpation (GI): Soft to palpation and nontender Auscultation: normal bowel sounds Skin General skin exam: no rashes or lesions noted Neuro General: patient oriented x3, no focal motor deficits and No confusion Extrem General: Yes full ROM Psych Appearance: grossly normal Office Procedures Flu Questionnaire Does the patient have a severe egg allergy?: No Does the patient have severe life threatening allergies?: No Does the patient have a fever or illness today?: No Has the patient ever had Guillain-[place] Syndrome?: No Has the patient ever had any past reaction to a flu shot?: No Results AMB Hemoglobin A1c AMB Hemoglobin A1c 6.0 % Last Edit by IVAN Collins on 09/08/23 10:05 Immunizations flu vacc [id number] 6mos up(PF) 60 mcg(15 mcgx4)/0.5 mL IM syringe Performing Provider: Angelina Rowan MD Performing Location: [facility] Administered by: IVAN Collins on 09/08/23 10:26 Dose Route Admin Location Dispensed Lot Number Expiration Date NDC Transverse Abdominal Muscle Surgeon 0.5 mL IM Right Deltoid 0.5 mL [id number] 04/01/24 12514-129-[address] [employer] VIS Given Date VIS Provided VIS Publication Date 09/08/23 Single Vaccine 21 Eligibility Eligibility Date Funding Source Not [facility] Eligible 09/08/23 Private Results Reviewed Results Reviewed: Laboratory Last Values Hgb A1c (Clinic) 6.0 % (4.0-6.0) 09/08/23 10:02 Assessment and Plan Assessment & Plan (1) Physical exam: Code(s): Z00.00 - Encounter for general adult medical examination without abnormal findings Plan: Repeat in a year. (2) Diabetes mellitus: Code(s): E11.9 - Type 2 diabetes mellitus without complications Qualifiers: Diabetes mellitus complication status: without complication Diabetes mellitus termite helper insulin use: without termite helper use Diabetes mellitus type: type 2 Qualified Code(s): E11.9 - Type 2 diabetes mellitus without complications Plan: Continue metformin and Ozempic. A1c goal is equal or less than 7%. (3) Morbid obesity with BMI of 45.0-49.9, adult: Code(s): E66.01 - Morbid (severe) obesity due to excess calories; Z68.42 - Body mass index [BMI] 45.0-49.9, adult Plan: Start diet and exercise. BMI goal is less than 30. (4) Schizoaffective disorder: Code(s): F25.9 - Schizoaffective disorder, unspecified Plan: Continue benztropine. Follow-up with psychiatry. Orders: Orders Lipid Panel Today E78.5 - Hyperlipidemia, unspecified Vitamin D 25-OH Total Today E55.9 - Vitamin D deficiency, unspecified Comprehensive [place]. Panel Fast Today E11.9 - Type 2 diabetes mellitus without complications AMB Hemoglobin A1c Today E11.9 - Type 2 diabetes mellitus without complications Influenza [id number] Immunization Today Z23 - Encounter for immunization Microalbumin, Random (w Creat) Today E11.9 - Type 2 diabetes mellitus without complications Medications: New flu vacc [id number] 6mos up(PF) 0.5 mL IM ONCE 0.5 mL 0RF Z23 - Encounter for immunization semaglutide 1 mg (0.75 mL) subcut QWEEK 90 days 9.75 mL 2RF E11.9 - Type 2 diabetes mellitus without complications Refilled albuterol sulfate 90 mcg/actuation (Ventolin HFA) 1 puff inhalation Q4H PRN 6.7 grams 0RF Wheezing E11.9 - Type 2 diabetes mellitus without complications Discontinued semaglutide for 4 weeks Discontinued Reason: Patient Completed Course 0.25 mg (0.368 mL) subcut QWEEK 30 days 2 mL 4RF E11.9 - Type 2 diabetes mellitus without complications Coding Level of Care Code Est Pt Prev Care [id number]) Diagnoses Physical exam Z00.00 Type 2 diabetes mellitus without complication, without long-term current use of insulin E11.9 Diabetes mellitus complication status: without complication Diabetes mellitus termite helper insulin use: without custodial use Diabetes mellitus type: type 2 Morbid obesity with BMI of 45.0-49.9, adult E66.01; Z68.42 Schizoaffective disorder F25.9 Time Spent (min) 31
== END 2023-09-08 10:26 | disposition home or self-care (01) ==
PROVIDERS: Visit Provider Internal Medicine
DX: Z00.00 Encounter for general adult medical examination without abnormal findings (principal); E11.9 Type 2 diabetes mellitus without complications; E66.01 Morbid (severe) obesity due to excess calories; Z23 Encounter for immunization; Z68.42 Body mass index [BMI] 45.0-49.9, adult; F25.9 Schizoaffective disorder, unspecified
CPT/HCPCS: 83036; 90471; 90686; 99395

== ENCOUNTER 2024-03-10 07:22 | Outpatient (REF) | payer MEDICARE, MEDICAID, SELFPAY ==
[2024-03-10 07:41] LABS: MANUAL DIFF FLAG NO
[2024-03-10 07:56] LABS: Basophils Percent Auto 0.4 % (0-2); Eosinophils Absolute Auto 0.3 X10*3/uL (0.0-0.4); Eosinophils Percent Auto 3.2 % (0-4); Hemoglobin 14.7 g/dl (14.0-18.0); Imm Gran Abs Auto 0.04 X10*3/uL (0.00-0.03); Imm Gran Pct Auto 0.4 % (0.0-0.4); Lymphocytes Absolute Auto 3.2 X10*3/uL (1.2-4.9); Lymphocytes Percent Auto 34.7 % (20-40); Mean Corpuscular HGB Conc 32.7 g/dl (31.0-36.0); Mean Corpuscular Hemoglobin 27.1 pg (27.0-33.0); Mean Platelet Volume 8.6 fL (9.4-12.4); Monocytes Absolute Auto 0.6 X10*3/uL (0.1-1.2); Monocytes Percent Auto 6.4 % (2-11); Neutrophils Percent Auto 54.9 % (45-73); Platelet Count 302 X10*3/uL (160-400); Red Blood Count 5.42 X10*6/uL (4.60-5.80); Red Cell Distribution Width 12.6 % (11.0-16.0); White Blood Count 9.2 X10*3/uL (4.8-10.8)
[2024-03-10 08:16] LABS: Estimated Average Glucose 120 mg/dL; Hemoglobin A1c % 5.8 % (<6.0)
[2024-03-10 08:38] LABS: Anion Gap 12 (12-20); Blood Urea Nitrogen 12 mg/dL (9-16); Calcium 9.8 mg/dL (8.4-10.2); Carbon Dioxide 25 mmol/L (22-29); Chloride 105 mmol/L (96-108); Cholesterol 98 mg/dL (<200); Estimated Glomerular Filt Rate > 60; Glucose Random 101 mg/dL (60-115); HDL Cholesterol 37 mg/dL (>40); LDL Cholesterol Calculated 45 mg/dL (<100); Potassium 4.4 mmol/L (3.3-5.1); Sodium 138 mmol/L (135-145); Triglycerides 80 mg/dL (<150)
[2024-03-11 08:24] LABS: Prolactin 7.1 ng/mL (2.0-18.0)
== END 2024-03-10 07:23 | disposition home or self-care (01) ==
LOC: HO.LAB 07:22
PROVIDERS: Absent Provider Registered Nurse Psychiatric/Mental Health; PCP Internal Medicine; Visit Provider Internal Medicine
DX: Z79.899 Other long term (current) drug therapy (principal)
CPT/HCPCS: 36415; 80048; 80061; 83036; 84146; 85025

== ENCOUNTER 2024-03-13 09:35 | Outpatient (AMB) | payer MEDICARE, MEDICAID, SELFPAY ==
[2024-03-13 09:37] VITALS: BP 112/80; BMI 45.8
--- NOTE | 2024-03-13 09:37 | MHC.PC.OV ---
Vital Signs 03/13/24 09:37 Height 5 ft 6 in Weight 284 lb BMI 45.8 BP 112/80 Blood Pressure Location Lt brachial Position Sitting Intake Visit Reasons: dm Intake Note: Patient here for a follow up DM Network Systems Analyst Required: No Accompanied by: Mother Allergies insulin degludec [From Tresiba FlexTouch U-100] Adverse Reaction (Intermediate, Verified 03/13/24 09:54) low blood glucose dulaglutide [From Trulicity] Adverse Reaction (Unknown, Verified 03/13/24 09:54) no positive effect topamax Adverse Reaction (Unknown, Uncoded 03/13/24 09:54) Unknown Medication List - Last Reconciled 03/13/24 by Angelina Rowan MD albuterol sulfate 90 mcg/actuation (Ventolin HFA) 1 puff inhalation Q4H PRN aripiprazole (Abilify) 20 mg PO DAILY atorvastatin 80 mg PO BEDTIME 90 days benztropine 1 tab PO BID bupropion HCl XL 150 mg PO QAM 90 days cholecalciferol (vitamin D3) 50 mcg PO DAILY 90 days clonidine HCl 0.1 mg PO Q8H clonidine HCl 0.3 mg PO BEDTIME haloperidol 5 mg PO BID lisinopril 10 mg PO DAILY 90 days lorazepam 0.5 mg PO TID metformin ER 1,000 mg (2 x 500 mg) PO BID 90 days semaglutide 1 mg (0.75 mL) subcut QWEEK 90 days trazodone 200 mg PO BEDTIME PRN Tobacco use date assessed: 03/13/24 Dental Screening Dental Screen Date: 03/13/24 Did you have a dental visit in the last 12 months?: Yes Did you have a dental problem in the last 6 months where you did not have access to dental care?: No Was dental information given to patient?: Patient has dentist HPI HPI Comments History of Present Illness Details This is a 28-year-old male with autism, developmental disability, diabetes mellitus type 2, essential hypertension, hyperlipidemia, mild major depression, morbid obesity and schizoaffective disorder that comes today accompanied by mother for follow-up on his conditions. A1c within goal and he was on Ozempic before in which insurance does not want to pay for it anymore. It used to control his weight and appetite but not anymore. Blood pressure stable. LDL within goal. Mild major depression and schizoaffective disorder is follow by Psychiatry and has been stable with medications. He is morbidly obese with a BMI of 45.8 and due to his mental disabilities not able to follow simple instructions he is not a good candidate for weight loss surgery. [facility] Medical History (Updated 03/13/24 @ 12:11 by Angelina Rowan MD) Developmental disability Autism Obesity due to excess calories Diabetes mellitus type 2, controlled, without complications Type 2 diabetes mellitus with hyperglycemia, with long-term current use of insulin Hyperlipidemia LDL goal <100 Type 2 diabetes mellitus with hypoglycemia without coma Surgical History No history of previous surgery Family History Father Hypertension Type 2 diabetes mellitus Social History Household Members: Family Housing: House Do you presently have visiting nurse or other home services: No Alcohol intake: never Patient Tobacco Use Status: Never used Tobacco e-Cigarette/Vaping Use: Never Used Second Hand Smoke Exposure: No Substance Use Type: Amphetamines Advance Directives Date on File: 04/22/22 service: No Current occupational status: disabled Sexual orientation: Did not discuss Cognitive needs: No Hearing needs: No Vision needs: No Questionnaire PHQ-9 Over the last 2 weeks, how often have you been bothered by any of the following problems? 1. Little interest or pleasure in doing things: not at all 2. Feeling down, depressed, or hopeless: several days 3. Trouble falling or staying asleep, or sleeping too much: more than half the days 4. Feeling tired or having little energy: not at all 5. Poor appetite or overeating: nearly every day 6. Feeling bad about yourself - or that you are a failure or have let yourself or your family down: not at all 7. Trouble concentrating on things, such as reading the newspaper or watching television: not at all 8. Moving or speaking so slowly that other people could have noticed. Or the opposite - being so fidgety or restless that you have been moving around a lot more than usual: not at all 9. Thoughts that you would be better off or of hurting yourself in some way: not at all Total score: 6 Depression Screening Interpretation: Positive Depression Screening Follow-up: Existing condition, In treatment, Community Mental Health Worker F/U and Follow-up Visit Requested Depression Screening Done: Yes 99284 - PHQ-9 Billing: Yes Source: Developed by Drs. Javier Sims, Maranda Cain, Franklin Mendoza and colleagues, with an educational yue from [employer]. Thrive Questionnaire Date Thrive assessed: 03/13/24 I am a: Parent/Caregiver What is your living situation today?: I have a steady place to live Within the past 12 months, did the food you bought not last and you didn't have the money to get more?: Never true Within the past 12 months, did you worry whether your food would run out before you got money to buy more?: Never true Do you have trouble paying for medicines?: No Do you have trouble getting transportation to medical appointments?: No Do you have trouble paying your heating and electricity bill?: No Do you have trouble taking care of your child, family member or friend?: No Do you have trouble with day-to-day activities such as bathing, preparing meals, shopping, managing finances, etc.?: No Are you currently unemployed and looking for a job?: No Are you interested in more education?: No Please select the resources that you would like help with: None Currently or been in a relationship where the following occur: no concerns reported THRIVE Score: 0 AUDIT C Alcohol Use Questionnaire (AUDIT-C) 1. How often do you have a drink containing alcohol?: Never Total Score: 0 Score Reviewed/Action Taken: No CHRISTA-7 AMB Questionnaire CHRISTA-7 Date CHRISTA - 7 assessed: 03/13/24 Feeling nervous, anxious, or on edge: 0 = Not at all Not being able to stop or control worryin = Not at all Worrying too much about different things: 0 = Not at all Trouble relaxin = Not at all Being so restless that it is hard to sit still: 0 = Not at all Becoming easily annoyed or irritable: 0 = Not at all Feeling afraid as if something awful might happen: 0 = Not at all Total CHRISTA-7 score (0-4 normal; 5-9 mild; 10-14 moderate; 15-21 severe): 0 Source: Developed by Drs. Javier Sims, Maranda Cain, Franklin Mendoza and colleagues, with an educational yue from [employer]. CHRISTA-7 Assessment Billing CHRISTA-7 Assessment Tool: CHRISTA-7 Assessment 43284 Review of Systems Const All systems reviewed & are unremarkable except as noted in HPI and below Card Denies chest pain at rest, Denies chest pain with activity, Denies edema, Denies irregular heart rhythm, Denies claudication, Denies dyspnea, Denies dyspnea on exertion, Denies orthopnea, Denies paroxysmal nocturnal dyspnea and Denies slow heart rate Resp Denies cough, Denies dyspnea and Denies dyspnea on exertion Physical exam (Primary Care) Vital Signs: Last Vital Signs BP 112/80 03/13/24 09:37 BMI result Body Mass Index 45.8 BMI Assessment/Plan discussion: High BMI High, discussed plan: lifestyle, weight reduction, dietary and physical activity Tobacco/Smoking Status: Tobacco use Status Tobacco use date assessed 03/13/24 03/13/24 09:48 Patient Tobacco Use Status Never used Tobacco 03/13/24 09:40 e-Cigarette/Vaping Use Never Used 03/13/24 09:40 PHQ-9: PHQ-9 Score PHQ-9: Total score 6 03/13/24 09:57 Depression Screening Interpretation: Positive Depression Screening Follow-up: Existing condition, In treatment, Community Mental Health Worker F/U and Follow-up Visit Requested Thrive Assessment: Date of Thrive Assessment Date Thrive assessed 03/13/24 03/13/24 09:48 Currently or been in a relationship where the following occur: no concerns reported Resp Effort & Inspection: normal respiratory effort Auscultation: clear to auscultation bilaterally Cardio Jugular venous distension: no JVD Rate: regular rate Rhythm: regular rhythm Heart sounds: S1 normal heart sound present and S2 normal heart sound present Extrem General: Yes full ROM Assessment and Plan Assessment & Plan (1) Diabetes mellitus: Code(s): E11.9 - Type 2 diabetes mellitus without complications Qualifiers: Diabetes mellitus complication status: without complication Diabetes mellitus long distance operator insulin use: without long distance operator use Diabetes mellitus type: type 2 Qualified Code(s): E11.9 - Type 2 diabetes mellitus without complications Plan: Continue metformin. Restart Ozempic. A1c goal is equal or less than 7%. (2) Hyperlipidemia LDL goal <70: Code(s): E78.5 - Hyperlipidemia, unspecified Plan: Continue statins. LDL goal is less than 70. (3) Schizoaffective disorder: Code(s): F25.9 - Schizoaffective disorder, unspecified Qualifiers: Schizoaffective disorder type: unspecified Qualified Code(s): F25.9 - Schizoaffective disorder, unspecified Plan: Continue haloperidol. Follow-up with psychiatry. (4) Mild major depression: Code(s): F32.0 - Major depressive disorder, single episode, mild Plan: Continue Abilify and bupropion. Follow-up with psychiatry. (5) Morbid obesity with BMI of 45.0-49.9, adult: Code(s): E66.01 - Morbid (severe) obesity due to excess calories; Z68.42 - Body mass index [BMI] 45.0-49.9, adult Plan: Start diet and exercise. BMI goal is less than 30. (6) Essential hypertension: Code(s): I10 - Essential (primary) hypertension Plan: Continue lisinopril. Blood pressure goal is equal or less than 130/80. Orders: Orders Vitamin D 25-OH Total 4 Months E55.9 - Vitamin D deficiency, unspecified Lipid Panel 4 Months E78.5 - Hyperlipidemia, unspecified Microalbumin, Random (w Creat) 4 Months E11.9 - Type 2 diabetes mellitus without complications Comprehensive [place]. Panel Fast 4 Months E11.9 - Type 2 diabetes mellitus without complications Medications: New semaglutide (Ozempic) for 4 weeks 0.25 mg (0.368 mL) subcut QWEEK 4 weeks 1.472 mL 0RF E11.9 - Type 2 diabetes mellitus without complications Discontinued semaglutide Discontinued Reason: Insurance Denied 1 mg (0.75 mL) subcut QWEEK 90 days 9.75 mL 2RF E11.9 - Type 2 diabetes mellitus without complications Coding Level of Care Code Est Pt Level 4 (11540) Complex EM visit Add On G2211 Diagnoses Type 2 diabetes mellitus without complication, without long-term current use of insulin E11.9 Diabetes mellitus complication status: without complication Diabetes mellitus retirement insulin use: without long distance operator use Diabetes mellitus type: type 2 Hyperlipidemia LDL goal <70 E78.5 Schizoaffective disorder, unspecified type F25.9 Schizoaffective disorder type: unspecified Mild major depression F32.0 Morbid obesity with BMI of 45.0-49.9, adult E66.01; Z68.42 Essential hypertension I10 Additional Codes CHRISTA-7 Assessment Billing - CHRISTA-7 Assessment Tool: CHRISTA-7 Assessment 23132 ([id number]) Time Spent (min) 25
== END 2024-03-13 10:10 | disposition home or self-care (01) ==
PROVIDERS: PCP Internal Medicine; Visit Provider Internal Medicine
DX: E11.69 Type 2 diabetes mellitus with other specified complication (principal); F25.9 Schizoaffective disorder, unspecified; F32.0 Major depressive disorder, single episode, mild; E66.01 Morbid (severe) obesity due to excess calories; Z68.42 Body mass index [BMI] 45.0-49.9, adult; E78.5 Hyperlipidemia, unspecified; I10 Essential (primary) hypertension
CPT/HCPCS: 99214; G2211

== ENCOUNTER 2024-07-09 17:51 | Emergency (ER) | payer MEDICARE, MEDICAID, SELFPAY ==
--- NOTE | ~2024-07-09 | CT_ITS ---
EXAMINATION: CT ABDOMEN AND PELVIS WITH CONTRAST CLINICAL INFORMATION: Left lower quadrant abdominal pain COMPARISON: Renal ultrasound 04/13/2022, CT chest 04/12/2022 TECHNIQUE: Multidetector volumetric images were obtained from the superior aspect of the liver through the pubic symphysis following administration 100 mL of Omnipaque 350 intravenous contrast. Sagittal and coronal reformatted images were obtained on the technologist's workstation. Oral contrast: No This CT examination was performed using dose optimization techniques as appropriate, variously including the following: *Automated exposure control *Adjustment of mA and/or kV according to patient size (this includes techniques or standardized protocols for targeted exams where dose is matched to indication/reason for exam; i.e. extremities or head) *Use of iterative reconstruction technique DLP: 1410 mGy-cm FINDINGS: LUNG BASES: The visualized lung bases are unremarkable. LIVER, GALLBLADDER, AND BILIARY TREE: The liver is normal in size, shape, and attenuation. No focal hepatic lesion or biliary ductal dilatation is present. The gallbladder is completely contracted with no evidence of radiopaque gallstones or obvious pericholecystic inflammatory changes. PANCREAS: Unremarkable. SPLEEN: Unremarkable. ADRENAL GLANDS: Unremarkable. KIDNEYS AND URETERS: The right kidney is small and atrophic with scarring and mildly prominent pelvicalyceal system. At the time of the prior ultrasound the kidney was said to be normal but I do not think that this is the case. I do not think the kidney was measured correctly and the length of the kidney is more on the order of 8 cm rather than 11.9 cm as stated in the report. The left kidney appears unremarkable aside from the presence of a 3 mm calculus at the lower pole as well as the upper pole (6:71 and 86) BLADDER: Unremarkable. GASTROINTESTINAL TRACT: The small and large bowel are unremarkable. The appendix is unremarkable. ABDOMINAL WALL: No significant hernia is appreciated. LYMPH NODES: Normal. VASCULAR: Unremarkable. PELVIC VISCERA: The prostate and seminal vesicles are unremarkable. OSSEOUS STRUCTURES: Unremarkable. CT/CT abdomen pelvis w IV con IMPRESSION: 1. A cause for the patient's left lower quadrant pain has not been found. 2. Incidental note made of a small atrophic right with scarring and mildly prominent pelvicalyceal system. 3. Nonobstructing left renal calculi. Fleischner guidelines were followed. Electronically signed by: Angelo Goncalves MD 07/09/2024 09:47 PM EDT RP
[2024-07-09 18:10] VITALS: BP 103/63; BP 150/80; PULSE 70; PULSE 80; RESP 18; TEMP 37.1; O2SAT 97; O2SAT 99; BMI 51.1
--- NOTE | 2024-07-09 18:36 | ED_ITS ---
HPI - General Adult General Chief complaint: Abdominal Pain Stated complaint: ABD PAIN, BGL 331 Time Seen by Provider: 07/09/24 17:56 History of Present Illness ED Provider: Dr. Healy HPI narrative: 28 y/o M patient; PMH T2DM, autism, bipolar disorder, schizoaffective disorder; presents from home with report of diffuse abdominal pain since 1600 today. No associated nausea/vomiting/diarrhea, fever or chills. No known sick contacts. No prior abdominal surgeries. Related Data Home Medications ?Medication ?Instructions ?Recorded ?Confirmed benztropine 0.5 mg tablet 1 tab PO BID 06/25/22 03/13/24 trazodone 100 mg tablet 200 mg PO BEDTIME PRN Insomnia 06/25/22 03/13/24 clonidine HCl 0.1 mg tablet 0.1 mg PO Q8H 09/30/22 03/13/24 clonidine HCl 0.3 mg tablet 0.3 mg PO BEDTIME 01/31/23 03/13/24 Previous Rx's ?Medication ?Instructions ?Recorded aripiprazole 20 mg tablet (Abilify) 20 mg PO DAILY #30 tabs 04/21/22 lorazepam 0.5 mg tablet 0.5 mg PO TID #90 tabs 04/21/22 haloperidol 5 mg tablet 5 mg PO BID #60 tabs 09/09/22 albuterol sulfate 90 mcg/actuation 1 puff inhalation Q4H PRN Wheezing 10/06/23 aerosol inhaler (Ventolin HFA) #6.7 grams cholecalciferol (vitamin D3) 50 50 mcg PO DAILY 90 days #90 caps 11/04/23 mcg (2,000 unit) capsule metformin 500 mg tablet,extended 1,000 mg (2 x 500 mg) PO BID 90 03/05/24 release 24 hr days #360 tabs bupropion HCl 150 mg 24 hr tablet, 150 mg PO QAM 90 days #90 tabs 03/29/24 extended release lisinopril 10 mg tablet 10 mg PO DAILY 90 days #90 tabs 04/25/24 atorvastatin 80 mg tablet 80 mg PO BEDTIME 90 days #90 tabs 07/06/24 semaglutide 0.25 mg or 0.5 mg (2 0.5 mg (0.736 mL) subcut QWEEK 4 07/08/24 mg/3 mL) subcutaneous pen injector weeks #2.944 mL (Ozempic) Allergies Allergy/AdvReac Type Severity Reaction Status Date / Time insulin degludec AdvReac Intermediate low blood Verified 07/09/24 18:12 [From Tresiba FlexTouch glucose U-100] dulaglutide [From Trulicity] AdvReac Unknown no Verified 07/09/24 18:12 positive effect topamax AdvReac Unknown Unknown Uncoded 03/13/24 09:54 Review of Systems 2 Review of Systems: Yes all other systems are reviewed and are negative [facility] Past Medical History Attestation statement: The following information was validated with the patient. Source: old records reviewed Medical History Developmental disability Autism Obesity due to excess calories Diabetes mellitus type 2, controlled, without complications Type 2 diabetes mellitus with hyperglycemia, with long-term current use of insulin Hyperlipidemia LDL goal <100 Type 2 diabetes mellitus with hypoglycemia without coma Surgical History No history of previous surgery Family History Family History Father Hypertension Type 2 diabetes mellitus Social History Social History Household Members: Family Housing: House Do you presently have visiting nurse or other home services: No Alcohol intake: never Patient Tobacco Use Status: Never used Tobacco e-Cigarette/Vaping Use: Never Used Second Hand Smoke Exposure: No Substance Use Type: Amphetamines Advance Directives: Yes Advance Directives on File: Yes Advance Directives Date on File: 04/22/22 service: No Current occupational status: disabled Sexual orientation: Did not discuss Cognitive needs: No Hearing needs: No Vision needs: No Physical Exam ED Vital Signs: Vital Signs - 24 hr 07/09/24 18:10 07/09/24 20:00 Temperature 98.8 F Pulse Rate 70 63 Respiratory Rate 18 17 Blood Pressure 103/63 109/81 Pulse Oximetry 97 96 Oxygen Delivery Method Room Air Room Air BMI result Body Mass Index 51.1 Patient is afebrile and hemodynamically stable. Const General: cooperative and no acute distress HENNV Head: Yes normal to inspection and Yes atraumatic Eyes General: appearance normal, both eyes and all related structures Pupils: Equal, round and reactive pupils present EOM: EOMs intact bilaterally Neck Neck: Yes normal visual inspection, Yes full ROM, Yes supple and No tender Chest Chest palpation & inspection: normal inspection of the chest and normal palpation of entire chest wall Resp Effort & Inspection: normal respiratory effort, able to speak in complete sentences, no cough and no respiratory distress Auscultation: clear to auscultation bilaterally Cardio Rate: regular rate Rhythm: regular rhythm Peripheral pulses: Peripheral pulses 2+ throughout GI Inspection: Yes normal to inspection, No Abdominal wall edema and No distended Palpation (GI): Soft to palpation, not firm, Tenderness to palpation present (GI) (LLQ abdominal tenderness), no guarding and not rigid Auscultation: normal bowel sounds Back/Spine/Pelvis Back: No back tenderness Neuro Cranial nerves: Yes Equal, round and reactive pupils present Course Course Course Narrative: Patient is afebrile and hemodynamically stable. Will obtain abdominal labs and CT Abdomen/Pelvis. Labs reviewed. No leukocytosis. Unremarkable CMP, lipase. Pending CT Abdomen/Pelvis. Plan: Transition care pending CT results Condition: Stable Medications Administered Discontinued Medications Generic Name Dose Route Start Last Admin Trade Name Freq PRN Reason Stop Dose Admin Iohexol 100 ml 07/09/24 20:13 07/09/24 20:13 Iohexol 350 Mg/Ml 100 Ml Infus..Btl IV 07/09/24 20:14 100 ml ONCE ONE Administration Medical Decision Making Lab Data 07/09/24 19:19 07/09/24 19:19 Labs: Lab Results 07/09/24 07/09/24 Range/Units 19:19 19:20 WBC 10.4 (4.8-10.8) X10*3/uL RBC 5.24 (4.60-5.80) X10*6/uL Hgb 14.4 (14.0-18.0) g/dl Hct 43.4 (42.0-52.0) % MCV 82.8 (80.0-98.0) fL MCH 27.5 (27.0-33.0) pg MCHC 33.2 (31.0-36.0) g/dl RDW 12.5 (11.0-16.0) % Plt Count 321 (160-400) X10*3/uL MPV 8.6 L (9.4-12.4) fL Immature Gran % (Auto) 0.8 H (0.0-0.4) % Neut % (Auto) 51.0 (45-73) % Lymph % (Auto) 33.6 (20-40) % Gaston % (Auto) 8.9 (2-11) % Eos % (Auto) 5.1 H (0-4) % Baso % (Auto) 0.6 (0-2) % Lymph # (Auto) 3.5 (1.2-4.9) X10*3/uL Gaston # (Auto) 0.9 (0.1-1.2) X10*3/uL Eos # (Auto) 0.5 H (0.0-0.4) X10*3/uL Baso # (Auto) 0.1 (0.0-0.2) X10*3/uL Abs Immat Gran (auto) 0.08 H (0.00-0.03) X10*3/uL Absolute Neuts (auto) 5.3 (2.0-8.3) x10*3/uL Absolute Nucleated RBC 0.000 (0.0-0.012) X10*3/uL Nucleated RBC % (auto) 0.0 (0.0-0.2) /100WBC Sodium 140 (135-145) mmol/L Potassium 4.3 (3.3-5.1) mmol/L Chloride 104 (96-108) mmol/L Carbon Dioxide 29 (22-29) mmol/L Anion Gap 11 L (12-20) BUN 10 (9-16) mg/dL Creatinine 1.00 (0.5-1.4) mg/dL Estim Creat Clear Calc 134.4 Estimated GFR > 60 Random Glucose 98 (60-115) mg/dL Calcium 9.6 (8.4-10.2) mg/dL Total Bilirubin 0.7 (0.0-1.0) mg/dL Direct Bilirubin 0.3 (0.0-0.5) mg/dL AST 23 (5-37) U/L ALT 34 (0-40) U/L Alkaline Phosphatase 123 H (39-117) U/L Total Protein 7.2 (6.5-8.0) g/dL Albumin 4.1 (3.5-5.0) g/dL Lipase 17 (8-78) U/L Urine Color Yellow Urine Appearance Clear Urine pH 7.5 (5.0-9.0) Ur Specific Redig 1.010 (1.005-1.025) Urine Protein Negative (Neg-Trace) mg/dL Urine Glucose (UA) Negative (Negative) mg/dL Urine Ketones Negative (Negative) mg/dL Urine Blood Negative (Negative) Urine Nitrite Negative (Negative) Ur Leukocyte Esterase Negative (Negative) Urine RBC 0-2 (0-2) /HPF Urine WBC 0-5 (0-5) /HPF Ur Squamous Epith Cells 0-2 (0-2) /HPF Urine Bacteria None Seen (None Seen) Hyaline Casts 0-2 (0-2) /LPF Discharge Plan Discharge Clinical Impression: Abdominal pain Patient Disposition: Still a Patient Prescriptions: No Action albuterol sulfate [Ventolin HFA] 90 mcg/actuation HFA aerosol inhaler 1 puff inhalation Q4H PRN (Reason: Wheezing) Qty: 6.7 3RF cholecalciferol (vitamin D3) 50 mcg (2,000 unit) capsule 50 mcg PO DAILY 90 Days Qty: 90 1RF metformin 500 mg tablet extended release 24 hr 1,000 mg PO BID 90 Days Qty: 360 1RF bupropion HCl 150 mg tablet extended release 24 hr 150 mg PO QAM 90 Days Qty: 90 1RF lisinopril 10 mg tablet 10 mg PO DAILY 90 Days Qty: 90 1RF atorvastatin 80 mg tablet 80 mg PO BEDTIME 90 Days Qty: 90 0RF Ozempic 0.25 mg or 0.5 mg (2 mg/3 mL) pen injector 0.5 mg subcut QWEEK 28 Days Qty: 2.944 0RF trazodone 100 mg tablet 200 mg PO BEDTIME PRN (Reason: Insomnia) benztropine 0.5 mg tablet 1 tab PO BID lorazepam 0.5 mg Tablet 0.5 mg PO TID Qty: 90 0RF aripiprazole [Abilify] 20 mg Tablet 20 mg PO DAILY Qty: 30 0RF haloperidol 5 mg Tablet 5 mg PO BID Qty: 60 0RF clonidine HCl 0.1 mg tablet 0.1 mg PO Q8H Rx Instructions: Take 1 tab at 9am and 3pm and at bedtime clonidine HCl 0.3 mg tablet 0.3 mg PO BEDTIME Print Language: Romansh
[2024-07-09 19:25] LABS: MANUAL DIFF FLAG NO
--- NOTE | 2024-07-09 19:40 | PC.NURSE ---
this rn assumed care of pt. pt is a&o x4, respirations even and unlabored. 20g placed in r ac, labs obtains. pt ambulated to bathroom with steady gait, urine sample obtained and sent.
[2024-07-09 19:43] LABS: Appearance Urine Clear; Color Urine Yellow; Glucose Urine UA Negative (Negative); Leukocyte Esterase Urine Negative (Negative); Nitrite Urine Negative (Negative); PH 7.5 (5.0-9.0); Urine Blood Negative (Negative); Urine Ketones Negative (Negative); Urine Protein Negative (Neg-Trace)
[2024-07-09 19:45] LABS: Alanine Aminotransferase 34 U/L (0-40); Albumin Level 4.1 g/dL (3.5-5.0); Alkaline Phosphatase 123 U/L (39-117); Anion Gap 11 (12-20); Aspartate Amino Transferase 23 U/L (5-37); Basophils Absolute Auto 0.1 X10*3/uL (0.0-0.2); Basophils Percent Auto 0.6 % (0-2); Bilirubin Direct 0.3 mg/dL (0.0-0.5); Bilirubin Total 0.7 mg/dL (0.0-1.0); Blood Urea Nitrogen 10 mg/dL (9-16); Calcium 9.6 mg/dL (8.4-10.2); Carbon Dioxide 29 mmol/L (22-29); Chloride 104 mmol/L (96-108); Creatinine Clr Calc Pharmacy 134.4; Eosinophils Absolute Auto 0.5 X10*3/uL (0.0-0.4); Eosinophils Percent Auto 5.1 % (0-4); Estimated Glomerular Filt Rate > 60; Glucose Random 98 mg/dL (60-115); Hematocrit 43.4 % (42.0-52.0); Hemoglobin 14.4 g/dl (14.0-18.0); Imm Gran Abs Auto 0.08 X10*3/uL (0.00-0.03); Imm Gran Pct Auto 0.8 % (0.0-0.4); Lipase 17 U/L (8-78); Lymphocytes Absolute Auto 3.5 X10*3/uL (1.2-4.9); Lymphocytes Percent Auto 33.6 % (20-40); Mean Corpuscular HGB Conc 33.2 g/dl (31.0-36.0); Mean Corpuscular Hemoglobin 27.5 pg (27.0-33.0); Mean Corpuscular Volume 82.8 fL (80.0-98.0); Mean Platelet Volume 8.6 fL (9.4-12.4); Monocytes Absolute Auto 0.9 X10*3/uL (0.1-1.2); Monocytes Percent Auto 8.9 % (2-11); Neutrophils Absolute Auto 5.3 x10*3/uL (2.0-8.3); Platelet Count 321 X10*3/uL (160-400); Potassium 4.3 mmol/L (3.3-5.1); Red Blood Count 5.24 X10*6/uL (4.60-5.80); Red Cell Distribution Width 12.5 % (11.0-16.0); Sodium 140 mmol/L (135-145); Total Protein 7.2 g/dL (6.5-8.0); White Blood Count 10.4 X10*3/uL (4.8-10.8)
[2024-07-09 19:47] LABS: Bacteria Urine None Seen (None Seen); Hyaline Casts Urine 0-2 /LPF (0-2); RBC Urine 0-2 /HPF (0-2); Squamous Epithelial Cell Urine 0-2 /HPF (0-2); WBC Urine 0-5 /HPF (0-5)
[2024-07-09 20:00] VITALS: BP 109/81; PULSE 63; RESP 17; O2SAT 96
[2024-07-09] MEDS: iohexoL 350 MG/ML 100 ML INFUS..BTL IV (20:13)
[2024-07-09 22:43] VITALS: BP 109/81; PULSE 63; RESP 17; TEMP 37.1; O2SAT 96
== END 2024-07-09 22:43 | disposition home or self-care (01) ==
PROVIDERS: Emergency Provider Emergency Medicine
DX: R10.32 Left lower quadrant pain (principal); E11.9 Type 2 diabetes mellitus without complications; E78.5 Hyperlipidemia, unspecified; Z79.84 Long term (current) use of oral hypoglycemic drugs; Z79.02 Long term (current) use of antithrombotics/antiplatelets; Z79.899 Other long term (current) drug therapy
CPT/HCPCS: 36415; 74177; 80048; 80076; 81001; 83690; 85025; 99284; Q9967

== ENCOUNTER 2024-09-15 07:02 | Outpatient (REF) | payer MEDICARE, MEDICAID, SELFPAY ==
[2024-09-15 07:46] LABS: Albumin Level 3.8 g/dL (3.5-5.0); Alkaline Phosphatase 142 U/L (39-117); Anion Gap 14 (12-20); Aspartate Amino Transferase 40 U/L (5-37); Bilirubin Total 1.1 mg/dL (0.0-1.0); Blood Urea Nitrogen 11 mg/dL (9-16); Calcium 9.2 mg/dL (8.4-10.2); Carbon Dioxide 22 mmol/L (22-29); Chloride 105 mmol/L (96-108); Cholesterol 102 mg/dL (<200); Estimated Glomerular Filt Rate > 60; Glucose Fasting 111 mg/dL (60-99); HDL Cholesterol 33 mg/dL (>40); LDL Cholesterol Calculated 54 mg/dL (<100); Potassium 5.2 mmol/L (3.3-5.1); Sodium 136 mmol/L (135-145); Total Protein 7.4 g/dL (6.5-8.0); Triglycerides 78 mg/dL (<150)
[2024-09-15 08:13] LABS: Alanine Aminotransferase 30 U/L (0-40); Vitamin D 25-OH Total 37.3 ng/mL (>30)
== END 2024-09-15 07:03 | disposition home or self-care (01) ==
LOC: HO.LAB 07:02
PROVIDERS: PCP Internal Medicine; Visit Provider Internal Medicine
DX: E78.5 Hyperlipidemia, unspecified (principal); E11.9 Type 2 diabetes mellitus without complications; E55.9 Vitamin D deficiency, unspecified
CPT/HCPCS: 36415; 80053; 80061; 82306

== ENCOUNTER 2024-09-18 10:27 | Outpatient (AMB) | payer MEDICARE, MEDICAID, SELFPAY ==
--- NOTE | 2024-09-18 10:33 | A.OFFPC_ITS ---
Vital Signs 09/18/24 10:34 Height 5 ft 3 in Weight 274 lb BMI 48.5 BP 108/72 Blood Pressure Location Lt brachial Position Sitting Intake Visit Reasons: Annual Exam Intake Note: Patient here for an annual physical exam Manager Rfid Required: No Accompanied by: Mother Allergies insulin degludec [From Tresiba FlexTouch U-100] Adverse Reaction (Intermediate, Verified 09/18/24 11:05) low blood glucose dulaglutide [From Trulicity] Adverse Reaction (Unknown, Verified 09/18/24 11:05) no positive effect topamax Adverse Reaction (Unknown, Uncoded 09/18/24 11:05) Unknown Medication List - Last Reconciled 09/18/24 by Angelina Rowan MD albuterol sulfate 90 mcg/actuation (Ventolin HFA) 1 puff inhalation Q4H PRN aripiprazole (Abilify) 20 mg PO DAILY atorvastatin 80 mg PO BEDTIME 90 days benztropine 1 tab PO BID bupropion HCl XL 150 mg PO QAM 90 days cholecalciferol (vitamin D3) 50 mcg PO DAILY 90 days clonidine HCl 0.1 mg PO Q8H clonidine HCl 0.3 mg PO BEDTIME haloperidol 5 mg PO BID lisinopril 10 mg PO DAILY 90 days lorazepam 0.5 mg PO TID metformin ER 1,000 mg (2 x 500 mg) PO BID 90 days semaglutide (Ozempic) 0.5 mg (0.736 mL) subcut QWEEK 4 weeks trazodone 200 mg PO BEDTIME PRN Tobacco use date assessed: 03/13/24 Dental Screening Dental Screen Date: 03/13/24 HPI HPI Comments History of Present Illness Details The patient is a 29-year-old male presenting for his physical exam. The patient has a recorded weight reduction from 288 pounds in July with a BMI of 51.1 to 270.5 pounds with a BMI of 48.5, indicating progress in weight management through dietary interventions and possibly pharmacological support. A diagnosis of depression with anxiety is managed with Abilify, as the patient is under psychiatric care. The patient also manages hyperlipidemia with Atorvastatin. Additionally, the patient is supplemented with Vitamin D, and there is an observation of an elevated potassium level at 5.2, with plans to retest due to potential complications from blood draw techniques. Accompanied by mother. He has hypertension wiell controlled with Lisinopril and Diabetes Mellitus type 2 well controlled with Metformin And Ozempic. - Received Tdap vaccine today. - Weight management discussed: Significa nt weight loss observed, continued emphasis on dietary control advised. - Regular psychiatric follow-up for depr ession and anxiety management. - Lipid management with atorvastatin, cu rrent LDL control at 54 mg/dL. - Routine monitoring of potassium levels due to recent elevation. - Liver enzyme monitoring due to mild el evation, possibly linked to obesity. [facility] Medical History Developmental disability Autism Obesity due to excess calories Diabetes mellitus type 2, controlled, without complications Type 2 diabetes mellitus with hyperglycemia, with long-term current use of insulin Hyperlipidemia LDL goal <100 Type 2 diabetes mellitus with hypoglycemia without coma Surgical History No history of previous surgery Family History (Updated 09/18/24 @ 11:11 by Angelina Rowan MD) Father Hypertension Type 2 diabetes mellitus Mother No problems noted. Social History Household Members: Family Housing: House Do you presently have visiting nurse or other home services: No Alcohol intake: never Patient Tobacco Use Status: Never used Tobacco e-Cigarette/Vaping Use: Never Used Second Hand Smoke Exposure: No Substance Use Type: Amphetamines Advance Directives Date on File: 04/22/22 service: No Current occupational status: disabled Sexual orientation: Did not discuss Cognitive needs: No Hearing needs: No Vision needs: No Questionnaire Thrive Questionnaire Date Thrive assessed: 09/17/24 I am a: Patient What is your living situation today?: I have a steady place to live Within the past 12 months, did the food you bought not last and you didn't have the money to get more?: Never true Within the past 12 months, did you worry whether your food would run out before you got money to buy more?: Never true Do you have trouble paying for medicines?: No Do you have trouble getting transportation to medical appointments?: No Do you have trouble paying your heating and electricity bill?: No Do you have trouble taking care of your child, family member or friend?: No Do you have trouble with day-to-day activities such as bathing, preparing meals, shopping, managing finances, etc.?: Yes Are you currently unemployed and looking for a job?: No Are you interested in more education?: No Please select the resources that you would like help with: None Currently or been in a relationship where the following occur: No concerns reported THRIVE Score: 0 AUDIT C Alcohol Use Questionnaire (AUDIT-C) 1. How often do you have a drink containing alcohol?: Never Total Score: 0 Score Reviewed/Action Taken: No CHRISTA-7 AMB Questionnaire CHRISTA-7 Date CHRISTA - 7 assessed: 03/13/24 Feeling nervous, anxious, or on edge: 1 = Several days Not being able to stop or control worryin = Several days Worrying too much about different things: 1 = Several days Trouble relaxin = Several days Being so restless that it is hard to sit still: 0 = Not at all Becoming easily annoyed or irritable: 2 = More than half the days Feeling afraid as if something awful might happen: 0 = Not at all Total CHRISTA-7 score (0-4 normal; 5-9 mild; 10-14 moderate; 15-21 severe): 6 Source: Developed by Drs. Javier Sims, Maranda Cain, Franklin Mendoza and colleagues, with an educational yue from [employer]. CHRISTA-7 Assessment Billing CHRISTA-7 Assessment Tool: CHRISTA-7 Assessment 66996 Review of Systems Const Details: - General: Denies chest pain, denies shortness of breath. - Genitourinary: Reports normal urination. - Gastrointestinal: Reports regular bowel movements. - Endocrine: Denies symptoms of polyuria or polydipsia, blood sugar control seemingly adequate with existing regimen. Physical exam (Primary Care) Vital Signs: Last Vital Signs BP 108/72 09/18/24 10:34 BMI result Body Mass Index 48.5 BMI Assessment/Plan discussion: High BMI High, discussed plan: lifestyle, weight reduction, dietary and physical activity Tobacco/Smoking Status: Tobacco use Status Tobacco use date assessed 03/13/24 09/18/24 10:39 Patient Tobacco Use Status Never used Tobacco 09/18/24 10:39 e-Cigarette/Vaping Use Never Used 09/18/24 10:39 Thrive Assessment: Date of Thrive Assessment Date Thrive assessed 09/17/24 09/18/24 10:39 Currently or been in a relationship where the following occur: No concerns reported Const Other: General: Cooperative, healthy appearing, comfortable, no acute distress and well developed Orientation: Patient oriented x3 Limitations: No limitations Head: Normal to inspection Ears: Hearing grossly normal bilaterally Nose: Normal external nose present Face and sinus: Normal facial exam Eyes: Appearance normal, both eyes and all related structures Neck: Normal visual inspection and Yes full ROM Respiratory: Normal respiratory effort and able to speak in complete sentences. Clear to auscultation bilaterally Cardiovascular: Regular rate and rhythm. Normal S1 and S2 GI: Normal to inspection. Soft to palpation and nontender Skin: No rashes or lesions noted Neuro: Patient oriented x3 Extremities: Normal to inspection Office Procedures Flu Questionnaire Does the patient have a severe egg allergy?: No Does the patient have severe life threatening allergies?: No Does the patient have a fever or illness today?: No Has the patient ever had Guillain-Coffey Syndrome?: No Has the patient ever had any past reaction to a flu shot?: No Results AMB Hemoglobin A1c AMB Hemoglobin A1c 5.5 % Last Edit by IVAN Collins on 09/18/24 10:4 6 Immunizations Fluarix Triv [id number] (PF) 45 mcg (15 mcg x 3)/0.5 mL IM syringe Performing Provider: Angelina Rowan MD [facility] Administered by: IVAN Collins on 09/18/24 11:22 Dose Route Admin Location Dispensed Lot Number Expiration Date [facility] Construction Secretary 0.5 mL IM Left Deltoid 0.5 mL [id number] 04/01/25 [id number] [employer] VIS Given Date VIS Provided VIS Publication Date 09/18/24 Single Vaccine 21 Eligibility Eligibility Date Funding Source Not [facility] Eligible 09/18/24 Private Results Reviewed Results Reviewed: Laboratory Last Values Hgb A1c (Clinic) 5.5 % (4.0-6.0) 09/18/24 10:32 Coding Level of Care Code Est Pt Prev Care 18-39y(52362) Diagnoses Physical exam Z00.00 Schizoaffective disorder, unspecified type F25.9 Schizoaffective disorder type: unspecified Autism F84.0 Morbid obesity with BMI of 45.0-49.9, adult E66.01; Z68.42 Type 2 diabetes mellitus without complication, without long-term current use of insulin E11.9 Diabetes mellitus type: type 2 Diabetes mellitus terminal operations supervisor insulin use: without terminal operations supervisor use Diabetes mellitus complication status: without complication Mild major depression F32.0 Additional Codes CHRISTA-7 Assessment Billing - CHRISTA-7 Assessment Tool: CHRISTA-7 Assessment 09513 ([id number]) Time Spent (min) 31 Assessment & Plan Assessment & Plan (1) Physical exam: Code(s): Z00.00 - Encounter for general adult medical examination without abnormal findings Category: Medical (2) Schizoaffective disorder: Code(s): F25.9 - Schizoaffective disorder, unspecified Category: Medical Qualifiers: Schizoaffective disorder type: unspecified Qualified Code(s): F25.9 - Schizoaffective disorder, unspecified (3) Autism: Code(s): F84.0 - Autistic disorder Category: Medical (4) Morbid obesity with BMI of 45.0-49.9, adult: Code(s): E66.01 - Morbid (severe) obesity due to excess calories; Z68.42 - Body mass index [BMI] 45.0-49.9, adult Category: Medical (5) Diabetes mellitus: Code(s): E11.9 - Type 2 diabetes mellitus without complications Category: Medical Qualifiers: Diabetes mellitus type: type 2 Diabetes mellitus terminal operations supervisor insulin use: without longterm use Diabetes mellitus complication status: without complication Qualified Code(s): E11.9 - Type 2 diabetes mellitus without complications (6) Mild major depression: Code(s): F32.0 - Major depressive disorder, single episode, mild Category: Medical Plan - Increase Ozempic to 1 mg for further weight management. - Repeat potassium levels to rule out lab error. - Monitor liver enzymes as slight elevation might relate to current body weight and potential hepatic steatosis. - Adjust Metformin based on glucose control, considering Hemoglobin A1c is well within therapeutic range. - Continue psychiatric management for depression and anxiety, ensuring adherence to Bupropion and Abilify. - Follow-up with lipid management under the current atorvastatin regimen. Patient was informed and verbally consented to the use of an ambient scribe for clinic note documentation during this visit. I discussed the importance of ongoing weight management and potential further titration of medications to assist with obesity. We agreed on increasing Ozempic to 1 mg to optimize weight control. I explained the implications of an elevated potassium level, advising retesting due to procedural factors during blood draw. The patient's lipid profile is satisfactory under current treatment, and we will monitor components as needed. Mental health assessments and treatments are adequate; however, they warrant regular review. The recent slightly elevated liver enzyme will be observed, considering the patient's weight, as such a finding could imply hepatic steatosis. Orders: Orders Microalbumin, Random (w Creat) 6 Months R80.9 - Proteinuria, unspecified AMB Hemoglobin A1c Today E11.9 - Type 2 diabetes mellitus without complications Influenza [id number] Immunization Today Z23 - Encounter for immunization Lipid Panel 6 Months E78.5 - Hyperlipidemia, unspecified Vitamin D 25-OH Total 6 Months E55.9 - Vitamin D deficiency, unspecified Comprehensive [place]. Panel Fast 6 Months I10 - Essential (primary) hypertension Medications: New semaglutide (Ozempic) 1 mg (0.75 mL) subcut QWEEK 3 mL 0RF 4 weeks E11.9 - Type 2 diabetes mellitus without complications Changed From metformin ER 1,000 mg (2 x 500 mg) PO BID 90 days 360 tabs 1RF To metformin ER 500 mg PO BID 180 tabs 1RF 90 days Discontinued semaglutide (Ozempic) Discontinued Reason: Patient Completed Course 0.5 mg (0.736 mL) subcut QWEEK 4 weeks 2.944 mL 0RF Patient Instructions: - Increase Ozempic dose to 1 mg as instructed. - Return for potassium level retesting as scheduled. - Maintain current psychiatric medication regimen with strong adherence. - Continue observing dietary and physical activity recommendations for weight loss. - Follow up on scheduled appointments for ongoing management. - Report any new symptoms or adverse reactions from medications immediately.
[2024-09-18 10:34] VITALS: BP 108/72; BMI 48.5
== END 2024-09-18 11:23 | disposition home or self-care (01) ==
PROVIDERS: PCP Internal Medicine; Visit Provider Internal Medicine
DX: Z00.00 Encounter for general adult medical examination without abnormal findings (principal); F25.9 Schizoaffective disorder, unspecified; E66.01 Morbid (severe) obesity due to excess calories; Z68.42 Body mass index [BMI] 45.0-49.9, adult; E11.9 Type 2 diabetes mellitus without complications; F32.0 Major depressive disorder, single episode, mild; F84.0 Autistic disorder; Z23 Encounter for immunization

== ENCOUNTER 2024-09-18 10:27 | Outpatient (REF) | payer MEDICARE, MEDICAID, SELFPAY ==
[2024-09-18 12:21] LABS: Potassium 4.3 mmol/L (3.3-5.1)
== END 2024-09-18 10:28 | disposition home or self-care (01) ==
LOC: HO.LAB 10:27
PROVIDERS: PCP Internal Medicine; Visit Provider Internal Medicine
DX: Z00.00 Encounter for general adult medical examination without abnormal findings (principal); Z23 Encounter for immunization; F25.9 Schizoaffective disorder, unspecified; F84.0 Autistic disorder; E66.01 Morbid (severe) obesity due to excess calories; Z68.42 Body mass index [BMI] 45.0-49.9, adult; E11.9 Type 2 diabetes mellitus without complications; F32.0 Major depressive disorder, single episode, mild; E87.5 Hyperkalemia
CPT/HCPCS: 36415; 83036; 84132; 90471; 90656; 96127; 99395

== ENCOUNTER 2025-04-02 13:48 | Inpatient (IN) | payer MEDICARE, MEDICAID, SELFPAY ==
[2025-04-02 13:59] VITALS: BP 119/72; PULSE 115; O2SAT 95
[2025-04-02 14:02] VITALS: BP 103/57; PULSE 111; RESP 16; TEMP 36.4; O2SAT 97; BMI 42.0
--- NOTE | 2025-04-02 14:26 | ECG_ITS ---
Test Reason : CHECK PROLONGED QT Blood Pressure : */* mmHG Vent. Rate : 90 BPM Atrial Rate : 90 BPM P-R Int : 164 ms QRS Dur : 82 ms QT Int : 356 ms P-R-T Axes : 50 65 45 degrees QTcB Int : 435 ms Normal sinus rhythm Normal ECG When compared with ECG of 01-Sep-2022 10:56, No significant change was found Referred By: Generic ED Physician Electronically Signed By: MANUEL RASMUSSEN MD
--- NOTE | 2025-04-02 14:28 | PC.NURSE ---
patient brought into pod for changeover, cooperative with staff throughout. belongings placed into locker #2. provided with apple juice. patient does have previous history of aggressive behaviors with staff.
--- NOTE | 2025-04-02 14:42 | ED.PSYCH ---
HPI - Psych General Chief Complaint: Behavioral Concerns Stated Complaint: AGGRESSIVE BEHAVIOR,AUTISM,BPD,SCHIZOPHR Time Seen by Provider: 04/02/25 14:33 History of Present Illness ED Provider: Pineda Martinez MD HPI Narrative: [age] male brought by mother for evaluation due to increasingly aggressive behaviors wandering. He has autism and history of schizoaffective disorder. Related Data Home Medications ?Medication ?Instructions ?Recorded ?Confirmed benztropine 0.5 mg tablet 1 tab PO BID 06/25/22 04/02/25 trazodone 100 mg tablet 200 mg PO BEDTIME PRN Insomnia 06/25/22 04/02/25 clonidine HCl 0.1 mg tablet 0.1 mg PO DAILY@1500 09/30/22 04/03/25 clonidine HCl 0.3 mg tablet 0.3 mg PO BEDTIME 01/31/23 04/02/25 aripiprazole 20 mg tablet (Abilify) 20 mg PO BEDTIME 04/02/25 04/02/25 haloperidol 5 mg tablet 5 mg PO DAILY 04/02/25 04/03/25 haloperidol 5 mg tablet 5 mg PO BEDTIME 04/03/25 04/03/25 haloperidol 5 mg tablet 7.5 mg PO DAILY@1600 04/03/25 04/03/25 semaglutide 1 mg/dose (4 mg/3 mL) 1 mg subcut MO 04/03/25 04/03/25 subcutaneous pen injector (Ozempic) Previous Rx's ?Medication ?Instructions ?Recorded lorazepam 0.5 mg tablet 0.5 mg PO TID #90 tabs 04/21/22 metformin 500 mg tablet,extended 500 mg PO BID 90 days #180 tabs 09/18/24 release 24 hr bupropion HCl 150 mg 24 hr tablet, 150 mg PO QAM 90 days #90 tabs 03/24/25 extended release albuterol sulfate 90 mcg/actuation 1 puff inhalation Q4H PRN Wheezing 03/28/25 aerosol inhaler (Ventolin HFA) #6.7 grams atorvastatin 80 mg tablet 80 mg PO BEDTIME 90 days #90 tabs 04/01/25 Allergies Allergy/AdvReac Type Severity Reaction Status Date / Time insulin degludec (From AdvReac Intermediate low blood Verified 04/02/25 14:04 Tresiba FlexTouch U-100) glucose dulaglutide (From [facility]) AdvReac Unknown no Verified 04/02/25 14:04 positive effect topamax AdvReac Unknown Unknown Uncoded 09/18/24 11:05 [facility] Past Medical History Medical History Developmental disability Autism Obesity due to excess calories Diabetes mellitus type 2, controlled, without complications Type 2 diabetes mellitus with hyperglycemia, with long-term current use of insulin Hyperlipidemia LDL goal <100 Type 2 diabetes mellitus with hypoglycemia without coma Surgical History No history of previous surgery Family History Family History (Updated 09/18/24 @ 11:11 by Angelina Rowan MD) Father Hypertension Type 2 diabetes mellitus Mother No problems noted. Social History Social History Household Members: Family Housing: House Do you presently have visiting nurse or other home services: No Alcohol intake: never Patient Tobacco Use Status: Never used Tobacco e-Cigarette/Vaping Use: Never Used Second Hand Smoke Exposure: No Substance Use Type: Amphetamines Advance Directives: No Advance Directives Information Provided: No Advance Directives Date on File: 04/22/22 Nutrition Risks: No Nutritional Risk service: No Current occupational status: disabled Sexual orientation: Did not discuss Cognitive needs: No Hearing needs: No Vision needs: No Physical Exam Vital Signs: Vital Signs: Last Vital Signs Temp 97.7 F 04/03/25 09:02 Pulse 82 04/03/25 09:02 Resp 16 04/03/25 09:02 BP 114/66 04/03/25 09:02 Pulse Ox 98 04/03/25 09:02 O2 Del Method Room Air 04/03/25 09:02 BMI result Body Mass Index 42.0 Const: Other: EXAM: Gen: Alert, awake, well appearing, well hydrated. Head: Atraumatic Eyes: Anicteric, Normal conjunctiva. ENT: Moist mucosa, no pallor. ? Neck: Supple. Skin: ?No observable rash or bruising on exposed or examined skin Respiratory: Breathing comfortably, No distress.Clear to auscultation bilaterally, symmetric chest expansion, No wheeze, rales, ronchi. Cardiovascular: Regular rate and rhythm. No murmurs or rub. Well perfused periphery, warm extremities. No edema. ? Abdominal: No FOCAL TENDERNESS. Soft, no objective distension. No palpable masses or obvious organomegaly. ?No guarding, no rebound tenderness or other peritoneal findings. : No flank tenderness. Neuro: Alert. Gross movement of all extremities intact. ?CN 2-12 intact. Psych: Calm. Cooperative. MSK: No grossly visible deformity. Vital signs: See flowsheet Medications Administered Generic Name Dose Route Start Last Admin Trade Name Freq PRN Reason Stop Dose Admin Aripiprazole 20 mg 04/02/25 21:00 04/02/25 20:12 Aripiprazole 20 Mg Tablet PO 20 mg BEDTIME DAISHA Administration Atorvastatin Calcium 80 mg 04/02/25 21:00 04/02/25 20:08 Atorvastatin Calcium 80 Mg Tablet PO 80 mg BEDTIME DAISHA Administration Benztropine Mesylate 0.5 mg 04/02/25 21:00 04/03/25 08:04 Benztropine Mesylate 0.5 Mg Tablet PO 0.5 mg BID DAISHA Administration Bupropion HCl 150 mg 04/02/25 18:45 04/03/25 08:04 Bupropion Hcl Xl 150 Mg Tab.Er.24h PO 150 mg DAILY DAISHA Administration Clonidine HCl 0.1 mg 04/03/25 09:00 04/03/25 08:04 Clonidine Hcl 0.1 Mg Tablet PO 0.1 mg BID@0900,1500 DAISHA Administration Protocol Clonidine HCl 0.3 mg 04/02/25 21:00 04/02/25 20:09 Clonidine Hcl 0.1 Mg Tablet PO 0.3 mg BEDTIME DAISHA Administration Protocol Haloperidol 5 mg 04/03/25 09:00 04/03/25 08:04 Haloperidol 5 Mg Tablet PO 5 mg DAILY DAISHA Administration Lorazepam 0.5 mg 04/02/25 21:00 04/03/25 08:04 Lorazepam 0.5 Mg Tablet PO 0.5 mg TID DAISHA Administration Metformin HCl 500 mg 04/02/25 21:00 04/03/25 08:04 Metformin Hcl Er 500 Mg Tab.Er.24h PO 500 mg BID DAISHA Administration Medical Decision Making Medical Decision Making MDM Narrative: [age] male with schizoaffective disorder autism overweight. Increasingly erratic behavior at home way off baseline. No aggression. No psychosis overtly. He is cooperative with staff and myself. No complaints by the patient or the mother to suggest acute medical emergency. Lab work reassuring. Home meds ordered Consult Healthcare Provider Management of the patient was discussed with: Behavioral Health Provider Lab Data MDM Lab Attestation statement: I reviewed the patient's lab results. 04/02/25 14:48 04/02/25 14:49 Labs: Lab Results 04/02/25 04/02/25 04/02/25 Range/Units 14:48 14:49 15:10 WBC 9.2 (4.8-10.8) X10*3/uL RBC 5.25 (4.60-5.80) X10*6/uL Hgb 14.3 (14.0-18.0) g/dl Hct 42.7 (42.0-52.0) % MCV 81.3 (80.0-98.0) fL MCH 27.2 (27.0-33.0) pg MCHC 33.5 (31.0-36.0) g/dl RDW 12.4 (11.0-16.0) % Plt Count 274 (160-400) X10*3/uL MPV 8.6 L (9.4-12.4) fL Immature Gran % (Auto) 0.4 (0.0-0.4) % Neut % (Auto) 62.9 (45-73) % Lymph % (Auto) 24.5 (20-40) % [place] % (Auto) 6.8 (2-11) % Eos % (Auto) 5.0 H (0-4) % Baso % (Auto) 0.4 (0-2) % Lymph # (Auto) 2.3 (1.2-4.9) X10*3/uL [place] # (Auto) 0.6 (0.1-1.2) X10*3/uL Eos # (Auto) 0.5 H (0.0-0.4) X10*3/uL Baso # (Auto) 0.0 (0.0-0.2) X10*3/uL Abs Immat Gran (auto) 0.04 H (0.00-0.03) X10*3/uL Absolute Neuts (auto) 5.8 (2.0-8.3) x10*3/uL Absolute Nucleated RBC 0.000 (0.0-0.012) X10*3/uL Nucleated RBC % (auto) 0.0 (0.0-0.2) /100WBC Sodium 140 (135-145) mmol/L Potassium 4.0 (3.3-5.1) mmol/L Chloride 107 (96-108) mmol/L Carbon Dioxide 26 (22-29) mmol/L Anion Gap 11 L (12-20) BUN 14 (9-16) mg/dL Creatinine 1.25 (0.5-1.4) mg/dL Estim Creat Clear Calc 98.6 Estimated GFR > 60 Random Glucose 132 H (60-115) mg/dL Calcium 8.8 (8.4-10.2) mg/dL Total Bilirubin 0.6 (0.0-1.0) mg/dL AST 22 (5-37) U/L ALT 23 (0-40) U/L Alkaline Phosphatase 86 (39-117) U/L Total Protein 6.4 L (6.5-8.0) g/dL Albumin 3.9 (3.5-5.0) g/dL Urine Color Dark Yellow Urine Appearance Clear Urine pH 7.0 (5.0-9.0) Ur Specific [employer] 1.025 (1.005-1.025) Urine Protein Negative (Neg-Trace) mg/dL Urine Glucose (UA) Negative (Negative) mg/dL Urine Ketones Trace (Negative) mg/dL Urine Blood Negative (Negative) Urine Nitrite Negative (Negative) Ur Leukocyte Esterase Trace H (Negative) Urine RBC 0-2 (0-2) /HPF Urine WBC 0-5 (0-5) /HPF Ur Squamous Epith Cells 0-2 (0-2) /HPF Urine Bacteria None Seen (None Seen) Hyaline Casts 3-5 (0-2) /LPF Salicylates < 5.0 L (15-30) mg/dL Urine Opiates Screen Not Detected (Not Detect) Ur Buprenorphine Scrn Not Detected (Not Detect) ng/mL Ur Oxycodone Screen Not Detected (Not Detect) ng/mL Urine Methadone Screen Not Detected (Not Detect) ng/mL Urine Fentanyl Screen Not Detected (Not Detect) Acetaminophen < 3 (<30) mcg/mL Ur Barbiturates Screen Not Detected (Not Detect) Ur Phencyclidine Scrn Not Detected (Not Detect) Ur Amphetamines Screen Not Detected (Not Detect) U Benzodiazepines Scrn Not Detected (Not Detect) Urine Cocaine Screen Not Detected (Not Detect) U Marijuana (THC) Screen Not Detected (Not Detect) Ethyl Alcohol < 10 mg/dL Independent Historian Clinical information obtained from an independent historian. History obtained from or confirmed by: Parent Social Determinants Patient?s care significantly limited by Social Determinants of Health including: Problems related to employment and Other Social Determinant of Health Discharge Plan Discharge Patient Disposition: Admitted As Inpatient Interventions: Admission Worksheet (ED) Last Done: 04/03/25 15:17
--- NOTE | 2025-04-02 14:50 | PC.NURSE ---
pt resting in bed offering no complaints to this RN, no apparent distress noted. Pending med clearance and CARE eval
[2025-04-02 14:56] LABS: MANUAL DIFF FLAG NO
[2025-04-02 14:57] LABS: Hematocrit 42.7 % (42.0-52.0); Hemoglobin 14.3 g/dl (14.0-18.0); Imm Gran Abs Auto 0.04 X10*3/uL (0.00-0.03); Imm Gran Pct Auto 0.4 % (0.0-0.4); Lymphocytes Absolute Auto 2.3 X10*3/uL (1.2-4.9); Mean Corpuscular HGB Conc 33.5 g/dl (31.0-36.0); Mean Corpuscular Hemoglobin 27.2 pg (27.0-33.0); Mean Corpuscular Volume 81.3 fL (80.0-98.0); NRBC Abs Auto 0.000 X10*3/uL (0.0-0.012); NRBC Pct Auto 0.0 /100WBC (0.0-0.2); Platelet Count 274 X10*3/uL (160-400); Red Blood Count 5.25 X10*6/uL (4.60-5.80); White Blood Count 9.2 X10*3/uL (4.8-10.8)
[2025-04-02 15:23] LABS: Acetaminophen LAB < 3 mcg/mL (<30); Salicylate < 5.0 mg/dL (15-30)
[2025-04-02 15:23] LABS: Alanine Aminotransferase 23 U/L (0-40); Albumin Level 3.9 g/dL (3.5-5.0); Alkaline Phosphatase 86 U/L (39-117); Anion Gap 11 (12-20); Aspartate Amino Transferase 22 U/L (5-37); Blood Urea Nitrogen 14 mg/dL (9-16); Calcium 8.8 mg/dL (8.4-10.2); Carbon Dioxide 26 mmol/L (22-29); Chloride 107 mmol/L (96-108); Creatinine Clr Calc Pharmacy 98.6; Estimated Glomerular Filt Rate > 60; Potassium 4.0 mmol/L (3.3-5.1); Sodium 140 mmol/L (135-145); Total Protein 6.4 g/dL (6.5-8.0)
[2025-04-02 15:24] LABS: Appearance Urine Clear; Glucose Urine UA Negative (Negative); PH 7.0 (5.0-9.0); Specific Gravity - Urine 1.025 (1.005-1.025); UMIC TRIGGER UACC YES
[2025-04-02 15:31] LABS: Cannabinoid Screen Urine Not Detected (Not Detect)
--- OUTSIDE RECORDS SUMMARY | 2025-04-02 16:22 | XMS_ITS | Encounter Summary ---
Author Organization [facility] Address [address] [place] [id number] Phone Care Team Providers Care Taxicab Driver Name Role Phone Joshua Funez MD Primary Care Provider [phone] Encounter Details Date Type Department Care Team (Late st Contact Info) Description 10/05/2016 Documentation EM Family Medicine [address] [place] [address] Family Medicine, Physician [address] [place], [place] [id number] Social History Tobacco Use Types Packs/Day Years Used Date Smoking Tobacco: Never Assessed Sex and Gender Information Value Date Recorded Sex Assigned at Not on file Legal Sex Male 5:17 PM EDT Gender Identity Not on file Sexual Orientation Not on file documented as of this encounter Plan of Treatment Not on file documented as of this encounter Visit Diagnoses Not on filedocumented in this encounter Care Teams Taxicab Driver Relationship Specialty Start Date End Date Joshua Funez MD [address] [facility] [address] PCP - General 05/13/17 01/04/23 documented as of this encounter
[2025-04-02 16:46] VITALS: BP 118/57; PULSE 91; RESP 16; TEMP 36.7; O2SAT 97
--- NOTE | 2025-04-02 17:04 | PC.NURSE ---
RE: med rec This RN completed pts med rec with medical history and by calling mom Khushi to verify. Per Mom, pt is no longer on Lisinopril, all other claims match
[2025-04-02 20:09] VITALS: BP 112/69; PULSE 86; RESP 17; TEMP 36.9; O2SAT 97
[2025-04-03 03:14] VITALS: BP 107/69; PULSE 78; RESP 17; TEMP 36.8; O2SAT 97
--- NOTE | 2025-04-03 07:12 | PC.NURSE ---
Assumed care of patient at 0645, patient appears to be in no apparent distress this am, calm and cooperative, talking with staff. Continue plan of care forIPLOC
[2025-04-03] MEDS: buPROPion HCl XL 150 MG TAB.ER.24H PO (08:04)
[2025-04-03 09:02] VITALS: BP 114/66; PULSE 82; RESP 16; TEMP 36.5; O2SAT 98
--- NOTE | 2025-04-03 12:34 | PHA.MEDREC ---
Addendum entered by Amaya Mckeon RPh 04/03/25 13:57: MED REC REVIEWED BY [facility] Original Note: Pharmacy Consult ? Medication Reconciliation Pharmacy has completed the medication reconciliation. Spoke with pt parent at bedside this am and she was able to confirm the pt Clonidine 0.1mg tab; pt mother confirmed the pt takes the Clonidine 0.1mg tab daily @ 1500 and then Clonidine 0.3mg tabs at bedtime. Patient mother confirmed pt Haloperidol 5mg tab, taking 1 tab (5mg) in the Am, 1.5 tabs (7.5mg) @1600 and 1 tab (5mg) at bedtime. Pt mother confirmed the pt Ozempic once a week on Mondays and took it this past Tuesday. Pt mother stated the pt stopped the Lisinopril in the last month or so and is now on Ozempic due to the pt not getting good blood sugar readings and it being better since starting Ozempic.
[2025-04-03 16:03] VITALS: BP 130/90
[2025-04-03 17:57] VITALS: BMI 46.5
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
[2025-04-03] MEDS: Milk of Magnesia 30 ML ORAL.SUSP PO (18:40)
[2025-04-03 19:52] VITALS: BP 90/57; PULSE 113; RESP 16; TEMP 36.5; O2SAT 99
[2025-04-03 22:00] VITALS: BP 94/54; PULSE 83; RESP 16
[2025-04-04 07:00] VITALS: BMI 46.2
[2025-04-04 08:00] VITALS: BP 140/59; PULSE 94; TEMP 36.4; O2SAT 97
[2025-04-04] MEDS: buPROPion HCl XL 150 MG TAB.ER.24H PO (08:40)
[2025-04-04 09:19] LABS: Hemoglobin A1C 148.0737 umol/L; Total Hemoglobin (HGBA1C) 4040.2102 umol/L
[2025-04-04 09:30] LABS: Alanine Aminotransferase 23 U/L (0-40); Albumin Level 4.2 g/dL (3.5-5.0); Alkaline Phosphatase 105 U/L (39-117); Anion Gap 13 (12-20); Aspartate Amino Transferase 27 U/L (5-37); Blood Urea Nitrogen 17 mg/dL (9-16); Calcium 9.2 mg/dL (8.4-10.2); Carbon Dioxide 21 mmol/L (22-29); Chloride 107 mmol/L (96-108); Cholesterol 122 mg/dL (<200); Creatinine Clr Calc Pharmacy 118.6; Estimated Glomerular Filt Rate > 60; HDL Cholesterol 35 mg/dL (>40); Potassium 4.7 mmol/L (3.3-5.1); Sodium 136 mmol/L (135-145); Total Protein 7.4 g/dL (6.5-8.0); Triglycerides 91 mg/dL (<150)
[2025-04-04 09:36] LABS: Free T4 (Free Thyroxine) 1.00 ng/dL (0.71-1.85); Thyroid Stimulating Hormone 2.08 uIU/mL (0.32-4.0)
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
[2025-04-04 14:18] VITALS: BP 136/74
[2025-04-04 20:00] VITALS: BP 128/72; PULSE 93; RESP 16; TEMP 36.9; O2SAT 97
[2025-04-04 21:19] VITALS: BP 128/72
[2025-04-05 08:00] VITALS: BP 111/57; PULSE 99; RESP 18; TEMP 36.4; O2SAT 97
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
[2025-04-05] MEDS: buPROPion HCl XL 150 MG TAB.ER.24H PO (08:30)
[2025-04-05 10:10] LABS: Glucose, Whole Blood 137 mg/dL (60-115)
[2025-04-05 14:42] VITALS: BP 132/78; PULSE 84; RESP 20
[2025-04-05 19:56] VITALS: BP 107/59; PULSE 105; RESP 15; TEMP 36.9; O2SAT 97
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
[2025-04-06 07:56] LABS: Glucose, Whole Blood 120 mg/dL (60-115)
[2025-04-06 08:00] VITALS: BP 119/61; PULSE 97; TEMP 36.8; O2SAT 96
[2025-04-06] MEDS: buPROPion HCl XL 150 MG TAB.ER.24H PO (08:18)
[2025-04-06 16:54] LABS: Glucose, Whole Blood 101 mg/dL (60-115)
[2025-04-06 20:00] VITALS: BP 112/56; PULSE 82; TEMP 36.6; O2SAT 97
[2025-04-06 22:00] VITALS: BP 133/89
[2025-04-07 07:47] VITALS: BP 108/65; PULSE 107; RESP 16; TEMP 36.9; O2SAT 96
[2025-04-07 08:03] LABS: Glucose, Whole Blood 114 mg/dL (60-115)
[2025-04-07] MEDS: buPROPion HCl XL 150 MG TAB.ER.24H PO (08:22)
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
[2025-04-07 17:12] LABS: Glucose, Whole Blood 109 mg/dL (60-115)
[2025-04-07 20:00] VITALS: BP 125/76; PULSE 95; RESP 16; TEMP 36.4; O2SAT 98
[2025-04-07 20:49] VITALS: BP 125/76
[2025-04-08 07:49] LABS: Glucose, Whole Blood 110 mg/dL (60-115)
[2025-04-08 08:00] VITALS: BP 125/74; PULSE 83; TEMP 36.3; O2SAT 96
[2025-04-08] MEDS: buPROPion HCl XL 150 MG TAB.ER.24H PO (08:22)
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
[2025-04-08 14:36] VITALS: BP 119/72
[2025-04-08 16:58] LABS: Glucose, Whole Blood 138 mg/dL (60-115)
[2025-04-08 20:00] VITALS: BP 124/61; PULSE 96; RESP 16; TEMP 36.4; O2SAT 96
[2025-04-08 20:41] VITALS: BP 124/61
[2025-04-09 08:00] VITALS: BP 141/86; PULSE 100; TEMP 36.8; O2SAT 97
[2025-04-09 08:10] LABS: Glucose, Whole Blood 122 mg/dL (60-115)
[2025-04-09] MEDS: buPROPion HCl XL 150 MG TAB.ER.24H PO (08:25)
--- NOTE | 2025-04-09 09:49 | P.DS_ITS ---
DS: Providers Provider Date of admission: 04/03/25 14:11 Primary care physician: Unknown Physician DS: Diagnosis Discharge Diagnosis (1) Autism: Status: Acute (2) Schizoaffective disorder: Status: Acute (3) Developmental disability: Status: Acute DS: Medications Discharge Medications Home Medications: Previous Rx's ?Medication ?Instructions ?Recorded albuterol sulfate 90 mcg/actuation 1 puff inhalation Q 4H PRN Wheezing 04/09/25 aerosol inhaler (Ventolin HFA) #6.7 grams aripiprazole 20 mg tablet (Abilify) 20 mg PO BEDTIME # 30 tabs 04/09/25 atorvastatin 80 mg tablet 80 mg PO BEDTIME 90 days #90 tabs 04/09/25 benztropine 0.5 mg tablet 1 tab PO BID #60 tabs bupropion HCl 150 mg 24 hr tablet, 150 mg PO QAM 90 da ys #90 tabs 04/09/25 extended release clonidine HCl 0.1 mg tablet 0.1 mg PO BID@0900,1500 #6 0 tabs 04/09/25 clonidine HCl 0.3 mg tablet 0.3 mg PO BEDTIME #30 tabs 04/09/25 haloperidol 5 mg tablet 7.5 mg (1.5 x 5 mg) PO DAILY #45 04/09/25 tabs haloperidol 5 mg tablet 7.5 mg (1.5 x 5 mg) PO DAILY @1600 04/09/25 #45 tabs lorazepam 0.5 mg tablet 0.5 mg PO TID #90 tabs 04/09 metformin 500 mg tablet,extended 500 mg PO BID 90 days #180 tabs 04/09/25 release 24 hr semaglutide 1 mg/dose (4 mg/3 mL) 1 mg (0.75 mL) subcu t MO #3 mL 04/09/25 subcutaneous pen injector (Ozempic) trazodone 100 mg tablet 200 mg (2 x 100 mg) PO BEDTI ME PRN 04/09/25 Insomnia #60 tabs Data Data Completed and Pending Completed studies during hospitalization [Text1]: 04/02/25 04/02/25 04/02/25 14:48 14:49 15:10 WBC 9.2 RBC 5.25 Hgb 14.3 Hct 42.7 MCV 81.3 MCH 27.2 MCHC 33.5 RDW 12.4 Plt Count 274 MPV 8.6 L Immature Gran % (Auto) 0.4 Neut % (Auto) 62.9 Lymph % (Auto) 24.5 [place] % (Auto) 6.8 Eos % (Auto) 5.0 H Baso % (Auto) 0.4 Lymph # (Auto) 2.3 [place] # (Auto) 0.6 Eos # (Auto) 0.5 H Baso # (Auto) 0.0 Abs Immat Gran (auto) 0.04 H Absolute Neuts (auto) 5.8 Absolute Nucleated RBC 0.000 Nucleated RBC % (auto) 0.0 Sodium 140 Potassium 4.0 Chloride 107 Carbon Dioxide 26 Anion Gap 11 L BUN 14 Creatinine 1.25 Estim Creat Clear Calc 98.6 Estimated GFR > 60 POC Glucose Random Glucose 132 H Estimat Average Glucose Hemoglobin A1c % Calcium 8.8 Total Bilirubin 0.6 AST 22 ALT 23 Alkaline Phosphatase 86 Total Protein 6.4 L Albumin 3.9 Triglycerides Cholesterol LDL Cholesterol, Calc HDL Cholesterol TSH Free T4 Urine Color Dark Yellow Urine Appearance Clear Urine pH 7.0 Ur Specific [place] 1.025 Urine Protein Negative Urine Glucose (UA) Negative Urine Ketones Trace Urine Blood Negative Urine Nitrite Negative Ur Leukocyte Esterase Trace H Urine RBC 0-2 Urine WBC 0-5 Ur Squamous Epith Cells 0-2 Urine Bacteria None Seen Hyaline Casts 3-5 Salicylates < 5.0 L Urine Opiates Screen Not Detected Ur Buprenorphine Scrn Not Detected Ur Oxycodone Screen Not Detected Urine Methadone Screen Not Detected Urine Fentanyl Screen Not Detected Acetaminophen < 3 Ur Barbiturates Screen Not Detected Ur Phencyclidine Scrn Not Detected Ur Amphetamines Screen Not Detected U Benzodiazepines Scrn Not Detected Urine Cocaine Screen Not Detected U Marijuana (THC) Screen Not Detected Ethyl Alcohol < 10 04/04/25 04/05/25 04/06/25 08:39 10:04 07:51 WBC RBC Hgb Hct MCV MCH MCHC RDW Plt Count MPV Immature Gran % (Auto) Neut % (Auto) Lymph % (Auto) [place] % (Auto) Eos % (Auto) Baso % (Auto) Lymph # (Auto) [place] # (Auto) Eos # (Auto) Baso # (Auto) Abs Immat Gran (auto) Absolute Neuts (auto) Absolute Nucleated RBC Nucleated RBC % (auto) Sodium 136 Potassium 4.7 Chloride 107 Carbon Dioxide 21 L Anion Gap 13 BUN 17 H Creatinine 1.10 Estim Creat Clear Calc 118.6 Estimated GFR > 60 POC Glucose 137 H 120 H Random Glucose 111 Estimat Average Glucose 111 Hemoglobin A1c % 5.5 Calcium 9.2 Total Bilirubin 0.8 AST 27 ALT 23 Alkaline Phosphatase 105 Total Protein 7.4 Albumin 4.2 Triglycerides 91 Cholesterol 122 LDL Cholesterol, Calc 69 HDL Cholesterol 35 L TSH 2.08 Free T4 1.00 Urine Color Urine Appearance Urine pH Ur Specific [place] Urine Protein Urine Glucose (UA) Urine Ketones Urine Blood Urine Nitrite Ur Leukocyte Esterase Urine RBC Urine WBC Ur Squamous Epith Cells Urine Bacteria Hyaline Casts Salicylates Urine Opiates Screen Ur Buprenorphine Scrn Ur Oxycodone Screen Urine Methadone Screen Urine Fentanyl Screen Acetaminophen Ur Barbiturates Screen Ur Phencyclidine Scrn Ur Amphetamines Screen U Benzodiazepines Scrn Urine Cocaine Screen U Marijuana (THC) Screen Ethyl Alcohol 04/06/25 04/07/25 04/07/25 16:50 07:55 17:07 WBC RBC Hgb Hct MCV MCH MCHC RDW Plt Count MPV Immature Gran % (Auto) Neut % (Auto) Lymph % (Auto) [place] % (Auto) Eos % (Auto) Baso % (Auto) Lymph # (Auto) [place] # (Auto) Eos # (Auto) Baso # (Auto) Abs Immat Gran (auto) Absolute Neuts (auto) Absolute Nucleated RBC Nucleated RBC % (auto) Sodium Potassium Chloride Carbon Dioxide Anion Gap BUN Creatinine Estim Creat Clear Calc Estimated GFR POC Glucose 101 114 109 Random Glucose Estimat Average Glucose Hemoglobin A1c % Calcium Total Bilirubin AST ALT Alkaline Phosphatase Total Protein Albumin Triglycerides Cholesterol LDL Cholesterol, Calc HDL Cholesterol TSH Free T4 Urine Color Urine Appearance Urine pH Ur Specific [place] Urine Protein Urine Glucose (UA) Urine Ketones Urine Blood Urine Nitrite Ur Leukocyte Esterase Urine RBC Urine WBC Ur Squamous Epith Cells Urine Bacteria Hyaline Casts Salicylates Urine Opiates Screen Ur Buprenorphine Scrn Ur Oxycodone Screen Urine Methadone Screen Urine Fentanyl Screen Acetaminophen Ur Barbiturates Screen Ur Phencyclidine Scrn Ur Amphetamines Screen U Benzodiazepines Scrn Urine Cocaine Screen U Marijuana (THC) Screen Ethyl Alcohol 04/08/25 04/08/25 04/09/25 07:41 16:54 08:07 WBC RBC Hgb Hct MCV MCH MCHC RDW Plt Count MPV Immature Gran % (Auto) Neut % (Auto) Lymph % (Auto) [place] % (Auto) Eos % (Auto) Baso % (Auto) Lymph # (Auto) [place] # (Auto) Eos # (Auto) Baso # (Auto) Abs Immat Gran (auto) Absolute Neuts (auto) Absolute Nucleated RBC Nucleated RBC % (auto) Sodium Potassium Chloride Carbon Dioxide Anion Gap BUN Creatinine Estim Creat Clear Calc Estimated GFR POC Glucose 110 138 H 122 H Random Glucose Estimat Average Glucose Hemoglobin A1c % Calcium Total Bilirubin AST ALT Alkaline Phosphatase Total Protein Albumin Triglycerides Cholesterol LDL Cholesterol, Calc HDL Cholesterol TSH Free T4 Urine Color Urine Appearance Urine pH Ur Specific [place] Urine Protein Urine Glucose (UA) Urine Ketones Urine Blood Urine Nitrite Ur Leukocyte Esterase Urine RBC Urine WBC Ur Squamous Epith Cells Urine Bacteria Hyaline Casts Salicylates Urine Opiates Screen Ur Buprenorphine Scrn Ur Oxycodone Screen Urine Methadone Screen Urine Fentanyl Screen Acetaminophen Ur Barbiturates Screen Ur Phencyclidine Scrn Ur Amphetamines Screen U Benzodiazepines Scrn Urine Cocaine Screen U Marijuana (THC) Screen Ethyl Alcohol DS: Summary Time Spent with Patient Time attestation: Total time managing care of this patient today ____ minutes. Discharge Plan Discharge Anticipated Discharge Date/Time: 04/09/25 12:00 Patient Disposition: Home, Self-Care Discharge Diagnosis: Developmental Disability Autism Schizoaffective Disorder Referrals: [facility] [Other] - 05/15/25 8:20 am Referral Note: Telehealth via Video call [facility] Therapy with Lynn Mosley [Other] - 04/10/25 4:30 pm Referral Note: Telehealth/Video call Physician,Unknown J [Primary Care Provider, Medical] - 1 Week Discharge Medications: New clonidine HCl 0.1 mg Tablet 0.1 mg PO BID@0900,1500 Qty: 60 0RF Protocol: Hold for SBP< HOLD for SBP < : 90 haloperidol 5 mg Tablet 7.5 mg PO DAILY Qty: 45 0RF haloperidol 5 mg Tablet 7.5 mg PO DAILY@1600 Qty: 45 0RF Continued atorvastatin 80 mg tablet 80 mg PO BEDTIME 90 Days Qty: 90 0RF benztropine 0.5 mg tablet 1 tab PO BID Qty: 60 0RF clonidine HCl 0.3 mg tablet 0.3 mg PO BEDTIME Qty: 30 0RF lorazepam 0.5 mg Tablet 0.5 mg PO TID Qty: 90 0RF trazodone 100 mg tablet 200 mg PO BEDTIME PRN (Reason: Insomnia) Qty: 60 0RF albuterol sulfate [Ventolin HFA] 90 mcg/actuation HFA aerosol inhaler 1 puff inhalation Q4H PRN (Reason: Wheezing) Qty: 6.7 1RF metformin 500 mg tablet extended release 24 hr 500 mg PO BID 90 Days Qty: 180 1RF bupropion HCl 150 mg tablet extended release 24 hr 150 mg PO QAM 90 Days Qty: 90 1RF Ozempic 1 mg/dose (4 mg/3 mL) pen injector 1 mg subcut MO Qty: 3 0RF Changed aripiprazole [Abilify] 20 mg tablet 20 mg PO BEDTIME Qty: 30 0RF Discontinued haloperidol 5 mg tablet 5 mg PO DAILY Rx Instructions: Take 1 tablet in the am and 1 1/2 tablets at 4pm haloperidol 5 mg tablet 7.5 mg PO DAILY@1600 haloperidol 5 mg tablet 5 mg PO BEDTIME clonidine HCl 0.1 mg tablet 0.1 mg PO DAILY@1500 Discharge Orders: Discharge Order (Routine); Ordered 04/09/25 Ordered By: Francisca Deras Diet: Advance to usual diet Activity on Discharge: As tolerated Stand Alone Forms: Patient Portal Discharge page Print Language: Divehi Care Plan Goals: Mood and Behavioral Stabilization Health Concerns: Mood and Behavioral Stabilization Plan of Treatment: Attend scheduled appointments Take medications as directed Call/Return as needed Assessment: Behaviorally stable Denies SI,HI,AH,VH No sx of acute gilda or psychosis Looking forward to returning home[place] he has a new [place] movie to view and looking forward to reconnecting with jie friends on line.
== END 2025-04-09 11:29 | disposition home or self-care (01) | DRG 885 ==
LOC: HO.ED 16:00 → HO.PM5 04-03 14:12
PROVIDERS: Admitting Provider Nurse Practitioner Family; Emergency Provider Emergency Medicine; Visit Provider Clinical Nurse Specialist Psychiatric/Mental Health, Adult
DX: F25.9 Schizoaffective disorder, unspecified (principal); F84.0 Autistic disorder; F89 Unspecified disorder of psychological development; E11.9 Type 2 diabetes mellitus without complications; Z79.84 Long term (current) use of oral hypoglycemic drugs; Z79.85 Long-term (current) use of injectable non-insulin antidiabetic drugs; Z79.899 Other long term (current) drug therapy
CPT/HCPCS: 36415; 80053; 80061; 80143; 80179; 80307; 81001; 82947; 83036; 84439; 84443; 85025; 93005; 99285; S9485

== ENCOUNTER → 2025-04-02 14:26 | Outpatient (BNV) | payer MEDICARE, MEDICAID, SELFPAY | PROVIDERS: Emergency Provider Emergency Medicine; Visit Provider Internal Medicine Cardiovascular Disease | DX: Z13.6 Encounter for screening for cardiovascular disorders (principal) | CPT/HCPCS: 93010 ==

== ENCOUNTER → 2025-04-03 14:11 | Outpatient (BNV) | payer MEDICARE, MEDICAID, SELFPAY | PROVIDERS: Admitting Provider Nurse Practitioner Family; Emergency Provider Emergency Medicine; Visit Provider Nurse Practitioner Family | DX: F25.9 Schizoaffective disorder, unspecified (principal); F84.0 Autistic disorder; F89 Unspecified disorder of psychological development | CPT/HCPCS: 90792; 99231; 99232 ==

== ENCOUNTER 2025-04-16 13:42 | Emergency (ER) | payer MEDICARE, MEDICAID, SELFPAY ==
[2025-04-16] VITALS (10 sets, daily range): BP systolic 76–130; BP diastolic 51–79; PULSE 69–128; RESP 15–18; TEMP 36.8–37.2; O2SAT 93–98; BMI 38.3
--- NOTE | 2025-04-16 | ECG_ITS ---
Test Reason : CHECK PROLONG QT Blood Pressure : */* mmHG Vent. Rate : 107 BPM Atrial Rate : 107 BPM P-R Int : 148 ms QRS Dur : 74 ms QT Int : 334 ms P-R-T Axes : 54 69 46 degrees QTcB Int : 445 ms Sinus tachycardia Otherwise normal ECG When compared with ECG of 02-Apr-2025 14:29, No significant change was found Referred By: Presley James Electronically Signed By: BOLIVAR HANKINS
--- NOTE | 2025-04-16 13:57 | ED_ITS ---
HPI - Psych General Chief Complaint: Psychiatric Symptoms Stated Complaint: WALKING INTO TRAFFIC, UNCOOPERATIVE Time Seen by Provider: 04/16/25 13:55 Source: patient and old records reviewed Mode of arrival: EMS Limitations: no limitations History of Present Illness ED Provider: JOSEPH CHOI Narrative: 29 yo male with PMH of HLD, depression, HTN, DM, autism, schizoaffective disorder here with c/o p his presenting for increased agitation. The patient is presenting from a fci for reported agitation and noncompliance Time of arrival to the ED, the patient is not answering questions and is exit seeking. Numerous attempts were made to redirect the patient back to his room, but he continues to get up and attempt to escalate. He has tried to push open each exit Ultimately the patient was restrained with IM medications, see nursing notes. He did not require physical restraints Related Data Home Medications ?Medication ?Instructions ?Recorded ?Confirmed atorvastatin 40 mg tablet 40 mg PO BEDTIME 04/16/25 haloperidol 5 mg tablet 5 mg PO DAILY 04/16/2504/16 lisinopril 10 mg tablet 10 mg PO DAILY 04/16/2504/02 Previous Rx's ?Medication ?Instructions ?Recorded albuterol sulfate 90 mcg/actuation 1 puff inhalation Q 4H PRN Wheezing 04/09/25 aerosol inhaler (Ventolin HFA) #6.7 grams aripiprazole 20 mg tablet (Abilify) 20 mg PO BEDTIME # 30 tabs 04/09/25 atorvastatin 80 mg tablet 80 mg PO BEDTIME 90 days #90 tabs 04/09/25 benztropine 0.5 mg tablet 1 tab PO BID #60 tabs bupropion HCl 150 mg 24 hr tablet, 150 mg PO QAM 90 da ys #90 tabs 04/09/25 extended release clonidine HCl 0.1 mg tablet 0.1 mg PO BID@0900,1500 #6 0 tabs 04/09/25 clonidine HCl 0.3 mg tablet 0.3 mg PO BEDTIME #30 tabs 04/09/25 haloperidol 5 mg tablet 7.5 mg (1.5 x 5 mg) PO DAILY @1600 04/09/25 #45 tabs lorazepam 0.5 mg tablet 0.5 mg PO TID #90 tabs 04/09 metformin 500 mg tablet,extended 500 mg PO BID 90 days #180 tabs 04/09/25 release 24 hr semaglutide 1 mg/dose (4 mg/3 mL) 1 mg (0.75 mL) subcu t MO #3 mL 04/09/25 subcutaneous pen injector (Ozempic) trazodone 100 mg tablet 200 mg (2 x 100 mg) PO BEDTI ME PRN 04/09/25 Insomnia #60 tabs Allergies Allergy/AdvReac Type Severity Reaction Status Date / Time insulin degludec (From AdvReac Intermediate low blood Verified 04/16/25 14:19 Tresiba FlexTouch U-100) glucose dulaglutide (From [facility] [place]) AdvReac Unknown no Verified 04/16/25 14:19 positive effect topamax AdvReac Unknown Unknown Uncoded 04/16/25 14:19 Review of Systems 2 Constitutional: Constitutional: Denies body ache(s), Denies chills, Denies fever(s) and Denies headache(s) ENT: Denies vertigo, Denies dizziness and Denies headache(s) Cardiovascular: Cardiovascular: Denies chest pain and Denies dyspnea on exertion Respiratory: Respiratory: Denies cough and Denies dyspnea on exertion Gastrointestinal: Gastrointestinal: Denies abdominal pain, Denies nausea and Denies vomiting Musculoskeletal: Musculoskeletal: Denies back pain Integumentary/Breasts: Skin/Breast: Denies rash Neurologic: Denies vertigo, Denies dizziness and Denies headache(s) Psychiatric: Psychiatric: Denies anxiety, Denies homicidal ideation and Denies suicidal ideation [facility] Past Medical History Attestation statement: The following information was validated with the patient. Source: old records reviewed Medical History Developmental disability Autism Obesity due to excess calories Diabetes mellitus type 2, controlled, without complications Type 2 diabetes mellitus with hyperglycemia, with long-term current use of insulin Hyperlipidemia LDL goal <100 Type 2 diabetes mellitus with hypoglycemia without coma Surgical History No history of previous surgery Family History Family History (Updated 09/18/24 @ 11:11 by Angelina Rowan MD) Father Hypertension Type 2 diabetes mellitus Mother No problems noted. Social History Social History Household Members: Family Housing: House Do you presently have visiting nurse or other home services: No Alcohol intake: never Patient Tobacco Use Status: Never used Tobacco Smoked in Last 30 Days: No e-Cigarette/Vaping Use: Never Used Second Hand Smoke Exposure: No Use of substances other than those prescribed or required for medical reasons: No Substance Use Type: Amphetamines Advance Directives: No Advance Directives Information Provided: Yes Advance Directives Date on File: 04/22/22 service: No Current occupational status: disabled Sexual orientation: Straight/Heterosexual Cognitive needs: No Hearing needs: No Vision needs: No Physical Exam 2 Vital Signs: Vital Signs: Last Vital Signs Temp 97.6 F 04/17/25 08:25 Pulse 77 04/17/25 08:25 Resp 16 04/17/25 08:25 BP 122/74 04/17/25 08:25 Pulse Ox 98 04/17/25 08:25 O2 Del Method Room Air 04/17/25 08:25 BMI result Body Mass Index 38.3 Const: General: healthy appearing, comfortable, no acute distress, alert and awake Nutritional Appearance: well nourished Orientation/consciousness: p atient oriented x3 HEENT: Head: Yes normocephalic and Yes atraumatic Eyes: Eyelids: Yes eyelids normal Conjunctivae: conjunctivae normal S clerae: sclerae normal Corneas: corneas normal Pupils: Equal, round and reactive pupils present EOM: EOMs intact bilaterally Neck: Neck: Yes full ROM Resp: Effort & Inspection: normal respiratory effort, able to speak in complete sentences and not labored Skin: General skin exam: elasticity normal Neuro: General: patient oriented x3 Cranial nerves: Yes Equal, round and reactive pupils present and Yes Bilaterally intact EOM present Cognition (Neuro): normal cognition Course Reevaluation(s) Reevaluation #1: The patient ultimately did not require physical restraints, he required chemical only. He is calm and cooperative after receiving IM Valium, Benadryl and Haldol. He was found to be hypotensive at 78/57. He was completely asymptomatic, denies any dizziness, lightheadedness or any pain. However given the significant hypotension which could potentially be an iatrogenic plan to bring him out to a [facility], we will treat with IV fluids, labs are pending. He is afebrile, no evidence of sepsis or any infectious process Time: 14:40 Reevaluation #2: Patient's blood pressure improved with 2 L IV fluids, he remains asymptomatic. Renal function is back to baseline after repeat labs. The patient is medically cleared for care team consult Time: 18:39 Reevaluation #3: Time: 12:01 Date: 04/17/25 Provider: Ajay Villasenor DO Physician observation ended at. Patient has been cleared for discharge by the CARE team. Will follow up as an outpatient. Time: 12:01 Medications Administered Generic Name Dose Route Start Last Admin Trade Name Freq PRN Reason Stop Dose Admin Aripiprazole 20 mg 04/16/25 21:45 04/16/25 22:10 Aripiprazole 20 Mg Tablet PO 20 mg BEDTIME DAISHA Administration Atorvastatin Calcium 40 mg 04/16/25 21:45 04/16/25 22:10 Atorvastatin Calcium 40 Mg Tablet PO 40 mg BEDTIME DAISHA Administration Benztropine Mesylate 0.5 mg 04/16/25 21:45 04/17/25 08:26 Benztropine Mesylate 0.5 Mg Tablet PO 0.5 mg BID DAISHA Administration Bupropion HCl 150 mg 04/17/25 09:00 04/17/25 08:26 Bupropion Hcl Xl 150 Mg Tab.Er.24h PO 150 mg DAILY DAISHA Administration Clonidine HCl 0.1 mg 04/17/25 09:00 04/17/25 08:26 Clonidine Hcl 0.1 Mg Tablet PO 0.1 mg BID@0900,1500 DAISHA Administration Protocol Clonidine HCl 0.3 mg 04/16/25 21:45 04/16/25 22:10 Clonidine Hcl 0.1 Mg Tablet PO 0.3 mg BEDTIME DAISHA Administration Protocol Haloperidol 5 mg 04/17/25 09:00 04/17/25 08:26 Haloperidol 5 Mg Tablet PO 5 mg DAILY DAISHA Administration Lisinopril 10 mg 04/17/25 09:00 04/17/25 08:26 Lisinopril 10 Mg Tablet PO 10 mg DAILY DAISHA Administration Protocol Lorazepam 0.5 mg 04/16/25 21:45 04/17/25 08:26 Lorazepam 0.5 Mg Tablet PO 0.5 mg TID DAISHA Administration Metformin HCl 500 mg 04/16/25 21:45 04/17/25 08:26 Metformin Hcl Er 500 Mg Tab.Er.24h PO 500 mg BID DAISHA Administration Trazodone HCl 200 mg 04/16/25 21:42 04/16/25 22:10 Trazodone Hcl 100 Mg Tablet PO 200 mg BEDTIME PRN Administration Insomnia Discontinued Medications Generic Name Dose Route Start Last Admin Trade Name Bonq PRN Reason Stop Dose Admin Diazepam 5 mg 04/16/25 14:05 04/16/25 14:10 Diazepam 10 Mg/2 Ml Cartridge IM 04/16/25 14:06 5 mg STAT STA Administration Diphenhydramine HCl 50 mg 04/16/25 14:01 04/16/25 14:10 Diphenhydramine Hcl 50 Mg/Ml Vial IM 04/16/25 14:02 50 mg ONCE ONE Administration Diphenhydramine HCl 50 mg 04/17/25 05:54 04/17/25 05:58 Diphenhydramine Hcl 25 Mg Capsule PO 04/17/25 05:55 50 mg ONCE ONE Administration Haloperidol 5 mg 04/17/25 05:54 04/17/25 05:59 Haloperidol 5 Mg Tablet PO 04/17/25 05:55 5 mg ONCE ONE Administration Haloperidol Lactate 5 mg 04/16/25 14:01 04/16/25 14:10 Haloperidol Lactate 5 Mg/Ml Vial IM 04/16/25 14:02 5 mg STAT STA Administration Sodium Chloride 1,000 mls @ 999 mls/hr 04/16/25 15:15 04/16/25 16:29 Ns IV 04/16/25 16:15 Infused .Q1H1M DAISHA Infusion Sodium Chloride 1,000 mls @ 999 mls/hr 04/16/25 16:00 04/16/25 17:14 Ns IV 04/16/25 17:00 Infused .Q1H1M DAISHA Infusion Lorazepam 1 mg 04/17/25 05:54 04/17/25 05:58 Lorazepam 1 Mg Tablet PO 04/17/25 05:55 1 mg ONCE ONE Administration Lorazepam 2 mg 04/17/25 05:55 04/17/25 06:02 Lorazepam 1 Mg Tablet PO 04/17/25 05:56 Not Given ONCE ONE Medical Decision Making Medical Decision Making MDM Narrative: 29 yo male with PMH of HLD, depression, HTN, DM, autism, schizoaffective disorder here with c/o agitation. He is initially uncooperative with staff and exit seeking. Attempts were made to redirect the patient to his room to be able to be evaluated medically and eventually psychiatrically. Differential Diagnosis Differential Diagnoses: The differential diagnosis associated with the presentation includes Agitation Schizoaffective disorder Depression Substance abuse enough Developmental disability Admission/Observation Consideration of admission/observation: Escalation of care including admission/observation considered Consult Healthcare Provider Management of the patient was discussed with: Behavioral Health Provider Lab Data MDM Lab Attestation statement: I reviewed the patient's lab results. 04/16/25 15:27 04/16/25 18:05 Labs: Lab Results 04/16/25 04/16/25 04/16/25 Range/Units 14:39 15:08 15:27 WBC 13.6 H (4.8-10.8) X10*3/uL RBC 5.70 (4.60-5.80) X10*6/uL Hgb 15.3 (14.0-18.0) g/dl Hct 45.9 (42.0-52.0) % MCV 80.5 (80.0-98.0) fL MCH 26.8 L (27.0-33.0) pg MCHC 33.3 (31.0-36.0) g/dl RDW 12.6 (11.0-16.0) % Plt Count 313 (160-400) X10*3/uL MPV 8.4 L (9.4-12.4) fL Immature Gran % (Auto) 0.6 H (0.0-0.4) % Neut % (Auto) 69.2 (45-73) % Lymph % (Auto) 20.6 (20-40) % [place] % (Auto) 7.6 (2-11) % Eos % (Auto) 1.8 (0-4) % Baso % (Auto) 0.2 (0-2) % Lymph # (Auto) 2.8 (1.2-4.9) X10*3/uL [place] # (Auto) 1.0 (0.1-1.2) X10*3/uL Eos # (Auto) 0.2 (0.0-0.4) X10*3/uL Baso # (Auto) 0.0 (0.0-0.2) X10*3/uL Abs Immat Gran (auto) 0.08 H (0.00-0.03) X10*3/uL Absolute Neuts (auto) 9.4 H (2.0-8.3) x10*3/uL Absolute Nucleated RBC 0.000 (0.0-0.012) X10*3/uL Nucleated RBC % (auto) 0.0 (0.0-0.2) /100WBC Sodium 145 (135-145) mmol/L Potassium 4.0 (3.3-5.1) mmol/L Chloride 107 (96-108) mmol/L Carbon Dioxide 24 (22-29) mmol/L Anion Gap 18 (12-20) BUN 13 (9-16) mg/dL Creatinine 1.52 H (0.5-1.4) mg/dL Estim Creat Clear Calc 79.7 Estimated GFR 54 POC Glucose 130 H (60-115) mg/dL Random Glucose 112 (60-115) mg/dL Calcium 9.6 (8.4-10.2) mg/dL Total Bilirubin 1.0 (0.0-1.0) mg/dL AST 31 (5-37) U/L ALT 26 (0-40) U/L Alkaline Phosphatase 109 (39-117) U/L Total Protein 7.4 (6.5-8.0) g/dL Albumin 4.4 (3.5-5.0) g/dL Urine Color Dark Yellow Urine Appearance Clear Urine pH 6.0 (5.0-9.0) Ur Specific [place] 1.025 (1.005-1.025) Urine Protein Negative (Neg-Trace) mg/dL Urine Glucose (UA) Negative (Negative) mg/dL Urine Ketones Trace (Negative) mg/dL Urine Blood Negative (Negative) Urine Nitrite Negative (Negative) Ur Leukocyte Esterase Trace H (Negative) Urine RBC 0-2 (0-2) /HPF Urine WBC 0-5 (0-5) /HPF Ur Squamous Epith Cells 0-2 (0-2) /HPF Urine Bacteria None Seen (None Seen) Hyaline Casts 3-5 (0-2) /LPF Urine Opiates Screen Not Detected (Not Detect) Ur Buprenorphine Scrn Not Detected (Not Detect) ng/mL Ur Oxycodone Screen Not Detected (Not Detect) ng/mL Urine Methadone Screen Not Detected (Not Detect) ng/mL Urine Fentanyl Screen Not Detected (Not Detect) Ur Barbiturates Screen Not Detected (Not Detect) Ur Phencyclidine Scrn Not Detected (Not Detect) Ur Amphetamines Screen Not Detected (Not Detect) U Benzodiazepines Scrn Not Detected (Not Detect) Urine Cocaine Screen Not Detected (Not Detect) U Marijuana (THC) Screen Not Detected (Not Detect) Ethyl Alcohol < 10 mg/dL 04/16/25 Range/Units 18:05 WBC (4.8-10.8) X10*3/uL RBC (4.60-5.80) X10*6/uL Hgb (14.0-18.0) g/dl Hct (42.0-52.0) % MCV (80.0-98.0) fL MCH (27.0-33.0) pg MCHC (31.0-36.0) g/dl RDW (11.0-16.0) % Plt Count (160-400) X10*3/uL MPV (9.4-12.4) fL Immature Gran % (Auto) (0.0-0.4) % Neut % (Auto) (45-73) % Lymph % (Auto) (20-40) % [place] % (Auto) (2-11) % Eos % (Auto) (0-4) % Baso % (Auto) (0-2) % Lymph # (Auto) (1.2-4.9) X10*3/uL [place] # (Auto) (0.1-1.2) X10*3/uL Eos # (Auto) (0.0-0.4) X10*3/uL Baso # (Auto) (0.0-0.2) X10*3/uL Abs Immat Gran (auto) (0.00-0.03) X10*3/uL Absolute Neuts (auto) (2.0-8.3) x10*3/uL Absolute Nucleated RBC (0.0-0.012) X10*3/uL Nucleated RBC % (auto) (0.0-0.2) /100WBC Sodium 144 (135-145) mmol/L Potassium 4.0 (3.3-5.1) mmol/L Chloride 112 H (96-108) mmol/L Carbon Dioxide 22 (22-29) mmol/L Anion Gap 14 (12-20) BUN 12 (9-16) mg/dL Creatinine 1.21 (0.5-1.4) mg/dL Estim Creat Clear Calc 100.1 Estimated GFR > 60 POC Glucose (60-115) mg/dL Random Glucose 118 H (60-115) mg/dL Calcium 8.7 D (8.4-10.2) mg/dL Total Bilirubin (0.0-1.0) mg/dL AST (5-37) U/L ALT (0-40) U/L Alkaline Phosphatase (39-117) U/L Total Protein (6.5-8.0) g/dL Albumin (3.5-5.0) g/dL Urine Color Urine Appearance Urine pH (5.0-9.0) Ur Specific [place] (1.005-1.025) Urine Protein (Neg-Trace) mg/dL Urine Glucose (UA) (Negative) mg/dL Urine Ketones (Negative) mg/dL Urine Blood (Negative) Urine Nitrite (Negative) Ur Leukocyte Esterase (Negative) Urine RBC (0-2) /HPF Urine WBC (0-5) /HPF Ur Squamous Epith Cells (0-2) /HPF Urine Bacteria (None Seen) Hyaline Casts (0-2) /LPF Urine Opiates Screen (Not Detect) Ur Buprenorphine Scrn (Not Detect) ng/mL Ur Oxycodone Screen (Not Detect) ng/mL Urine Methadone Screen (Not Detect) ng/mL Urine Fentanyl Screen (Not Detect) Ur Barbiturates Screen (Not Detect) Ur Phencyclidine Scrn (Not Detect) Ur Amphetamines Screen (Not Detect) U Benzodiazepines Scrn (Not Detect) Urine Cocaine Screen (Not Detect) U Marijuana (THC) Screen (Not Detect) Ethyl Alcohol mg/dL Independent Historian Clinical information obtained from an independent historian. History obtained from or confirmed by: EMS External Record Review External record reviewed: Inpatient record and Outpatient record Discharge Plan Discharge Clinical Impression: RAMIREZ (acute kidney injury), Depression with suicidal ideation Patient Disposition: Home, Self-Care Additional Instructions: You were seen in our Emergency Department today for treatment of a behavioral health issue. It is important after your visit that you follow up with either your behavioral health provider or a primary care doctor within 7 days.? If you have trouble finding a therapist you can reach out to [address] [place] [phone] The National Suicide and Crisis Lifeline can be reached 7 days a week 24 hours a day.? Call 988 to speak with someone.? Return for any worsening symptoms or concerns such as thoughts of self harm or harm to others. Please call 911 if you feel your mental health is worsening.? Prescriptions: No Action atorvastatin 40 mg Tablet 40 mg PO BEDTIME lisinopril 10 mg Tablet 10 mg PO DAILY haloperidol 5 mg tablet 5 mg PO DAILY Rx Instructions: in morning clonidine HCl 0.1 mg Tablet 0.1 mg PO BID@0900,1500 Qty: 60 0RF Protocol: Hold for SBP< HOLD for SBP < : 90 haloperidol 5 mg Tablet 7.5 mg PO DAILY@1600 Qty: 45 0RF atorvastatin 80 mg tablet 80 mg PO BEDTIME 90 Days Qty: 90 0RF benztropine 0.5 mg tablet 1 tab PO BID Qty: 60 0RF clonidine HCl 0.3 mg tablet 0.3 mg PO BEDTIME Qty: 30 0RF lorazepam 0.5 mg Tablet 0.5 mg PO TID Qty: 90 0RF trazodone 100 mg tablet 200 mg PO BEDTIME PRN (Reason: Insomnia) Qty: 60 0RF albuterol sulfate [Ventolin HFA] 90 mcg/actuation HFA aerosol inhaler 1 puff inhalation Q4H PRN (Reason: Wheezing) Qty: 6.7 1RF metformin 500 mg tablet extended release 24 hr 500 mg PO BID 90 Days Qty: 180 1RF aripiprazole [Abilify] 20 mg tablet 20 mg PO BEDTIME Qty: 30 0RF bupropion HCl 150 mg tablet extended release 24 hr 150 mg PO QAM 90 Days Qty: 90 1RF Ozempic 1 mg/dose (4 mg/3 mL) pen injector 1 mg subcut MO Qty: 3 0RF Interventions: [place]-Suicide Risk Severity Scale Last Done: 04/16/25 19:02 Print Language: [place]
[2025-04-16] MEDS: diazePAM 10 MG/2 ML CARTRIDGE 5 MG IM (14:10)
--- NOTE | 2025-04-16 14:26 | PC.NURSE ---
RE: restraint Patient came in by ambulance after episodes of aggression at day program. pt became non-verbal on the way to the hospital and was refusing to speak with staff. pt was physically escorted by security to bathroom to policy change clerks supervisor. Pt was then escorted to [facility]. When security left the pod, pt became exit seeking, also attempting to come behind the nurses station. Pt was able to unlock the door to the nurses station and attempted to enter before being stopped by staff. pt also attempted to exit via the front and security door. Security was called back to bedside, patient was escorted back to room. KRISTA Fitzgerald came to assess patient, decision made to IM patient for staff and patient safety
[2025-04-16 14:47] LABS: Appearance Urine Clear; Glucose Urine UA Negative (Negative); PH 6.0 (5.0-9.0); Specific Gravity - Urine 1.025 (1.005-1.025); UMIC TRIGGER UACC YES
--- NOTE | 2025-04-16 14:51 | PC.NURSE ---
Pt walking around BH pod eating ice cream, HR elevated in 120s steady and blood pressure is soft 90s/50s. PA Amilcar made aware via tiger text
[2025-04-16 14:55] LABS: Cannabinoid Screen Urine Not Detected (Not Detect)
[2025-04-16 15:12] LABS: Glucose, Whole Blood 130 mg/dL (60-115)
--- NOTE | 2025-04-16 15:12 | PC.NURSE ---
Patient's blood pressure decreased and heart rate increased, KRISTA Fitzgerald aware at bedside
--- NOTE | 2025-04-16 15:30 | PC.NURSE ---
patient brought over from the POD to ED3 d/t hypotension. upon main ED arrival - vss and up to date aside from being slightly hypotensive. sinus tachycardic on the monitor - pt denies any chest pain/palpitations. pt answering questions/following commands appropriately. 20gIV placed in the right AC - labs obtained/sent to lab. IVF infusing per provider order. pt currently denies any dizziness/lightheadedness. resting comfortably in no apparent distress. on RA w/o difficulty. no sob/wob noted. respirations even/unlabored. 1:1 sitter bedside. plan of care ongoing.
[2025-04-16 15:33] LABS: MANUAL DIFF FLAG NO
[2025-04-16 15:34] LABS: Hematocrit 45.9 % (42.0-52.0); Hemoglobin 15.3 g/dl (14.0-18.0); Imm Gran Abs Auto 0.08 X10*3/uL (0.00-0.03); Imm Gran Pct Auto 0.6 % (0.0-0.4); Lymphocytes Absolute Auto 2.8 X10*3/uL (1.2-4.9); Mean Corpuscular HGB Conc 33.3 g/dl (31.0-36.0); Mean Corpuscular Hemoglobin 26.8 pg (27.0-33.0); Mean Corpuscular Volume 80.5 fL (80.0-98.0); NRBC Abs Auto 0.000 X10*3/uL (0.0-0.012); NRBC Pct Auto 0.0 /100WBC (0.0-0.2); Platelet Count 313 X10*3/uL (160-400); Red Blood Count 5.70 X10*6/uL (4.60-5.80); White Blood Count 13.6 X10*3/uL (4.8-10.8)
--- OUTSIDE RECORDS SUMMARY | 2025-04-16 15:49 | XMS_ITS | Encounter Summary ---
Author Organization [facility] Address [address] [place] [id number] Phone Care Team Providers Care Data Keyer Name Role Phone Joshua Funez MD Primary Care Provider [phone] Encounter Details Date Type Department Care Team (Late st Contact Info) Description 10/05/2016 Documentation EM Family Medicine [address] [place] [address] Family Medicine, Physician [address] [place], [place] [id number] Social History Tobacco Use Types Packs/Day Years [...] on filedocumented in this encounter Care Teams Data Keyer Relationship Specialty Start Date End Date Joshua Funez MD [address] [facility] [place] [address] PCP - General 05/13/17 01/04/23 documented as of this encounter
[2025-04-16 15:52] LABS: Alanine Aminotransferase 26 U/L (0-40); Albumin Level 4.4 g/dL (3.5-5.0); Alkaline Phosphatase 109 U/L (39-117); Anion Gap 18 (12-20); Aspartate Amino Transferase 31 U/L (5-37); Blood Urea Nitrogen 13 mg/dL (9-16); Calcium 9.6 mg/dL (8.4-10.2); Carbon Dioxide 24 mmol/L (22-29); Chloride 107 mmol/L (96-108); Creatinine Clr Calc Pharmacy 79.7; Estimated Glomerular Filt Rate 54; Potassium 4.0 mmol/L (3.3-5.1); Sodium 145 mmol/L (135-145); Total Protein 7.4 g/dL (6.5-8.0)
--- NOTE | 2025-04-16 16:14 | PC.NURSE ---
BP continues to improve at this time s/p IVF bolus. additional bolus of NS infusing at this time. otherwise vss and up to date. patient continues to remain alert, answering questions/following commands appropriately. on RA w/o difficulty. 1:1 sitter bedside. plan of care ongoing. call luna placed within reach.
--- NOTE | 2025-04-16 16:15 | PC.NURSE ---
Nely ([facility] [place] [facility] [facility]) - [phone]
--- NOTE | 2025-04-16 16:23 | PC.NURSE ---
Khushi (Guardian/Mother) - [phone]
[2025-04-16 18:25] LABS: Anion Gap 14 (12-20); Blood Urea Nitrogen 12 mg/dL (9-16); Calcium 8.7 mg/dL (8.4-10.2); Carbon Dioxide 22 mmol/L (22-29); Chloride 112 mmol/L (96-108); Creatinine Clr Calc Pharmacy 100.1; Estimated Glomerular Filt Rate > 60; Potassium 4.0 mmol/L (3.3-5.1); Sodium 144 mmol/L (135-145)
--- NOTE | 2025-04-16 19:15 | PC.NURSE ---
Pt up and walking in hallway. Pt ate some of his dinner. Denies SI/HI. Calm and cooperative.
--- NOTE | 2025-04-16 23:21 | PC.NURSE ---
Assumed care of patient at 1045, patient appears to be sleeping, respirations even and unlabored, no apparent distress at this time. Continue plan of care CARE team follow up
[2025-04-17 05:35] VITALS: BP 140/95; PULSE 96; RESP 17; TEMP 36.9; O2SAT 99
--- NOTE | 2025-04-17 06:03 | PC.NURSE ---
At around 0550, patient began attempting to enter nurses station, opening the door, refusing to leave the nurses station. Security called to redirect patient. Pt verbalizes willingness to take PO medications. Verbal order from MD for oral ativan, benadryl and haldol. Pt willingly took all medications orally. Pt still requiring some redirection away from nurses station
--- NOTE | 2025-04-17 06:22 | PC.NURSE ---
Pt continuing to test boundaries with staff, attempting to enter nurses station doors, refusing to stay in room when asked, continually asking staff repeated questions such as what year is it , when is my birthday , what day is it .
[2025-04-17 08:25] VITALS: BP 122/74; PULSE 77; RESP 16; TEMP 36.4; O2SAT 98
[2025-04-17] MEDS: buPROPion HCl XL 150 MG TAB.ER.24H PO (08:26)
--- NOTE | 2025-04-17 14:57 | PC.NURSE ---
called pt's mother concerning ride home. no answer and left message
--- NOTE | 2025-04-17 16:28 | PC.NURSE ---
pt has been up for DC for 4 hours. 2x calls to mother for pickup. CARE team currently meeting with DDS workers discussing dispo. med delay due to meeting with pt.
[2025-04-17 16:50] VITALS: BP 115/74; PULSE 84; RESP 18; TEMP 36.7; O2SAT 97
[2025-04-17 17:22] VITALS: BP 115/74; PULSE 84; RESP 18; TEMP 36.7; O2SAT 97
== END 2025-04-17 17:22 | disposition home or self-care (01) ==
PROVIDERS: Physician Assistant; Emergency Provider Emergency Medicine; PCP Internal Medicine
DX: N17.9 Acute kidney failure, unspecified (principal); R45.1 Restlessness and agitation; F25.9 Schizoaffective disorder, unspecified; I10 Essential (primary) hypertension; E11.9 Type 2 diabetes mellitus without complications; F84.0 Autistic disorder; E78.5 Hyperlipidemia, unspecified; R45.851 Suicidal ideations; F32.A Depression, unspecified; Z79.899 Other long term (current) drug therapy
CPT/HCPCS: 36415; 80048; 80053; 80307; 81001; 82947; 85025; 93005; 96360; 96361; 96372; 99285; J1200; J1630; J3360; S9485

== ENCOUNTER → 2025-04-16 14:51 | Outpatient (BNV) | payer MEDICARE, MEDICAID, SELFPAY | PROVIDERS: Emergency Provider Emergency Medicine; PCP Internal Medicine; Visit Provider Internal Medicine | DX: R00.0 Tachycardia, unspecified (principal) | CPT/HCPCS: 93010 ==

== ENCOUNTER 2025-07-27 12:39 | Inpatient (IN) | payer MEDICARE, MEDICAID, SELFPAY ==
[2025-07-27 12:56] VITALS: BP 128/76; PULSE 96; BMI 39.2
[2025-07-27 12:58] VITALS: BP 114/79; PULSE 99; RESP 18; TEMP 36.4; O2SAT 96
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
[2025-07-27 13:20] LABS: Glucose, Whole Blood 116 mg/dL (60-115)
--- NOTE | 2025-07-27 13:41 | PC.NURSE ---
Pt is currently calm and cooperative with blood work and is informed of needing a Urine. He is watching TV and given food.
--- OUTSIDE RECORDS SUMMARY | 2025-07-27 13:44 | XMS_ITS | Encounter Summary ---
Author Organization [facility] Address [address] [place] [id number] Phone Care Team Providers Care Tray Delivery Aide Name Role Phone Joshua Funez MD Primary Care Provider [phone] Encounter Details Date Type Department Care Team (Late st Contact Info) Description 02/24/2017 Documentation EM Family Medicine [address] [place] [address] Family Medicine, Physician [address] [place], [place] [id number] Social History Tobacco Use Types Packs/Day Years Used Date Smoking Tobacco: Never Comments:Never smoker Sex and Gender Information Value Date Recorded Sex Assigned at Not on file Legal Sex Male 5:17 PM EDT Gender Identity Not on file Sexual Orientation Not on file documented as of this encounter Plan of Treatment Not on file documented as of this encounter Visit Diagnoses Not on filedocumented in this encounter Care Teams Tray Delivery Aide Relationship Specialty Start Date End Date Joshua Funez MD [address] [place] [address] FOX Singh [id number] PCP - General 05/13/17 01/04/23 documented as of this encounter
--- OUTSIDE RECORDS SUMMARY | 2025-07-27 13:44 | XMS_ITS | Encounter Summary ---
Author Organization [facility] Address [address] [place] [phone] Phone Care Team Providers Care Nurse Midwife/Clinical Instructor Name Role Phone Joshua Funez MD Primary Care Provider [phone] Encounter Details Date Type Department Care Team (Late st Contact Info) Description 02/24/2017 Documentation EM Family Medicine [address] [place] [address] Family Medicine, Physician [address] [place], [place] [phone] Social History Tobacco Use Types Packs/Day Years [...] on filedocumented in this encounter Care Teams Nurse Midwife/Clinical Instructor Relationship Specialty Start Date End Date Joshua Funez MD [address] [place] [address] FOX Singh [id number] PCP - General 05/13/17 01/04/23 documented as of this encounter
--- OUTSIDE RECORDS SUMMARY | 2025-07-27 13:44 | XMS_ITS | Clinical Summary ---
Author Organization [facility] Address [address] [place] [phone] Phone Care Team Providers Care [employer] Sealer Name Role Phone Unavailable Primary Care Provider Unavailabl e Immunizations Immunization Administration Dates Next Due DTaP 5 10/10/1999, 7,11/30/1996,08/20,06/21/1996 HPV, Quadrivalent 10/02/2014,07/18/2013,07/05/20 12 Hep A, Adult 10/02/2014 Hep A, ped/adol 05/04/2011 Hep B, ped/adol 02/15/1997,08/20/1996,06/21/1996 Hib (PRP-T) 11/30/1996,08/20/1996,06/21/1996 IPV 10/10/1999, 7,08/20/1996,06/21 Influenza Split 05/29/2012,05/27/2010 Influenza, injectable, quadrivalent 10/06/2015,1 Influenza, injectable, quadr ivalent, preservative free 07/18/2013 MMR 10/10/1999,11/30/1996 Meningococcal Conj (Menactra) MCV4P 10/06/2015,0 03/20/2008 Tdap 03/20/2008 Varicella 03/20/2008,11/12/1996 Family History Relation Name Status Comments Father Father: Asthma Mother Alive Mother: Alive a nd well Sister Sister: ADD/ADH D Social History Tobacco Use Types Packs/Day Years Used Date Smoking Tobacco: Never Comments:Never smoker Sex and Gender Information Value Date Recorded Sex Assigned at Not on file Legal Sex Male 5:17 PM EDT Gender Identity Not on file Sexual Orientation Not on file Last Filed Vital Signs Vital Sign Reading Time Taken Comments Blood Pressure 121/86 10/11/2016 12:00 AM EST Pulse 75 10/11/2016 12:00 AM EST Temperature 36.9 C (98.4 F) 05/29/2012 12:00 AM EDT Respiratory Rate - - Oxygen Saturation - - Inhaled Oxygen Concentration - - Weight 90.4 kg (199 lb 3.2 oz) 10/11/2016 12:00 AM EST Height 166.4 cm (5' 5.5 ) 10/11/2016 12:00 AM ES T Body Mass Index 32.64 10/11/2016 12:00 AM EST Plan of Treatment Health Maintenance Due Date Last Done Comments DTaP,Tdap,and Td Vaccines (7 - Td or Tdap) 03/20/2018 03/20/2008, 10/10/1999, 07/03/1997, Additional history exists Influenza Vaccines (#1) 2025 10/06/19 16, 10/02/2014, 07/18/2013, Additional history exists COVID-19 Vaccine ( season) 2025 HIB Vaccines Completed 11/30/1996, 08/03, 06/21/1996 Hepatitis B Vaccines Completed 02/15/1997, 08/20/1996, 06/21/1996 IPV Vaccines Completed 10/10/1999, 11/04, 08/20/1996, Additional history exists MMR Vaccines Completed 10/10/1999, 11/30/1996 Varicella Vaccines Completed 03/20/2008, 11/12/1996 HPV Vaccines Completed 10/02/2014, 07/03, 07/05/2012 Hepatitis A Vaccines Completed 10/02/2014, 05/04/20 11 Meningococcal Vaccine Aged Out 10/06/2015, 008 No longer eligible based on patient's age to complete this topic Men B Vaccine Aged Out No longer elig ible based on patient's age to complete this topic Pneumococcal Vaccine Aged Out No long er eligible based on patient's age to complete this topic
--- OUTSIDE RECORDS SUMMARY | 2025-07-27 13:44 | XMS_ITS | Encounter Summary ---
Author Organization [facility] Address [address] [place] [address] Phone Care Team Providers Care Publicity Manager Name Role Phone Joshua Funez MD Primary Care Provider [phone] Encounter Details Date Type Department Care Team (Late st Contact Info) Description 01/04/2017 Documentation EM Family Medicine [address] [place] [address] Family Medicine, Physician [address] [place], [place] [phone] Social History Tobacco Use Types Packs/Day Years [...] on filedocumented in this encounter Care Teams Publicity Manager Relationship Specialty Start Date End Date Joshua Funez MD [address] [place] [address] FOX Singh [address] PCP - General 05/13/17 01/04/23 documented as of this encounter
--- OUTSIDE RECORDS SUMMARY | 2025-07-27 13:44 | XMS_ITS | Encounter Summary ---
Author Organization [facility] Address [address] [place] [address] Phone Care Team Providers Care Wood Grinder Name Role Phone Joshua Funez MD Primary Care Provider [phone] Encounter Details Date Type Department Care Team (Late st Contact Info) Description 02/24/2017 Documentation EM Family Medicine [address] [place] [address] Family Medicine, Physician [address] [place], [place] [phone] Social History Tobacco Use Types Packs/Day Years [...] on filedocumented in this encounter Care Teams Wood Grinder Relationship Specialty Start Date End Date Jsohua Funez MD [address] [place] [address] FOX Singh [address] PCP - General 05/13/17 01/04/23 documented as of this encounter
--- OUTSIDE RECORDS SUMMARY | 2025-07-27 13:44 | XMS_ITS | Encounter Summary ---
Author Organization [facility] Address [address] [place] [address] Phone Care Team Providers Care First Front Ventilator Name Role Phone Joshua Funez MD Primary Care Provider [phone] Encounter Details Date Type Department Care Team (Late st Contact Info) Description 11/30/2016 Documentation EM Family Medicine [address] [place] [address] Family Medicine, Physician [address] [place], [place] [phone] Social History Tobacco Use Types Packs/Day Years [...] on filedocumented in this encounter Care Teams First Front Ventilator Relationship Specialty Start Date End Date Joshua Funez MD [address] [place] [address] FOX Singh [address] PCP - General 05/13/17 01/04/23 documented as of this encounter
--- OUTSIDE RECORDS SUMMARY | 2025-07-27 13:44 | XMS_ITS | Encounter Summary ---
Author Organization [facility] Address [address] [place] [address] Phone Care Team Providers Care Supervisor Locomotive Name Role Phone Joshua Funez MD Primary Care Provider [phone] Encounter Details Date Type Department Care Team (Late st Contact Info) Description 05/19/2017 Conversion Encounter [facility] [address] [place] [address] Social History Tobacco Use Types Packs/Day Years [...] on filedocumented in this encounter Care Teams Supervisor Locomotive Relationship Specialty Start Date End Date Joshua Funez MD [address] [place] [address] PCP - General 05/13/17 01/04/23 documented as of this encounter
--- OUTSIDE RECORDS SUMMARY | 2025-07-27 13:44 | XMS_ITS | Encounter Summary ---
Author Organization [facility] Address [address] [place] [address] Phone Care Team Providers Care Sole Leveling Machine Operator Name Role Phone Joshua Funez MD Primary Care Provider [phone] Encounter Details Date Type Department Care Team (Late st Contact Info) Description 02/21/2017 Documentation EM Family Medicine [address] [place] [address] Family Medicine, Physician [address] [place], [place] [phone] Social History Tobacco Use Types Packs/Day Years [...] on filedocumented in this encounter Care Teams Sole Leveling Machine Operator Relationship Specialty Start Date End Date Joshua Funez MD [address] [place] [address] FOX Singh [address] PCP - General 05/13/17 01/04/23 documented as of this encounter
--- OUTSIDE RECORDS SUMMARY | 2025-07-27 13:44 | XMS_ITS | Encounter Summary ---
Author Organization [facility] Address [address] [place] [address] Phone Care Team Providers Care Cash Applications Representative Name Role Phone Joshua Funez MD Primary Care Provider [phone] Encounter Details Date Type Department Care Team (Late st Contact Info) Description 02/24/2017 Documentation EM Family Medicine [address] [place] [address] Family Medicine, Physician [address] [place], [place] [phone] Social History Tobacco Use Types Packs/Day Years [...] on filedocumented in this encounter Care Teams Cash Applications Representative Relationship Specialty Start Date End Date Joshua Funez MD [address] [place] [address] FOX Singh [address] PCP - General 05/13/17 01/04/23 documented as of this encounter
--- OUTSIDE RECORDS SUMMARY | 2025-07-27 13:44 | XMS_ITS | Encounter Summary ---
Author Organization [facility] Address [address] [place] [address] Phone Care Team Providers Care Driller And Reamer Name Role Phone Joshua Funez MD Primary Care Provider Encounter Details Date Type Department Care Team (Late st Contact Info) Description 10/05/2016 Documentation EM Family Medicine [address] [place] [address] Family Medicine, Physician [address] [place], [place] [phone] Social History Tobacco Use Types Packs/Day Years [...] on filedocumented in this encounter Care Teams Driller And Reamer Relationship Specialty Start Date End Date Joshua Funez MD [address] [facility] [address] PCP - General 05/13/17 01/04/23 documented as of this encounter
[2025-07-27 13:45] LABS: MANUAL DIFF FLAG NO
[2025-07-27 13:48] LABS: Hematocrit 45.9 % (42.0-52.0); Hemoglobin 15.3 g/dl (14.0-18.0); Imm Gran Abs Auto 0.03 X10*3/uL (0.00-0.03); Imm Gran Pct Auto 0.4 % (0.0-0.4); Lymphocytes Absolute Auto 2.3 X10*3/uL (1.2-4.9); Mean Corpuscular HGB Conc 33.3 g/dl (31.0-36.0); Mean Corpuscular Hemoglobin 26.7 pg (27.0-33.0); Mean Corpuscular Volume 80.0 fL (80.0-98.0); NRBC Abs Auto 0.000 X10*3/uL (0.0-0.012); NRBC Pct Auto 0.0 /100WBC (0.0-0.2); Platelet Count 272 X10*3/uL (160-400); Red Blood Count 5.74 X10*6/uL (4.60-5.80); White Blood Count 8.3 X10*3/uL (4.8-10.8)
[2025-07-27 14:52] LABS: Appearance Urine Clear; Glucose Urine UA Negative (Negative); PH 5.5 (5.0-9.0); Specific Gravity - Urine 1.025 (1.005-1.025); UMIC TRIGGER UACC YES
[2025-07-27 15:03] LABS: Cannabinoid Screen Urine Not Detected (Not Detect)
[2025-07-27 16:58] LABS: Glucose, Whole Blood 123 mg/dL (60-115)
[2025-07-27 18:05] LABS: Alanine Aminotransferase 22 U/L (0-40); Albumin Level 4.4 g/dL (3.5-5.0); Alkaline Phosphatase 112 U/L (39-117); Anion Gap 14 (12-20); Aspartate Amino Transferase 24 U/L (5-37); Blood Urea Nitrogen 12 mg/dL (9-16); Calcium 9.4 mg/dL (8.4-10.2); Carbon Dioxide 25 mmol/L (22-29); Chloride 105 mmol/L (96-108); Creatinine Clr Calc Pharmacy 104.8; Estimated Glomerular Filt Rate > 60; Potassium 4.4 mmol/L (3.3-5.1); Sodium 140 mmol/L (135-145); Total Protein 7.3 g/dL (6.5-8.0)
[2025-07-27 20:11] VITALS: BP 131/79; PULSE 80; RESP 16; TEMP 37.1; O2SAT 98
[2025-07-28 01:52] LABS: Glucose, Whole Blood 89 mg/dL (60-115)
[2025-07-28] MEDS: diazePAM 10 MG/2 ML CARTRIDGE 5 MG IM (05:35)
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
[2025-07-28 07:52] VITALS: BP 126/80; PULSE 98; RESP 16; TEMP 36.5; O2SAT 98
[2025-07-28] MEDS: buPROPion HCl XL 300 MG TAB.ER.24H PO (10:07)
--- NOTE | 2025-07-28 10:14 | PC.NURSE ---
at 0735 Pt was taken out of restraints, he is calm and cooperative. He is able to verbalize why he was placed in the restraints and what he needs to do to stay out of them. VS are done and he is given breakfast.
[2025-07-28 14:23] VITALS: BP 106/67; PULSE 116; RESP 19; TEMP 37.1; O2SAT 97
[2025-07-28 14:24] LABS: Glucose, Whole Blood 132 mg/dL (60-115)
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
[2025-07-28 20:32] VITALS: BP 95/61
[2025-07-28 20:33] VITALS: BP 95/61; PULSE 89; RESP 18; TEMP 36.5; O2SAT 96
--- NOTE | 2025-07-28 21:44 | MHC.CARE ---
Pt seen by psychiatry (Dr. Silva) who determined that Pt is appropriate for an inpatient admission (DDU or Adult). Pt's mother/legal guardian has been updated.
--- NOTE | 2025-07-29 06:18 | PC.NURSE ---
Pt slept throughout the night with no issues/concerns. Breaths remained even regular and unlabored with equal chest rises. Monitoring is ongoing.
[2025-07-29 06:34] VITALS: BP 101/62; PULSE 92; RESP 20; TEMP 36.4; O2SAT 96
--- NOTE | 2025-07-29 07:01 | PC.NURSE ---
Assumed care, report received. Pt is currently sleeping, safety is maintained.
[2025-07-29 07:15] LABS: Glucose, Whole Blood 104 mg/dL (60-115)
[2025-07-29] MEDS: buPROPion HCl XL 300 MG TAB.ER.24H PO (07:59)
--- NOTE | 2025-07-29 08:23 | ECG_ITS ---
Test Reason : CHECK QTC Blood Pressure : */* mmHG Vent. Rate : 97 BPM Atrial Rate : 97 BPM P-R Int : 154 ms QRS Dur : 76 ms QT Int : 348 ms P-R-T Axes : 42 76 41 degrees QTcB Int : 441 ms Normal sinus rhythm Normal ECG When compared with ECG of 16-Apr-2025 14:51, No significant change was found Referred By: Freddie Maradiaga Electronically Signed By: BOLIVAR HANKINS
--- NOTE | 2025-07-29 12:41 | PHA.MEDREC ---
Pharmacy Consult ? Medication Reconciliation Pharmacy has completed the medication reconciliation. Reviewed med rec done by nursing and also called mom Khushi [phone] to confirm med list. Mom said that pt is now taking aripiprazole 5 mg once a day in the morning, atorvastatin 40 mg daily, bupropion XL 300 mg daily, metformin IR 500 bid, Ozempic 1 mg on Mondays, trazodone 200 mg at bedtime (scheduled) and hydroxyzine 25 mg bid prn. Med rec was updated according to mom's confirmation.
[2025-07-29 16:18] VITALS: BP 104/60; PULSE 87; RESP 18; TEMP 36.8; O2SAT 97
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
[2025-07-29 20:55] LABS: Glucose, Whole Blood 94 mg/dL (60-115)
[2025-07-29 21:51] VITALS: BP 101/59; PULSE 86; RESP 16; TEMP 36.6; O2SAT 96
[2025-07-30 07:15] VITALS: BP 128/77; PULSE 84; RESP 16; TEMP 36.7; O2SAT 97
[2025-07-30 07:55] LABS: Glucose, Whole Blood 107 mg/dL (60-115)
[2025-07-30 08:09] LABS: Cholesterol 127 mg/dL (<200); HDL Cholesterol 35 mg/dL (>40); Triglycerides 112 mg/dL (<150)
[2025-07-30] MEDS: buPROPion HCl XL 300 MG TAB.ER.24H PO (08:25)
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
[2025-07-30 15:03] VITALS: BP 118/71; PULSE 90
[2025-07-30 21:31] VITALS: BP 115/56
[2025-07-30 21:34] VITALS: BP 115/56; PULSE 74; RESP 18; TEMP 36.2; O2SAT 96
[2025-07-31 07:45] LABS: Glucose, Whole Blood 98 mg/dL (60-115)
[2025-07-31 08:00] VITALS: BP 123/75; PULSE 80; RESP 20; TEMP 36.7; O2SAT 99
[2025-07-31 08:13] VITALS: BP 123/75
[2025-07-31] MEDS: buPROPion HCl XL 300 MG TAB.ER.24H PO (08:13)
[2025-07-31 08:14] VITALS: BP 123/75
[2025-07-31 08:17] VITALS: BP 123/75; PULSE 80; RESP 20; TEMP 36.7; O2SAT 99
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
[2025-07-31 15:53] VITALS: BP 107/60
[2025-07-31 19:56] VITALS: BP 120/75; PULSE 88; RESP 16; TEMP 36.4; O2SAT 97
[2025-08-01] VITALS (11 sets, daily range): BP systolic 102–137; BP diastolic 57–90; PULSE 93–111; RESP 15–18; TEMP 36.3–37.1; O2SAT 94–97; BMI 39.9
[2025-08-01 07:31] LABS: Glucose, Whole Blood 118 mg/dL (60-115)
[2025-08-01] MEDS: buPROPion HCl XL 300 MG TAB.ER.24H PO (08:14)
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
--- NOTE | 2025-08-01 09:37 | HO.BHRESTREX ---
Behavioral Restraint Exam Behavioral Health Restraint Exam Type of Restraint: Mechanical Reason for Restraint: Substantial Risk of Harm to Others Medical Concerns for Restraint: No medical concerns, pt w/o acute inj / no noted resp/VS abnormalities Behavioral Assessment / Plan: No further behavioral concerns, continue current plan.
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
[2025-08-01] MEDS: diazePAM 10 MG/2 ML CARTRIDGE 5 MG IM (15:53)
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
--- NOTE | 2025-08-01 16:10 | HO.BHRESTREX ---
Behavioral Restraint Exam Behavioral Health Restraint Exam Type of Restraint: Physical Hold, Medication and Mechanical Reason for Restraint: Substantial Risk of Harm to Others Medical Concerns for Restraint: No medical concerns, pt w/o acute inj / no noted resp/VS abnormalities Behavioral Assessment / Plan: No further behavioral concerns, continue current plan.
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
--- NOTE | 2025-08-01 16:43 | PC.NURSE ---
Pt.'s third restrain end time was 1631. VSS. Pt resting comfortably in bed.
--- NOTE | 2025-08-01 18:16 | PC.NURSE ---
This casualty underwriter contacted provider due to a missing restraint order from [id number]. Provider received message and stated that she will enter order tomorrow.
[2025-08-01 20:21] LABS: Glucose, Whole Blood 113 mg/dL (60-115)
[2025-08-02 08:26] VITALS: BP 120/70; PULSE 88; RESP 16; TEMP 36.8; O2SAT 97
[2025-08-02] MEDS: buPROPion HCl XL 300 MG TAB.ER.24H PO (08:28)
[2025-08-02 08:39] LABS: Glucose, Whole Blood 103 mg/dL (60-115)
--- NOTE | 2025-08-02 10:00 | MHC.CLN ---
NUTRITION DIET CHANGED FROM DIABETIC 1500 KCALS TO REGULAR TO INCREASE FOOD CHOICES. RECENT AIC=5.5 SHOWING VERY GOOD BLOOD GLUCOSE CONTROL.
[2025-08-02] MEDS: Magnesium Hydrox/Alum Hydrox 30 ML ORAL.SUSP PO (12:20)
[2025-08-02 14:14] VITALS: BP 110/61
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
[2025-08-02 21:00] VITALS: BP 113/60; PULSE 97; RESP 14; O2SAT 96
--- NOTE | 2025-08-02 21:35 | PC.NURSE ---
refused HS POC
[2025-08-03 08:26] LABS: Glucose, Whole Blood 107 mg/dL (60-115)
[2025-08-03 08:30] VITALS: BP 116/76; PULSE 90; RESP 18; TEMP 36.3; O2SAT 97
[2025-08-03 08:36] VITALS: BP 116/76
[2025-08-03] MEDS: buPROPion HCl XL 300 MG TAB.ER.24H PO (08:36)
[2025-08-03 11:08] LABS: Creatinine Clr Calc Pharmacy 111.2; Estimated Glomerular Filt Rate > 60
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
[2025-08-03] MEDS: Milk of Magnesia 30 ML ORAL.SUSP PO (14:53)
[2025-08-03 15:52] VITALS: BP 125/62
[2025-08-03 20:00] VITALS: BP 135/85; PULSE 83; RESP 17; TEMP 36.2; O2SAT 99
[2025-08-03] MEDS: Magnesium Hydrox/Alum Hydrox 30 ML ORAL.SUSP PO (20:22)
[2025-08-03 20:30] LABS: Glucose, Whole Blood 127 mg/dL (60-115)
[2025-08-03 20:46] VITALS: BP 135/85
[2025-08-04] VITALS (7 sets, daily range): BP systolic 111–123; BP diastolic 53–95; PULSE 88–99; RESP 12–18; TEMP 36.1–36.6; O2SAT 96–98
[2025-08-04 08:07] LABS: Glucose, Whole Blood 97 mg/dL (60-115)
[2025-08-04] MEDS: buPROPion HCl XL 300 MG TAB.ER.24H PO (08:34)
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
--- NOTE | 2025-08-04 16:51 | HO.BHRESTREX ---
Behavioral Restraint Exam Behavioral Health Restraint Exam Type of Restraint: Physical Hold and Medication Reason for Restraint: Substantial Risk of Harm to Others Medical Concerns for Restraint: No medical concerns, pt w/o acute inj / no noted resp/VS abnormalities Behavioral Assessment / Plan: No further behavioral concerns, continue current plan.
--- NOTE | 2025-08-04 16:51 | HO.PSYADMNOT ---
HPI Chief Complaint: Aggression HPI Past Psychiatric History: Inpatient: multiple in past, [place] [facility] [place], [facility] [place]. OP: [facility] Dianna Vail, psych prescriber. Past trials: adderall, abilify, clonidine, ativan, topamax (mostly for weight gain but per mother no change in weight) Autism lawn care specialist- Lakshmi Crawford DDS Worker- Mikayla Therapist: Alex Zheng [facility] ([phone]) Psychiatrist: Dianna Vail [facility] ([phone]) [facility] Medical History (Updated 07/30/25 @ 14:02 by Qing Denton DNP) Diabetes mellitus type 2, controlled, without complications Developmental disability Autism Obesity due to excess calories Type 2 diabetes mellitus with hyperglycemia, with long-term current use of insulin Hyperlipidemia LDL goal <100 Type 2 diabetes mellitus with hypoglycemia without coma Surgical History No history of previous surgery Family History: Arnold is adopted, reported family history of both mental health and addiction issues Social History: Lives with adoptive mother and adoptive siblings Attends [employer] in [place] Trauma History: None Diagnostics Vital Signs (24Hr): Vital Signs - 24 hr 08/03/25 20:00 08/03/25 20:46 08/04/25 08:18 Temperature 97.1 F 97.0 F Pulse Rate 83 97 Respiratory Rate 17 18 Blood Pressure 135/85 135/85 123/95 H Pulse Oximetry 99 98 Oxygen Delivery Method Room Air Room Air 08/04/25 12:50 08/04/25 13:05 08/04/25 13:20 Temperature 97.9 F 97.8 F 97.6 F Pulse Rate 90 88 92 Respiratory Rate 12 18 Blood Pressure 116/66 111/53 L 114/58 L Pulse Oximetry Oxygen Delivery Method 08/04/25 15:50 Temperature Pulse Rate Respiratory Rate Blood Pressure 119/78 Pulse Oximetry Oxygen Delivery Method BMI result Body Mass Index 39.9 Labs 07/27/25 13:36 08/03/25 09:19 Labs: Laboratory Results - last 48 hr 08/03/25 08/03/25 08/03/25 08:19 09:19 20:25 Creatinine 1.19 Estim Creat Clear Calc 111.2 Estimated GFR > 60 POC Glucose 107 127 H 08/04/25 08:03 Creatinine Estim Creat Clear Calc Estimated GFR POC Glucose 97 Meds/Allergies Meds Home Medications ?Medication ?Instructions ?Recorded ?Confirmed ?Type bupropion HCl 300 mg 24 hr tablet, 300 mg PO QAM 07/27/25 07/27/25 History extended release clonidine HCl 0.2 mg tablet 0.2 mg PO TID 07/27/25 07/27/25 History haloperidol 10 mg tablet 10 mg PO BID 07/27/25 07/27/25 History lorazepam 0.5 mg tablet 0.5 mg PO TID PRN Anxiety 07/27/25 07/27/25 History aripiprazole 5 mg tablet 5 mg PO DAILY 07/29/25 07/29/25 History atorvastatin 40 mg tablet 40 mg PO DAILY cholesterol 07/29/25 07/29/25 History hydroxyzine pamoate 25 mg capsule 25 mg PO BID PRN Anxiety 07/29/25 07/29/25 History Allergies Allergies Allergy/AdvReac Type Severity Reaction Status Date / Time insulin degludec (From AdvReac Intermediate low blood Verified 07/27/25 13:00 Tresiba FlexTouch U-100) glucose dulaglutide (From [employer]) AdvReac Unknown no Verified 07/27/25 13:00 positive effect topamax AdvReac Unknown Unknown Uncoded 04/16/25 14:19 Assessment & Plan Statement Statement: I have reviewed the history and physical and performed a pertinent examination on my patient. No changes have occurred unless specified. If the History and Physical was not performed prior to admission, the Hospitalist's service will be consulted for completing the admission physical. Time Spent With Patient Time: Total time managing care of this patient today ____ minutes.
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
[2025-08-04 21:21] LABS: Glucose, Whole Blood 109 mg/dL (60-115)
[2025-08-05 07:38] LABS: Glucose, Whole Blood 119 mg/dL (60-115)
[2025-08-05 07:51] VITALS: BP 116/60; PULSE 90; RESP 24; TEMP 36.7; O2SAT 97
[2025-08-05] MEDS: buPROPion HCl XL 150 MG TAB.ER.24H PO (08:27)
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
[2025-08-05 15:08] VITALS: BP 127/69; PULSE 100
[2025-08-05 20:00] VITALS: BP 108/60; PULSE 100; RESP 16; TEMP 36.8; O2SAT 96
[2025-08-05 20:27] VITALS: BP 108/60
[2025-08-05 20:38] LABS: Glucose, Whole Blood 139 mg/dL (60-115)
[2025-08-06 08:00] VITALS: BP 119/71; PULSE 85; RESP 15; TEMP 36.9; O2SAT 98
[2025-08-06 08:42] LABS: Glucose, Whole Blood 107 mg/dL (60-115)
[2025-08-06 08:44] VITALS: BP 119/71
[2025-08-06 08:45] VITALS: BP 119/71
[2025-08-06] MEDS: buPROPion HCl XL 150 MG TAB.ER.24H PO (08:46)
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
[2025-08-06 15:51] VITALS: BP 117/94
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
--- NOTE | 2025-08-06 16:19 | HO.BHRESTREX ---
Behavioral Restraint Exam Behavioral Health Restraint Exam Type of Restraint: Physical Hold Reason for Restraint: Substantial Risk of Harm to Others Medical Concerns for Restraint: No medical concerns, pt w/o acute inj / no noted resp/VS abnormalities Behavioral Assessment / Plan: No further behavioral concerns, continue current plan.
[2025-08-06 20:00] VITALS: BP 120/78; PULSE 82; RESP 14; TEMP 36.7; O2SAT 97
[2025-08-06 22:54] LABS: Glucose, Whole Blood 130 mg/dL (60-115)
[2025-08-07 08:02] LABS: Glucose, Whole Blood 119 mg/dL (60-115)
[2025-08-07 08:15] VITALS: BP 114/70; PULSE 98; RESP 16; TEMP 37; O2SAT 97
[2025-08-07] MEDS: buPROPion HCl XL 150 MG TAB.ER.24H PO (08:41)
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
[2025-08-07 21:00] VITALS: BP 122/59; PULSE 120; RESP 16; TEMP 36.4; O2SAT 96
[2025-08-07 21:17] LABS: Glucose, Whole Blood 157 mg/dL (60-115)
[2025-08-08 07:00] VITALS: BMI 41.2
[2025-08-08 08:13] LABS: Glucose, Whole Blood 127 mg/dL (60-115)
[2025-08-08 08:25] VITALS: BP 122/71; PULSE 95; RESP 14; TEMP 36.9; O2SAT 96
[2025-08-08] MEDS: buPROPion HCl XL 150 MG TAB.ER.24H PO (08:27)
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
[2025-08-08 12:53] VITALS: BP 112/60; PULSE 105
[2025-08-08] MEDS: Milk of Magnesia 30 ML ORAL.SUSP PO (13:46)
[2025-08-08 20:00] VITALS: BP 112/61; PULSE 90; RESP 18; TEMP 36.6; O2SAT 97
[2025-08-08 21:01] LABS: Glucose, Whole Blood 117 mg/dL (60-115)
[2025-08-09 07:56] LABS: Glucose, Whole Blood 105 mg/dL (60-115)
[2025-08-09 08:00] VITALS: BP 123/76; PULSE 78; RESP 16; TEMP 36.7; O2SAT 96
[2025-08-09] MEDS: buPROPion HCl XL 150 MG TAB.ER.24H PO (08:37)
[2025-08-09] MEDS: Albuterol Sulfate 90 MCG 8 GM INHALER 1 PUFF INHALE (09:08)
[2025-08-09 12:17] VITALS: BP 134/81
[2025-08-09 12:18] VITALS: BP 134/81; PULSE 88
[2025-08-09] MEDS: Milk of Magnesia 30 ML ORAL.SUSP PO (13:27)
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
[2025-08-09 20:22] VITALS: BP 127/58; PULSE 95; RESP 16; TEMP 36.2; O2SAT 97
[2025-08-09 20:33] VITALS: BP 127/58
[2025-08-09 21:02] LABS: Glucose, Whole Blood 108 mg/dL (60-115)
[2025-08-09 23:52] VITALS: BP 108/67
[2025-08-10] MEDS: Albuterol Sulfate 90 MCG 8 GM INHALER 1 PUFF INHALE (02:39)
[2025-08-10 08:12] LABS: Glucose, Whole Blood 113 mg/dL (60-115)
[2025-08-10 09:00] VITALS: BP 129/86; PULSE 77; RESP 16; TEMP 36.3; O2SAT 97
[2025-08-10 09:12] LABS: Creatinine Clr Calc Pharmacy 118.1; Estimated Glomerular Filt Rate > 60
[2025-08-10 09:25] VITALS: BP 129/86
[2025-08-10] MEDS: buPROPion HCl XL 150 MG TAB.ER.24H PO (09:30)
[2025-08-10 14:10] VITALS: BP 120/70; PULSE 94
[2025-08-10 14:11] VITALS: BP 120/70
[2025-08-10 20:15] VITALS: BP 112/62; PULSE 86; RESP 16; TEMP 36.8; O2SAT 96
[2025-08-10 20:25] LABS: Glucose, Whole Blood 139 mg/dL (60-115)
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
[2025-08-11 08:00] VITALS: BP 116/71; PULSE 83; RESP 14; TEMP 36.7; O2SAT 96
[2025-08-11 08:02] LABS: Glucose, Whole Blood 95 mg/dL (60-115)
[2025-08-11 08:15] VITALS: BP 116/71; PULSE 83; RESP 14; TEMP 36.7; O2SAT 96
[2025-08-11] MEDS: buPROPion HCl XL 150 MG TAB.ER.24H PO (08:49)
[2025-08-11] MEDS: Albuterol Sulfate 90 MCG 8 GM INHALER 1 PUFF INHALE (08:54)
[2025-08-11] MEDS: Milk of Magnesia 30 ML ORAL.SUSP PO (09:37)
[2025-08-11 12:48] VITALS: BP 116/53
[2025-08-11 12:49] VITALS: BP 116/53; PULSE 106
[2025-08-11 20:00] VITALS: BP 128/65; PULSE 87; RESP 17; TEMP 36.3; O2SAT 96
[2025-08-11 20:48] LABS: Glucose, Whole Blood 148 mg/dL (60-115)
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
[2025-08-12 09:38] VITALS: BP 126/76
[2025-08-12 09:39] VITALS: BP 126/76; PULSE 98; RESP 18; TEMP 36.9; O2SAT 98
[2025-08-12 09:40] VITALS: BP 126/76
[2025-08-12] MEDS: buPROPion HCl XL 150 MG TAB.ER.24H PO (09:40)
[2025-08-12 09:50] LABS: Glucose, Whole Blood 99 mg/dL (60-115)
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
[2025-08-12 12:24] VITALS: BP 115/58; PULSE 97
[2025-08-12 17:05] LABS: Glucose, Whole Blood 132 mg/dL (60-115)
[2025-08-12 20:00] VITALS: BP 133/76; PULSE 91; RESP 18; TEMP 36.7; O2SAT 95
[2025-08-12 20:23] VITALS: BP 133/76
[2025-08-13 07:53] LABS: Glucose, Whole Blood 123 mg/dL (60-115)
[2025-08-13 07:55] VITALS: BP 120/72; PULSE 95; RESP 16; TEMP 36.5; O2SAT 96
[2025-08-13] MEDS: buPROPion HCl XL 150 MG TAB.ER.24H PO (08:50)
[2025-08-13 12:51] VITALS: BP 112/56; PULSE 102
[2025-08-13 17:00] LABS: Glucose, Whole Blood 119 mg/dL (60-115)
[2025-08-13 20:00] VITALS: BP 122/83; PULSE 98; RESP 16; TEMP 36.1; O2SAT 96
[2025-08-13 21:16] LABS: Glucose, Whole Blood 154 mg/dL (60-115)
[2025-08-13 21:20] VITALS: BP 122/83
[2025-08-13] MEDS: Milk of Magnesia 30 ML ORAL.SUSP 15 ML PO (21:22)
[2025-08-14 07:47] LABS: Glucose, Whole Blood 126 mg/dL (60-115)
[2025-08-14 08:00] VITALS: BP 108/58; PULSE 88; RESP 14; TEMP 36.9; O2SAT 95
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
[2025-08-14] MEDS: buPROPion HCl XL 150 MG TAB.ER.24H PO (09:09)
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
== END 2025-08-14 11:08 | disposition home or self-care (01) | DRG 885 ==
LOC: HO.ED 14:48 → HO.PADLT16 07-29 14:44
PROVIDERS: Nurse Practitioner Family; Admitting Provider Psychiatry & Neurology Psychiatry; Emergency Provider Emergency Medicine Emergency Medical Services; PCP Internal Medicine; Visit Provider Psychiatry & Neurology Psychiatry
DX: F25.9 Schizoaffective disorder, unspecified (principal); F84.0 Autistic disorder; E11.9 Type 2 diabetes mellitus without complications; I10 Essential (primary) hypertension; E78.5 Hyperlipidemia, unspecified; Z78.1 Physical restraint status; Z79.84 Long term (current) use of oral hypoglycemic drugs; Z79.899 Other long term (current) drug therapy
CPT/HCPCS: 36415; 80048; 80061; 80076; 80307; 81001; 82565; 82947; 83036; 85025; 93005; 99285; J1200; J1630; J3360; J3486; S9485

== ENCOUNTER → 2025-07-27 13:41 | Outpatient (BNV) | payer MEDICARE, MEDICAID, SELFPAY | PROVIDERS: Emergency Provider Emergency Medicine Emergency Medical Services; PCP Internal Medicine; Visit Provider Psychiatry & Neurology Psychiatry | DX: F25.0 Schizoaffective disorder, bipolar type (principal); F84.0 Autistic disorder | CPT/HCPCS: 99232; 99499 ==

== ENCOUNTER → 2025-07-29 08:23 | Outpatient (BNV) | payer MEDICARE, MEDICAID, SELFPAY | PROVIDERS: Admitting Provider Psychiatry & Neurology Psychiatry; Emergency Provider Emergency Medicine Emergency Medical Services; PCP Internal Medicine; Visit Provider Internal Medicine | DX: Z13.6 Encounter for screening for cardiovascular disorders (principal) | CPT/HCPCS: 93010 ==

== ENCOUNTER → 2025-07-29 14:01 | Outpatient (BNV) | payer MEDICARE, MEDICAID, SELFPAY | PROVIDERS: Admitting Provider Psychiatry & Neurology Psychiatry; Emergency Provider Emergency Medicine Emergency Medical Services; PCP Internal Medicine; Visit Provider Nurse Practitioner Family | DX: E11.9 Type 2 diabetes mellitus without complications (principal); Z79.4 Long term (current) use of insulin; I10 Essential (primary) hypertension | CPT/HCPCS: 99221 ==

== ENCOUNTER 2025-09-03 10:46 | Outpatient (AMB) | payer MEDICARE, MEDICAID, SELFPAY ==
--- NOTE | 2025-09-03 10:48 | MHC.PC.OV ---
Vital Signs 09/03/25 10:49 Height 5 ft 5 in Weight 271 lb 9.752 oz BMI 45.2 BP 110/70 Blood Pressure Location Lt brachial Position Sitting Respiration 18 Pulse 76 Pulse Source Pulse Oximeter Temp Source Temporal Artery Scan Pulse Oximetry (%) 100 Oxygen Delivery Method Room Air Intake Visit Reasons: [facility] [place] [facility] Autistic behavior 08/14 Interface Analyst Required: No Accompanied by: Self / Same As Patient Allergies insulin degludec (From Tresiba FlexTouch U-100) Adverse Reaction (Intermediate, Verified 09/03/25 10:49) low blood glucose dulaglutide (From Trulicity) Adverse Reaction (Unknown, Verified 09/03/25 10:49) no positive effect topamax Adverse Reaction (Unknown, Uncoded 04/16/25 14:19) Unknown Tobacco use date assessed: 09/03/25 Dental Screening Dental Screen Date: 09/03/25 Did you have a dental visit in the last 12 months?: No Did you have a dental problem in the last 6 months where you did not have access to dental care?: No Was dental information given to patient?: No HPI HPI Comments History of Present Illness Details The patient is a 30 year old M with a history of autism spectrum disorder, DM, obesity, depression presenting for a post-hospitalization follow-up for behavioral changes. The patient was recently hospitalized in April due to changes in behavior and aggression toward family and was discharged at the end of May. He was then admitted from 07/28 to 08/14 for reccurence of aggressive behavior. The behavioral issues are cyclical; the patient is stable for a couple of weeks after returning home, but then repetitive behaviors and aggression recur, often triggered by being told no. by his mother. During hospitalizations, the patient's medication regimen is frequently changed. The most recent changes include an increased dose of haloperidol to three times a day, a lowered dose of aripiprazole to 0.5 mg, and a lowered dose of hydroxyzine to 25 mg. A 5 mg haloperidol pill was also added as needed for severe agitation. The patient's other medications, including trazodone, benztropine, Ozempic, atorvastatin, metformin, and lisinopril, were continued. The patient is adherent with taking prescribed medications. Since the new medication regimen, the patient has been waking up at 4:00 AM, overeating, and regaining previously lost weight. The patient also has a history of constipation, for which the patient takes medication. [facility] Medical History Diabetes mellitus type 2, controlled, without complications Developmental disability Autism Obesity due to excess calories Type 2 diabetes mellitus with hyperglycemia, with long-term current use of insulin Hyperlipidemia LDL goal <100 Type 2 diabetes mellitus with hypoglycemia without coma Surgical History No history of previous surgery Family History Father Hypertension Type 2 diabetes mellitus Mother No problems noted. Social History Household Members: Family Housing: House Do you presently have visiting nurse or other home services: No Alcohol intake: never Patient Tobacco Use Status: Never used Tobacco e-Cigarette/Vaping Use: Never Used Second Hand Smoke Exposure: No Substance Use Type: Amphetamines Advance Directives Date on File: 04/22/22 service: No Current occupational status: disabled Sexual orientation: Straight/Heterosexual Cognitive needs: No Hearing needs: No Vision needs: No Questionnaire PHQ-9 Over the last 2 weeks, how often have you been bothered by any of the following problems? 1. Little interest or pleasure in doing things: several days 2. Feeling down, depressed, or hopeless: several days 3. Trouble falling or staying asleep, or sleeping too much: several days 4. Feeling tired or having little energy: several days 5. Poor appetite or overeating: several days 6. Feeling bad about yourself - or that you are a failure or have let yourself or your family down: several days 7. Trouble concentrating on things, such as reading the newspaper or watching television: several days 8. Moving or speaking so slowly that other people could have noticed. Or the opposite - being so fidgety or restless that you have been moving around a lot more than usual: several days 9. Thoughts that you would be better off or of hurting yourself in some way: several days Total score: 9 Source: Developed by Drs. Javier Sims, Maranda Cain, Franklin Mendoza and colleagues, with an educational yue from [employer]. Thrive Questionnaire Date Thrive assessed: 09/03/25 I am a: Parent/Caregiver What is your living situation today?: I have a steady place to live Within the past 12 months, did the food you bought not last and you didn't have the money to get more?: Never true Within the past 12 months, did you worry whether your food would run out before you got money to buy more?: Never true Do you have trouble paying for medicines?: No Do you have trouble getting transportation to medical appointments?: No Do you have trouble paying your heating and electricity bill?: No Do you have trouble taking care of your child, family member or friend?: No Do you have trouble with day-to-day activities such as bathing, preparing meals, shopping, managing finances, etc.?: No Are you currently unemployed and looking for a job?: No Are you interested in more education?: No Please select the resources that you would like help with: None Currently or been in a relationship where the following occur: No concerns reported THRIVE Score: 0 CHRISTA-7 AMB Questionnaire CHRISTA-7 Date CHRISTA - 7 assessed: 03/13/24 Source: Developed by Drs. Javier Sims, Maranda Cain, Franklin Mendoza and colleagues, with an educational yue from [employer]. Review of Systems Const Details: As per HPI. Physical exam (Primary Care) Vital Signs: Last Vital Signs Pulse 76 09/03/25 10:49 Resp 18 09/03/25 10:49 BP 110/70 09/03/25 10:49 Pulse Ox 100 09/03/25 10:49 Oxygen Delivery Method Room Air 09/03/25 10:49 BMI result Body Mass Index 45.2 Tobacco/Smoking Status: Tobacco use Status Tobacco use date assessed 09/03/25 09/03/25 10:55 Patient Tobacco Use Status Never used Tobacco 09/03/25 10:55 e-Cigarette/Vaping Use Never Used 09/03/25 10:55 PHQ-9: PHQ-9 Score PHQ-9: Total score 9 09/03/25 11:34 Thrive Assessment: Date of Thrive Assessment Date Thrive assessed 09/03/25 09/03/25 10:55 Currently or been in a relationship where the following occur: No concerns reported Const Other: Pertinent findings are in BOLD GENERAL APPEARANCE NAD, activity normal for age, well developed/ well nourished, no cyanosis, pallor, or diaphoresis. EYES lids/conjunctiva normal. EARS/NOSE/THROAT Mucous membranes moist, nares normal, lips/teeth normal uvula midline without oral pharyngeal erythema, exudate or swelling TMs normal bilaterally. No lymphangitis/lymphedema. HEAD/NECK normocephalic atraumatic, no facial trauma, neck is supple. RESPIRATORY respiratory effort normal, speaks in full sentences, no tripod position, no accessory muscle use. Lungs clear to auscultation without rhonchi, wheezes, rales CARDIAC Regular rate and rhythm, no edema. ABDOMINAL Soft, ND/NT. No evidence of fluid wave. No pulsatile masses on exam, rebound tenderness, Padgett sign or pain over Mcburney's point. MUSCLES/EXTREMITIES No abnormal range of motion, no swelling. SKIN Warm, pink and dry. No rashes, dermatoses, petechiae or lesions. NEUROLOGICAL Speech is clear and appropriate. Normal level of consciousness. Gait and coordination are normal. 5/5 strength in all extremities. PSYCH Normal mood and affect. Judgement/competence is appropriate Results AMB Hemoglobin A1c AMB Hemoglobin A1c 5.5 % Last Edit by Sindhu Cordon MA on 09/03/25 11:30 Results Reviewed Results Reviewed: Laboratory Last Values Hgb A1c (Clinic) 5.5 % (4.0-6.0) 09/03/25 11:04 Coding Level of Care Code Est Pt Level 4 (90959) Diagnoses Morbid obesity with BMI of 45.0-49.9, adult E66.01; Z68.42 Autism F84.0 Constipation, unspecified constipation type K59.00 Constipation type: unspecified constipation type Time Spent (min) 45 Assessment & Plan Assessment & Plan (1) Morbid obesity with BMI of 45.0-49.9, adult: Code(s): E66.01 - Morbid (severe) obesity due to excess calories; Z68.42 - Body mass index [BMI] 45.0-49.9, adult Category: Medical Plan: - The patient is experiencing increased appetite and weight gain since the recent medication changes, possibly due to the increased frequency of haloperidol. - The patient continues on Ozempic 1 mg for weight management. - Referrals will be placed to a dietitian and the weight management clinic to provide a structured plan for managing diet and cravings. - Advised caregiver to inform Dr. Wells at the September 24 appointment if the referrals have not been scheduled by then. (2) Autism: Code(s): F84.0 - Autistic disorder Category: Medical Plan: - The patient was recently hospitalized for aggression and behavioral changes, leading to adjustments in the psychotropic medication regimen. - No changes will be made to the current psychiatric medications today. - Will continue with outpatient psychiatric care, including an upcoming appointment with the medication provider on September 18 and therapy every two weeks. - A discussion was had regarding the practical challenges of administering oral PRN haloperidol during acute agitation. - Suggested discussing with the psychiatrist the possibility of using an as-needed intramuscular (IM) injection for agitation, as the caregiver is already trained to administer injections (Loreta). (3) Constipation: Code(s): K59.00 - Constipation, unspecified Category: Medical Qualifiers: Constipation type: unspecified constipation type Qualified Code(s): K59.00 - Constipation, unspecified Plan: - The patient has a history of constipation. - Continue current medication for constipation. - Advised on lifestyle modifications to help with constipation. Plan I saw Mr. Cordon for a post-hospitalization follow-up. We discussed the recent medication changes made during hospitalization, including the increased haloperidol and reduced aripiprazole and hydroxyzine. We reviewed the concerning side effects of increased appetite, sleep disturbance, and weight gain, which I suggested should be discussed with the patient's psychiatrist, as they may be related to the increased haloperidol dose. I acknowledged the difficulty of administering the as-needed oral haloperidol for agitation and suggested discussing an intramuscular formulation with the psychiatrist, given the caregiver's existing training. I informed the caregiver that I would not make any changes to the psychiatric medications today and advised continuation with the scheduled psychiatry and therapy follow-ups. To address the weight gain, I stated that I am placing referrals to a dietitian and the weight management clinic. I advised the caregiver to follow up with Dr. Wells at the appointment on September 24 if these referrals have not been scheduled, to ensure they are pursued. Orders: Orders AMB Hemoglobin A1c Today E11.9 - Type 2 diabetes mellitus without complications, Z79.4 - digital marketing intern (current) use of insulin Referrals Landscape Crew Leader Nutrition Referral E66.01 - Morbid (severe) obesity due to excess calories, Z68.42 - Body mass index [BMI] 45.0-49.9, adult Medical Weight Management Referral E66.01 - Morbid (severe) obesity due to excess calories, Z68.42 - Body mass index [BMI] 45.0-49.9, adult
[2025-09-03 10:49] VITALS: BP 110/70; PULSE 76; RESP 18; O2SAT 100; BMI 45.2
--- OUTSIDE RECORDS SUMMARY | 2025-09-03 12:34 | XMS_ITS | Encounter Summary ---
Author Organization [facility] Address [address] [place] [phone] Phone Care Team Providers Care Social Media Marketer Name Role Phone Joshua Funez MD Primary Care Provider [phone] Encounter Details Date Type Department Care Team (Late st Contact Info) Description 02/24/2017 Documentation EM Family Medicine [address] [place] [address] Family Medicine, Physician [address] [place], [place] [phone] Social History Tobacco Use Types Packs/Day Years [...] on filedocumented in this encounter Care Teams Social Media Marketer Relationship Specialty Start Date End Date Joshua Funez MD [address] [place] [address] FOX Singh [id number] PCP - General 05/13/17 01/04/23 documented as of this encounter
--- OUTSIDE RECORDS SUMMARY | 2025-09-03 12:34 | XMS_ITS | Encounter Summary ---
Author Organization [facility] Address [address] [place] [phone] Phone Care Team Providers Care Contour Grinder Name Role Phone Joshua Funez MD Primary Care Provider [phone] Encounter Details Date Type Department Care Team (Late st Contact Info) Description 11/30/2016 Documentation EM Family Medicine [address] [place] [address] Family Medicine, Physician [address] [place], [place] [phone] Social History Tobacco Use Types Packs/Day Years [...] on filedocumented in this encounter Care Teams Contour Grinder Relationship Specialty Start Date End Date Joshua Funez MD [address] [place] [address] FOX Singh [id number] PCP - General 05/13/17 01/04/23 documented as of this encounter
--- OUTSIDE RECORDS SUMMARY | 2025-09-03 12:34 | XMS_ITS | Encounter Summary ---
Author Organization [facility] Address [address] [place] [phone] Phone Care Team Providers Care Street Light Wirer Name Role Phone Joshua Funez MD Primary Care Provider [phone] Encounter Details Date Type Department Care Team (Late st Contact Info) Description 02/21/2017 Documentation EM Family Medicine [address] [place] [address] Family Medicine, Physician [address] [place], [place] [phone] Social History Tobacco Use Types Packs/Day Years [...] on filedocumented in this encounter Care Teams Street Light Wirer Relationship Specialty Start Date End Date Joshua Funez MD [address] [place] [address] FOX Singh [address] PCP - General 05/13/17 01/04/23 documented as of this encounter
--- OUTSIDE RECORDS SUMMARY | 2025-09-03 12:34 | XMS_ITS | Clinical Summary ---
Author Organization [facility] Address [address] [place] [address] Phone Care Team Providers Care Mortgage Loan Officer Name Role Phone Unavailable Primary Care Provider [...]
--- OUTSIDE RECORDS SUMMARY | 2025-09-03 12:34 | XMS_ITS | Encounter Summary ---
Author Organization [facility] Address [address] [place] [address] Phone Care Team Providers Care Machine Installer Name Role Phone Joshua Funez MD Primary Care Provider [phone] Encounter Details Date Type Department Care Team (Late st Contact Info) Description 02/24/2017 Documentation EM Family Medicine [address] [place] [address] Family Medicine, Physician [address] [place], [place] [phone] Social History Tobacco Use Types Packs/Day Years [...] on filedocumented in this encounter Care Teams Machine Installer Relationship Specialty Start Date End Date Joshua Funez MD [address] [place] [address] FOX Singh [address] PCP - General 05/13/17 01/04/23 documented as of this encounter
--- OUTSIDE RECORDS SUMMARY | 2025-09-03 12:34 | XMS_ITS | Encounter Summary ---
Author Organization [facility] Address [address] [place] [address] Phone Care Team Providers Care Reporting Developer Name Role Phone Joshua Funez MD Primary Care Provider [phone] Encounter Details Date Type Department Care Team (Late st Contact Info) Description 10/05/2016 Documentation EM Family Medicine [address] [place] [address] Family Medicine, Physician [address] [place], [place] [phone] Social History Tobacco Use Types Packs/Day Years [...] on filedocumented in this encounter Care Teams Reporting Developer Relationship Specialty Start Date End Date Joshua Funez MD [address] [place] [address] PCP - General 05/13/17 01/04/23 documented as of this encounter
--- OUTSIDE RECORDS SUMMARY | 2025-09-03 12:34 | XMS_ITS | Encounter Summary ---
Author Organization [facility] Address [address] [place] [address] Phone Care Team Providers Care Flower Cheniller Name Role Phone Joshua Funez MD Primary Care Provider [phone] Encounter Details Date Type Department Care Team (Late st Contact Info) Description 01/04/2017 Documentation EM Family Medicine [address] [place] [address] Family Medicine, Physician [address] [place], [place] [phone] Social History Tobacco Use Types Packs/Day Years [...] on filedocumented in this encounter Care Teams Flower Cheniller Relationship Specialty Start Date End Date Joshua Funez MD [address] [place] [address] FOX Singh [address] PCP - General 05/13/17 01/04/23 documented as of this encounter
--- OUTSIDE RECORDS SUMMARY | 2025-09-03 12:34 | XMS_ITS | Encounter Summary ---
Author Organization [facility] Address [address] [place] [address] Phone Care Team Providers Care Hospital Orderly Name Role Phone Joshua Funez MD Primary Care Provider [phone] Encounter Details Date Type Department Care Team (Late st Contact Info) Description 05/19/2017 Conversion Encounter [facility] [address] [place] [address] Social History Tobacco Use Types Packs/Day Years [...] on filedocumented in this encounter Care Teams Hospital Orderly Relationship Specialty Start Date End Date Joshua Funez MD [address] [place] [address] PCP - General 05/13/17 01/04/23 documented as of this encounter
--- OUTSIDE RECORDS SUMMARY | 2025-09-03 12:34 | XMS_ITS | Encounter Summary ---
Author Organization [facility] Address [address] [place] [address] Phone Care Team Providers Care News Agent Name Role Phone Joshua Funez MD Primary Care Provider [phone] Encounter Details Date Type Department Care Team (Late st Contact Info) Description 02/24/2017 Documentation EM Family Medicine [address] [place] [address] Family Medicine, Physician [address] [place], [place] [phone] Social History Tobacco Use Types Packs/Day Years [...] on filedocumented in this encounter Care Teams News Agent Relationship Specialty Start Date End Date Joshua Funez MD [address] [place] [address] FOX Singh [address] PCP - General 05/13/17 01/04/23 documented as of this encounter
--- OUTSIDE RECORDS SUMMARY | 2025-09-03 12:34 | XMS_ITS | Encounter Summary ---
Author Organization [facility] Address [address] [place] [address] Phone Care Team Providers Care Plant Nursery Worker Name Role Phone Joshua Funez MD Primary Care Provider Encounter Details Date Type Department Care Team (Late st Contact Info) Description 02/24/2017 Documentation EM Family Medicine [address] [place] [address] Family Medicine, Physician [address] [place], [place] [phone] Social History Tobacco Use Types Packs/Day Years [...] on filedocumented in this encounter Care Teams Plant Nursery Worker Relationship Specialty Start Date End Date Joshua Funez MD [address] [place] [address] [place] Singh [address] PCP - General 05/13/17 01/04/23 documented as of this encounter
== END 2025-09-03 11:35 | disposition home or self-care (01) ==
LOC: HO.HMCH 10:46
PROVIDERS: PCP Internal Medicine; Visit Provider Internal Medicine
DX: E66.01 Morbid (severe) obesity due to excess calories (principal); Z68.42 Body mass index [BMI] 45.0-49.9, adult; F84.0 Autistic disorder; K59.00 Constipation, unspecified; Z79.4 Long term (current) use of insulin; E11.9 Type 2 diabetes mellitus without complications

== ENCOUNTER → 2025-09-03 10:46 | Outpatient (BNVA) | payer MEDICARE, MEDICAID, SELFPAY | PROVIDERS: PCP Internal Medicine; Visit Provider Internal Medicine | DX: E66.01 Morbid (severe) obesity due to excess calories (principal); Z68.42 Body mass index [BMI] 45.0-49.9, adult; K59.00 Constipation, unspecified; F84.0 Autistic disorder; E11.9 Type 2 diabetes mellitus without complications; Z79.4 Long term (current) use of insulin; Z71.3 Dietary counseling and surveillance | CPT/HCPCS: 83036; 99212 ==

== ENCOUNTER 2025-09-24 09:55 | Outpatient (AMB) | payer MEDICARE, MEDICAID, SELFPAY ==
[2025-09-24 09:59] VITALS: BP 110/60; PULSE 82; RESP 16; TEMP 36.3; O2SAT 98; BMI 45.2
--- NOTE | 2025-09-24 09:59 | A.OFFPC_ITS ---
Vital Signs 09/24/25 09:59 Height 5 ft 5 in Weight 271 lb 9 oz BMI 45.2 BP 110/60 Blood Pressure Location Lt brachial Position Sitting Respiration 16 Pulse 82 Pulse Source Pulse Oximeter Temp 97.3 F Temp Source Temporal Artery Scan Pulse Oximetry (%) 98 Oxygen Delivery Method Room Air Intake Visit Reasons: pe Clinical Phlebotomist Required: No Accompanied by: Self / Same As Patient Allergies insulin degludec (From Tresiba FlexTouch U-100) Adverse Reaction (Intermediate, Verified 09/24/25 10:40) low blood glucose dulaglutide (From Trulicity) Adverse Reaction (Unknown, Verified 09/24/25 10:40) no positive effect topamax Adverse Reaction (Unknown, Uncoded 09/24/25 10:40) Unknown Medication List - Last Reconciled 09/24/25 by Angelina Rowan MD acetaminophen 650 mg (2 x 325 mg) PO Q6H PRN albuterol sulfate 90 mcg/actuation (Ventolin HFA) 1 puff inhalation Q4H PRN aluminum-magnesium hydroxide 200-200 mg/5 mL (MAG-AL) 30 mL PO Q6H PRN aripiprazole (Abilify) 5 mg PO DAILY 30 days atorvastatin 40 mg PO DAILY benztropine 0.5 mg PO BID 30 days bupropion HCl XL 150 mg PO DAILY 30 days clonidine HCl 0.2 mg See Protocol PO TID 30 days docusate sodium 100 mg PO BID 30 days fluoxetine 10 mg PO DAILY 30 days haloperidol 10 mg PO TID 30 days haloperidol 5 mg PO DAILY PRN 30 days hydroxyzine HCl 25 mg PO DAILY PRN 30 days lisinopril 10 mg PO DAILY 90 days magnesium hydroxide (Milk of Magnesia) 15 mL PO BEDTIME magnesium hydroxide (Milk of Magnesia) 30 mL PO DAILY PRN metformin 500 mg PO BID 90 days semaglutide (Ozempic) 1 mg (0.75 mL) subcut MO trazodone 200 mg (2 x 100 mg) PO BEDTIME PRN 30 days Tobacco use date assessed: 09/03/25 Dental Screening Dental Screen Date: 09/24/25 Did you have a dental visit in the last 12 months?: No Did you have a dental problem in the last 6 months where you did not have access to dental care?: No Was dental information given to patient?: No HPI HPI Comments History of Present Illness Details This is a 30-year-old male with developmental delay, mild major depression, diabetes mellitus type 2 and schizoaffective disorder that comes for his physical exam. A1c within goal this month being less than 7%. Will receive flu vaccine today. He is morbidly obese with a BMI of 45.2 and I will increase Ozempic to 2 mg. [facility] Medical History Diabetes mellitus type 2, controlled, without complications Developmental disability Autism Obesity due to excess calories Type 2 diabetes mellitus with hyperglycemia, with long-term current use of insulin Hyperlipidemia LDL goal <100 Type 2 diabetes mellitus with hypoglycemia without coma Surgical History No history of previous surgery Family History Father Hypertension Type 2 diabetes mellitus Mother No problems noted. Social History Household Members: Family Housing: House Do you presently have visiting nurse or other home services: No Alcohol intake: never Patient Tobacco Use Status: Never used Tobacco e-Cigarette/Vaping Use: Never Used Second Hand Smoke Exposure: No Substance Use Type: Amphetamines Advance Directives Date on File: 04/22/22 service: No Current occupational status: disabled Sexual orientation: Straight/Heterosexual Cognitive needs: No Hearing needs: No Vision needs: No Questionnaire PHQ-9 Over the last 2 weeks, how often have you been bothered by any of the following problems? 1. Little interest or pleasure in doing things: several days 2. Feeling down, depressed, or hopeless: several days 3. Trouble falling or staying asleep, or sleeping too much: several days 4. Feeling tired or having little energy: several days 5. Poor appetite or overeating: several days 6. Feeling bad about yourself - or that you are a failure or have let yourself or your family down: several days 7. Trouble concentrating on things, such as reading the newspaper or watching television: several days 8. Moving or speaking so slowly that other people could have noticed. Or the opposite - being so fidgety or restless that you have been moving around a lot more than usual: several days 9. Thoughts that you would be better off or of hurting yourself in some way: several days Total score: 9 Depression Screening Interpretation: Positive Depression Screening Follow-up: Existing condition and Follow-up Visit Requested Depression Screening Done: Yes 47674 - PHQ-9 Billing: Yes Source: Developed by Drs. Javier Sims, Maranda Cain, Franklin Mendoza and colleagues, with an educational yue from [employer]. Thrive Questionnaire Date Thrive assessed: 09/24/25 I am a: Parent/Caregiver What is your living situation today?: I have a steady place to live Within the past 12 months, did the food you bought not last and you didn't have the money to get more?: Never true Within the past 12 months, did you worry whether your food would run out before you got money to buy more?: Never true Do you have trouble paying for medicines?: No Do you have trouble getting transportation to medical appointments?: No Do you have trouble paying your heating and electricity bill?: No Do you have trouble taking care of your child, family member or friend?: No Do you have trouble with day-to-day activities such as bathing, preparing meals, shopping, managing finances, etc.?: No Are you currently unemployed and looking for a job?: No Are you interested in more education?: No Please select the resources that you would like help with: None Currently or been in a relationship where the following occur: No concerns reported THRIVE Score: 0 AUDIT C Alcohol Use Questionnaire (AUDIT-C) 1. How often do you have a drink containing alcohol?: Never Total Score: 0 Score Reviewed/Action Taken: No CHRISTA-7 AMB Questionnaire CHRISTA-7 Date CHRISTA - 7 assessed: 09/24/25 Feeling nervous, anxious, or on edge: 0 = Not at all Not being able to stop or control worryin = Not at all Worrying too much about different things: 0 = Not at all Trouble relaxin = Not at all Being so restless that it is hard to sit still: 0 = Not at all Becoming easily annoyed or irritable: 0 = Not at all Feeling afraid as if something awful might happen: 0 = Not at all Total CHRISTA-7 score (0-4 normal; 5-9 mild; 10-14 moderate; 15-21 severe): 0 Source: Developed by Drs. Javier Sims, Maranda Cain, Franklin Mendoza and colleagues, with an educational yue from [employer]. CHRISTA-7 Assessment Billing CHRISTA-7 Assessment Tool: CHRISTA-7 Assessment 02169 Review of Systems Const All systems reviewed & are unremarkable except as noted in HPI and below Card Denies chest pain at rest, Denies chest pain with activity, Denies edema, Denies irregular heart rhythm, Denies claudication, Denies dyspnea, Denies dyspnea on exertion, Denies orthopnea, Denies paroxysmal nocturnal dyspnea and Denies slow heart rate Resp Denies cough, Denies dyspnea and Denies dyspnea on exertion GI Denies abdominal pain, Denies change in bowel habits, Denies excessive flatus, Denies nausea and Denies vomiting Physical exam (Primary Care) Vital Signs: Last Vital Signs Temp 97.3 F 09/24/25 09:59 Pulse 82 09/24/25 09:59 Resp 16 09/24/25 09:59 BP 110/60 09/24/25 09:59 Pulse Ox 98 09/24/25 09:59 Oxygen Delivery Method Room Air 09/24/25 09:59 BMI result Body Mass Index 45.2 BMI Assessment/Plan discussion: High BMI High, discussed plan: lifestyle, weight reduction, dietary and physical activity Tobacco/Smoking Status: Tobacco use Status Tobacco use date assessed 09/03/25 09/24/25 10:12 Patient Tobacco Use Status Never used Tobacco 09/24/25 10:12 e-Cigarette/Vaping Use Never Used 09/24/25 10:12 PHQ-9: PHQ-9 Score PHQ-9: Total score 9 09/24/25 11:01 Depression Screening Interpretation: Positive Depression Screening Follow-up: Existing condition and Follow-up Visit Requested Thrive Assessment: Date of Thrive Assessment Date Thrive assessed 09/24/25 09/24/25 10:12 Currently or been in a relationship where the following occur: No concerns reported HENMT Head: Yes normal to inspection, Yes normocephalic and Yes atraumatic Ears: external ears normal Eyes General: appearance normal, both eyes and all related structures Eyelids: Yes eyelids normal Conjunctivae: conjunctivae normal Neck Neck: Yes normal visual inspection and Yes supple Resp Effort & Inspection: normal respiratory effort Auscultation: clear to auscultation bilaterally Cardio Jugular venous distension: no JVD Rate: regular rate Rhythm: regular rhythm Heart sounds: S1 normal heart sound present and S2 normal heart sound present GI Inspection: Yes normal to inspection Palpation (GI): Soft to palpation and nontender Auscultation: normal bowel sounds Skin General skin exam: no rashes or lesions noted Neuro General: no focal motor deficits Extrem General: Yes full ROM Psych Appearance: grossly normal Office Procedures Flu Questionnaire Does the patient have a severe egg allergy?: No Does the patient have severe life threatening allergies?: No Does the patient have a fever or illness today?: No Has the patient ever had Guillain-Kennedy Syndrome?: No Has the patient ever had any past reaction to a flu shot?: No Immunizations Fluarix [id number] (PF) 45 mcg (15 mcg x 3)/0.5 mL IM syringe Performing Provider: Angelina Rowan MD [facility] [place] Administered by: Candelaria Grant RN on 09/24/25 11:00 Dose Route Admin Location Dispensed Lot Number Expiration Date NDC Grader Patrol 0.5 mL IM Left Deltoid 0.5 mL [id number] 04/01/26 [id number] Expand Beyond VIS Given Date VIS Provided VIS Publication Date 09/24/25 Single Vaccine 24 Eligibility Eligibility Date Funding Source Not [facility] Eligible 09/24/25 Private Coding Level of Care Code Est Pt Prev Care 18-39y(11243) Diagnoses Physical exam Z00.00 Morbid obesity with BMI of 45.0-49.9, adult E66.01; Z68.42 Diabetes mellitus type 2, controlled, without complications E11.9 Schizoaffective disorder, unspecified type F25.9 Schizoaffective disorder type: unspecified Mild major depression F32.0 Additional Codes CHRISTA-7 Assessment Billing - CHRISTA-7 Assessment Tool: CHRISTA-7 Assessment 74242 ([id number]) PHQ-9 - 31568 - PHQ-9 Billing: Yes ([id number]) Time Spent (min) 30 Assessment & Plan Assessment & Plan (1) Physical exam: Code(s): Z00.00 - Encounter for general adult medical examination without abnormal findings Category: Medical (2) Morbid obesity with BMI of 45.0-49.9, adult: Code(s): E66.01 - Morbid (severe) obesity due to excess calories; Z68.42 - Body mass index [BMI] 45.0-49.9, adult Category: Medical (3) Diabetes mellitus type 2, controlled, without complications: Code(s): E11.9 - Type 2 diabetes mellitus without complications Category: Medical (4) Schizoaffective disorder: Code(s): F25.9 - Schizoaffective disorder, unspecified Category: Medical Qualifiers: Schizoaffective disorder type: unspecified Qualified Code(s): F25.9 - Schizoaffective disorder, unspecified (5) Mild major depression: Code(s): F32.0 - Major depressive disorder, single episode, mild Category: Medical Plan Repeat physical exam in a year. A1c goal is equal or less than 7%. Blood pressure goal is equal or less than 130/80. LDL goal is less than 70. Orders: Orders Lipid Panel 4 Months E78.5 - Hyperlipidemia, unspecified Microalbumin, Random (w Creat) 4 Months R80.9 - Proteinuria, unspecified Comprehensive [place]. Panel Fast 4 Months E11.9 - Type 2 diabetes mellitus without complications, Z79.4 - buttermaker helper (current) use of insulin Influenza [id number] Immunization Today Z23 - Encounter for immunization Medications: New semaglutide (Ozempic) 2 mg (0.75 mL) subcut QWEEK 3 mL 0RF 4 weeks E11.9 - Type 2 diabetes mellitus without complications, Z79.4 - buttermaker helper (current) use of insulin Discontinued semaglutide (Ozempic) Discontinued Reason: Patient Completed Course 1 mg (0.75 mL) subcut MO 3 mL 0RF
--- OUTSIDE RECORDS SUMMARY | 2025-09-24 10:47 | XMS_ITS | Encounter Summary ---
Author Organization [facility] Address [address] [place] [address] Phone Care Team Providers Care Enterprise Infrastructure Architect Name Role Phone Joshua Funez MD Primary Care Provider [phone] Encounter Details Date Type Department Care Team (Late st Contact Info) Description 10/05/2016 Documentation EM Family Medicine [address] [place] [address] Family Medicine, Physician [address] [place], [place] [phone] Social History Tobacco Use Types Packs/Day Years [...] on filedocumented in this encounter Care Teams Enterprise Infrastructure Architect Relationship Specialty Start Date End Date Joshua Funez MD [address] [facility] [place] [address] PCP - General 05/13/17 01/04/23 documented as of this encounter
--- OUTSIDE RECORDS SUMMARY | 2025-09-24 10:47 | XMS_ITS | Clinical Summary ---
Author Organization [facility] Address [address] [place] [address] Phone Care Team Providers Care Integration Consultant Name Role Phone Unavailable Primary Care Provider [...] Vaccines Completed 10/02/2014, 05/04/20 11 Meningococcal Vaccine Completed 10/06/2015, 008 Men B Vaccine Aged Out No longer elig ible based on patient's age to complete this topic Pneumococcal Vaccine Aged Out No long er eligible based on patient's age to complete this topic
--- OUTSIDE RECORDS SUMMARY | 2025-09-24 10:47 | XMS_ITS | Encounter Summary ---
Author Organization [facility] Address [address] [place] [address] Phone Care Team Providers Care Traffic Analyst Name Role Phone Joshua Funez MD Primary Care Provider [phone] Encounter Details Date Type Department Care Team (Late st Contact Info) Description 02/24/2017 Documentation EM Family Medicine [address] [place] [address] Family Medicine, Physician [address] [place], [place] [phone] Social History Tobacco Use Types Packs/Day Years [...] on filedocumented in this encounter Care Teams Traffic Analyst Relationship Specialty Start Date End Date Joshua Funez MD [address] [place] [address] [place] Singh [address] PCP - General 05/13/17 01/04/23 documented as of this encounter
--- OUTSIDE RECORDS SUMMARY | 2025-09-24 10:47 | XMS_ITS | Encounter Summary ---
Author Organization [facility] Address [address] [place] [address] Phone Care Team Providers Care Assistant Counsel Name Role Phone Joshua Funez MD Primary Care Provider Encounter Details Date Type Department Care Team (Late st Contact Info) Description 02/21/2017 Documentation EM Family Medicine [address] [place] [address] Family Medicine, Physician [address] [place], [place] [phone] Social History Tobacco Use Types Packs/Day Years [...] on filedocumented in this encounter Care Teams Assistant Counsel Relationship Specialty Start Date End Date Joshua Funez MD [address] [place] [address] FOX Singh [address] PCP - General 05/13/17 01/04/23 documented as of this encounter
--- OUTSIDE RECORDS SUMMARY | 2025-09-24 10:47 | XMS_ITS | Encounter Summary ---
Author Organization [facility] Address [address] [place] [address] Phone Care Team Providers Care Glove Parts Cutter Name Role Phone Joshua Funez MD Primary Care Provider [phone] Encounter Details Date Type Department Care Team (Late st Contact Info) Description 02/24/2017 Documentation EM Family Medicine [address] [place] [address] Family Medicine, Physician [address] [place], [place] [phone] Social History Tobacco Use Types Packs/Day Years [...] on filedocumented in this encounter Care Teams Glove Parts Cutter Relationship Specialty Start Date End Date Joshua Funez MD [address] [place] [address] FOX Singh [address] PCP - General 05/13/17 01/04/23 documented as of this encounter
--- OUTSIDE RECORDS SUMMARY | 2025-09-24 10:47 | XMS_ITS | Encounter Summary ---
Author Organization [facility] Address [address] [place] [address] Phone Care Team Providers Care Repairer Sash And Door Name Role Phone Joshua Funez MD Primary Care Provider [phone] Encounter Details Date Type Department Care Team (Late st Contact Info) Description 02/24/2017 Documentation EM Family Medicine [address] [place] [address] Family Medicine, Physician [address] [place], [place] [phone] Social History Tobacco Use Types Packs/Day Years [...] on filedocumented in this encounter Care Teams Repairer Sash And Door Relationship Specialty Start Date End Date Joshua Funez MD [address] [place] [address] FOX Singh [address] PCP - General 05/13/17 01/04/23 documented as of this encounter
--- OUTSIDE RECORDS SUMMARY | 2025-09-24 10:47 | XMS_ITS | Encounter Summary ---
Author Organization [facility] Address [address] [place] [address] Phone Care Team Providers Care Marshmallow Machine Operator Name Role Phone Joshua Funez MD Primary Care Provider [phone] Encounter Details Date Type Department Care Team (Late st Contact Info) Description 01/04/2017 Documentation EM Family Medicine [address] [place] [address] Family Medicine, Physician [address] [place], [place] [phone] Social History Tobacco Use Types Packs/Day Years [...] on filedocumented in this encounter Care Teams Marshmallow Machine Operator Relationship Specialty Start Date End Date Joshua Funez MD [address] [place] [address] FOX Singh [address] PCP - General 05/13/17 01/04/23 documented as of this encounter
--- OUTSIDE RECORDS SUMMARY | 2025-09-24 10:47 | XMS_ITS | Encounter Summary ---
Author Organization [facility] Address [address] [place] [address] Phone Care Team Providers Care Oracle Brm Developer Name Role Phone Joshua Funez MD Primary Care Provider [phone] Encounter Details Date Type Department Care Team (Late st Contact Info) Description 11/30/2016 Documentation EM Family Medicine [address] [place] [address] Family Medicine, Physician [address] [place], [place] [phone] Social History Tobacco Use Types Packs/Day Years [...] on filedocumented in this encounter Care Teams Oracle Brm Developer Relationship Specialty Start Date End Date Joshua Funez MD [address] [place] [address] FOX Singh [address] PCP - General 05/13/17 01/04/23 documented as of this encounter
--- OUTSIDE RECORDS SUMMARY | 2025-09-24 10:47 | XMS_ITS | Encounter Summary ---
Author Organization [facility] Address [address] [place] [address] Phone Care Team Providers Care Assistant Broker Name Role Phone Joshua Funez MD Primary Care Provider [phone] Encounter Details Date Type Department Care Team (Late st Contact Info) Description 02/24/2017 Documentation EM Family Medicine [address] [place] [address] Family Medicine, Physician [address] [place], [place] [phone] Social History Tobacco Use Types Packs/Day Years [...] filedocumented in this encounter Care Teams Assistant Broker Relationship Specialty Start Date End Date Joshua Funez MD [address] [place] [address] FOX Singh [address] PCP - General 05/13/17 01/04/23 documented as of this encounter
--- OUTSIDE RECORDS SUMMARY | 2025-09-24 10:47 | XMS_ITS | Encounter Summary ---
Author Organization [facility] Address [address] [place] [address] Phone Care Team Providers Care Litigation Attorney Associate Name Role Phone Joshua Funez MD Primary Care Provider Encounter Details Date Type Department Care Team (Late st Contact Info) Description 05/19/2017 Conversion Encounter [facility] [address] [place] [address] Social History Tobacco Use Types Packs/Day Years [...] on filedocumented in this encounter Care Teams Litigation Attorney Associate Relationship Specialty Start Date End Date Joshua Funez MD [address] [place] [address] PCP - General 05/13/17 01/04/23 documented as of this encounter
== END 2025-09-24 11:01 | disposition home or self-care (01) ==
LOC: HO.HMCH 09:56
PROVIDERS: PCP Internal Medicine; Visit Provider Internal Medicine
DX: Z00.00 Encounter for general adult medical examination without abnormal findings (principal); E11.9 Type 2 diabetes mellitus without complications; E66.01 Morbid (severe) obesity due to excess calories; Z68.42 Body mass index [BMI] 45.0-49.9, adult; F25.9 Schizoaffective disorder, unspecified; F32.0 Major depressive disorder, single episode, mild; Z23 Encounter for immunization

== ENCOUNTER → 2025-09-24 09:55 | Outpatient (BNVA) | payer MEDICARE, MEDICAID, SELFPAY | PROVIDERS: PCP Internal Medicine; Visit Provider Internal Medicine | DX: Z00.00 Encounter for general adult medical examination without abnormal findings (principal); E66.01 Morbid (severe) obesity due to excess calories; Z68.42 Body mass index [BMI] 45.0-49.9, adult; E11.9 Type 2 diabetes mellitus without complications; F25.9 Schizoaffective disorder, unspecified; Z79.4 Long term (current) use of insulin; Z79.899 Other long term (current) drug therapy; Z13.31 Encounter for screening for depression; Z13.39 Encounter for screening examination for other mental health and behavioral disorders; Z23 Encounter for immunization | CPT/HCPCS: 90471; 90656; 96127; 99395 ==